=== PATIENT | male | born 1940 | race African-American/Black ===

== ENCOUNTER 2017-08-10 02:08 | Inpatient (IN) | payer MEDICARE ==
[2017-08-10 04:21] LABS: Eosinophils % (Auto) 3.6 % (0.0-4.3); Hematocrit 36.1 % (35.5-45.6); Hemoglobin 11.8 gm/dl (11.8-15.2); Lymphocytes % (Auto) 7.3 % (13.4-35.0); Mean Corpuscular HGB Conc 33 % (32-34); Mean Corpuscular Hemoglobin 32 pg (28-32); Mean Corpuscular Volume 97 fl (84-94); Monocytes % (Auto) 8.1 % (0.0-7.3); Platelet Count 172 K/mm3 (140-440); Red Blood Count 3.73 M/mm3 (3.65-5.03)
[2017-08-10 04:22] LABS: Basophils % (Auto) 0.3 % (0.0-1.8); Eosinophils # (Auto) 0.4 K/mm3 (0.0-0.4); Lymphocytes # (Auto) 0.7 K/mm3 (1.2-5.4); Monocytes # (Auto) 0.8 K/mm3 (0.0-0.8)
[2017-08-10 04:29] LABS: INR 2.49 (0.87-1.13)
[2017-08-10 04:30] LABS: Partial Thromboplastin Time 48.2 Sec. (24.2-36.6)
[2017-08-10 04:31] LABS: Albumin 4.1 g/dL (3.9-5)
[2017-08-10 04:38] LABS: Calcium 9.6 mg/dL (8.4-10.2)
--- NOTE | 2017-08-10 05:40 | Cat Scan Report ---
FINAL REPORT EXAM: CT ABDOMEN PELVIS WO CON HISTORY: Abd pain , hypocoagulative state TECHNIQUE: CT images obtained through the Abdomen and Pelvis without contrast. Transaxial, coronal and sagittal reformats are provided. PRIORS: None. FINDINGS: Imaged intrathoracic contents are remarkable for partially imaged pacemaker leads, cardiomegaly, prior aortic valve surgery, and small left and trace right pleural effusions with associated compressive atelectasis. Diminutive kidneys with renal cortical scarring. Extensive vascular calcification. Possible 1 millimeter nonobstructive collecting system stones. No hydroureteronephrosis. No stones in the urinary bladder. Patient status post prostatectomy. Surgical clips and pelvic phleboliths are noted. The liver, gallbladder, pancreas, spleen, and adrenal glands demonstrate a normal noncontrast appearance. The rectum is distended with stool. No perirectal edema or stranding. Large stool burden overall. Hollow enteric organs are otherwise normal in course and caliber. Appendix is normal. No intra-abdominal free air/fluid or lymphadenopathy. Aorta is normal in course and caliber with densely scattered atherosclerosis. Midline lower abdominal/pelvic incision. There is distension with adjacent stranding and edema involving the right transverse and oblique abdominal musculature best demonstrated on axial series 3, images 109-140. No acute or aggressive appearing skeletal findings. IMPRESSION: Hematoma within the right transversus and oblique abdominal muscles. Consider follow-up to ensure resolution as an underlying mass with tumoral hemorrhage could appear identical. Large stool burden. Likely cardiogenic small left and trace right pleural effusion. Additional chronic and postsurgical findings as detailed above. Dr. Hodgson discussed findings with Dr. Dillon At 0430 central Time on 08/10/2017 immediately following the examination.
[2017-08-10] MEDS ORDERED: VITAMIN K (ADULT ONLY) 5 MG in NACL 0.9% 50 ML IV ONE (06:06)
--- NOTE | 2017-08-10 06:15 | Emergency Department Report ---
HPI - General Chief Complaint: Skin/Abscess/Foreign Body Time Seen by Provider: 08/10/17 05:55 - HPI HPI: This is a 76-year-old Russian male presents to the emergency department with complaint of a few days of right-sided abdominal and flank pain and some expanding bruising of the skin. He denies any trauma to the area. He denies any nausea, vomiting, fever but does say that he has been having some constipation. He has a history of end-stage renal disease on hemodialysis on Friday//Friday. He has a past medical history of hypertension, atrial fibrillation on Coumadin, aortic stenosis, coronary artery disease with [place]. There is a language barrier so the language line was used. He was able to show me that his primer inserting machine adjuster is Dr. Duncan with [facility]. Unknown who he sees for nephrology. ED Past Medical Hx - Past Medical History Previous Medical History?: Yes Hx Hypertension: Yes Hx Heart Attack/AMI: Yes (stents) Hx Congestive Heart Failure: Yes Hx Diabetes: No Hx GERD: Yes Hx Renal Disease: Yes (TTS dialysis) Hx Arthritis: Yes Hx Kidney Stones: Yes (dialysis , , Fri) Additional medical history: high cholesterol, hypothyroidism. Graft to right arm. CAD - Surgical History Past Surgical History?: Yes Hx Open Heart Surgery: Yes Additional Surgical History: MICHAEL - Social History Smoking Status: Never Smoker Substance Use Type: None - Medications Home Medications: Home Medications Medication Instructions Recorded Confirmed Last Taken Type Fluticasone Propionate [Flovent 1 puff IH BID 03/06/14 10/02/15 08/22/15 History Diskus] Levothyroxine [Synthroid] 88 mcg PO QAM 03/06/14 10/02/15 08/22/15 History Omeprazole [PriLOSEC] 20 mg PO QDAY 03/06/14 10/02/15 08/22/15 History Sevelamer Carbonate [Renvela] 800 mg PO TIDWM 03/06/14 10/02/15 08/22/15 History Simvastatin 20 mg PO DAILY 03/06/14 10/02/15 08/22/15 History Aspirin EC [Aspirin Enteric Coated 81 mg PO DAILY 07/06/14 10/02/15 08/22/15 History TAB] Docusate Calcium (Nf) [Surfak (Nf)] 100 mg PO DAILY 07/06/14 10/02/15 08/22/15 History Ipratropium/Albuterol Sulfate 2 inh INHALATION DAILY 08/23/15 10/02/15 08/22/15 History [Combivent Respimat] Budesonide [Pulmicort Respules] 0.5 mg IH Q12HRT nebu 10/04/15 Unknown Rx Docusate Sodium [Colace CAP] 100 mg PO BID capsule 10/04/15 Unknown Rx HYDROcodone/APAP 5-325 [[place] 1 each PO Q6H PRN #30 tablet 10/04/15 Unknown Rx 5-325 mg TAB] Ipratropium/Albuterol Sulfate 1 ampul IH Q12HRT #30 ampul.neb 10/04/15 Unknown Rx [DUONEB *Not for PRN Use*] ED Review of Systems ROS: Stated complaint: RT FLANK PAIN Other details as noted in HPI Comment: All other systems reviewed and negative Constitutional: denies: chills, fever Eyes: denies: eye pain, eye discharge, vision change ENT: denies: ear pain, throat pain Respiratory: denies: cough, shortness of breath, wheezing Cardiovascular: denies: chest pain, palpitations Gastrointestinal: abdominal pain, constipation. denies: nausea, vomiting Genitourinary: denies: urgency, dysuria Musculoskeletal: denies: back pain, joint swelling, arthralgia Skin: change in color (ecchymosis). denies: rash Neurological: denies: headache, weakness, paresthesias Physical Exam - Physical Exam Vital Signs: Vital Signs 08/10/17 02:48 Temperature 98 F Pulse Rate 68 Respiratory 18 Rate Blood Pressure 106/49 O2 Sat by Pulse 98 Oximetry Physical Exam: GENERAL: The patient is well-developed well-nourished. HENT: Normocephalic. Atraumatic. Patient has moist mucous membranes. EYES: Extraocular motions are intact. Pupils equal reactive to light bilaterally. NECK: Supple. Trachea is midline. CHEST/LUNGS: Clear to auscultation. There is no respiratory distress noted. HEART/CARDIOVASCULAR: Regular. There is no tachycardia. There is no murmur. ABDOMEN: Abdomen is soft. There is mild tenderness palpation to the right lower quadrant of the abdomen. Patient has normal bowel sounds. SKIN: There is a large area of ecchymosis to the right lateral abdomen and flank. NEURO: The patient is awake, alert, and oriented. The patient is cooperative. The patient has no focal neurologic deficits. The patient has normal speech. MUSCULOSKELETAL: There is no tenderness or deformity. There is no limitation range of motion. There is no evidence of acute injury. ED Course Vital Signs 08/10/17 02:48 Temperature 98 F Pulse Rate 68 Respiratory 18 Rate Blood Pressure 106/49 O2 Sat by Pulse 98 Oximetry - Consultations Consultation #1: I spoke with the general surgeon, Dr. Lara, who recommends reversal of the anticoagulation for about one week, ice to the area of the hematoma and if possible an abdominal binder and he says he is happy to consult on this patient. I spoke to Dr. Kwan, primer inserting machine adjuster for [facility], who is aware of our plan to reverse the anticoagulation and they are happy to see the patient as a consult if necessary. 08/10/17 06:15 ED Medical Decision Making - Lab Data Result diagrams: 08/10/17 03:51 08/10/17 03:51 - Radiology Data Radiology results: report reviewed EXAM: CT ABDOMEN PELVIS WO CON HISTORY: Abd pain , hypocoagulative state TECHNIQUE: CT images obtained through the Abdomen and Pelvis without contrast. Transaxial, coronal and sagittal reformats are provided. PRIORS: None. FINDINGS: Imaged intrathoracic contents are remarkable for partially imaged pacemaker leads, cardiomegaly, prior aortic valve surgery, and small left and trace right pleural effusions with associated compressive atelectasis. Diminutive kidneys with renal cortical scarring. Extensive vascular calcification. Possible 1 millimeter nonobstructive collecting system stones. No hydroureteronephrosis. No stones in the urinary bladder. Patient status post prostatectomy. Surgical clips and pelvic phleboliths are noted. The liver, gallbladder, pancreas, spleen, and adrenal glands demonstrate a normal noncontrast appearance. The rectum is distended with stool. No perirectal edema or stranding. Large stool burden overall. Hollow enteric organs are otherwise normal in course and caliber. Appendix is normal. No intra-abdominal free air/fluid or lymphadenopathy. Aorta is normal in course and caliber with densely scattered atherosclerosis. Midline lower abdominal/pelvic incision. There is distension with adjacent stranding and edema involving the right transverse and oblique abdominal musculature best demonstrated on axial series 3, images 109-140. No acute or aggressive appearing skeletal findings. IMPRESSION: Hematoma within the right transversus and oblique abdominal muscles. Consider follow-up to ensure resolution as an underlying mass with tumoral hemorrhage could appear identical. Large stool burden. Likely cardiogenic small left and trace right pleural effusion. Additional chronic and postsurgical findings as detailed above. Dr. Reed discussed findings with Dr. Dillon At 0430 central Time on 08/10/2017 immediately following the examination. Transcribed By: MB Dictated By: EVARISTO REED MD Electronically Authenticated By: EVARISTO REED MD Signed Date/Time: 08/10/17 0138 - Medical Decision Making Patient presents with the complaint of some right-sided abdominal pain and bruising that is atraumatic. Labs are mostly unremarkable and show a therapeutic INR level. However CT of the abdomen and pelvis shows a hematoma within the abdominal muscles and also could display underlying mass with tumor hemorrhage. There is a large stool burden but no signs of obstruction. Gen. surgery was consult and they recommended reversal of the Coumadin so vitamin K was given. [facility] is aware and can be consult if necessary. This patient was presented to the overnight hospitalist who plans to give it to the morning hospitalist service for admission. - Differential Diagnosis appendicitis, colitis, muscle hematoma, Diverticulitis Critical Care Time: No Critical care attestation.: If time is entered above; I have spent that time in minutes in the direct care of this critically ill patient, excluding procedure time. ED Disposition Clinical Impression: Nontraumatic hematoma of muscle, ESRD on dialysis, Current use of residential anticoagulation Abdominal pain Qualifiers: Abdominal location: unspecified location Qualified Code(s): R10.9 - Unspecified abdominal pain Disposition: OP ADMIT IP TO THIS HOSP Is pt being admited?: Yes Condition: Fair Referrals: EVARISTO VAZQUEZ MD [Primary Care Provider] - 3-5 Days Time of Disposition: 06:31
[2017-08-10] MEDS ORDERED: DULCOLAX PR PRN (07:58)
[2017-08-10] MEDS ORDERED: TYLENOL PO PRN (07:58)
[2017-08-10] MEDS ORDERED: MORPHINE IV PRN (07:58)
[2017-08-10] MEDS ORDERED: ZOFRAN IV PRN (07:58)
--- NOTE | 2017-08-10 08:02 | History and Physical Report ---
History of Present Illness Date of examination: 08/10/17 Date of admission: 08/10/17 Chief complaint: Reddish rash right flank History of present illness: Patient is 76 yo with aortic stenosis, coronary artery disease, ESRD on dialysis, congestive heart failure, chronic atrial fibrillation .. He presents with right flank redness. He denies trauma, he denies fall. No fever. He is most probabbly on Coumadin for atrial fibrillation. There was no chest pain, no shortness of breath. He states he is compliant with dialysis. CT Abdomen revealed hematoma in right transverse and oblique abdominal muscles. His INR is 2.49. He will be admitted for further evaluation. Past History Past Medical History: acute [place], CAD, ESRD, heart failure, hypertension, hyperlipidemia, other (aortic stenosis) Past Surgical History: CABG Social history: , full code. denies: alcohol abuse Family history: other Medications and Allergies Allergies Allergy/AdvReac Type Severity Reaction Status Date / Time No Known Allergies Allergy Verified 05/22/16 17:56 Home Medications Medication Instructions Recorded Confirmed Last Taken Type Fluticasone Propionate [Flovent 1 puff IH BID 03/06/14 08/10/17 08/22/15 History Diskus] Levothyroxine [Synthroid] 88 mcg PO QAM 03/06/14 08/10/17 08/22/15 History Omeprazole [PriLOSEC] 20 mg PO QDAY 03/06/14 08/10/17 08/22/15 History Sevelamer Carbonate [Renvela] 800 mg PO TIDWM 03/06/14 08/10/17 08/22/15 History Simvastatin 20 mg PO DAILY 03/06/14 08/10/17 08/22/15 History Aspirin EC [Aspirin Enteric Coated 81 mg PO DAILY 07/06/14 08/10/17 08/22/15 History TAB] Docusate Calcium (Nf) [Surfak (Nf)] 100 mg PO DAILY 07/06/14 08/10/17 08/22/15 History Ipratropium/Albuterol Sulfate 2 inh INHALATION DAILY 08/23/15 08/10/17 08/22/15 History [Combivent Respimat] Budesonide [Pulmicort Respules] 0.5 mg IH Q12HRT nebu 10/04/15 08/10/17 Unknown Rx Docusate Sodium [Colace CAP] 100 mg PO BID capsule 10/04/15 08/10/17 Unknown Rx HYDROcodone/APAP 5-325 [[place] 1 each PO Q6H PRN #30 tablet 10/04/15 08/10/17 Unknown Rx 5-325 mg TAB] Ipratropium/Albuterol Sulfate 1 ampul IH Q12HRT #30 ampul.neb 10/04/15 08/10/17 Unknown Rx [DUONEB *Not for PRN Use*] Active Meds: Active Medications Acetaminophen (Tylenol) 650 mg PO Q4H PRN PRN Reason: Pain MILD(1-3)/Fever >100.5/FRASER Review of Systems All systems: negative (No fever, no headache,no vomiting. All other systems reviewed and are negative) Exam - Physical Exam Narrative exam: Gen Appearance: Not in acute distress, obese HEENT: Normocephalic, atraumatic Lungs:Clear to auscultation bilaterally, no crackles or wheeze Heart :S1 and S2 regular, no murmurs, rubs or gallop Abdomen: Soft, non-tender, non distended, Large bruise right flank, right lower abdomen,right groin area, Normal bowel sounds Extremities no edema clubbing no cyanosis, Neuro: Awake,alert, oriented x 3,no focal neurological signs - Constitutional Vitals: Temp Pulse Resp BP Pulse Ox 98 F 68 18 106/49 98 08/10/17 02:48 08/10/17 02:48 08/10/17 02:48 08/10/17 02:48 08/10/17 02:48 General appearance: Present: no acute distress - EENT ENT: hearing intact - Respiratory Respiratory: bilateral: CTA Results - Labs CBC & Chem 7: 08/11/17 05:30 08/11/17 05:30 Labs: Abnormal lab results 08/10/17 08/10/17 08/10/17 Range/Units 03:51 03:51 03:51 MCV 97 H (84-94) fl Lymph % (Auto) 7.3 L (13.4-35.0) % Crawford % (Auto) 8.1 H (0.0-7.3) % Lymph # 0.7 L (1.2-5.4) K/mm3 Seg Neutrophils % 80.7 H (40.0-70.0) % Seg Neutrophils # 8.2 H (1.8-7.7) K/mm3 PT 28.4 H (12.2-14.9) Sec. INR 2.49 H (0.87-1.13) APTT 48.2 H (24.2-36.6) Sec. BUN 30 H (9-20) mg/dL Creatinine 7.4 H (0.8-1.5) mg/dL Glucose 101 H (75-100) mg/dL Assessment and Plan Hematoma right transverse and oblique abdominal muscles. Hemoglobin 11.8, stable. Will get H/H q 6hr. His INR 2.49. His medication list unavailable, but presume he is probably on Coumadin for atrial fibrillation. Hold Coumadin. Chronic atrial fibrillation. Cardiology following ESRD on dialysis. Discussed with Nephrology Aortic stenosis. Currently, no chest pain. CAD s/p CABG. Stable. No chest pain Chronic CHF. Stable. No shortness of breath Obesity. Counseled on losing weight. DVT prophylaxis. On Coumadin
--- NOTE | 2017-08-10 10:22 | Consultation ---
History of Present Illness Consult date: 08/10/17 History of present illness: Right abdominal hematoma, spontaneous. Patient denies falls or trauma. Patient denies chest pain or shortness of breath. INR is therapeutic Past History Past Medical History: acute [place], CAD, ESRD, heart failure, hypertension, hyperlipidemia, other (aortic stenosis) Past Surgical History: CABG Social history: , full code. denies: alcohol abuse Family history: other Medications and Allergies Allergies Allergy/AdvReac Type Severity Reaction Status Date / Time No Known Allergies Allergy Verified 05/22/16 17:56 Home Medications Medication Instructions Recorded Confirmed Last Taken Type Fluticasone Propionate [Flovent 1 puff IH BID 03/06/14 10/02/15 08/22/15 History Diskus] Levothyroxine [Synthroid] 88 mcg PO QAM 03/06/14 10/02/15 08/22/15 History Omeprazole [PriLOSEC] 20 mg PO QDAY 03/06/14 10/02/15 08/22/15 History Sevelamer Carbonate [Renvela] 800 mg PO TIDWM 03/06/14 10/02/15 08/22/15 History Simvastatin 20 mg PO DAILY 03/06/14 10/02/15 08/22/15 History Aspirin EC [Aspirin Enteric Coated 81 mg PO DAILY 07/06/14 10/02/15 08/22/15 History TAB] Docusate Calcium (Nf) [Surfak (Nf)] 100 mg PO DAILY 07/06/14 10/02/15 08/22/15 History Ipratropium/Albuterol Sulfate 2 inh INHALATION DAILY 08/23/15 10/02/15 08/22/15 History [Combivent Respimat] Budesonide [Pulmicort Respules] 0.5 mg IH Q12HRT nebu 10/04/15 Unknown Rx Docusate Sodium [Colace CAP] 100 mg PO BID capsule 10/04/15 Unknown Rx HYDROcodone/APAP 5-325 [[place] 1 each PO Q6H PRN #30 tablet 10/04/15 Unknown Rx 5-325 mg TAB] Ipratropium/Albuterol Sulfate 1 ampul IH Q12HRT #30 ampul.neb 10/04/15 Unknown Rx [DUONEB *Not for PRN Use*] Active Meds: Active Medications Acetaminophen (Tylenol) 650 mg PO Q4H PRN PRN Reason: Pain MILD(1-3)/Fever >100.5/FRASER Bisacodyl (Dulcolax) 10 mg MD QDAY PRN PRN Reason: Constipation unrelieved by MOM Morphine Sulfate (Morphine) 2 mg IV Q4H PRN PRN Reason: Pain, Moderate (4-6) Ondansetron HCl (Zofran) 4 mg IV Q6H PRN PRN Reason: nausea or vomiting Review of Systems All systems: negative Physical Examination Vital Signs Temp Pulse Resp BP Pulse Ox 98 F 68 18 106/49 98 08/10/17 02:48 08/10/17 02:48 08/10/17 02:48 08/10/17 02:48 08/10/17 02:48 General appearance: no acute distress HEENT: Positive: PERRL Neck: Positive: neck supple Cardiac: Positive: Reg Rate and Rhythm Lungs: Positive: Normal Exam Abdomen: Positive: Soft Extremities: Absent: edema Results 08/10/17 03:51 08/10/17 03:51 Cardiac Enzymes 08/10/17 Range/Units 03:51 AST 37 (5-40) units/L Coagulation 08/10/17 Range/Units 03:51 PT 28.4 H (12.2-14.9) Sec. INR 2.49 H (0.87-1.13) APTT 48.2 H (24.2-36.6) Sec. CBC 08/10/17 Range/Units 03:51 WBC 10.2 (4.5-11.0) K/mm3 RBC 3.73 (3.65-5.03) M/mm3 Hgb 11.8 (11.8-15.2) gm/dl Hct 36.1 (35.5-45.6) % Plt Count 172 (140-440) K/mm3 Lymph # 0.7 L (1.2-5.4) K/mm3 Cottle # 0.8 (0.0-0.8) K/mm3 Eos # 0.4 (0.0-0.4) K/mm3 Baso # 0.0 (0.0-0.1) K/mm3 Comprehensive Metabolic Panel 08/10/17 Range/Units 03:51 Sodium 142 (137-145) mmol/L Potassium 4.8 (3.6-5.0) mmol/L Chloride 98.6 (98-107) mmol/L Carbon Dioxide 27 (22-30) mmol/L BUN 30 H (9-20) mg/dL Creatinine 7.4 H (0.8-1.5) mg/dL Glucose 101 H (75-100) mg/dL Calcium 9.6 (8.4-10.2) mg/dL AST 37 (5-40) units/L ALT 30 (7-56) units/L Alkaline Phosphatase 92 (35-129) units/L Total Protein 7.5 (6.3-8.2) g/dL Albumin 4.1 (3.9-5) g/dL Assessment and Plan Spontaneous abdominal wall hematoma Chronic anticoagulation with coumadin for PAF (INR 2.49) 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
--- NOTE | 2017-08-10 11:23 | Consultation ---
History of Present Illness - Reason for Consult Consult date: 08/10/17 end stage renal disease Requesting physician: EVARISTO ROSE - History of Present Illness This is a 76-year-old [place] male presents to the emergency department with complaint of a few days of right-sided abdominal and flank pain and some expanding bruising of the skin. He denies any trauma to the area. He denies any nausea, vomiting, fever but does say that he has been having some constipation. He has a history of end-stage renal disease on hemodialysis on Friday//Friday. He has a past medical history of hypertension, atrial fibrillation on Coumadin, aortic stenosis, coronary artery disease with [place]. There is a language barrier so the language line was used. He was able to show me that his land acquisition analyst is Dr. Duncan with [facility]. He undergoes dialysis at [facility] under my care. He did complete his full dialysis treatment yesterday. Patient denies any shortness of breath. No nausea or vomiting Past History Past Medical History: acute [place], CAD, ESRD, heart failure, hypertension, hyperlipidemia, other (aortic stenosis) Past Surgical History: CABG Social history: , full code. denies: alcohol abuse Family history: other Medications and Allergies Allergies Allergy/AdvReac Type Severity Reaction Status Date / Time No Known Allergies Allergy Verified 05/22/16 17:56 Home Medications Medication Instructions Recorded Confirmed Last Taken Type Fluticasone Propionate [Flovent 1 puff IH BID 03/06/14 10/02/15 08/22/15 History Diskus] Levothyroxine [Synthroid] 88 mcg PO QAM 03/06/14 10/02/15 08/22/15 History Omeprazole [PriLOSEC] 20 mg PO QDAY 03/06/14 10/02/15 08/22/15 History Sevelamer Carbonate [Renvela] 800 mg PO TIDWM 03/06/14 10/02/15 08/22/15 History Simvastatin 20 mg PO DAILY 03/06/14 10/02/15 08/22/15 History Aspirin EC [Aspirin Enteric Coated 81 mg PO DAILY 07/06/14 10/02/15 08/22/15 History TAB] Docusate Calcium (Nf) [Surfak (Nf)] 100 mg PO DAILY 07/06/14 10/02/15 08/22/15 History Ipratropium/Albuterol Sulfate 2 inh INHALATION DAILY 08/23/15 10/02/15 08/22/15 History [Combivent Respimat] Budesonide [Pulmicort Respules] 0.5 mg IH Q12HRT nebu 10/04/15 Unknown Rx Docusate Sodium [Colace CAP] 100 mg PO BID capsule 10/04/15 Unknown Rx HYDROcodone/APAP 5-325 [[place] 1 each PO Q6H PRN #30 tablet 10/04/15 Unknown Rx 5-325 mg TAB] Ipratropium/Albuterol Sulfate 1 ampul IH Q12HRT #30 ampul.neb 10/04/15 Unknown Rx [DUONEB *Not for PRN Use*] Active Meds: Active Medications Acetaminophen (Tylenol) 650 mg PO Q4H PRN PRN Reason: Pain MILD(1-3)/Fever >100.5/FRASER Bisacodyl (Dulcolax) 10 mg [place] QDAY PRN PRN Reason: Constipation unrelieved by MOM Morphine Sulfate (Morphine) 2 mg IV Q4H PRN PRN Reason: Pain, Moderate (4-6) Ondansetron HCl (Zofran) 4 mg IV Q6H PRN PRN Reason: nausea or vomiting Review of Systems All systems: negative (negative except as noted above) Exam - Vital Signs Vital signs: Vital Signs Temp Pulse Resp BP Pulse Ox 98 F 68 18 106/49 98 08/10/17 02:48 08/10/17 02:48 08/10/17 02:48 08/10/17 02:48 08/10/17 02:48 - General Appearance General appearance: well-developed, well-nourished, appears stated age EENT: PERRL, mucous membranes moist Neck: Present: neck supple, trachea midline. Absent: JVD/HJR, Masses Respiratory: Clear to Ascultation Heart: irregularly irregular Gastrointestinal: Present: normoactive bowel sounds, other (large bruise noted in his right flank area). Absent: distended, masses, guarding Integumentary: other (AV graft in his right upper arm. Good bruit and thrill) Results - Lab Results 08/10/17 03:51 08/10/17 03:51 Most recent lab results Calcium 9.6 mg/dL (8.4-10.2) 08/10/17 03:51 Assessment and Plan Impression * Hematoma in his right abdominal wall * End-stage renal disease on maintenance hemodialysis * Chronic atrial fibrillation * Aortic stenosis * Coronary artery disease status post bypass surgery * Hypothyroidism * Hypertension * Diabetes Recommendations * Continue hemodialysis on Tuesdays, and Saturdays schedule as outpatient * Monitor H&H * Anticoagulation as per cardiology services * No IV, BP venipuncture in his access arm * Adjust diet and meds for ESRD state * Binders with diet * Procrit per protocol. Hold for now as hematocrit is 36 * Thank you very much for the consultation. Shall follow along with you
--- NOTE | 2017-08-10 14:05 | Consultation ---
History of Present Illness Consult date: 08/10/17 Reason for consult: other (abdominal wall hematoma) Requesting physician: DYAN MCKEON Chief complaint: right sided abdominal pain - History of present illness History of present illness: 76yo M with multiple medical problems on coumadin for a.fib and aortic valve presented to ED with 3 day history of pain and bruising on right abdominal side wall. Pt reports that he was coughing prior to the development of the hematoma. No other trauma noted. Reports cough is better now. Pain is ok. No other issue. Hematoma is not getting bigger. It is moving down to the leg. Past History Past Medical History: acute AL, CAD, ESRD, heart failure, hypertension, hyperlipidemia, other (aortic stenosis) Past Surgical History: valve replacement, CABG Social history: , full code. denies: alcohol abuse Family history: other Medications and Allergies Allergies Allergy/AdvReac Type Severity Reaction Status Date / Time No Known Allergies Allergy Verified 05/22/16 17:56 Home Medications Medication Instructions Recorded Confirmed Last Taken Type Fluticasone Propionate [Flovent 1 puff IH BID 03/06/14 10/02/15 08/22/15 History Diskus] Levothyroxine [Synthroid] 88 mcg PO QAM 03/06/14 10/02/15 08/22/15 History Omeprazole [PriLOSEC] 20 mg PO QDAY 03/06/14 10/02/15 08/22/15 History Sevelamer Carbonate [Renvela] 800 mg PO TIDWM 03/06/14 10/02/15 08/22/15 History Simvastatin 20 mg PO DAILY 03/06/14 10/02/15 08/22/15 History Aspirin EC [Aspirin Enteric Coated 81 mg PO DAILY 07/06/14 10/02/15 08/22/15 History TAB] Docusate Calcium (Nf) [Surfak (Nf)] 100 mg PO DAILY 07/06/14 10/02/15 08/22/15 History Ipratropium/Albuterol Sulfate 2 inh INHALATION DAILY 08/23/15 10/02/15 08/22/15 History [Combivent Respimat] Budesonide [Pulmicort Respules] 0.5 mg IH Q12HRT nebu 10/04/15 Unknown Rx Docusate Sodium [Colace CAP] 100 mg PO BID capsule 10/04/15 Unknown Rx HYDROcodone/APAP 5-325 [[place] 1 each PO Q6H PRN #30 tablet 10/04/15 Unknown Rx 5-325 mg TAB] Ipratropium/Albuterol Sulfate 1 ampul IH Q12HRT #30 ampul.neb 10/04/15 Unknown Rx [DUONEB *Not for PRN Use*] Active Meds: Active Medications Acetaminophen (Tylenol) 650 mg PO Q4H PRN PRN Reason: Pain MILD(1-3)/Fever >100.5/FRASER Bisacodyl (Dulcolax) 10 mg DC QDAY PRN PRN Reason: Constipation unrelieved by MOM Morphine Sulfate (Morphine) 2 mg IV Q4H PRN PRN Reason: Pain, Moderate (4-6) Ondansetron HCl (Zofran) 4 mg IV Q6H PRN PRN Reason: nausea or vomiting Review of Systems - Constitutional no fever, no chills, no sweats, no night sweats, no weakness - Cardiovascular rapid/irregular heart beat, no chest pain - Respiratory cough (but is better today) - Gastrointestinal abdominal pain (but is better now - on the right side only), constipation, no nausea, no vomiting, no diarrhea - Integumentary unusual bruising (on right side of abdominal wall) - Neurological no syncope Exam Vital Signs Temp Pulse Resp BP Pulse Ox 98 F 68 18 106/49 98 08/10/17 02:48 08/10/17 02:48 08/10/17 02:48 08/10/17 02:48 08/10/17 02:48 Narrative exam: NAD. 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 - General physical appearance Positive: well developed, well nourished, no distress, no pain - Eyes Positive: normal occular movement - Respiratory Positive: normal expansion, normal respiratory effort - Abdomen Abdomen: Present: soft, bowel sounds normal, other (no significant hematoma felt in area of ecchymoses. two areas of ecchymoses - upper one is about 20cm in diameter. The lower one is [id number]. Both feel soft without any significant hematoma). Absent: tender, distended, rebound, guarding, rigid - Neurologic Neurologic: alert and oriented to time, place and person - Psychiatric Psychiatric: appropriate mood/affect, intact judgment & insight Results - Labs 08/10/17 03:51 08/10/17 03:51 Abnormal lab results 08/10/17 08/10/17 08/10/17 Range/Units 03:51 03:51 03:51 MCV 97 H (84-94) fl Lymph % (Auto) 7.3 L (13.4-35.0) % [place] % (Auto) 8.1 H (0.0-7.3) % Lymph # 0.7 L (1.2-5.4) K/mm3 Seg Neutrophils % 80.7 H (40.0-70.0) % Seg Neutrophils # 8.2 H (1.8-7.7) K/mm3 PT 28.4 H (12.2-14.9) Sec. INR 2.49 H (0.87-1.13) APTT 48.2 H (24.2-36.6) Sec. BUN 30 H (9-20) mg/dL Creatinine 7.4 H (0.8-1.5) mg/dL Glucose 101 H (75-100) mg/dL Diabetes panel 08/10/17 Range/Units 03:51 Sodium 142 (137-145) mmol/L Potassium 4.8 (3.6-5.0) mmol/L Chloride 98.6 (98-107) mmol/L Carbon Dioxide 27 (22-30) mmol/L BUN 30 H (9-20) mg/dL Creatinine 7.4 H (0.8-1.5) mg/dL Glucose 101 H (75-100) mg/dL Calcium 9.6 (8.4-10.2) mg/dL AST 37 (5-40) units/L ALT 30 (7-56) units/L Alkaline Phosphatase 92 (35-129) units/L Total Protein 7.5 (6.3-8.2) g/dL Albumin 4.1 (3.9-5) g/dL Calcium panel 08/10/17 Range/Units 03:51 Calcium 9.6 (8.4-10.2) mg/dL Albumin 4.1 (3.9-5) g/dL Pituitary panel 08/10/17 Range/Units 03:51 Sodium 142 (137-145) mmol/L Potassium 4.8 (3.6-5.0) mmol/L Chloride 98.6 (98-107) mmol/L Carbon Dioxide 27 (22-30) mmol/L BUN 30 H (9-20) mg/dL Creatinine 7.4 H (0.8-1.5) mg/dL Glucose 101 H (75-100) mg/dL Calcium 9.6 (8.4-10.2) mg/dL Adrenal panel 08/10/17 Range/Units 03:51 Sodium 142 (137-145) mmol/L Potassium 4.8 (3.6-5.0) mmol/L Chloride 98.6 (98-107) mmol/L Carbon Dioxide 27 (22-30) mmol/L BUN 30 H (9-20) mg/dL Creatinine 7.4 H (0.8-1.5) mg/dL Glucose 101 H (75-100) mg/dL Calcium 9.6 (8.4-10.2) mg/dL Total Bilirubin 0.60 (0.1-1.2) mg/dL AST 37 (5-40) units/L ALT 30 (7-56) units/L Alkaline Phosphatase 92 (35-129) units/L Total Protein 7.5 (6.3-8.2) g/dL Albumin 4.1 (3.9-5) g/dL - Imaging CT scan - abdomen: report reviewed, image reviewed Assessment and Plan - Patient Problems (1) Nontraumatic hematoma of muscle Onset Date: ~08/07/17 Current Visit: Yes Status: Acute Plan to address problem: Pt stable. The appearance of the ecchymoses is more impressive than the actual bleed. I would not reverse his anticoagulation. I would just hold his dose of coumadin today. His Hgb and vitals do not support any significant bleed. Rec - 1) abdominal binder 2) ice packs for 15min 4-5 times a day. Would do this for 1 week 3) Check Hgb tomorrow. If stable, resume coumadin and then ok to d/c home from my standpoint. Will follow with you. thank you. time=60min
[2017-08-10 18:11] LABS: Hematocrit 38.3 % (35.5-45.6); Hemoglobin 12.6 gm/dl (11.8-15.2)
[2017-08-11 06:17] LABS: Hemoglobin 9.9 gm/dl (11.8-15.2); Mean Corpuscular HGB Conc 34 % (32-34); Mean Corpuscular Hemoglobin 33 pg (28-32); Mean Corpuscular Volume 97 fl (84-94); Platelet Count 133 K/mm3 (140-440); Red Blood Count 2.99 M/mm3 (3.65-5.03); Red Cell Distribution Width 13.9 % (13.2-15.2)
[2017-08-11 06:40] LABS: Basophils % (Auto) 0.5 % (0.0-1.8); Eosinophils # (Auto) 0.5 K/mm3 (0.0-0.4); Eosinophils % (Auto) 5.9 % (0.0-4.3); Hematocrit 29.4 % (35.5-45.6); Lymphocytes # (Auto) 1.1 K/mm3 (1.2-5.4); Lymphocytes % (Auto) 14.1 % (13.4-35.0); Monocytes # (Auto) 0.7 K/mm3 (0.0-0.8); Monocytes % (Auto) 9.4 % (0.0-7.3)
[2017-08-11 06:54] LABS: Calcium 8.7 mg/dL (8.4-10.2)
[2017-08-11 08:00] LABS: INR 1.97 (0.87-1.13)
[2017-08-11] MEDS ORDERED: NACL 0.9% 100 ML IV PRN (09:00)
--- NOTE | 2017-08-11 09:00 | Progress Note ---
Assessment and Plan Impression * Hematoma in his right abdominal wall * End-stage renal disease on maintenance hemodialysis * Chronic atrial fibrillation * Aortic stenosis * Coronary artery disease status post bypass surgery * Hypothyroidism * Hypertension * Diabetes Recommendations * Continue hemodialysis on Tuesdays, and Saturdays * Monitor H&H * Anticoagulation as per cardiology services * No IV, BP venipuncture in his access arm * Adjust diet and meds for ESRD state * Binders with diet * Procrit per protocol. Subjective Date of service: 08/11/17 Principal diagnosis: ESRD Interval history: resting well in bed today Objective - Exam Narrative Exam: General appearance: well-developed, well-nourished, appears stated age EENT: PERRL, mucous membranes moist Neck: Present: neck supple, trachea midline. Absent: JVD/HJR, Masses Respiratory: Clear to Ascultation Heart: irregularly irregular Gastrointestinal: Present: normoactive bowel sounds, other (large bruise noted in his right flank area). Absent: distended, masses, guarding Integumentary: other (AV graft in his right upper arm. Good bruit and thrill) - Vital Signs Vital signs: Vital Signs - 12hr 08/11/17 08/11/17 08/11/17 00:12 00:34 01:00 Temperature 98.5 F 98.3 F Pulse Rate 61 65 Respiratory 6 L 18 Rate Blood Pressure 132/54 Blood Pressure 132/54 [Left] O2 Sat by Pulse 95 Oximetry 08/11/17 06:14 Temperature 97.7 F Pulse Rate 63 Respiratory 24 Rate Blood Pressure 132/61 Blood Pressure [Left] O2 Sat by Pulse 97 Oximetry - Lab 08/11/17 05:30 08/11/17 05:30 Most recent lab results Calcium 8.7 mg/dL (8.4-10.2) 08/11/17 05:30
[2017-08-11] MEDS ORDERED: NORCO 5/325 PO PRN (09:41)
--- NOTE | 2017-08-11 09:44 | Progress Note ---
Assessment and Plan Assessment and plan: Hematoma right transverse and oblique abdominal muscles. Hemoglobin 9.9 today. Will get H/H q 8hr. His INR was 2.49 yesterday and is 1.97 today. He has been on Coumadin, verified by checking his medical records at cardiology office. Chronic atrial fibrillation. Cardiology following. INR 1.97. Will discuss with cardiology wether to resume Coumadin ESRD on hemodialysis. Discussed with Nephrology yesterday. Aortic stenosis. Currently, no chest pain. CAD s/p CABG. Stable. No chest pain Chronic CHF. Stable. No shortness of breath Hypothyroidism. On synthroid Obesity. Counseled on losing weight. DVT prophylaxis. On Coumadin History Interval history: Bruise right flank and groin, no history of fall or trauma no fever Hospitalist Physical - Physical exam Narrative exam: Gen Appearance: Not in acute distress, obese HEENT: Normocephalic, atraumatic Lungs:Clear to auscultation bilaterally, no crackles or wheeze Heart :S1 and S2 regular, no murmurs, rubs or gallop Abdomen: Soft, non-tender, non distended, Large bruise right flank, right lower abdomen,right groin area, Normal bowel sounds Extremities no edema clubbing no cyanosis, Neuro: Awake,alert, oriented x 3,no focal neurological signs - Constitutional Vitals: Temp Pulse Resp BP Pulse Ox 97.7 F 63 24 132/61 97 08/11/17 06:14 08/11/17 06:14 08/11/17 06:14 08/11/17 06:14 08/11/17 06:14 General appearance: Present: no acute distress Results - Labs CBC & Chem 7: 08/11/17 11:39 08/11/17 05:30 Labs: Laboratory Last Values WBC 7.8 K/mm3 (4.5-11.0) 08/11/17 05:30 RBC 2.99 M/mm3 (3.65-5.03) L 08/11/17 05:30 Hgb 9.9 gm/dl (11.8-15.2) L 08/11/17 05:30 Hct 29.4 % (35.5-45.6) L D 08/11/17 05:30 MCV 97 fl (84-94) H 08/11/17 05:30 MCH 33 pg (28-32) H 08/11/17 05:30 MCHC 34 % (32-34) 08/11/17 05:30 RDW 13.9 % (13.2-15.2) 08/11/17 05:30 Plt Count 133 K/mm3 (140-440) L 08/11/17 05:30 Lymph % (Auto) 14.1 % (13.4-35.0) 08/11/17 05:30 [place] % (Auto) 9.4 % (0.0-7.3) H 08/11/17 05:30 Eos % (Auto) 5.9 % (0.0-4.3) H 08/11/17 05:30 Baso % (Auto) 0.5 % (0.0-1.8) 08/11/17 05:30 Lymph # 1.1 K/mm3 (1.2-5.4) L 08/11/17 05:30 [place] # 0.7 K/mm3 (0.0-0.8) 08/11/17 05:30 Eos # 0.5 K/mm3 (0.0-0.4) H 08/11/17 05:30 Baso # 0.0 K/mm3 (0.0-0.1) 08/11/17 05:30 Seg Neutrophils % 70.1 % (40.0-70.0) H 08/11/17 05:30 Seg Neutrophils # 5.5 K/mm3 (1.8-7.7) 08/11/17 05:30 PT 23.6 Sec. (12.2-14.9) H 08/11/17 07:07 INR 1.97 (0.87-1.13) H 08/11/17 07:07 APTT 48.2 Sec. (24.2-36.6) H 08/10/17 03:51 Sodium 140 mmol/L (137-145) 08/11/17 05:30 Potassium 4.6 mmol/L (3.6-5.0) 08/11/17 05:30 Chloride 99.2 mmol/L (98-107) 08/11/17 05:30 Carbon Dioxide 28 mmol/L (22-30) 08/11/17 05:30 Anion Gap 17 mmol/L 08/11/17 05:30 BUN 53 mg/dL (9-20) H 08/11/17 05:30 Creatinine 10.2 mg/dL (0.8-1.5) H 08/11/17 05:30 Estimated GFR 5 ml/min 08/11/17 05:30 BUN/Creatinine Ratio 5 % 08/11/17 05:30 Glucose 100 mg/dL (75-100) 08/11/17 05:30 Calcium 8.7 mg/dL (8.4-10.2) 08/11/17 05:30 Total Bilirubin 0.60 mg/dL (0.1-1.2) 08/10/17 03:51 AST 37 units/L (5-40) 08/10/17 03:51 ALT 30 units/L (7-56) 08/10/17 03:51 Alkaline Phosphatase 92 units/L (35-129) 08/10/17 03:51 Total Protein 7.5 g/dL (6.3-8.2) 08/10/17 03:51 Albumin 4.1 g/dL (3.9-5) 08/10/17 03:51 Albumin/Globulin Ratio 1.2 % 08/10/17 03:51
[2017-08-11] MEDS ORDERED: DUONEB *Not for PRN Use IH SCH (09:45)
[2017-08-11] MEDS ORDERED: SYNTHROID PO SCH (10:00)
[2017-08-11] MEDS ORDERED: ALBUTEROL SULFATE INHALATION SCH (10:00)
[2017-08-11] MEDS ORDERED: IPRATROPIUM INHALATION SCH (10:00)
[2017-08-11] MEDS ORDERED: NON-FORMULARY (Simvastatin [Simvastatin] 20 MG) PO SCH (10:00)
[2017-08-11] MEDS ORDERED: NON-FORMULARY (Omeprazole [Prilosec] 20 MG) PO SCH (10:00)
[2017-08-11] MEDS ORDERED: NON-FORMULARY (Fluticasone Propionate [Flovent Diskus] 1 PUFF) IH SCH (10:00)
--- NOTE | 2017-08-11 11:09 | Progress Note ---
Assessment and Plan - Patient Problems (1) Nontraumatic hematoma of muscle Onset Date: ~08/07/17 Current Visit: Yes Status: Acute Plan to address problem: Pt stable. The appearance of the ecchymoses is better today. I doubt the drop in hgb is related to ongoing bleed. It is probably more dilutional. By clinical exam and vitals, he is stable. As a precaution, may want to consider observing him for 1 more day, hold coumdain for today, and recheck cbc in AM. Spoke with nurse again. Pt did not get his binder or ice pack yesterday. I will re-order these things. Rec - 1) abdominal binder 2) ice packs for 15min 4-5 times a day. Would do this for 1 week 3) Check Hgb tomorrow. If stable, resume coumadin and then ok to d/c home from my standpoint. Will follow with you. thank you. time=20min Subjective Date of service: 08/11/17 Patient Reports: Positive: no new complaints, feels better, pain is less, other (no increase swelling or pain in areas of ecchymoses. Feels well. No other problems.) Objective Vital Signs - 12hr 08/11/17 08/11/17 08/11/17 00:12 00:34 01:00 Temperature 98.5 F 98.3 F Pulse Rate 61 65 Respiratory 6 L 18 Rate Blood Pressure 132/54 Blood Pressure 132/54 [Left] O2 Sat by Pulse 95 Oximetry 08/11/17 06:14 Temperature 97.7 F Pulse Rate 63 Respiratory 24 Rate Blood Pressure 132/61 Blood Pressure [Left] O2 Sat by Pulse 97 Oximetry - General physical appearance Narrative Exam: easiy awakened from sleep. Very pleasant. NAD. Spoke via currency examiner #[id number] well developed, well nourished, no distress, no pain - Eyes normal occular movement - Respiratory normal expansion, normal respiratory effort - Abdomen soft, not tender, not rebound, not guarding, not rigid, other (ecchymoses seem to be resolving. no new hematoma formation. No significant hematoma appreciated. Non-tender. Very superficial) - Integumentary no rash - Neurologic normal coordination, normal sensation - Psychiatric speech is normal, memory intact - Labs 08/11/17 05:30 08/11/17 05:30 Diabetes panel 08/11/17 Range/Units 05:30 Sodium 140 (137-145) mmol/L Potassium 4.6 (3.6-5.0) mmol/L Chloride 99.2 (98-107) mmol/L Carbon Dioxide 28 (22-30) mmol/L BUN 53 H (9-20) mg/dL Creatinine 10.2 H (0.8-1.5) mg/dL Glucose 100 (75-100) mg/dL Calcium 8.7 (8.4-10.2) mg/dL Calcium panel 08/11/17 Range/Units 05:30 Calcium 8.7 (8.4-10.2) mg/dL Pituitary panel 08/11/17 Range/Units 05:30 Sodium 140 (137-145) mmol/L Potassium 4.6 (3.6-5.0) mmol/L Chloride 99.2 (98-107) mmol/L Carbon Dioxide 28 (22-30) mmol/L BUN 53 H (9-20) mg/dL Creatinine 10.2 H (0.8-1.5) mg/dL Glucose 100 (75-100) mg/dL Calcium 8.7 (8.4-10.2) mg/dL Adrenal panel 08/11/17 Range/Units 05:30 Sodium 140 (137-145) mmol/L Potassium 4.6 (3.6-5.0) mmol/L Chloride 99.2 (98-107) mmol/L Carbon Dioxide 28 (22-30) mmol/L BUN 53 H (9-20) mg/dL Creatinine 10.2 H (0.8-1.5) mg/dL Glucose 100 (75-100) mg/dL Calcium 8.7 (8.4-10.2) mg/dL
[2017-08-11] MEDS ORDERED: PROVENTIL IH PRN (11:33)
[2017-08-11 11:54] LABS: Hemoglobin 11.1 gm/dl (11.8-15.2)
[2017-08-11] MEDS: COLACE PO SCH ×2 (12:00→22:41)
--- NOTE | 2017-08-11 12:13 | Progress Note ---
Assessment and Plan Spontaneous abdominal wall hematoma Paroxysmal Afib anticoagulation with coumadin. INR 2.49 on presentation s/p TAVR 03/26/2016 Hx of Complete heart block s/p PPM 2015 (dual chamber SJM) CAD s/p CABG All grafts patent by [facility] 08/2015 LVEF 50-55% 09/2015 ESRD on dialysis Subjective Date of service: 08/11/17 Principal diagnosis: ESRD Interval history: Patient is resting in bed comfortably. Objective Vital Signs Temp Pulse Resp BP BP Pulse Ox 08/11/17 06:14 97.7 F 63 24 132/61 97 08/11/17 01:00 65 08/11/17 00:34 98.3 F 61 18 132/54 95 08/11/17 00:12 98.5 F 6 L 132/54 08/10/17 20:11 98.1 F 67 18 149/61 96 08/10/17 17:34 98.1 F 63 20 151/64 98 08/10/17 15:25 98.1 F 63 20 151/54 98 08/10/17 12:36 97.6 F 57 L 20 157/53 96 - Physical Examination HEENT: Positive: PERRL Neck: Positive: neck supple, trachea midline. Negative: JVD/HJR, Masses Abdomen: Positive: Soft Extremities: Absent: edema - Labs and Meds Coagulation 08/11/17 Range/Units 07:07 PT 23.6 H (12.2-14.9) Sec. INR 1.97 H (0.87-1.13) CBC 08/10/17 08/11/17 08/11/17 Range/Units 17:00 05:30 11:39 WBC 7.8 (4.5-11.0) K/mm3 RBC 2.99 L (3.65-5.03) M/mm3 Hgb 12.6 9.9 L 11.1 L (11.8-15.2) gm/dl Hct 38.3 29.4 L D 33.0 L (35.5-45.6) % Plt Count 133 L (140-440) K/mm3 Lymph # 1.1 L (1.2-5.4) K/mm3 [place] # 0.7 (0.0-0.8) K/mm3 Eos # 0.5 H (0.0-0.4) K/mm3 Baso # 0.0 (0.0-0.1) K/mm3 Comprehensive Metabolic Panel 08/11/17 Range/Units 05:30 Sodium 140 (137-145) mmol/L Potassium 4.6 (3.6-5.0) mmol/L Chloride 99.2 (98-107) mmol/L Carbon Dioxide 28 (22-30) mmol/L BUN 53 H (9-20) mg/dL Creatinine 10.2 H (0.8-1.5) mg/dL Glucose 100 (75-100) mg/dL Calcium 8.7 (8.4-10.2) mg/dL
[2017-08-11] MEDS: SYNTHROID PO SCH (12:45)
[2017-08-11] MEDS: HALFPRIN EC PO SCH (13:00)
[2017-08-11] MEDS: RENVELA PO SCH (16:58)
[2017-08-11] MEDS: PULMICORT IH SCH (21:40)
[2017-08-11] MEDS: DUONEB *Not for PRN Use IH SCH (21:40)
[2017-08-11] MEDS ORDERED: NACL 0.9 (PRIMING MACHINE ONLY DIALYSIS) MC ONE (21:42)
[2017-08-11] MEDS ORDERED: PRAVACHOL PO SCH (22:00)
[2017-08-12] MEDS: DUONEB *Not for PRN Use IH SCH (03:08)
[2017-08-12 05:49] LABS: Hematocrit 30.5 % (35.5-45.6); Hemoglobin 10.3 gm/dl (11.8-15.2); Mean Corpuscular HGB Conc 34 % (32-34); Mean Corpuscular Hemoglobin 33 pg (28-32); Mean Corpuscular Volume 98 fl (84-94); Platelet Count 147 K/mm3 (140-440); Red Blood Count 3.12 M/mm3 (3.65-5.03); Red Cell Distribution Width 14.1 % (13.2-15.2)
[2017-08-12] MEDS: SYNTHROID PO SCH (06:11)
[2017-08-12 07:24] LABS: Calcium 8.5 mg/dL (8.4-10.2)
[2017-08-12] MEDS: RENVELA PO SCH ×2 (08:00→13:37)
[2017-08-12] MEDS ORDERED: BROVANA NEBU IH SCH (08:00)
[2017-08-12] MEDS: PULMICORT IH SCH (08:10)
--- NOTE | 2017-08-12 08:43 | Progress Note ---
Assessment and Plan Impression * Hematoma in his right abdominal wall * End-stage renal disease on maintenance hemodialysis * Chronic atrial fibrillation * Aortic stenosis * Coronary artery disease status post bypass surgery * Hypothyroidism * Hypertension * Diabetes Recommendations * Continue hemodialysis on Tuesdays, and Saturdays, received hd yesterday * Monitor H&H * Anticoagulation as per cardiology services * No IV, BP venipuncture in his access arm * Adjust diet and meds for ESRD state * Binders with diet * Procrit per protocol. Subjective Date of service: 08/12/17 Principal diagnosis: ESRD Interval history: resting well in bed today Objective - Exam Narrative Exam: General appearance: well-developed, well-nourished, appears stated age EENT: PERRL, mucous membranes moist Neck: Present: neck supple, trachea midline. Absent: JVD/HJR, Masses Respiratory: Clear to Ascultation Heart: irregularly irregular Gastrointestinal: Present: normoactive bowel sounds, other (large bruise noted in his right flank area). Absent: distended, masses, guarding Integumentary: other (AV graft in his right upper arm. Good bruit and thrill) - Vital Signs Vital signs: Vital Signs - 12hr 08/12/17 08/12/17 08/12/17 00:45 01:00 05:08 Temperature 97.8 F 98.6 F Pulse Rate 58 L 73 59 L Pulse Rate [ Throughout] Respiratory 18 20 Rate Respiratory Rate [ Throughout] Blood Pressure 101/45 95/44 O2 Sat by Pulse 95 96 Oximetry 08/12/17 08/12/17 08:09 08:25 Temperature Pulse Rate Pulse Rate [ 60 60 Throughout] Respiratory Rate Respiratory 16 16 Rate [ Throughout] Blood Pressure O2 Sat by Pulse Oximetry - Lab 08/12/17 05:05 08/12/17 05:05 Most recent lab results Calcium 8.5 mg/dL (8.4-10.2) 08/12/17 05:05
[2017-08-12 09:20] LABS: INR 0.99 (0.87-1.13)
--- NOTE | 2017-08-12 09:37 | Progress Note ---
Assessment and Plan - Patient Problems (1) Nontraumatic hematoma of muscle Onset Date: ~08/07/17 Current Visit: Yes Status: Acute Plan to address problem: Pt stable. Hgb is stable. I think it would be fine to resume his coumadin (note: he took his own med yesterday) and d/c home. Via direct response consultant ([id number]) I instructed him to continue using his binder for 1 week. I would also like him to continue the ice packs 4-5x/day for 15min each time. He said he understood. Will sign off. Please call with questions. Thank you. time=20min Subjective Date of service: 08/12/17 Patient Reports: Positive: no new complaints, feels better, pain is less, other (no problems o/n. Reports that he took his own coumadin yesterday afternoon. He did not understand that we are giving him his meds and he does not need to take his own. ) Objective Vital Signs - 12hr 08/12/17 08/12/17 08/12/17 00:45 01:00 05:08 Temperature 97.8 F 98.6 F Pulse Rate 58 L 73 59 L Pulse Rate [ Throughout] Respiratory 18 20 Rate Respiratory Rate [ Throughout] Blood Pressure 101/45 95/44 O2 Sat by Pulse 95 96 Oximetry 08/12/17 08/12/17 08:09 08:25 Temperature Pulse Rate Pulse Rate [ 60 60 Throughout] Respiratory Rate Respiratory 16 16 Rate [ Throughout] Blood Pressure O2 Sat by Pulse Oximetry - General physical appearance well developed, well nourished, no distress, no pain - Eyes normal occular movement - Respiratory normal expansion, normal respiratory effort - Abdomen soft, not tender, not distended, not guarding, not rigid, other (Bruising is soft. nontender. No signs of increase. Appears to be resolving. No large hematoma palpated. ) - Integumentary no rash - Neurologic normal coordination, normal sensation - Psychiatric oriented to time, oriented to person, oriented to place, speech is normal, memory intact - Labs 08/12/17 05:05 08/12/17 05:05 Diabetes panel 08/12/17 Range/Units 05:05 Sodium 137 (137-145) mmol/L Potassium 3.7 (3.6-5.0) mmol/L Chloride 95.1 L (98-107) mmol/L Carbon Dioxide 29 (22-30) mmol/L BUN 31 H (9-20) mg/dL Creatinine 6.9 H (0.8-1.5) mg/dL Glucose 105 H (75-100) mg/dL Calcium 8.5 (8.4-10.2) mg/dL Calcium panel 08/12/17 Range/Units 05:05 Calcium 8.5 (8.4-10.2) mg/dL Pituitary panel 08/12/17 Range/Units 05:05 Sodium 137 (137-145) mmol/L Potassium 3.7 (3.6-5.0) mmol/L Chloride 95.1 L (98-107) mmol/L Carbon Dioxide 29 (22-30) mmol/L BUN 31 H (9-20) mg/dL Creatinine 6.9 H (0.8-1.5) mg/dL Glucose 105 H (75-100) mg/dL Calcium 8.5 (8.4-10.2) mg/dL Adrenal panel 08/12/17 Range/Units 05:05 Sodium 137 (137-145) mmol/L Potassium 3.7 (3.6-5.0) mmol/L Chloride 95.1 L (98-107) mmol/L Carbon Dioxide 29 (22-30) mmol/L BUN 31 H (9-20) mg/dL Creatinine 6.9 H (0.8-1.5) mg/dL Glucose 105 H (75-100) mg/dL Calcium 8.5 (8.4-10.2) mg/dL
[2017-08-12] MEDS ORDERED: PROTONIX PO SCH (10:00)
--- NOTE | 2017-08-12 11:38 | Progress Note ---
Assessment and Plan Spontaneous right flank hematoma/ecchymosis Paroxysmal Afib on anticoagulation with coumadin at home but is currently on hold. INR 2.49 on presentation. s/p TAVR 03/26/2016 Hx of Complete heart block s/p PPM 2015 (dual chamber SJM) CAD s/p CABG All grafts patent by [facility] 08/2015 LVEF 50-55% 09/2015 ESRD on dialysis Subjective Date of service: 08/12/17 Principal diagnosis: ESRD Interval history: Patient is resting in bed comfortably. Objective Vital Signs Temp Pulse Pulse Resp Resp BP Pulse Ox 08/12/17 08:25 60 16 08/12/17 08:09 60 16 08/12/17 05:08 98.6 F 59 L 20 95/44 96 08/12/17 01:00 73 08/12/17 00:45 97.8 F 58 L 18 101/45 95 08/11/17 20:10 98.1 F 51 L 16 122/57 100 08/11/17 19:10 98.0 F 52 L 18 152/70 08/11/17 18:50 50 L 150/76 08/11/17 18:30 50 L 154/72 08/11/17 18:15 52 L 150/70 08/11/17 18:00 50 L 152/72 08/11/17 17:45 52 L 150/70 08/11/17 17:30 50 L 154/72 08/11/17 17:15 50 L 150/70 08/11/17 17:00 50 L 152/72 08/11/17 16:45 52 L 150/70 08/11/17 16:30 50 L 151/72 08/11/17 16:15 50 L 137/78 08/11/17 16:00 54 L 141/67 08/11/17 15:45 56 L 148/79 08/11/17 15:30 59 L 145/74 08/11/17 15:20 97.9 F 58 L 18 166/70 - Physical Examination General: No Apparent Distress HEENT: Positive: PERRL Cardiac: Positive: Other (paced) Abdomen: Positive: Soft Extremities: Absent: edema - Labs and Meds Coagulation 08/12/17 Range/Units 08:55 PT 13.6 (12.2-14.9) Sec. INR 0.99 (0.87-1.13) CBC 08/11/17 08/12/17 Range/Units 11:39 05:05 WBC 7.2 (4.5-11.0) K/mm3 RBC 3.12 L (3.65-5.03) M/mm3 Hgb 11.1 L 10.3 L (11.8-15.2) gm/dl Hct 33.0 L 30.5 L (35.5-45.6) % Plt Count 147 (140-440) K/mm3 Comprehensive Metabolic Panel 08/12/17 Range/Units 05:05 Sodium 137 (137-145) mmol/L Potassium 3.7 (3.6-5.0) mmol/L Chloride 95.1 L (98-107) mmol/L Carbon Dioxide 29 (22-30) mmol/L BUN 31 H (9-20) mg/dL Creatinine 6.9 H (0.8-1.5) mg/dL Glucose 105 H (75-100) mg/dL Calcium 8.5 (8.4-10.2) mg/dL
[2017-08-12 13:17] VITALS: BP 101/50
[2017-08-12] MEDS: HALFPRIN EC PO SCH (13:32)
[2017-08-12] MEDS: COLACE PO SCH (13:32)
--- NOTE | 2017-08-12 14:52 | Discharge Summary ---
Providers - Providers Date of Admission: 08/10/17 07:58 Date of discharge: 08/12/17 Attending physician: GRETA LEAL 08/10/17 06:04 Consult to Physician [CONS] Routine Consulting Provider: ARLET LARA Reason For Exam: Abdominal muscle spontaneous bleed Place consult to:: Dr. Lara Notified:: via his phone Phone number called:: his number Was contact made?: Yes If yes, spoke with:: Dr Lara Time called:: 05:52 Comment:: Dr. Dillon (er dr) spoke with Dr. Lara 08/10/17 09:18 Consult to Physician [CONS] Routine Consulting Provider: MAYURI CHAPMAN Reason For Exam: aortic stenosis,afib, Place consult to:: [facility] Notified:: y Comment:: added to list 08/10/17 10:33 Consult to Physician [CONS] Routine Consulting Provider: CHANEL ABARCA Reason For Exam: ESRD Place consult to:: renal Notified:: y Primary care physician: EVARISTO VAZQUEZ Hospitalization Condition: Fair Hospital course: Discharge diagnosis: Hematoma right transverse and oblique abdominal muscles. - He has been on Coumadin, verified by checking his medical records at cardiology office. - recommended to resume coumadin and to continue abdominal binder and put icepack 5x/day on the hematoma site Chronic atrial fibrillation. - Cardiology following. INR .99 today - resumed coumadin on discharge ESRD on hemodialysis. - consulted nephrology Aortic stenosis. - Currently, no chest pain. CAD s/p CABG. - Stable. continue home meds Chronic systolic CHF. - Stable. compensated. Hypothyroidism. On synthroid Obesity. Counseled on losing weight. DVT prophylaxis. On Coumadin Hospitalist Physical Gen Appearance: Not in acute distress, obese HEENT: Normocephalic, atraumatic Lungs:Clear to auscultation bilaterally, no crackles or wheeze Heart :S1 and S2 regular, no murmurs, rubs or gallop Abdomen: Soft, non-tender, non distended, Large bruise right flank, right lower abdomen,right groin area, Normal bowel sounds Extremities no edema clubbing no cyanosis, Neuro: Awake,alert, oriented x 3,no focal neurological signs Disposition: TO HOME OR SELFCARE Time spent for discharge: 32 minutes Core Measure Documentation - Palliative Care Palliative Care/ Comfort Measures: Not Applicable Exam - Constitutional Vitals: Temp Pulse Resp BP Pulse Ox 98.2 F 60 18 101/50 97 08/12/17 12:39 08/12/17 12:39 08/12/17 12:39 08/12/17 12:39 08/12/17 12:39 Plan Activity: advance as tolerated Weight Bearing Status: Non-Weight Bearing Diet: renal Wound: per your surgeon's advice Additional Instructions: f/u INR at PCP office Follow up with: EVARISTO VAZQUEZ MD [Primary Care Provider] - 3-5 Days
== END 2017-08-12 18:15 | disposition home or self-care (01) | DRG 555 ==
LOC: ED 02:08 → 4A 07:58
PROVIDERS: ADMIT Internal Medicine; ATTEND Internal Medicine
PROC: 5A1D70Z Performance of Urinary Filtration, Intermittent, Less than 6 Hours Per Day (ICD-10-PCS; principal; 2017-08-11)
DX: M79.81 Nontraumatic hematoma of soft tissue (principal); N18.6 End stage renal disease; I50.22 Chronic systolic (congestive) heart failure; I13.2 Hypertensive heart and chronic kidney disease with heart failure and with stage 5 chronic kidney disease, or end stage renal disease; I25.10 Atherosclerotic heart disease of native coronary artery without angina pectoris; I48.2 Chronic atrial fibrillation; I35.0 Nonrheumatic aortic (valve) stenosis; E03.9 Hypothyroidism, unspecified; K21.9 Gastro-esophageal reflux disease without esophagitis; M19.90 Unspecified osteoarthritis, unspecified site; E66.9 Obesity, unspecified; Z68.33 Body mass index [BMI] 33.0-33.9, adult; Z95.1 Presence of aortocoronary bypass graft; Z71.3 Dietary counseling and surveillance; Z79.01 Long term (current) use of anticoagulants; I25.2 Old myocardial infarction; Z95.5 Presence of coronary angioplasty implant and graft; Z87.442 Personal history of urinary calculi; Z79.82 Long term (current) use of aspirin; Z79.899 Other long term (current) drug therapy; Z95.0 Presence of cardiac pacemaker; T45.515A Adverse effect of anticoagulants, initial encounter
CPT/HCPCS: 36415; 74176; 80048; 80053; 85014; 85018; 85025; 85027; 85610; 85730; 94640; A9270-GY; J3430; J7030

== ENCOUNTER 2018-05-07 16:47 | Emergency (ER) | payer MEDICARE ==
[2018-05-07 19:07] LABS: Basophils % (Auto) 0.3 % (0.0-1.8); Eosinophils # (Auto) 0.3 K/mm3 (0.0-0.4); Eosinophils % (Auto) 3.3 % (0.0-4.3); Hematocrit 43.4 % (35.5-45.6); Hemoglobin 14.2 gm/dl (11.8-15.2); Lymphocytes # (Auto) 1.1 K/mm3 (1.2-5.4); Mean Corpuscular HGB Conc 33 % (32-34); Mean Corpuscular Hemoglobin 30 pg (28-32); Mean Corpuscular Volume 91 fl (84-94); Monocytes # (Auto) 0.7 K/mm3 (0.0-0.8); Platelet Count 144 K/mm3 (140-440); Red Blood Count 4.76 M/mm3 (3.65-5.03); Red Cell Distribution Width 17.7 % (13.2-15.2)
[2018-05-07 20:05] LABS: INR 1.55 (0.87-1.13)
[2018-05-07 20:06] LABS: Partial Thromboplastin Time 22.4 Sec. (24.2-36.6)
[2018-05-07] MEDS ORDERED: BOOSTRIX IM ONE (20:11)
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
--- NOTE | 2018-05-07 20:33 | Cat Scan Report ---
FINAL REPORT PROCEDURE: CT HEAD/BRAIN WO CON TECHNIQUE: Computerized tomography of the head was performed without contrast material. HISTORY: Fall, head injury, hematoma, on blood thinners COMPARISON: No prior studies are available for comparison. FINDINGS: Brain: There is a small amount of blood layering in several of the sulci of the left frontal lobe anterior laterally superiorly. No definite parenchymal hemorrhage is seen. There is also a small amount extra-axial hemorrhage visualized anterior medial surface of the right temporal lobe. There is some decreased density seen in the periventricular white matter without mass effect. This is fairly symmetric and does not exhibit any mass effect consistent with gliosis probably on the basis of microvascular disease or white matter changes of aging. Ventricles: The sulcal pattern and fissures are prominent consistent with atrophy. The ventricles are normal size and are midline. Bones: No evidence of acute fracture. Large scalp hematoma visualize right parietal-occipital region. Paranasal sinuses: Visualized portions are clear. Mastoid air cells: clear IMPRESSION: Small amount of subarachnoid blood collected in a few of the sulci of the left frontal lobe as described. No parenchymal hemorrhage is visualized. No mass effect is seen There is also minimal hemorrhage seen along the surface of the anterior medial aspect of the right temporal lobe. No parenchymal hemorrhage is seen this location. Large scalp hematoma visualize right parietal-occipital region. There is mild atrophy and gliosis. No acute parenchymal abnormalities are seen. Critical value: I discussed these findings in detail with Dr. Chamberlain on 05/07/2018 at 8:23 p.m. Eastern standard time.
[2018-05-07 20:53] VITALS: BP 121/102
[2018-05-07 21:56] LABS: Blood Urea Nitrogen TNR mg/dL (9-20)
[2018-05-07 21:57] LABS: BUN/Creatinine Ratio TNR; Calcium TNR mg/dL (8.4-10.2)
[2018-05-07 21:58] LABS: Hemolysis Index TNR
== END 2018-05-07 21:50 | disposition other institution (70) ==
LOC: ED 16:47
DX: S06.6X0A Traumatic subarachnoid hemorrhage without loss of consciousness, initial encounter (principal); I13.2 Hypertensive heart and chronic kidney disease with heart failure and with stage 5 chronic kidney disease, or end stage renal disease; N18.6 End stage renal disease; I50.9 Heart failure, unspecified; I25.2 Old myocardial infarction; K21.9 Gastro-esophageal reflux disease without esophagitis; M19.90 Unspecified osteoarthritis, unspecified site; E78.00 Pure hypercholesterolemia, unspecified; E03.9 Hypothyroidism, unspecified; Z99.2 Dependence on renal dialysis; Z79.82 Long term (current) use of aspirin; V89.9XXA Person injured in unspecified vehicle accident, initial encounter; Y93.89 Activity, other specified; Y92.488 Other paved roadways as the place of occurrence of the external cause; Y99.8 Other external cause status
CPT/HCPCS: 36415; 70450; 80048; 85025; 85610; 85730; 86850; 86870; 86900; 86901; 90471; 90715; 99291

== ENCOUNTER 2018-10-22 07:02 | Inpatient (IN) | payer MEDICARE ==
[2018-10-22 07:48] LABS: Hematocrit 35.3 % (35.5-45.6); Hemoglobin 11.9 gm/dl (11.8-15.2); Mean Corpuscular HGB Conc 34 % (32-34); Mean Corpuscular Volume 102 fl (84-94); Platelet Count 108 K/mm3 (140-440); Red Blood Count 3.48 M/mm3 (3.65-5.03); Red Cell Distribution Width 18.8 % (13.2-15.2)
--- NOTE | 2018-10-22 09:16 | Emergency Department Report ---
ED General Adult HPI - General Chief complaint: Tube Replacement Stated complaint: DIALYSIS TUBE INFECTED Time Seen by Provider: 10/22/18 08:40 Source: patient Mode of arrival: Ambulatory Limitations: No Limitations - History of Present Illness Initial comments: Mr. Shoemaker is a 78 yo male with hx of ESRD on HD T/R/Ss, Heart Failure, HTN, dysplipidemia, aortic stenosis presents with infected infection surrounding AV fistula in the right upper arm. He attempted to obtain dialysis at the Center today. After being evaluated by the staff, he was evaluated by staff. Sent to the ED for concern for infection. History obtained through patient and son with oil pumper [id number]. Also history obtained from the electronic medical record and primary police detention attendant Dr. Ballard. -: Gradual, unknown Location: right, upper extremity Severity scale (0 -10): 0 Improves with: none Worsens with: none Associated Symptoms: denies other symptoms - Related Data Home Medications Medication Instructions Recorded Confirmed Last Taken Fluticasone Propionate [Flovent 1 puff IH BID 03/06/14 08/10/17 08/22/15 Diskus] Levothyroxine [Synthroid] 88 mcg PO QAM 03/06/14 08/10/17 08/22/15 Omeprazole [PriLOSEC] 20 mg PO QDAY 03/06/14 08/10/17 08/22/15 Sevelamer Carbonate [Renvela] 800 mg PO TIDWM 03/06/14 08/10/17 08/22/15 Simvastatin 20 mg PO DAILY 03/06/14 08/10/17 08/22/15 Aspirin EC [Aspirin Enteric Coated 81 mg PO DAILY 07/06/14 08/10/17 08/22/15 TAB] Docusate Calcium (Nf) [Surfak (Nf)] 100 mg PO DAILY 07/06/14 08/10/17 08/22/15 Ipratropium/Albuterol Sulfate 2 inh INHALATION DAILY 08/23/15 08/10/17 08/22/15 [Combivent Respimat] Warfarin Sodium [Coumadin] 3 mg PO QDAY 08/11/17 08/11/17 Unknown Previous Rx's Medication Instructions Recorded Last Taken Type Budesonide [Pulmicort Respules] 0.5 mg IH Q12HRT nebu 10/04/15 Unknown Rx Docusate Sodium [Colace CAP] 100 mg PO BID capsule 10/04/15 Unknown Rx HYDROcodone/APAP 5-325 [[place] 1 each PO Q6H PRN #30 tablet 10/04/15 Unknown Rx 5-325 mg TAB] Ipratropium/Albuterol Sulfate 1 ampul IH Q12HRT #30 ampul.neb 10/04/15 Unknown Rx [DUONEB *Not for PRN Use*] Allergies Allergy/AdvReac Type Severity Reaction Status Date / Time No Known Allergies Allergy Verified 05/22/16 17:56 ED Review of Systems ROS: Stated complaint: DIALYSIS TUBE INFECTED Other details as noted in HPI Comment: Unobtainable due to pts medical conditions (patient will not cooperate with history) ED Past Medical Hx - Past Medical History Previous Medical History?: Yes Hx Hypertension: Yes Hx Heart Attack/AMI: Yes (stents) Hx Congestive Heart Failure: Yes Hx Diabetes: No Hx GERD: Yes Hx Renal Disease: Yes (TTS dialysis) Hx Arthritis: Yes Hx Kidney Stones: Yes (dialysis T, Th, Sat) Hx HIV: No Additional medical history: high cholesterol, hypothyroidism. Graft to right arm. CAD - Surgical History Hx Open Heart Surgery: Yes Additional Surgical History: MICHAEL exploratory lap, pacemaker placement, dialysis access - Social History Smoking Status: Never Smoker Substance Use Type: None - Medications Home Medications: Home Medications Medication Instructions Recorded Confirmed Last Taken Type Fluticasone Propionate [Flovent 1 puff IH BID 03/06/14 08/10/17 08/22/15 History Diskus] Levothyroxine [Synthroid] 88 mcg PO QAM 03/06/14 08/10/17 08/22/15 History Omeprazole [PriLOSEC] 20 mg PO QDAY 03/06/14 08/10/17 08/22/15 History Sevelamer Carbonate [Renvela] 800 mg PO TIDWM 03/06/14 08/10/17 08/22/15 History Simvastatin 20 mg PO DAILY 03/06/14 08/10/17 08/22/15 History Aspirin EC [Aspirin Enteric Coated 81 mg PO DAILY 07/06/14 08/10/17 08/22/15 His tory TAB] Docusate Calcium (Nf) [Surfak (Nf)] 100 mg PO DAILY 07/06/14 08/10/17 08/22/15 History Ipratropium/Albuterol Sulfate 2 inh INHALATION DAILY 08/23/15 08/10/17 08/22/15 History [Combivent Respimat] Budesonide [Pulmicort Respules] 0.5 mg IH Q12HRT nebu 10/04/15 08/10/17 Unknown Rx Docusate Sodium [Colace CAP] 100 mg PO BID capsule 10/04/15 08/10/17 Unknown Rx HYDROcodone/APAP 5-325 [[place] 1 each PO Q6H PRN #30 tablet 10/04/15 08/10/17 Unknown Rx 5-325 mg TAB] Ipratropium/Albuterol Sulfate 1 ampul IH Q12HRT #30 ampul.neb 10/04/15 08/10/17 Unknown Rx [DUONEB *Not for PRN Use*] Warfarin Sodium [Coumadin] 3 mg PO QDAY 08/11/17 08/11/17 Unknown History ED Physical Exam - General Limitations: Language Barrier (Mr. Shoemaker would not cooperate with history even with Filipino oil pumper. Son provided limited hx.) General appearance: alert, in no apparent distress - Head Head exam: Present: atraumatic, normocephalic - Eye Eye exam: Present: normal appearance - ENT ENT exam: Present: mucous membranes moist - Neck Neck exam: Present: normal inspection, full ROM - Respiratory Respiratory exam: Present: normal lung sounds bilaterally. Absent: respiratory distress, wheezes, rales, rhonchi - Cardiovascular Cardiovascular Exam: Present: regular rate, normal rhythm, normal heart sounds. Absent: systolic murmur, diastolic murmur, rubs, gallop - GI/Abdominal GI/Abdominal exam: Present: soft, normal bowel sounds. Absent: distended, tenderness, guarding, rebound - Rectal Rectal exam: Present: deferred - Extremities Exam Extremities exam: Present: other (right upper extremity: AV fistula in place with erythema small pustule mild edema at the superior portion) - Back Exam Back exam: Present: normal inspection - Neurological Exam Neurological exam: Present: alert - Psychiatric Psychiatric exam: Present: normal affect, normal mood - Skin Skin exam: Present: warm, dry, intact, normal color. Absent: rash ED Course Vital Signs 10/22/18 10/22/18 10/22/18 07:12 08:30 08:45 Temperature 98.4 F Pulse Rate 68 75 Respiratory 16 16 Rate Blood Pressure 154/48 170/60 O2 Sat by Pulse 96 99 Oximetry ED Medical Decision Making - Lab Data Result diagrams: 10/22/18 07:29 10/22/18 07:29 Laboratory Results - last 24 hr 10/22/18 10/22/18 07:29 07:29 WBC 13.5 H RBC 3.48 L Hgb 11.9 Hct 35.3 L MCV 102 H MCH 34 H MCHC 34 RDW 18.8 H Plt Count 108 L Seg Neutrophils % [employer] Sodium 132 L Potassium 5.2 H Chloride 90.7 L Carbon Dioxide 19 L Anion Gap 28 BUN 58 H Creatinine 14.1 H Estimated GFR 3 BUN/Creatinine Ratio 4 Glucose 224 H Calcium 9.0 - Medical Decision Making Mr. Shoemaker has infection of AV fistula. Broad spectrum antibiotics initiated in the ED. I have consulted Dr. Ballard police detention attendant. Dr. Thomson hospitalist accepted admission. Dr. Ballard has consulted vascular surgeon. Critical care attestation.: If time is entered above; I have spent that time in minutes in the direct care of this critically ill patient, excluding procedure time. ED Disposition Clinical Impression: AV fistula infection, ESRD (end stage renal disease) on dialysis Disposition: OP ADMIT IP TO THIS HOSP Is pt being admited?: Yes Does the pt Need Aspirin: No Condition: Stable
[2018-10-22] MEDS ORDERED: ZOSYN/NS 4.5GM/100ML 4.5 GM/100 ML VIAL IV ONE (09:17)
[2018-10-22] MEDS ORDERED: VANCOMYCIN/NS 1 GM/250 ML 1 GM/250 ML BAG IV ONE (09:17)
[2018-10-22] MEDS ORDERED: TYLENOL PO PRN (09:58)
[2018-10-22] MEDS ORDERED: SODIUM CHLORIDE FLUSH SYRINGE 10 ML IV PRN (09:58)
[2018-10-22] MEDS ORDERED: ZOFRAN IV PRN (09:58)
[2018-10-22] MEDS ORDERED: PERCOCET 5/325 PO PRN (09:58)
[2018-10-22] MEDS ORDERED: VANCOMYCIN 1,500 MG in NACL 0.9% 500 ML 500 ML IV ONE (10:00)
[2018-10-22] MEDS ORDERED: HEPARIN SUB-Q SCH (10:00)
--- NOTE | 2018-10-22 10:01 | Consultation ---
History of Present Illness - Reason for Consult Consult date: 10/22/18 end stage renal disease Requesting physician: GRETA LEAL - History of Present Illness 78-year-old Italian male with past medical history significant for hypertension and end-stage renal disease on maintenance hemodialysis was sent from the dialysis clinic because of purulent drainage from his AV access. Patient undergoes dialysis at [facility] on TTS schedule. Unable to get any additional information from patient due to language barrier Past History Past Medical History: CAD, dialysis, hypertension, other (hypothyroidism) Past Surgical History: Other (history of creation of AV fistula) Social history: other (unable to obtain) Family history: other (unable to obtain) Medications and Allergies Allergies Allergy/AdvReac Type Severity Reaction Status Date / Time No Known Allergies Allergy Verified 05/22/16 17:56 Home Medications Medication Instructions Recorded Confirmed Last Taken Type Fluticasone Propionate [Flovent 1 puff IH BID 03/06/14 08/10/17 08/22/15 History Diskus] Levothyroxine [Synthroid] 88 mcg PO QAM 03/06/14 08/10/17 08/22/15 History Omeprazole [PriLOSEC] 20 mg PO QDAY 03/06/14 08/10/17 08/22/15 History Sevelamer Carbonate [Renvela] 800 mg PO TIDWM 03/06/14 08/10/17 08/22/15 History Simvastatin 20 mg PO DAILY 03/06/14 08/10/17 08/22/15 History Aspirin EC [Aspirin Enteric Coated 81 mg PO DAILY 07/06/14 08/10/17 08/22/15 Hi story TAB] Docusate Calcium (Nf) [Surfak (Nf)] 100 mg PO DAILY 07/06/14 08/10/17 08/22/15 History Ipratropium/Albuterol Sulfate 2 inh INHALATION DAILY 08/23/15 08/10/17 08/22/15 History [Combivent Respimat] Budesonide [Pulmicort Respules] 0.5 mg IH Q12HRT nebu 10/04/15 08/10/17 Unknown Rx Docusate Sodium [Colace CAP] 100 mg PO BID capsule 10/04/15 08/10/17 Unknown Rx HYDROcodone/APAP 5-325 [[place] 1 each PO Q6H PRN #30 tablet 10/04/15 08/10/17 Unknown Rx 5-325 mg TAB] Ipratropium/Albuterol Sulfate 1 ampul IH Q12HRT #30 ampul.neb 10/04/15 08/10/17 Unknown Rx [DUONEB *Not for PRN Use*] Warfarin Sodium [Coumadin] 3 mg PO QDAY 08/11/17 08/11/17 Unknown History Active Meds: Active Medications Vancomycin HCl 1,500 mg/ (Sodium Chloride) 530 mls @ 333.333 mls/hr IV ONCE ONE Stop: 10/22/18 11:35 Review of Systems ROS unobtainable: due to mental status (due to language barrier and alteration in mental status) Exam - Vital Signs Vital signs: Vital Signs Temp Pulse Resp BP Pulse Ox 98.4 F 68 16 154/48 96 10/22/18 07:12 10/22/18 07:12 10/22/18 07:12 10/22/18 07:12 10/22/18 07:12 - General Appearance General appearance: well-developed, well-nourished, appears stated age EENT: PERRL, mucous membranes moist Neck: Present: neck supple, trachea midline. Absent: JVD/HJR, Masses Respiratory: Clear to Ascultation Heart: regular, normal heart rate, S1S2, no murmurs Gastrointestinal: Present: normal, normoactive bowel sounds Integumentary: other (AV access in his right upper arm. Positive point noted in the upper part of his AV access) Results - Lab Results 10/22/18 07:29 10/22/18 07:29 Most recent lab results Calcium 9.0 mg/dL (8.4-10.2) 10/22/18 07:29 Assessment and Plan Impression * Infected AV access * End-stage renal disease on maintenance hemodialysis * Altered mental status * Coronary artery disease * Hypertension * History of hypothyroidism Recommendations * Discussed with Dr. Gross regarding his access . Advised to use it in the lower part * Patient is scheduled to have ultrasound of his access done. * Plan to do dialysis tomorrow morning * Continue IV antibiotics * Adjust diet and meds for ESRD state * No IV, BP or venipuncture and his access arm * Procrit with dialysis * Binders with meals * Thank you very much for the consultation. Shall follow along with you
--- NOTE | 2018-10-22 10:05 | History and Physical Report ---
History of Present Illness Date of examination: 10/22/18 Date of admission: 10/22/18 Chief complaint: purulent discharge from the AV graft/fistula History of present illness: Mr. Shoemaker is a 78 yo male with hx of ESRD on HD T/R/Ss, HTN, dysplipidemia, aortic stenosis presents with possible infected AV fistula in the right upper arm. He was attempted to obtain dialysis at the Center today. After being evaluated by the staff, he was Sent to the ED for concern for infection. History obtained from the electronic medical record and primary milling/polishing operator Dr. Ballard, also from patient's son. The patient's son reported that the patient fell last night and hit his head and has not been acting right since. He reports that the patient was acting fine yesterday. CT head in the ER showed no acute process. Patient's milling/polishing operator Dr. Woodruff consulted from the ER, vascular surgeon also notified. He received 1 dose of vancomycin and Zosyn in the ER. Patient was then called for admission for further evaluation and management. Past History Past Medical History: acute MD, CAD, ESRD, hypertension, hyperlipidemia, other (aortic stenosis) Past Surgical History: CABG, pacemaker placement, TAVR Social history: , full code. denies: alcohol abuse Family history: other Review of system: Unobtainable Medications and Allergies Allergies Allergy/AdvReac Type Severity Reaction Status Date / Time No Known Allergies Allergy Verified 05/22/16 17:56 Home Medications Medication Instructions Recorded Confirmed Last Taken Type Fluticasone Propionate [Flovent 1 puff IH BID 03/06/14 08/10/17 08/22/15 History Diskus] Levothyroxine [Synthroid] 88 mcg PO QAM 03/06/14 08/10/17 08/22/15 History Omeprazole [PriLOSEC] 20 mg PO QDAY 03/06/14 08/10/17 08/22/15 History Sevelamer Carbonate [Renvela] 800 mg PO TIDWM 03/06/14 08/10/17 08/22/15 History Simvastatin 20 mg PO DAILY 03/06/14 08/10/17 08/22/15 History Aspirin EC [Aspirin Enteric Coated 81 mg PO DAILY 07/06/14 08/10/17 08/22/15 History TAB] Docusate Calcium (Nf) [Surfak (Nf)] 100 mg PO DAILY 07/06/14 08/10/17 08/22/15 History Ipratropium/Albuterol Sulfate 2 inh INHALATION DAILY 08/23/15 08/10/17 08/22/15 History [Combivent Respimat] Budesonide [Pulmicort Respules] 0.5 mg IH Q12HRT nebu 10/04/15 08/10/17 Unknown Rx Docusate Sodium [Colace CAP] 100 mg PO BID capsule 10/04/15 08/10/17 Unknown Rx HYDROcodone/APAP 5-325 [[place] 1 each PO Q6H PRN #30 tablet 10/04/15 08/10/17 Unknown Rx 5-325 mg TAB] Ipratropium/Albuterol Sulfate 1 ampul IH Q12HRT #30 ampul.neb 10/04/15 08/10/17 Unknown Rx [DUONEB *Not for PRN Use*] Warfarin Sodium [Coumadin] 3 mg PO QDAY 08/11/17 08/11/17 Unknown History Active Meds: Active Medications Acetaminophen (Tylenol) 650 mg PO Q4H PRN PRN Reason: Pain MILD(1-3)/Fever >100.5/FRASER Famotidine (Pepcid) 10 mg PO QDAY DEWAYNE Heparin Sodium (Porcine) (Heparin) 5,000 unit SUB-Q Q12HR DEWAYNE Vancomycin HCl 1,500 mg/ (Sodium Chloride) 530 mls @ 333.333 mls/hr IV ONCE ONE Stop: 10/22/18 11:35 Vancomycin HCl (Vancomycin/Ns 1 Gm/250 Ml) 1 gm in 250 mls @ 166.667 mls/hr IV Q12H DEWAYNE; Protocol Piperacillin Sod/Tazobactam Sod (Zosyn/Ns 3.375gm/50ml) 3.375 gm in 50 mls @ 100 mls/hr IV Q8HR DEWAYNE; Protocol Ondansetron HCl (Zofran) 4 mg IV Q8H PRN PRN Reason: Nausea And Vomiting Oxycodone/Acetaminophen (Percocet 5/325) 1 tab PO Q6H PRN PRN Reason: Pain, Moderate (4-6) Sodium Chloride (Sodium Chloride Flush Syringe 10 Ml) 10 ml IV BID DEWAYNE Sodium Chloride (Sodium Chloride Flush Syringe 10 Ml) 10 ml IV PRN PRN PRN Reason: LINE FLUSH Exam - Physical Exam Narrative exam: GENERAL: Elderly [place] male lying on bed appeared to be confused and unable to provide any history. HEENT: Normocephalic. Atraumatic. No conjunctival congestion or icterus. Patient has moist mucous membranes. NECK: Supple. Trachea midline. CHEST/LUNGS: Clear to auscultated bilaterally, breathing nonlabored. No wheezes crackles or rhonchi. HEART/CARDIOVASCULAR: Regular in rate and rhythm. S1 and S2 positive. ABDOMEN: Abdomen is soft, nontender. Patient has normal bowel sounds. SKIN: There is no rash. Warm and dry. NEURO: No focal motor deficit. MUSCULOSKELETAL: No joint effusion or tenderness. Tenderness over the fistula area on the right upper arm without any active purulent discharge EXTRIMITY: No edema, no cyanosis or clubbing. PSYCH: Confused. - Constitutional Vitals: Temp Pulse Resp BP Pulse Ox 98.4 F 75 16 170/60 99 10/22/18 07:12 10/22/18 08:45 10/22/18 08:45 10/22/18 08:30 10/22/18 08:30 Results - Labs CBC & Chem 7: 10/22/18 07:29 10/22/18 07:29 Labs: Abnormal lab results 10/22/18 10/22/18 Range/Units 07:29 07:29 WBC 13.5 H (4.5-11.0) K/mm3 RBC 3.48 L (3.65-5.03) M/mm3 Hct 35.3 L (35.5-45.6) % MCV 102 H (84-94) fl MCH 34 H (28-32) pg RDW 18.8 H (13.2-15.2) % Plt Count 108 L (140-440) K/mm3 Sodium 132 L (137-145) mmol/L Potassium 5.2 H (3.6-5.0) mmol/L Chloride 90.7 L (98-107) mmol/L Carbon Dioxide 19 L (22-30) mmol/L BUN 58 H (9-20) mg/dL Creatinine 14.1 H (0.8-1.5) mg/dL Glucose 224 H (75-100) mg/dL Assessment and Plan Possible AV graft/fistula infection - Continue patient on empiric antibiotics with vanc and Zosyn - Consulted vascular surgeon for further assessment - We'll follow blood culture Acute encephalopathy, likely toxic and metabolic -Most likely due to underlying infection, continue to monitor clinically, provide supportive care, CT head showed no acute process ESRD on dialysis - consulted nephrology in the ER Paroxysmal Afib - on anticoagulation with coumadin at home but INR is subtherapeutic today s/p TAVR 03/26/2016, no acute issue , cont supportive care Hx of Complete heart block, s/p 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 On synthroid DVT prophylaxis, continue Coumadin Radiological data: CT head: Small scalp hematoma right temporal parietal region. No evidence of intracranial hemorrhage or skull fracture.
[2018-10-22] MEDS ORDERED: VANCOMYCIN/NS 1 GM/250 ML 1 GM/250 ML BAG IV SCH ×2 (11:00→18:00)
[2018-10-22] MEDS ORDERED: VANCOMYCIN 1,250 MG in NACL 0.9% 250ML 250 ML IV ONE (12:00)
[2018-10-22 12:39] LABS: Basophils % (Manual) 0 % (0.0-1.8); Eosinophils % (Manual) 0 % (0.0-4.3); Total Cells Counted 100
[2018-10-22 12:40] LABS: Anisocytosis 1+; Platelet Estimate Cons; Poikilocytosis Few; Tear Drop Cells Few
[2018-10-22] MEDS ORDERED: ZOSYN/NS 3.375GM/50ML 3.375 GM/50 ML BAG IV SCH (14:00)
--- NOTE | 2018-10-22 14:18 | Consultation ---
History of Present Illness - Reason for Consult Consult date: 10/22/18 Graft malfunction - History of Present Illness 78 yo male with hx of ESRD on HD T/R/Ss, Heart Failure, HTN, dysplipidemia, a ortic stenosis presents with possible infected AV access in the right upper arm. He attempted to obtain dialysis at the Center today. After being evaluated by the staff, he was evaluated by staff. I contacted Dr. Ballard who told me that at dialysis today obtained some purulent material at the upper dialysis access during access. He is unsure if the patient has a graft or fistula. No records available. I discussed the situation with the family through a [place]oc[place] professional bass fisherman, and the patient was severely altered. The patient's son reported that the patient fell last night and hit his head and has not been acting right since. He reports that the patient was acting fine yesterday. On physical exam, there is aneurysmal degeneration at 2 focal sites of the right upper arm AV access. I attempted to evaluate the area for scars but the patient pulled his arm back repeatedly due to confusion and would not let me evaluate this. The upper area of aneurysmal degeneration has a slight area of excoriation with some surrounding bruising. Patient does not tell me if the area is tender to palpation as he is confused. No purulence on physical exam. The patient's son attempted to provide additional history and reported that the dialysis access was placed in 2008 originally. He does not know where it was placed. He first told me it was placed 2-3 weeks ago. I'm not sure he unde rstands much of the patient's history. Past History Past Medical History: arthritis, CAD (s/p stents), dialysis, ESRD, GERD, heart failure, hypertension, hyperlipidemia, hypothyroidism, other (aortic stenosis) Past Surgical History: Other (pacemaker, dialysis access, exploratory lap) Social history: denies: smoking, alcohol abuse Family history: no significant family history Medications and Allergies Allergies Allergy/AdvReac Type Severity Reaction Status Date / Time No Known Allergies Allergy Verified 05/22/16 17:56 Home Medications Medication Instructions Recorded Confirmed Last Taken Type Fluticasone Propionate [Flovent 1 puff IH BID 03/06/14 08/10/17 08/22/15 History Diskus] Levothyroxine [Synthroid] 88 mcg PO QAM 03/06/14 08/10/17 08/22/15 History Omeprazole [PriLOSEC] 20 mg PO QDAY 03/06/14 08/10/17 08/22/15 History Sevelamer Carbonate [Renvela] 800 mg PO TIDWM 03/06/14 08/10/17 08/22/15 History Simvastatin 20 mg PO DAILY 03/06/14 08/10/17 08/22/15 History Aspirin EC [Aspirin Enteric Coated 81 mg PO DAILY 07/06/14 08/10/17 08/22/15 History TAB] Docusate Calcium (Nf) [Surfak (Nf)] 100 mg PO DAILY 07/06/14 08/10/17 08/22/15 History Ipratropium/Albuterol Sulfate 2 inh INHALATION DAILY 08/23/15 08/10/17 08/22/15 History [Combivent Respimat] Budesonide [Pulmicort Respules] 0.5 mg IH Q12HRT nebu 10/04/15 08/10/17 Unknown Rx Docusate Sodium [Colace CAP] 100 mg PO BID capsule 10/04/15 08/10/17 Unknown Rx HYDROcodone/APAP 5-325 [[place] 1 each PO Q6H PRN #30 tablet 10/04/15 08/10/17 Unknown Rx 5-325 mg TAB] Ipratropium/Albuterol Sulfate 1 ampul IH Q12HRT #30 ampul.neb 10/04/15 08/10/17 Unknown Rx [DUONEB *Not for PRN Use*] Warfarin Sodium [Coumadin] 3 mg PO QDAY 08/11/17 08/11/17 Unknown History Active Meds: Active Medications Acetaminophen (Tylenol) 650 mg PO Q4H PRN PRN Reason: Pain MILD(1-3)/Fever >100.5/FRASER Famotidine (Pepcid) 10 mg PO QDAY DEWAYNE Heparin Sodium (Porcine) (Heparin) 5,000 unit SUB-Q Q12HR DEWAYNE Piperacillin Sod/Tazobactam Sod (Zosyn/Ns 2.25 Gm/50ml) 2.25 gm in 50 mls @ 100 mls/hr IV Q12H DEWAYNE Ondansetron HCl (Zofran) 4 mg IV Q8H PRN PRN Reason: Nausea And Vomiting Oxycodone/Acetaminophen (Percocet 5/325) 1 tab PO Q6H PRN PRN Reason: Pain, Moderate (4-6) Sodium Chloride (Sodium Chloride Flush Syringe 10 Ml) 10 ml IV BID DEWAYNE Sodium Chloride (Sodium Chloride Flush Syringe 10 Ml) 10 ml IV PRN PRN PRN Reason: LINE FLUSH Review of Systems ROS unobtainable: due to mental status Exam - Constitutional Vitals: Temp Pulse Resp BP Pulse Ox 98.4 F 75 16 149/55 96 10/22/18 07:12 10/22/18 08:45 10/22/18 08:45 10/22/18 11:31 10/22/18 11:31 General appearance: Present: other (confused) - Respiratory Respiratory effort: normal - Extremities Extremities: abnormal (see HPI for physical exam) - Psychiatric Psychiatric: other (cofused) Results - Labs CBC & Chem 7: 10/22/18 07:29 10/22/18 07:29 Labs: Abnormal lab results 10/22/18 10/22/18 Range/Units 07:29 07:29 WBC 13.5 H (4.5-11.0) K/mm3 RBC 3.48 L (3.65-5.03) M/mm3 Hct 35.3 L (35.5-45.6) % MCV 102 H (84-94) fl MCH 34 H (28-32) pg RDW 18.8 H (13.2-15.2) % Plt Count 108 L (140-440) K/mm3 Seg Neuts % (Manual) 98.0 H (40.0-70.0) % Lymphocytes % (Manual) 1.0 L (13.4-35.0) % Seg Neutrophils # Man 13.2 H (1.8-7.7) K/mm3 Lymphocytes # (Manual) 0.1 L (1.2-5.4) K/mm3 Sodium 132 L (137-145) mmol/L Potassium 5.2 H (3.6-5.0) mmol/L Chloride 90.7 L (98-107) mmol/L Carbon Dioxide 19 L (22-30) mmol/L BUN 58 H (9-20) mg/dL Creatinine 14.1 H (0.8-1.5) mg/dL Glucose 224 H (75-100) mg/dL Assessment and Plan 78-year-old male with altered mental status with end-stage renal disease and possible dialysis access infection. Currently, no draining purulence or overt sign of infection. Unclear if it is a graft or fistula. I'll obtain a hemodialysis ultrasound for further evaluation. Discussed with Dr. Ballard who will attempt to dialyze the patient tomorrow. He will contact me if any purulence is encountered. BCx pending. Patient has altered mental status and leukocytosis. Recommend broad-spectrum antibiotics to include gram-positive and gram-negative organisms (consider adding vancomycin). Patient has altered mental status with recent fall, with his prior history demonstrating Coumadin use and aspirin use. Ordered PTT/INR and ordered CT of head stat. Will follow up tomorrow.
[2018-10-22] MEDS ORDERED: NACL 0.9% 100 ML IV PRN (16:10)
--- NOTE | 2018-10-22 16:18 | Cat Scan Report ---
PROCEDURE: CT HEAD/BRAIN WO CON TECHNIQUE: Spiral CT imaging of the brain was obtained without IV contrast. HISTORY: fall and hit head, ams, anticoagulation COMPARISONS: Prior CT scan of the brain 05/07/2018 FINDINGS: Brain: There is no evidence of intracranial hemorrhage. No parenchymal hemorrhage is seen. No mass lesions or mass effect is identified. No abnormal extra-axial fluid collections or masses are seen. Intracranial hemorrhage seen on the prior study has resolved. There is some decreased density seen in the periventricular white matter without mass effect. This i s fairly symmetric and does not exhibit any mass effect consistent with gliosis probably on the basis of microvascular disease or white matter changes of aging. Ventricles: The ventricles, sulcal pattern and fissures are prominent consistent with atrophy. Bone Windows: There is mild deformity of the inferior lateral aspect of the left orbit, superior late ral aspect left maxillary sinus. I suspect this is related to old trauma. Correlation with physical e xam recommended to exclude an acute fracture. The abnormality is seen on axial image 23 series 4 axia l image and a few of the adjacent images. There appears to be a small scalp hematoma right temporal p arietal region. Paranasal sinuses: There is mild mucosal thickening in the left maxillary sinus. There may have been partial resection of the medial wall the left maxillary sinus. Mild mucosal thickening seen in a few of the ethmoid air cells.. Mastoid air cells: Clear. IMPRESSION: Small scalp hematoma right temporal parietal region. No evidence of intracranial hemorrhage or skull fracture. Mild paranasal sinus disease as described. Mild deformity inferior lateral aspect left orbit/superior lateral aspect left maxillary sinus. I monisha pect this is related to old trauma. Correlation with physical exam recommended to exclude acute fract ure. This document is electronically signed by Jake Caldwell MD., October 22 2018 04:16:20 PM ET
[2018-10-22 16:59] LABS: INR 1.21 (0.87-1.13)
[2018-10-22] MEDS ORDERED: NORCO 5/325 PO PRN (17:07)
[2018-10-22] MEDS: PEPCID PO SCH (17:19)
[2018-10-22] MEDS: SODIUM CHLORIDE FLUSH SYRINGE 10 ML IV SCH ×2 (17:25→21:14)
[2018-10-22] MEDS ORDERED: NON-FORMULARY (Warfarin Sodium [Coumadin] 3 MG) PO SCH (17:26)
[2018-10-22] MEDS ORDERED: COUMADIN PO SCH (18:00)
[2018-10-22] MEDS ORDERED: VANCOMYCIN PHARMACY TO DOSE IV SCH (18:00)
--- NOTE | 2018-10-22 19:00 | Vascular Lab Report ---
PROCEDURE: Right upper extremity hemodialysis fistula duplex ultrasound. TECHNIQUE: Duplex Doppler ultrasound of the right upper extremity fistula was performed with image d ocumentation. HISTORY: Pain at arteriovenous fistula access. COMPARISONS: None. FINDINGS: The brachial artery, radial artery and ulnar artery are patent. Peak systolic flow in the distal brac hial artery is 272 cm/s. Peak systolic flow in the radial artery is 89 cm/s and in the ulnar artery 6 2 cm/s. The fistula is connected to the distal brachial artery. At the anastomosis the peak velocity measures 302 cm/s. In the lower brachial area of the peak systolic velocity measures 392 cm/s. There is aneurysmal change involving the fistula measuring up to 2.6 cm in diameter. In the mid brachial re gion the peak flow is measured at 122 cm/s. In the upper brachial region the peak systolic flow is me asured at 52 cm/s. There are aneurysmal changes in the upper brachial region measuring up to 2.2 cm. The peak systolic flow measured near the axilla is 434 cm/s. This could indicate a stenosis given the lower velocity in the upper brachial region. The velocity in the axillary vein measures 170 cm/s. Th e velocity in the subclavian vein measures 75 cm/s. IMPRESSION: Patent arteriovenous fistula with aneurysmal changes near the antecubital fossa and in t he upper arm. Very high velocities near the axilla which could indicate an upstream stenosis. This document is electronically signed by Alexander Lugo MD., October 22 2018 06:58:32 PM ET
[2018-10-22] MEDS: ATROVENT IH SCH (20:09)
[2018-10-22] MEDS: PULMICORT IH SCH (20:09)
[2018-10-22] MEDS: ZOSYN/NS 2.25 GM/50ML 2.25 GM/50 ML BAG IV SCH (20:53)
[2018-10-22] MEDS: PRAVACHOL PO SCH (21:14)
[2018-10-22] MEDS: COLACE PO SCH (21:14)
[2018-10-22] MEDS ORDERED: NON-FORMULARY (Fluticasone Propionate [Flovent Diskus] 1 PUFF) IH SCH (22:00)
[2018-10-22] MEDS ORDERED: NACL 0.9% 250ML 250 ML IV ONE (23:25)
[2018-10-22] MEDS ORDERED: NACL 0.9% 250ML 250 ML IV SCH (23:30)
[2018-10-23] MEDS: ATROVENT IH SCH ×3 (02:19→21:15)
[2018-10-23] MEDS: SYNTHROID PO SCH (06:05)
[2018-10-23 06:38] LABS: Basophils # (Auto) 0.1 K/mm3 (0.0-0.1); Basophils % (Auto) 0.5 % (0.0-1.8); Eosinophils % (Auto) 0.4 % (0.0-4.3); Hematocrit 33.5 % (35.5-45.6); Hemoglobin 11.2 gm/dl (11.8-15.2); Lymphocytes # (Auto) 0.9 K/mm3 (1.2-5.4); Lymphocytes % (Auto) 8.4 % (13.4-35.0); Mean Corpuscular HGB Conc 34 % (32-34); Mean Corpuscular Volume 102 fl (84-94); Monocytes # (Auto) 1.1 K/mm3 (0.0-0.8); Monocytes % (Auto) 9.8 % (0.0-7.3); Red Blood Count 3.29 M/mm3 (3.65-5.03); Red Cell Distribution Width 18.6 % (13.2-15.2)
[2018-10-23 06:40] LABS: Platelet Count 67 K/mm3 (140-440)
[2018-10-23 07:30] LABS: INR > 17.60 (0.87-1.13)
[2018-10-23] MEDS ORDERED: VITAMIN K (ADULT ONLY) SUB-Q ONE (09:41)
[2018-10-23] MEDS ORDERED: NON-FORMULARY (Warfarin Sodium [Coumadin] 3 MG) PO SCH (10:00)
[2018-10-23] MEDS ORDERED: SYNTHROID PO SCH (10:00)
[2018-10-23] MEDS ORDERED: NON-FORMULARY (Omeprazole [Prilosec] 20 MG) PO SCH (10:00)
[2018-10-23] MEDS ORDERED: NON-FORMULARY (Simvastatin [Simvastatin] 20 MG) PO SCH (10:00)
[2018-10-23] MEDS ORDERED: NACL 0.9% 100 ML IV PRN (10:50)
[2018-10-23] MEDS: PULMICORT IH SCH ×2 (11:22→21:15)
[2018-10-23 12:03] LABS: Hepatitis B Surface Antigen Non-Reactive (Negative); Hepatitis C Virus Antibody Reactive (NonReactive)
--- NOTE | 2018-10-23 14:51 | Progress Note ---
Assessment and Plan 78-year-old male with altered mental status (resolved) with end-stage renal disease and possible dialysis access infection. Altered mental status has resolved. CT of brain negative except for superficial hematoma. Blood cultures positive for staph aureus. The AV access upper degenerative aneurysmal site looks worse with some erythema and scab formation. Given bacteremia, patient will require dialysis access explantation. Discussed with family in depth. R/B/A discussed. Consent obtained. NPO after MN. Plan for PermCath placement or Vas-Cath placement on Friday depending on new blood cultures. Hold warfarin for upcoming surgery for paroximal a fib. Can restart after surgery. Subjective Date of service: 10/23/18 Principal diagnosis: AV access malfunction Interval history: The upper aneurysmal degenerative area looks worse today with erythema and scab over the prior area of excoriation. There is swelling over the area. There was successful dialysis performed over the lower area of aneurysmal degeneration. The area is not painful. History limited, but was better obtained by the patient who reports that he had the AV access graded 8-9 years ago. It is still unclear if it is a fistula or a modified fistula with an interposition graft. Objective - Constitutional Vitals: Vital Signs - 12hr 10/23/18 10/23/18 10/23/18 02:59 03:12 07:39 Temperature 98.8 F 97.9 F Pulse Rate 70 Respiratory 20 20 Rate Blood Pressure 83/24 115/54 101/48 O2 Sat by Pulse 97 Oximetry 10/23/18 10/23/18 10/23/18 09:30 09:45 10:00 Temperature 97.9 F Pulse Rate 77 71 76 Respiratory 18 Rate Blood Pressure 121/59 114/55 97/55 O2 Sat by Pulse Oximetry 10/23/18 10/23/18 10/23/18 10:15 10:20 10:30 Temperature Pulse Rate 81 81 81 Respiratory Rate Blood Pressure 91/52 95/51 98/80 O2 Sat by Pulse Oximetry 10/23/18 10/23/18 10/23/18 10:45 11:00 11:15 Temperature Pulse Rate 84 76 84 Respiratory Rate Blood Pressure 100/98 98/45 100/45 O2 Sat by Pulse Oximetry 10/23/18 10/23/18 10/23/18 11:30 11:45 12:00 Temperature Pulse Rate 78 76 85 Respiratory Rate Blood Pressure 95/54 107/54 93/45 O2 Sat by Pulse Oximetry 10/23/18 12:15 Temperature Pulse Rate 82 Respiratory Rate Blood Pressure 100/45 O2 Sat by Pulse Oximetry General appearance: Present: no acute distress - EENT ENT: hearing intact - Respiratory Respiratory effort: normal Extremities: abnormal (see subjective) - Psychiatric Psychiatric: appropriate mood/affect, cooperative - Labs CBC & Chem 7: 10/23/18 06:05 10/23/18 06:05 Labs: Abnormal lab results 10/22/18 10/22/18 10/23/18 Range/Units 16:13 20:03 06:05 RBC 3.29 L (3.65-5.03) M/mm3 Hgb 11.2 L (11.8-15.2) gm/dl Hct 33.5 L (35.5-45.6) % MCV 102 H (84-94) fl MCH 34 H (28-32) pg RDW 18.6 H (13.2-15.2) % Plt Count 67 L (140-440) K/mm3 Lymph % (Auto) 8.4 L (13.4-35.0) % [place] % (Auto) 9.8 H (0.0-7.3) % Lymph # 0.9 L (1.2-5.4) K/mm3 [place] # 1.1 H (0.0-0.8) K/mm3 Seg Neutrophils % 80.9 H (40.0-70.0) % Seg Neutrophils # 8.7 H (1.8-7.7) K/mm3 PT 16.1 H (12.2-14.9) Sec. INR 1.21 H (0.87-1.13) APTT 43.0 H (24.2-36.6) Sec. Sodium (137-145) mmol/L Potassium (3.6-5.0) mmol/L Chloride (98-107) mmol/L Carbon Dioxide (22-30) mmol/L BUN (9-20) mg/dL Creatinine (0.8-1.5) mg/dL POC Glucose 192 H (70-105) Hepatitis C Antibody (NonReactive) 10/23/18 10/23/18 10/23/18 Range/Units 06:05 06:05 10:34 RBC (3.65-5.03) M/mm3 Hgb (11.8-15.2) gm/dl Hct (35.5-45.6) % MCV (84-94) fl MCH (28-32) pg RDW (13.2-15.2) % Plt Count (140-440) K/mm3 Lymph % (Auto) (13.4-35.0) % [place] % (Auto) (0.0-7.3) % Lymph # (1.2-5.4) K/mm3 [place] # (0.0-0.8) K/mm3 Seg Neutrophils % (40.0-70.0) % Seg Neutrophils # (1.8-7.7) K/mm3 PT > 120.0 H (12.2-14.9) Sec. INR > 17.60 H* (0.87-1.13) APTT (24.2-36.6) Sec. Sodium 136 L (137-145) mmol/L Potassium 5.3 H (3.6-5.0) mmol/L Chloride 95.7 L (98-107) mmol/L Carbon Dioxide 19 L (22-30) mmol/L BUN 80 H (9-20) mg/dL Creatinine 16.5 H (0.8-1.5) mg/dL POC Glucose (70-105) Hepatitis C Antibody Reactive A (NonReactive) Medications & Allergies - Medications Allergies/Adverse Reactions: Allergies No Known Allergies Allergy (Verified 05/22/16 17:56) Home Medications: Home Medications Medication Instructions Recorded Confirmed Last Taken Type Fluticasone Propionate [Flovent 1 puff IH BID 03/06/14 10/22/18 08/22/15 History Diskus] Levothyroxine [Synthroid] 88 mcg PO QAM 03/06/14 10/22/18 08/22/15 History Omeprazole [PriLOSEC] 20 mg PO QDAY 03/06/14 10/22/18 08/22/15 History Sevelamer Carbonate [Renvela] 800 mg PO TIDWM 03/06/14 10/22/18 08/22/15 History Simvastatin 20 mg PO DAILY 03/06/14 10/22/18 08/22/15 History Aspirin EC [Aspirin Enteric Coated 81 mg PO DAILY 07/06/14 10/22/18 08/22/15 History TAB] Docusate Calcium (Nf) [Surfak (Nf)] 100 mg PO DAILY 07/06/14 10/22/18 08/22/15 History Ipratropium/Albuterol Sulfate 2 inh INHALATION DAILY 08/23/15 10/22/18 08/22/15 History [Combivent Respimat] Budesonide [Pulmicort Respules] 0.5 mg IH Q12HRT nebu 10/04/15 10/22/18 Unknown Rx Docusate Sodium [Colace CAP] 100 mg PO BID capsule 10/04/15 10/22/18 Unknown Rx HYDROcodone/APAP 5-325 [[place] 1 each PO Q6H PRN #30 tablet 10/04/15 10/22/18 Unknown Rx 5-325 mg TAB] Ipratropium/Albuterol Sulfate 1 ampul IH Q12HRT #30 ampul.neb 10/04/15 10/22/18 Unknown Rx [DUONEB *Not for PRN Use*] Warfarin Sodium [Coumadin] 3 mg PO QDAY 08/11/17 10/22/18 Unknown History Active Medications: Generic Name Dose Route Start Last Admin Trade Name Freq PRN Reason Stop Dose Admin Acetaminophen 650 mg 10/22/18 09:58 10/22/18 17:19 Tylenol PO 650 mg Q4H PRN Administration Pain MILD(1-3)/Fever >100.5/FRASER Acetaminophen/Hydrocodone Bitart 1 each 10/22/18 17:07 [place] 5/325 PO Q6H PRN Pain, Moderate (4-6) Aspirin 81 mg 10/23/18 10:00 Halfprin Ec PO DAILY DEWAYNE Budesonide 0.5 mg 10/22/18 20:00 10/23/18 11:22 Pulmicort IH Not Given Q12HRT DEWAYNE Docusate Sodium 100 mg 10/22/18 22:00 10/22/18 21:14 Colace PO 100 mg BID DEWAYNE Administration Famotidine 10 mg 10/22/18 10:00 10/22/18 17:19 Pepcid PO 10 mg QDAY DEWAYNE Administration Piperacillin Sod/Tazobactam Sod 2.25 gm in 50 mls @ 100 mls/hr 10/22/18 20:00 10/22/18 21:23 Zosyn/Ns 2.25 Gm/50ml IV Infused Q12H [facility] Infusion Sodium Chloride 100 mls @ 999 mls/hr 10/22/18 16:10 Nacl 0.9% IV OWEN PRN Hypotension Sodium Chloride 100 mls @ 999 mls/hr 10/23/18 10:50 Nacl 0.9% IV OWEN PRN Hypotension Ipratropium [place] 0.5 mg 10/22/18 22:00 10/23/18 11:22 Atrovent IH Not Given BID [facility] Levothyroxine Sodium 88 mcg 10/23/18 06:00 10/23/18 06:05 Synthroid PO 88 mcg DAILY@0600 [facility] Administration Ondansetron HCl 4 mg 10/22/18 09:58 Zofran IV Q8H PRN Nausea And Vomiting Oxycodone/Acetaminophen 1 tab 10/22/18 09:58 Percocet 5/325 PO Q6H PRN Pain, Moderate (4-6) Pantoprazole Sodium 20 mg 10/23/18 10:00 Protonix PO QDAY [facility] Pravastatin Sodium 40 mg 10/22/18 22:00 10/22/18 21:14 Pravachol PO 40 mg QHS DEWAYNE Administration Sevelamer Carbonate 800 mg 10/23/18 08:00 Renvela PO TIDWM [facility] Sodium Chloride 10 ml 10/22/18 10:00 10/22/18 21:14 Sodium Chloride Flush Syringe 10 Ml IV 10 ml BID DEWAYNE Administration Sodium Chloride 10 ml 10/22/18 09:58 Sodium Chloride Flush Syringe 10 Ml IV PRN PRN LINE FLUSH Warfarin Sodium 5 mg 10/22/18 18:00 10/22/18 19:54 Coumadin PO 5 mg DAILY@1700 [facility] Administration
[2018-10-23] MEDS ORDERED: NACL 0.9 (PRIMING MACHINE ONLY DIALYSIS) MC ONE (14:53)
--- NOTE | 2018-10-23 14:55 | Progress Note ---
Assessment and Plan Impression * Infected AV access * End-stage renal disease on maintenance hemodialysis * Altered mental status * Coronary artery disease * Hypertension * History of hypothyroidism Recommendations * Discussed with Dr. Gross regarding his access . * His access site looks worse today. Plans for surgery noted * Uneventful dialysis today. Don't anticipate need for dialysis again before Friday * Continue IV antibiotics * Adjust diet and meds for ESRD state * No IV, BP or venipuncture and his access arm * Procrit with dialysis * Binders with meals * Plans for surgery noted for tomorrow * Patient would require a PermCath for his dialysis on Friday Subjective Date of service: 10/23/18 Interval history: Patient seen in the dialysis room. He just completed his dialysis using the lower part of his right upper arm AV fistula Objective - Vital Signs Vital signs: Vital Signs - 12hr 10/23/18 10/23/18 10/23/18 02:59 03:12 07:39 Temperature 98.8 F 97.9 F Pulse Rate 70 Respiratory 20 20 Rate Blood Pressure 83/24 115/54 101/48 O2 Sat by Pulse 97 Oximetry 10/23/18 10/23/18 10/23/18 09:30 09:45 10:00 Temperature 97.9 F Pulse Rate 77 71 76 Respiratory 18 Rate Blood Pressure 121/59 114/55 97/55 O2 Sat by Pulse Oximetry 10/23/18 10/23/18 10/23/18 10:15 10:20 10:30 Temperature Pulse Rate 81 81 81 Respiratory Rate Blood Pressure 91/52 95/51 98/80 O2 Sat by Pulse Oximetry 10/23/18 10/23/18 10/23/18 10:45 11:00 11:15 Temperature Pulse Rate 84 76 84 Respiratory Rate Blood Pressure 100/98 98/45 100/45 O2 Sat by Pulse Oximetry 10/23/18 10/23/18 10/23/18 11:30 11:45 12:00 Temperature Pulse Rate 78 76 85 Respiratory Rate Blood Pressure 95/54 107/54 93/45 O2 Sat by Pulse Oximetry 10/23/18 12:15 Temperature Pulse Rate 82 Respiratory Rate Blood Pressure 100/45 O2 Sat by Pulse Oximetry - General Appearance General appearance: well-developed, well-nourished, appears stated age EENT: PERRL, mucous membranes moist Neck: no JVD, no thyromegaly, no carotid bruit, supple Respiratory: Present: Clear to Ascultation Cardiology: regular, normal heart rate, S1S2, no murmurs Gastrointestinal: normal, normoactive bowel sounds Integumentary: no rash, other (no edema. AV fistula right upper arm. Upper portion appears more erythematous) - Lab 10/23/18 06:05 10/23/18 06:05 Most recent lab results Calcium 9.0 mg/dL (8.4-10.2) 10/23/18 06:05 Medications & Allergies - Medications Allergies/Adverse Reactions: Allergies No Known Allergies Allergy (Verified 05/22/16 17:56) Home Medications: Home Medications Medication Instructions Recorded Confirmed Last Taken Type Fluticasone Propionate [Flovent 1 puff IH BID 03/06/14 10/22/18 08/22/15 History Diskus] Levothyroxine [Synthroid] 88 mcg PO QAM 03/06/14 10/22/18 08/22/15 History Omeprazole [PriLOSEC] 20 mg PO QDAY 03/06/14 10/22/18 08/22/15 History Sevelamer Carbonate [Renvela] 800 mg PO TIDWM 03/06/14 10/22/18 08/22/15 History Simvastatin 20 mg PO DAILY 03/06/14 10/22/18 08/22/15 History Aspirin EC [Aspirin Enteric Coated 81 mg PO DAILY 07/06/14 10/22/18 08/22/15 History TAB] Docusate Calcium (Nf) [Surfak (Nf)] 100 mg PO DAILY 07/06/14 10/22/18 08/22/15 History Ipratropium/Albuterol Sulfate 2 inh INHALATION DAILY 08/23/15 10/22/18 08/22/15 History [Combivent Respimat] Budesonide [Pulmicort Respules] 0.5 mg IH Q12HRT nebu 10/04/15 10/22/18 Unknown Rx Docusate Sodium [Colace CAP] 100 mg PO BID capsule 10/04/15 10/22/18 Unknown Rx HYDROcodone/APAP 5-325 [[place] 1 each PO Q6H PRN #30 tablet 10/04/15 10/22/18 Unknown Rx 5-325 mg TAB] Ipratropium/Albuterol Sulfate 1 ampul IH Q12HRT #30 ampul.neb 10/04/15 10/22/18 Unknown Rx [DUONEB *Not for PRN Use*] Warfarin Sodium [Coumadin] 3 mg PO QDAY 08/11/17 10/22/18 Unknown History Active Medications: Generic Name Dose Route Start Last Admin Trade Name Freq PRN Reason Stop Dose Admin Acetaminophen 650 mg 10/22/18 09:58 10/22/18 17:19 Tylenol PO 650 mg Q4H PRN Administration Pain MILD(1-3)/Fever >100.5/FRASER Acetaminophen/Hydrocodone Bitart 1 each 10/22/18 17:07 [place] 5/325 PO Q6H PRN Pain, Moderate (4-6) Aspirin 81 mg 10/23/18 10:00 Halfprin Ec PO DAILY DEWAYNE Budesonide 0.5 mg 10/22/18 20:00 10/23/18 11:22 Pulmicort IH Not Given Q12HRT DEWAYNE Docusate Sodium 100 mg 10/22/18 22:00 10/22/18 21:14 Colace PO 100 mg BID DEWAYNE Administration Famotidine 10 mg 10/22/18 10:00 10/22/18 17:19 Pepcid PO 10 mg QDAY DEWAYNE Administration Piperacillin Sod/Tazobactam Sod 2.25 gm in 50 mls @ 100 mls/hr 10/22/18 20:00 10/22/18 21:23 Zosyn/Ns 2.25 Gm/50ml IV Infused Q12H DEWAYNE Infusion Sodium Chloride 100 mls @ 999 mls/hr 10/22/18 16:10 Nacl 0.9% IV OWEN PRN Hypotension Sodium Chloride 100 mls @ 999 mls/hr 10/23/18 10:50 Nacl 0.9% IV OWEN PRN Hypotension Ipratropium [place] 0.5 mg 10/22/18 22:00 10/23/18 11:22 Atrovent IH Not Given BID DEWAYNE Levothyroxine Sodium 88 mcg 10/23/18 06:00 10/23/18 06:05 Synthroid PO 88 mcg DAILY@0600 DEWAYNE Administration Ondansetron HCl 4 mg 10/22/18 09:58 Zofran IV Q8H PRN Nausea And Vomiting Oxycodone/Acetaminophen 1 tab 10/22/18 09:58 Percocet 5/325 PO Q6H PRN Pain, Moderate (4-6) Pantoprazole Sodium 20 mg 10/23/18 10:00 Protonix PO QDAY DEWAYNE Pravastatin Sodium 40 mg 10/22/18 22:00 10/22/18 21:14 Pravachol PO 40 mg QHS DEWAYNE Administration Sevelamer Carbonate 800 mg 10/23/18 08:00 Renvela PO TIDWM DEWAYNE Sodium Chloride 10 ml 10/22/18 10:00 10/22/18 21:14 Sodium Chloride Flush Syringe 10 Ml IV 10 ml BID DEWAYNE Administration Sodium Chloride 10 ml 10/22/18 09:58 Sodium Chloride Flush Syringe 10 Ml IV PRN PRN LINE FLUSH Warfarin Sodium 5 mg 10/22/18 18:00 10/22/18 19:54 Coumadin PO 5 mg DAILY@1700 DEWAYNE Administration
[2018-10-23] MEDS: COLACE PO SCH ×2 (15:25→21:46)
[2018-10-23] MEDS: PEPCID PO SCH (15:26)
[2018-10-23] MEDS: RENVELA PO SCH ×3 (15:26→17:06)
[2018-10-23] MEDS: ZOSYN/NS 2.25 GM/50ML 2.25 GM/50 ML BAG IV SCH ×2 (15:26→20:50)
[2018-10-23] MEDS: SODIUM CHLORIDE FLUSH SYRINGE 10 ML IV SCH ×2 (15:27→21:46)
[2018-10-23] MEDS: HALFPRIN EC PO SCH (15:30)
[2018-10-23] MEDS: PROTONIX PO SCH (15:30)
[2018-10-23] MEDS ORDERED: VANCOMYCIN PHARMACY TO DOSE IV SCH (16:00)
--- NOTE | 2018-10-23 18:12 | Progress Note ---
Assessment and Plan Possible AV graft/fistula infection - Continue patient on empiric antibiotics with vanc and Zosyn - Consulted vascular surgeon for further assessment - We'll follow blood culture Acute encephalopathy, likely toxic and metabolic -Most likely due to underlying infection, continue to monitor clinically, provide supportive care, CT head showed no acute process ESRD on dialysis - consulted nephrology Paroxysmal Afib - on anticoagulation with coumadin at home but INR is subtherapeutic today s/p TAVR 03/26/2016, no acute issue , cont supportive care Hx of Complete heart block, s/p 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 08/2015, LVEF 50-55% 09/2015 - Cont home meds Hypothyroidism. On synthroid DVT prophylaxis, continue Coumadin Subjective Date of service: 10/23/18 Principal diagnosis: AV access malfunction Interval history: Febrile Objective - Constitutional Vitals: Vital Signs - 12hr 10/23/18 10/23/18 10/23/18 07:39 09:30 09:45 Temperature 97.9 F 97.9 F Pulse Rate 70 77 71 Pulse Rate [ Apical] Respiratory 20 18 Rate Blood Pressure 101/48 121/59 114/55 O2 Sat by Pulse 97 Oximetry 10/23/18 10/23/18 10/23/18 10:00 10:15 10:20 Temperature Pulse Rate 76 81 81 Pulse Rate [ 80 Apical] Respiratory Rate Blood Pressure 97/55 91/52 95/51 O2 Sat by Pulse Oximetry 10/23/18 10/23/18 10/23/18 10:30 10:45 11:00 Temperature Pulse Rate 81 84 76 Pulse Rate [ Apical] Respiratory Rate Blood Pressure 98/80 100/98 98/45 O2 Sat by Pulse Oximetry 10/23/18 10/23/18 10/23/18 11:15 11:30 11:45 Temperature Pulse Rate 84 78 76 Pulse Rate [ Apical] Respiratory Rate Blood Pressure 100/45 95/54 107/54 O2 Sat by Pulse Oximetry 10/23/18 10/23/18 10/23/18 12:00 12:15 12:30 Temperature Pulse Rate 85 82 82 Pulse Rate [ Apical] Respiratory Rate Blood Pressure 93/45 100/45 91/45 O2 Sat by Pulse Oximetry 10/23/18 10/23/18 10/23/18 12:45 13:00 13:15 Temperature 97.6 F Pulse Rate 87 87 88 Pulse Rate [ Apical] Respiratory 18 Rate Blood Pressure 116/50 143/63 131/58 O2 Sat by Pulse Oximetry General appearance: Present: no acute distress, well-nourished - EENT Eyes: PERRL, EOM intact ENT: hearing intact, clear oral mucosa Ears: bilateral: normal - Neck Neck: supple, normal ROM - Respiratory Respiratory effort: normal Respiratory: bilateral: CTA - Breasts Breasts: normal - Cardiovascular Heart rate: 78 Rhythm: regular Heart Sounds: Present: S1 & S2. Absent: gallop, rub Extremities: pulses intact, No edema, normal color, Full ROM - Gastrointestinal General gastrointestinal: Present: soft, non-tender, non-distended, normal bowel sounds - Genitourinary Male genitourinary: normal - Integumentary Integumentary: clear, warm, dry - Musculoskeletal Musculoskeletal: 1, strength equal bilaterally - Neurologic Neurologic: moves all extremities - Psychiatric Psychiatric: memory intact, appropriate mood/affect, intact judgment & insight - Labs CBC & Chem 7: 10/24/18 05:33 10/26/18 08:32 Labs: Abnormal lab results 10/22/18 10/23/18 10/23/18 Range/Units 20:03 06:05 06:05 RBC 3.29 L (3.65-5.03) M/mm3 Hgb 11.2 L (11.8-15.2) gm/dl Hct 33.5 L (35.5-45.6) % MCV 102 H (84-94) fl MCH 34 H (28-32) pg RDW 18.6 H (13.2-15.2) % Plt Count 67 L (140-440) K/mm3 Lymph % (Auto) 8.4 L (13.4-35.0) % [place] % (Auto) 9.8 H (0.0-7.3) % Lymph # 0.9 L (1.2-5.4) K/mm3 [place] # 1.1 H (0.0-0.8) K/mm3 Seg Neutrophils % 80.9 H (40.0-70.0) % Seg Neutrophils # 8.7 H (1.8-7.7) K/mm3 PT (12.2-14.9) Sec. INR (0.87-1.13) Sodium 136 L (137-145) mmol/L Potassium 5.3 H (3.6-5.0) mmol/L Chloride 95.7 L (98-107) mmol/L Carbon Dioxide 19 L (22-30) mmol/L BUN 80 H (9-20) mg/dL Creatinine 16.5 H (0.8-1.5) mg/dL POC Glucose 192 H (70-105) Hepatitis C Antibody (NonReactive) 10/23/18 10/23/18 Range/Units 06:05 10:34 RBC (3.65-5.03) M/mm3 Hgb (11.8-15.2) gm/dl Hct (35.5-45.6) % MCV (84-94) fl MCH (28-32) pg RDW (13.2-15.2) % Plt Count (140-440) K/mm3 Lymph % (Auto) (13.4-35.0) % [place] % (Auto) (0.0-7.3) % Lymph # (1.2-5.4) K/mm3 [place] # (0.0-0.8) K/mm3 Seg Neutrophils % (40.0-70.0) % Seg Neutrophils # (1.8-7.7) K/mm3 PT > 120.0 H (12.2-14.9) Sec. INR > 17.60 H* (0.87-1.13) Sodium (137-145) mmol/L Potassium (3.6-5.0) mmol/L Chloride (98-107) mmol/L Carbon Dioxide (22-30) mmol/L BUN (9-20) mg/dL Creatinine (0.8-1.5) mg/dL POC Glucose (70-105) Hepatitis C Antibody Reactive A (NonReactive)
[2018-10-23 19:33] LABS: INR 1.36 (0.87-1.13)
[2018-10-23] MEDS ORDERED: VANCOMYCIN/NS 1 GM/250 ML 1 GM/250 ML BAG IV ONE (20:00)
[2018-10-23] MEDS: PRAVACHOL PO SCH (21:46)
[2018-10-24] MEDS: SYNTHROID PO SCH (05:44)
[2018-10-24 06:27] LABS: Hematocrit 33.7 % (35.5-45.6); Hemoglobin 11.3 gm/dl (11.8-15.2); Mean Corpuscular HGB Conc 34 % (32-34); Mean Corpuscular Volume 103 fl (84-94); Red Blood Count 3.27 M/mm3 (3.65-5.03); Red Cell Distribution Width 19.1 % (13.2-15.2)
[2018-10-24 06:30] LABS: Platelet Count 77 K/mm3 (140-440)
[2018-10-24 06:38] LABS: INR 1.12 (0.87-1.13)
[2018-10-24 06:53] LABS: Calcium 9.1 mg/dL (8.4-10.2)
[2018-10-24] MEDS: ZOSYN/NS 2.25 GM/50ML 2.25 GM/50 ML BAG IV SCH ×2 (09:56→21:42)
[2018-10-24] MEDS: HALFPRIN EC PO SCH (09:57)
[2018-10-24] MEDS: PROTONIX PO SCH (09:57)
[2018-10-24] MEDS: RENVELA PO SCH ×3 (09:57→17:59)
[2018-10-24] MEDS: PEPCID PO SCH (09:57)
[2018-10-24] MEDS: COLACE PO SCH ×2 (09:57→21:42)
[2018-10-24] MEDS: SODIUM CHLORIDE FLUSH SYRINGE 10 ML IV SCH ×2 (09:57→21:43)
[2018-10-24] MEDS: ATROVENT IH SCH ×3 (10:16→22:35)
[2018-10-24] MEDS: PULMICORT IH SCH ×2 (10:16→20:40)
[2018-10-24] MEDS ORDERED: DUONEB *Not for PRN Use IH ONE ×2 (10:27→14:15)
--- NOTE | 2018-10-24 11:54 | Progress Note ---
Assessment and Plan Impression * Infected AV access * MRSA bacteremia * End-stage renal disease on maintenance hemodialysis * Altered mental status * Coronary artery disease * Hypertension * History of hypothyroidism Recommendations * Patient is scheduled for AV graft removal today * Continue IV vancomycin. Patient has MRSA bacteremia * Uneventful dialysis yesterday . Don't anticipate need for dialysis again before Friday * Adjust diet and meds for ESRD state * No IV, BP or venipuncture and his access arm * Procrit with dialysis * Binders with meals * Patient would require a PermCath or Vas-Cath for his dialysis on Friday Subjective Date of service: 10/24/18 Principal diagnosis: AV access malfunction Interval history: Patient is awake and alert. Denies any shortness of breath. Right arm wrapped with a bandage Objective - Vital Signs Vital signs: Vital Signs - 12hr 10/24/18 10/24/18 10/24/18 00:15 08:06 10:16 Temperature 99.1 F 98.8 F Pulse Rate 96 H Pulse Rate [ 89 Throughout] Respiratory 18 Rate Respiratory 16 Rate [ Throughout] Blood Pressure 114/64 O2 Sat by Pulse 97 Oximetry 10/24/18 10:25 Temperature Pulse Rate Pulse Rate [ 92 H Throughout] Respiratory Rate Respiratory 16 Rate [ Throughout] Blood Pressure O2 Sat by Pulse Oximetry - General Appearance General appearance: well-developed, well-nourished, appears stated age EENT: PERRL, mucous membranes moist Neck: no JVD, no thyromegaly, no carotid bruit, supple Respiratory: Present: Clear to Ascultation Cardiology: regular, normal heart rate, S1S2, no murmurs Gastrointestinal: normal, normoactive bowel sounds Integumentary: no rash, other (right arm wrapped with a bandage. Overlying bruit heard) - Lab 10/24/18 05:33 10/24/18 05:33 Most recent lab results Calcium 9.1 mg/dL (8.4-10.2) 10/24/18 05:33 Medications & Allergies - Medications Allergies/Adverse Reactions: Allergies No Known Allergies Allergy (Verified 05/22/16 17:56) Home Medications: Home Medications Medication Instructions Recorded Confirmed Last Taken Type Fluticasone Propionate [Flovent 1 puff IH BID 03/06/14 10/22/18 08/22/15 History Diskus] Levothyroxine [Synthroid] 88 mcg PO QAM 03/06/14 10/22/18 08/22/15 History Omeprazole [PriLOSEC] 20 mg PO QDAY 03/06/14 10/22/18 08/22/15 History Sevelamer Carbonate [Renvela] 800 mg PO TIDWM 03/06/14 10/22/18 08/22/15 History Simvastatin 20 mg PO DAILY 03/06/14 10/22/18 08/22/15 History Aspirin EC [Aspirin Enteric Coated 81 mg PO DAILY 07/06/14 10/22/18 08/22/15 History TAB] Docusate Calcium (Nf) [Surfak (Nf)] 100 mg PO DAILY 07/06/14 10/22/18 08/22/15 History Ipratropium/Albuterol Sulfate 2 inh INHALATION DAILY 08/23/15 10/22/18 08/22/15 History [Combivent Respimat] Budesonide [Pulmicort Respules] 0.5 mg IH Q12HRT nebu 10/04/15 10/22/18 Unknown Rx Docusate Sodium [Colace CAP] 100 mg PO BID capsule 10/04/15 10/22/18 Unknown Rx HYDROcodone/APAP 5-325 [[place] 1 each PO Q6H PRN #30 tablet 10/04/15 10/22/18 Unknown Rx 5-325 mg TAB] Ipratropium/Albuterol Sulfate 1 ampul IH Q12HRT #30 ampul.neb 10/04/15 10/22/18 Unknown Rx [DUONEB *Not for PRN Use*] Warfarin Sodium [Coumadin] 3 mg PO QDAY 08/11/17 10/22/18 Unknown History Active Medications: Generic Name Dose Route Start Last Admin Trade Name Freq PRN Reason Stop Dose Admin Acetaminophen 650 mg 10/22/18 09:58 10/22/18 17:19 Tylenol PO 650 mg Q4H PRN Administration Pain MILD(1-3)/Fever >100.5/FRASER Acetaminophen/Hydrocodone Bitart 1 each 10/22/18 17:07 [place] 5/325 PO Q6H PRN Pain, Moderate (4-6) Aspirin 81 mg 10/23/18 10:00 10/24/18 09:57 Halfprin Ec PO Not Given DAILY DEWAYNE Budesonide 0.5 mg 10/22/18 20:00 10/24/18 10:16 Pulmicort IH 0.5 mg Q12HRT DEWAYNE Administration Docusate Sodium 100 mg 10/22/18 22:00 10/24/18 09:57 Colace PO Not Given BID DEWAYNE Famotidine 10 mg 10/22/18 10:00 10/24/18 09:57 Pepcid PO Not Given QDAY [facility] Piperacillin Sod/Tazobactam Sod 2.25 gm in 50 mls @ 100 mls/hr 10/22/18 20:00 10/24/18 09:56 Zosyn/Ns 2.25 Gm/50ml IV 100 mls/hr Q12H [facility] Administration Sodium Chloride 100 mls @ 999 mls/hr 10/23/18 10:50 Nacl 0.9% IV OWEN PRN Hypotension Ipratropium [place] 0.5 mg 10/22/18 22:00 10/24/18 10:16 Atrovent IH 0.5 mg BID DEWAYNE Administration Levothyroxine Sodium 88 mcg 10/23/18 06:00 10/24/18 05:44 Synthroid PO 88 mcg DAILY@0600 [facility] Administration Ondansetron HCl 4 mg 10/22/18 09:58 Zofran IV Q8H PRN Nausea And Vomiting Oxycodone/Acetaminophen 1 tab 10/22/18 09:58 Percocet 5/325 PO Q6H PRN Pain, Moderate (4-6) Pantoprazole Sodium 20 mg 10/23/18 10:00 10/24/18 09:57 Protonix PO Not Given QDAY [facility] Pravastatin Sodium 40 mg 10/22/18 22:00 10/23/18 21:46 Pravachol PO 40 mg QHS [facility] Administration Sevelamer Carbonate 800 mg 10/23/18 08:00 10/24/18 09:57 Renvela PO Not Given TIDWM [facility] Sodium Chloride 10 ml 10/22/18 10:00 10/24/18 09:57 Sodium Chloride Flush Syringe 10 Ml IV 10 ml BID DEWAYNE Administration Sodium Chloride 10 ml 10/22/18 09:58 Sodium Chloride Flush Syringe 10 Ml IV PRN PRN LINE FLUSH
--- NOTE | 2018-10-24 13:46 | Progress Note ---
Assessment and Plan Possible AV graft/fistula infection - Continue patient on empiric antibiotics with vanc and Zosyn - Consulted vascular surgeon for further assessment - We'll follow blood culture Graft to be removed on Friday Vascath on Friday Acute encephalopathy Secondary to Uremia ESRD on dialysis -consulted nephrology Paroxysmal Afib - on anticoagulation with coumadin at home but INR is subtherapeutic today s/p TAVR 03/26/2016, no acute issue , cont supportive care Hx of Complete heart block, s/p PPM 2015 (dual chamber SJM) CAD s/p CABG - All grafts patent by [facility] 08/2015, LVEF 50-55% 09/2015 - Cont home meds Hypothyroidism. On synthroid DVT prophylaxis, continue Coumadin Subjective Date of service: 10/24/18 Principal diagnosis: AV access malfunction Interval history: Febrile Objective - Constitutional Vitals: Vital Signs - 12hr 10/24/18 10/24/18 10/24/18 08:06 10:16 10:25 Temperature 98.8 F Pulse Rate 96 H Pulse Rate [ 89 92 H Throughout] Respiratory 18 Rate Respiratory 16 16 Rate [ Throughout] Blood Pressure 114/64 O2 Sat by Pulse 97 Oximetry General appearance: Present: no acute distress, well-nourished - EENT Eyes: PERRL, EOM intact ENT: hearing intact, clear oral mucosa Ears: bilateral: normal - Neck Neck: supple, normal ROM - Respiratory Respiratory effort: normal Respiratory: bilateral: CTA - Breasts Breasts: normal - Cardiovascular Heart rate: 88 Rhythm: regular Heart Sounds: Present: S1 & S2. Absent: gallop, rub Extremities: no ischemia, pulses intact, No edema, normal color, Full ROM - Gastrointestinal General gastrointestinal: Present: soft, non-tender, non-distended, normal bowel sounds - Genitourinary Male genitourinary: normal - Integumentary Integumentary: clear, warm, dry - Musculoskeletal Musculoskeletal: 1, strength equal bilaterally - Neurologic Neurologic: moves all extremities - Psychiatric Psychiatric: memory intact, appropriate mood/affect, intact judgment & insight - Labs CBC & Chem 7: 10/24/18 05:33 10/26/18 08:32 Labs: Abnormal lab results 10/23/18 10/24/18 10/24/18 Range/Units 18:46 05:33 05:33 RBC 3.27 L (3.65-5.03) M/mm3 Hgb 11.3 L (11.8-15.2) gm/dl Hct 33.7 L (35.5-45.6) % MCV 103 H (84-94) fl MCH 35 H (28-32) pg RDW 19.1 H (13.2-15.2) % Plt Count 77 L (140-440) K/mm3 PT 17.6 H 15.1 H (12.2-14.9) Sec. INR 1.36 H (0.87-1.13) Sodium (137-145) mmol/L Chloride (98-107) mmol/L BUN (9-20) mg/dL Creatinine (0.8-1.5) mg/dL 10/24/18 Range/Units 05:33 RBC (3.65-5.03) M/mm3 Hgb (11.8-15.2) gm/dl Hct (35.5-45.6) % MCV (84-94) fl MCH (28-32) pg RDW (13.2-15.2) % Plt Count (140-440) K/mm3 PT (12.2-14.9) Sec. INR (0.87-1.13) Sodium 136 L (137-145) mmol/L Chloride 96.6 L (98-107) mmol/L BUN 41 H (9-20) mg/dL Creatinine 9.9 H (0.8-1.5) mg/dL
[2018-10-24 16:17] LABS: Basophils % (Manual) 0 % (0.0-1.8); Total Cells Counted 100
[2018-10-24 16:18] LABS: Anisocytosis 1+; Platelet Estimate Appears Decreased
[2018-10-24 16:19] LABS: Macrocytosis Few; Ovalocytes Few
--- NOTE | 2018-10-24 17:08 | Event Note ---
Date: 10/24/18 Unable to perform case today. Evaluated the right arm AVF. Spontaneous decompression of superficial fluid collection with purulent drainage. Ul ceration intact without signs of imminent rupture. Will plan for excision tomorrow.
--- NOTE | 2018-10-24 18:12 | Consultation ---
History of Present Illness - Reason for Consult Consult date: 10/24/18 Reason for consult: psych eval - Chief Complaint Chief complaint: "come back tomorrow" - History of Present Psychiatric Illness He does not want to talk today. He acknowledges his health problems. Medications and Allergies Allergies Allergy/AdvReac Type Severity Reaction Status Date / Time No Known Allergies Allergy Verified 05/22/16 17:56 Home Medications Medication Instructions Recorded Confirmed Last Taken Type Fluticasone Propionate [Flovent 1 puff IH BID 03/06/14 10/22/18 08/22/15 History Diskus] Levothyroxine [Synthroid] 88 mcg PO QAM 03/06/14 10/22/18 08/22/15 History Omeprazole [PriLOSEC] 20 mg PO QDAY 03/06/14 10/22/18 08/22/15 History Sevelamer Carbonate [Renvela] 800 mg PO TIDWM 03/06/14 10/22/18 08/22/15 History Simvastatin 20 mg PO DAILY 03/06/14 10/22/18 08/22/15 History Aspirin EC [Aspirin Enteric Coated 81 mg PO DAILY 07/06/14 10/22/18 08/22/15 History TAB] Docusate Calcium (Nf) [Surfak (Nf)] 100 mg PO DAILY 07/06/14 10/22/18 08/22/15 History Ipratropium/Albuterol Sulfate 2 inh INHALATION DAILY 08/23/15 10/22/18 08/22/15 History [Combivent Respimat] Budesonide [Pulmicort Respules] 0.5 mg IH Q12HRT nebu 10/04/15 10/22/18 Unknown Rx Docusate Sodium [Colace CAP] 100 mg PO BID capsule 10/04/15 10/22/18 Unknown Rx HYDROcodone/APAP 5-325 [[place] 1 each PO Q6H PRN #30 tablet 10/04/15 10/22/18 Unknown Rx 5-325 mg TAB] Ipratropium/Albuterol Sulfate 1 ampul IH Q12HRT #30 ampul.neb 10/04/15 10/22/18 Unknown Rx [DUONEB *Not for PRN Use*] Warfarin Sodium [Coumadin] 3 mg PO QDAY 08/11/17 10/22/18 Unknown History Active Meds: Active Medications Acetaminophen (Tylenol) 650 mg PO Q4H PRN PRN Reason: Pain MILD(1-3)/Fever >100.5/FRASER Last Admin: 10/22/18 17:19 Dose: 650 mg Documented by: Acetaminophen/Hydrocodone Bitart ([place] 5/325) 1 each PO Q6H PRN PRN Reason: Pain, Moderate (4-6) Aspirin (Halfprin Ec) 81 mg PO DAILY [facility] Last Admin: 10/24/18 09:57 Dose: Not Given Documented by: Budesonide (Pulmicort) 0.5 mg IH Q12HRT [facility] Last Admin: 10/24/18 10:16 Dose: 0.5 mg Documented by: Docusate Sodium (Colace) 100 mg PO BID [facility] Last Admin: 10/24/18 09:57 Dose: Not Given Documented by: Famotidine (Pepcid) 10 mg PO QDAY [facility] Last Admin: 10/24/18 09:57 Dose: Not Given Documented by: Piperacillin Sod/Tazobactam Sod (Zosyn/Ns 2.25 Gm/50ml) 2.25 gm in 50 mls @ 100 mls/hr IV Q12H [facility] Last Admin: 10/24/18 09:56 Dose: 100 mls/hr Documented by: Sodium Chloride (Nacl 0.9%) 100 mls @ 999 mls/hr IV OWEN PRN PRN Reason: Hypotension Ipratropium [place] (Atrovent) 0.5 mg IH BID [facility] Last Admin: 10/24/18 10:16 Dose: 0.5 mg Documented by: Levothyroxine Sodium (Synthroid) 88 mcg PO DAILY@0600 [facility] Last Admin: 10/24/18 05:44 Dose: 88 mcg Documented by: Ondansetron HCl (Zofran) 4 mg IV Q8H PRN PRN Reason: Nausea And Vomiting Oxycodone/Acetaminophen (Percocet 5/325) 1 tab PO Q6H PRN PRN Reason: Pain, Moderate (4-6) Pantoprazole Sodium (Protonix) 20 mg PO QDAY [facility] Last Admin: 10/24/18 09:57 Dose: Not Given Documented by: Pravastatin Sodium (Pravachol) 40 mg PO QHS [facility] Last Admin: 10/23/18 21:46 Dose: 40 mg Documented by: Sevelamer Carbonate (Renvela) 800 mg PO TIDWM [facility] Last Admin: 10/24/18 17:59 Dose: 800 mg Documented by: Sodium Chloride (Sodium Chloride Flush Syringe 10 Ml) 10 ml IV BID [facility] Last Admin: 10/24/18 09:57 Dose: 10 ml Documented by: Sodium Chloride (Sodium Chloride Flush Syringe 10 Ml) 10 ml IV PRN PRN PRN Reason: LINE FLUSH Past psychiatric history - Past Medical History Past Medical History: CAD, hypertension, hypothyroidism, other (ESRD, infected AVF) Mental Status Exam - Vital signs Last Vital Signs Temp 98.8 F 10/24/18 08:06 Pulse 92 H 10/24/18 10:25 Resp 16 10/24/18 10:25 BP 114/64 10/24/18 08:06 Pulse Ox 97 10/24/18 08:06 - Exam Narrative exam: alert and oriented to person and place. Results Result Diagrams: 10/24/18 05:33 10/25/18 09:45 Abnormal lab results 10/23/18 10/24/18 10/24/18 Range/Units 18:46 05:33 05:33 RBC 3.27 L (3.65-5.03) M/mm3 Hgb 11.3 L (11.8-15.2) gm/dl Hct 33.7 L (35.5-45.6) % MCV 103 H (84-94) fl MCH 35 H (28-32) pg RDW 19.1 H (13.2-15.2) % Plt Count 77 L (140-440) K/mm3 Seg Neuts % (Manual) 94.0 H (40.0-70.0) % Lymphocytes % (Manual) 1.0 L (13.4-35.0) % Seg Neutrophils # Man 10.1 H (1.8-7.7) K/mm3 Lymphocytes # (Manual) 0.1 L (1.2-5.4) K/mm3 PT 17.6 H 15.1 H (12.2-14.9) Sec. INR 1.36 H (0.87-1.13) Sodium (137-145) mmol/L Chloride (98-107) mmol/L BUN (9-20) mg/dL Creatinine (0.8-1.5) mg/dL 10/24/18 Range/Units 05:33 RBC (3.65-5.03) M/mm3 Hgb (11.8-15.2) gm/dl Hct (35.5-45.6) % MCV (84-94) fl MCH (28-32) pg RDW (13.2-15.2) % Plt Count (140-440) K/mm3 Seg Neuts % (Manual) (40.0-70.0) % Lymphocytes % (Manual) (13.4-35.0) % Seg Neutrophils # Man (1.8-7.7) K/mm3 Lymphocytes # (Manual) (1.2-5.4) K/mm3 PT (12.2-14.9) Sec. INR (0.87-1.13) Sodium 136 L (137-145) mmol/L Chloride 96.6 L (98-107) mmol/L BUN 41 H (9-20) mg/dL Creatinine 9.9 H (0.8-1.5) mg/dL All other labs normal. Assessment and Plan Assessment and plan: Impression: unable to determine unable to r/o dementia at this time Recommendation: none at this time will evaluate in 24 hours discussed situation [address] Dr[address] Garrett
[2018-10-24] MEDS: PRAVACHOL PO SCH (21:43)
[2018-10-25] MEDS: SYNTHROID PO SCH (06:17)
[2018-10-25 06:20] LABS: INR 1.09 (0.87-1.13)
[2018-10-25] MEDS: PULMICORT IH SCH ×2 (07:51→21:13)
[2018-10-25] MEDS: ATROVENT IH SCH ×3 (07:52→21:13)
[2018-10-25] MEDS: RENVELA PO SCH ×3 (08:20→18:35)
[2018-10-25] MEDS: ZOSYN/NS 2.25 GM/50ML 2.25 GM/50 ML BAG IV SCH ×2 (08:20→22:22)
[2018-10-25] MEDS: HALFPRIN EC PO SCH (08:20)
[2018-10-25] MEDS ORDERED: NARCAN 0.4 MG/1 ML IV PRN (09:22)
[2018-10-25] MEDS ORDERED: SUBLIMAZE IV PRN (09:22)
[2018-10-25] MEDS ORDERED: DILAUDID IV PRN (09:22)
[2018-10-25] MEDS ORDERED: ZOFRAN IV PRN (09:22)
--- NOTE | 2018-10-25 09:24 | Anesthesia Consultation ---
Anesthesia Consult and Med Hx Date of service: 10/25/18 - Airway Anesthetic Teeth Evaluation: Good ROM Head & Neck: Adequate Mental/Hyoid Distance: Adequate Mallampati Class: Class II Intubation Access Assessment: Good - Pulmonary Exam CTA: Yes - Cardiac Exam Cardiac Exam: RRR - Pre-Operative Health Status ASA Pre-Surgery Classification: ASA3 Proposed Anesthetic Plan: General - Pulmonary Hx Smoking: No COPD: No - Cardiovascular System Hx Hypertension: Yes Hx Heart Attack/AMI: Yes (stents) Hx Pacemaker: Yes (RIGHT CHEST PACE MAKER) Hx Valvular Heart Disease: Yes - Central Nervous System Hx Psychiatric Problems: No (FAMILY DENIES) - Endocrine Hx Renal Disease: Yes (TTS dialysis) Hx End Stage Renal Disease: Yes - Hematic Hx Anemia: Yes - Other Systems Hx Cancer: No (FAMILY DENIES)
--- NOTE | 2018-10-25 09:24 | Anesthesia Day of Surgery ---
Anesthesia Day of Surgery - Day of Surgery Patient Examined: Yes Patient H&P Reviewed: Yes Patient is NPO: Yes Beta Blockers: No Cardiac Clearance: No Pulmonary Clearance: No
[2018-10-25] MEDS ORDERED: MARCAINE 0.5% INFILTRATI ONE ×3 (09:29→10:00)
[2018-10-25] MEDS ORDERED: NACL 0.9% 500 ML IRRIGATION ONE ×2 (09:29)
[2018-10-25] MEDS ORDERED: HEPARIN 10,000 UNITS/10 ML IV ONE ×2 (09:29)
[2018-10-25] MEDS ORDERED: DIPRIVAN 10 MG/ML IV ONE (10:00)
[2018-10-25] MEDS ORDERED: AMIDATE IV ONE (10:00)
[2018-10-25] MEDS ORDERED: ZOFRAN ONE (10:00)
[2018-10-25] MEDS ORDERED: NACL 0.9% 500 ML ONE (10:00)
[2018-10-25] MEDS ORDERED: XYLOCAINE CARDIAC IV ONE (10:00)
[2018-10-25] MEDS ORDERED: NEO SYNEPHRINE/NS Syringe(OR USE) IV ONE (10:00)
[2018-10-25] MEDS ORDERED: SILVER NITRATE TP ONE (10:00)
[2018-10-25] MEDS ORDERED: HEPARIN 10,000 UNITS/10 ML ONE (10:00)
[2018-10-25] MEDS ORDERED: SUBLIMAZE ONE (10:00)
[2018-10-25] MEDS ORDERED: DECADRON ONE (10:00)
[2018-10-25] MEDS ORDERED: NACL 0.9% 1000 ML ONE (10:00)
[2018-10-25 10:24] LABS: Calcium 8.8 mg/dL (8.4-10.2)
--- NOTE | 2018-10-25 12:03 | Operative Report ---
Operative Report Operative Report: Date of Procedure: 10/25/2018 Pre-operative Diagnosis: Infected Right Arm Arteriovenous Graft Post-operative Diagnosis: Same Procedure(s): Excision of Infected Right Arm Arteriovenous Graft Surgeon: Antonio Phelps M.D. Voltmeter Operator: None Anesthesia: General Endotracheal Anesthesia EBL: 250 ml Counts: Correct Complications: None Condition: Stable Findings: Purulence noted from mid portion of the arm. Specimen: Right arm AV Graft sent for culture. Indication: The patient is a 78 year old male who presented to the Emergency Department with complaints of purulent drainage from his right arm AV access. He had blood cultures positive for MRSA. He needs his AV Graft excised. He and his son were given the risk, benefits, and alternative procedures and consented to the procedure. Description of Procedure: The patient was brought into the operating room and laid in supine position. After general endotracheal anesthesia was achieved his right eye was prepped and draped in normal sterile fashion. A longitudinal incision was made over the fistula extending from the upper arm to just above the antecubital crease and carried down to the socially sharp dissection. The arterial anastomosis was dissected out and the brachial artery was dissected circumferentially both prox imal and distal to the anastomosis and control vessels. I then dissected along what appeared to be a bovine graft and up along the 2 areas of pseudoaneurysms. After dissecting along the pseudoaneurysms it appeared that there was a transition to a fistula. I could not identify the venous anastomosis however this may have been incorporated in one of the pseudoaneurysms but again I could not find the anastomosis or identify suture. I was able to dissect down towards the axillary vein. I clamped the vein with a large right angle and put some forward tension on the vein and ligated it high with a 0 silk. After clamping the arterial inflow of the graft I then ligated the venous outflow and allowed the vein to drop back into the soft tissue. Of note the venous portion of the fistula was well incorporated. I then transected the arterial anastomosis on the brachial artery ensuring that no portion of the graft remained. I was able to find a small collateral vein in the soft tissue and ligated both ends and transected. I then spliced the vein open and used this as a patch to close the brachial artery with a 6-0 Prolene in a running fashion. Prior to completing the closure after last the inflow and outflow the brachial artery and then flushed it with heparinized saline. I then released the clamps allowing flow through the brachial artery which had a palpable pulse distal to the repair. Hemostasis on the patch was achieved with Surgicel. Hemostasis within the wound was achieved with quick clot. Once hemostasis was achieved the wound was anesthetized with 0.5% Marcaine and closed in 3 layers using a 2-0 Vicryl in a running fashion to reapproximate the fascia, 3-0 Vicryl running fashion in the deep dermal layer and david to reapproximate the skin. I did leave the mid segment of the wound open and packed this with a Betadine soaked gauze. The remainder of the wound was dressed with fluffs, an ABD pad, and a loosely wrapped 4 inch Chidi bandage. The patient tolerated the procedure well. All sponge, needle, and instrument counts were correct. The patient was taken to the recovery area in stable condition.
[2018-10-25] MEDS ORDERED: KIONEX PO ONE (13:36)
--- NOTE | 2018-10-25 14:07 | Post Anesthesia Evaluation ---
- Post Anesthesia Evaluation Patient Participated: Yes Airway Patent: Yes Stable Respiratory Function: Yes Nausea/Vomiting: No Temp > 96.8F: Yes Pain Manageable: Yes Adequeate Hydration: Yes Anesthesia Complications: No
[2018-10-25] MEDS: PEPCID PO SCH (14:37)
[2018-10-25] MEDS: PROTONIX PO SCH (14:38)
[2018-10-25] MEDS: SODIUM CHLORIDE FLUSH SYRINGE 10 ML IV SCH ×2 (14:38→22:23)
[2018-10-25] MEDS: COLACE PO SCH ×2 (14:38→22:23)
[2018-10-25] MEDS: PRAVACHOL PO SCH (22:23)
[2018-10-26 06:41] LABS: INR 1.09 (0.87-1.13)
[2018-10-26] MEDS: SYNTHROID PO SCH (06:54)
[2018-10-26 06:57] LABS: BUN/Creatinine Ratio 5; Blood Urea Nitrogen 79 mg/dL (9-20); Calcium 9.1 mg/dL (8.4-10.2); Hemolysis Index 148
[2018-10-26] MEDS ORDERED: NACL 0.9% 250ML 250 ML ONE (08:37)
[2018-10-26] MEDS ORDERED: XYLOCAINE 2% INFILTRATI ONE (08:37)
[2018-10-26] MEDS ORDERED: HEPARIN/NS 5000 UNIT/500ML(CATH LAB) 500 ML IR ONE (08:37)
[2018-10-26] MEDS ORDERED: ANCEF/STERILE WATER 2 GM/20 ML 2 GM/20 ML SYRINGE IV ONE (08:38)
[2018-10-26] MEDS ORDERED: XYLOCAINE 1%/ EPI 1:100,000 INFILTRATI ONE (08:39)
[2018-10-26] MEDS: RENVELA PO SCH ×3 (09:03→21:35)
[2018-10-26] MEDS: ZOSYN/NS 2.25 GM/50ML 2.25 GM/50 ML BAG IV SCH ×2 (09:03→21:35)
[2018-10-26] MEDS: PEPCID PO SCH (09:04)
[2018-10-26] MEDS: COLACE PO SCH ×2 (09:04→21:35)
[2018-10-26] MEDS: HALFPRIN EC PO SCH (09:04)
[2018-10-26] MEDS: VERSED ONE ×2 (09:12→09:41)
[2018-10-26] MEDS: SUBLIMAZE ONE ×3 (09:12→09:41)
[2018-10-26] MEDS: HEPARIN 10,000 UNITS/10 ML ONE ×6 (09:37→09:44)
--- NOTE | 2018-10-26 10:28 | Operative Report ---
Operative Report Operative Report: EXAM: 1. Ultrasound guided access of the left internal jugular vein 2. Venography of the left internal jugular vein, subclavian, left innominate vein 3. Ultrasound guided access of the right internal jugular vein 4. Venography of the SVC 5. Fluoroscopic guided placement of a 23 cm tip to cuff palindrome dual lumen hemodialysis catheter DATE: 10/26/18 SURFACE ROOM SHOP OPTICIAN: BREANNE URIBE MD INDICATION: End-stage renal disease with no hemodialysis access with blood cultures negative 48 hours. MEDICATIONS: Please see nursing report for full details. DEVICES: 23 cm tip to cuff palindrome dual lumen hemodialysis catheter CONTRAST: 10 mL's of nonionic contrast PROCEDURE: The risks, benefits, and alternatives were discussed and informed consent was obtained. The patient was transported to the angiography suite in satisfactory/stable condition and was transported onto the angiography table. The patient's left internal jugular vein was assessed with ultrasound and determined to be patent prior to procedure. The patient was prepped and draped in a sterile fashion. The puncture site was anesthetized. Under sonographic guidance, the left internal jugular vein was punctured with a 21-gauge micropuncture needle and a 0.018 inch wire was advanced into the left internal jugular vein. The wire passed into the left superior intercostal vein but would not go into the left innominate vein.. The micropuncture needle was exchanged for a transitional dilator. The wire and inner dilator were removed. Digital subtraction angiography was performed demonstrating left innominate vein occlusion with patency of the SVC and numerous collaterals crossing from the left to the right side. The left internal jugular vein and subclavian vein were patent. Multiple attempts were made with a 0.035 inch Glidewire to cross the occlusion but this was unsuccessful. I then aborted attempting to cross the left innomina te vein at this time and decided to attempt another access site. The wire and transitional dilator were removed and pressure was held until hemostasis was achieved. Sterile dressing applied. Right neck was then prepped and draped in a sterile fashion. The patient's right internal jugular vein was assessed with ultrasound and determined to be patent. The puncture site was anesthetized. Under sonographic guidance, the right internal jugular vein was punctured with a 21-gauge micropuncture needle and a 0.018 inch wire was advanced into the inferior vena cava. The micropuncture needle was exchanged for a transitional dilator and the wire was retracted into the right atrium to sarah intravascular distance. The wire and inner dilator were removed. Digital subtraction angiography was performed to the transitional dilator demonstrated patency of the SVC. 0.035 inch Amplatz wire was advanced through the transitional dilator into the inferior vena cava. Over the 0.035 inch wire, serial dilatation was performed with ultimate placement of a peel-away sheath. The catheter was advanced through the peel- away sheath after the wire was removed and positioned centrally under fluoroscopic guidance. The peel-away sheath was removed. The catheter tip is in the right atrium. A suitable exit site was identified on the patient's chest inferior and lateral to the venotomy. The site was anesthetized with local anesthetic and the track was anesthetized. Dermatotomy was made. The reverse tunneled PermCath was attached to the tunneling device and tunneled between the dermatotomy to the venotomy. The PermCath was then retracted from the venotomy to the dermatotomy and reassembled. Excellent flow was obtained through the dialysis catheter with 20 mL syringes. 4-0 Vicryl suture was used to close the venotomy and Dermabond was then applied. 2-0 Ethilon suture was used to secure the catheter at the dermatotomy. The catheter was charged with heparin 1000 units/mL space. Sterile dressing and biopatch applied. The patient was transferred from the angiography suite back to the floor in stable condition. FINDINGS: Please see procedure note above IMPRESSION: 1. Successful ultrasound guided access of the left internal jugular vein with venography as described above. 2. Successful ultrasound and fluoroscopically guided placement of a right internal jugular tunneled cuffed hemodialysis catheter.
[2018-10-26] MEDS: ATROVENT IH SCH ×2 (10:54→22:59)
[2018-10-26] MEDS: PULMICORT IH SCH ×2 (10:55→22:59)
--- NOTE | 2018-10-26 12:09 | Progress Note ---
Assessment and Plan Impression * Infected AV access * MRSA bacteremia * End-stage renal disease on maintenance hemodialysis * Altered mental status * Coronary artery disease * Hypertension * History of hypothyroidism Recommendations * Patient is s/p AV graft removal * HD q MWF * Continue IV vancomycin. Patient has MRSA bacteremia * s/p new hd catheter * Adjust diet and meds for ESRD state * No IV, BP or venipuncture and his access arm * Procrit with dialysis * Binders with meals Subjective Date of service: 10/26/18 Principal diagnosis: AV access malfunction Interval history: resting well in bed today Objective - Exam Narrative Exam: General appearance: well-developed, well-nourished, appears stated age EENT: PERRL, mucous membranes moist Neck: no JVD, no thyromegaly, no carotid bruit, supple Respiratory: Present: Clear to Ascultation Cardiology: regular, normal heart rate, S1S2, no murmurs Gastrointestinal: normal, normoactive bowel sounds Integumentary: no rash, other (right arm wrapped with a bandage. Overlying bruit heard) - Vital Signs Vital signs: Vital Signs - 12hr 10/26/18 10/26/18 10/26/18 02:43 07:05 10:54 Temperature 97.6 F 97.7 F Pulse Rate 71 73 Pulse Rate [ 101 H Anterior Bilateral Throughout] Respiratory 20 19 Rate Respiratory 20 Rate [Anterior Bilateral Throughout] Blood Pressure 147/69 Blood Pressure 142/70 [Right] O2 Sat by Pulse 97 98 Oximetry O2 Sat by Pulse Oximetry [ Anterior Bilateral Throughout] 10/26/18 10/26/18 10/26/18 11:00 11:05 11:15 Temperature 98.0 F Pulse Rate 118 H 130 H Pulse Rate [ 95 H Anterior Bilateral Throughout] Respiratory 20 Rate Respiratory 20 Rate [Anterior Bilateral Throughout] Blood Pressure 139/87 141/90 Blood Pressure [Right] O2 Sat by Pulse Oximetry O2 Sat by Pulse 98 Oximetry [ Anterior Bilateral Throughout] 10/26/18 10/26/18 11:30 11:45 Temperature Pulse Rate 126 H 121 H Pulse Rate [ Anterior Bilateral Throughout] Respiratory Rate Respiratory Rate [Anterior Bilateral Throughout] Blood Pressure 102/74 115/76 Blood Pressure [Right] O2 Sat by Pulse Oximetry O2 Sat by Pulse Oximetry [ Anterior Bilateral Throughout] - Lab 10/24/18 05:33 10/26/18 08:32 Most recent lab results Calcium 9.1 mg/dL (8.4-10.2) 10/26/18 05:57 Medications & Allergies - Medications Allergies/Adverse Reactions: Allergies No Known Allergies Allergy (Verified 05/22/16 17:56) Home Medications: Home Medications Medication Instructions Recorded Confirmed Last Taken Type Fluticasone Propionate [Flovent 1 puff IH BID 03/06/14 10/22/18 08/22/15 History Diskus] Levothyroxine [Synthroid] 88 mcg PO QAM 03/06/14 10/22/18 08/22/15 History Omeprazole [PriLOSEC] 20 mg PO QDAY 03/06/14 10/22/18 08/22/15 History Sevelamer Carbonate [Renvela] 800 mg PO TIDWM 03/06/14 10/22/18 08/22/15 History Simvastatin 20 mg PO DAILY 03/06/14 10/22/18 08/22/15 History Aspirin EC [Aspirin Enteric Coated 81 mg PO DAILY 07/06/14 10/22/18 08/22/15 History TAB] Docusate Calcium (Nf) [Surfak (Nf)] 100 mg PO DAILY 07/06/14 10/22/18 08/22/15 History Ipratropium/Albuterol Sulfate 2 inh INHALATION DAILY 08/23/15 10/22/18 08/22/15 History [Combivent Respimat] Budesonide [Pulmicort Respules] 0.5 mg IH Q12HRT nebu 10/04/15 10/22/18 Unknown Rx Docusate Sodium [Colace CAP] 100 mg PO BID capsule 10/04/15 10/22/18 Unknown Rx HYDROcodone/APAP 5-325 [[place] 1 each PO Q6H PRN #30 tablet 10/04/15 10/22/18 Unknown Rx 5-325 mg TAB] Ipratropium/Albuterol Sulfate 1 ampul IH Q12HRT #30 ampul.neb 10/04/15 10/22/18 Unknown Rx [DUONEB *Not for PRN Use*] Warfarin Sodium [Coumadin] 3 mg PO QDAY 08/11/17 10/22/18 Unknown History Active Medications: Generic Name Dose Route Start Last Admin Trade Name Freq PRN Reason Stop Dose Admin Acetaminophen 650 mg 10/22/18 09:58 04/04/19 17:19 Tylenol PO 650 mg Q4H PRN Administration Pain MILD(1-3)/Fever >100.5/FRASER Acetaminophen/Hydrocodone Bitart 1 each 10/22/18 17:07 [place] 5/325 PO Q6H PRN Pain, Moderate (4-6) Aspirin 81 mg 10/23/18 10:00 10/26/18 09:04 Halfprin Ec PO Not Given DAILY [facility] Budesonide 0.5 mg 10/22/18 20:00 10/26/18 10:55 Pulmicort IH 0.5 mg Q12HRT [facility] Administration Docusate Sodium 100 mg 10/22/18 22:00 10/26/18 09:04 Colace PO Not Given BID [facility] Famotidine 10 mg 10/22/18 10:00 10/26/18 09:04 Pepcid PO Not Given QDAY [facility] Fentanyl 50 mcg 10/25/18 09:22 Sublimaze IV Q5MIN PRN Pain , Severe (7-10) Hydromorphone HCl 0.25 mg 10/25/18 09:22 Dilaudid IV Q10MIN PRN Pain, Moderate (4-6) Piperacillin Sod/Tazobactam Sod 2.25 gm in 50 mls @ 100 mls/hr 10/22/18 20:00 10/26/18 09:03 Zosyn/Ns 2.25 Gm/50ml IV Not Given Q12H [facility] Sodium Chloride 100 mls @ 999 mls/hr 10/23/18 10:50 Nacl 0.9% IV OWEN PRN Hypotension Vancomycin HCl 1 gm in 250 mls @ 167.007 mls/hr 10/28/18 18:00 Vancomycin/Ns 1 Gm/250 Ml IV [id number] [facility] Vancomycin HCl 1,250 mg/ 275 mls @ 166.667 mls/hr 10/26/18 16:00 Sodium Chloride IV 10/26/18 17:38 ONCE ONE Ipratropium [place] 0.5 mg 10/25/18 20:00 10/26/18 10:54 Atrovent IH 0.5 mg BIDRT [facility] Administration Levothyroxine Sodium 88 mcg 10/23/18 06:00 10/26/18 06:54 Synthroid PO Not Given DAILY@0600 [facility] Naloxone HCl 0.1 mg 10/25/18 09:22 Narcan 0.4 Mg/1 Ml IV Q2MIN PRN Res Rate </= 8 or 02 SAT < 92% Ondansetron HCl 4 mg 10/22/18 09:58 Zofran IV Q8H PRN Nausea And Vomiting Ondansetron HCl 4 mg 10/25/18 09:22 Zofran IV ONCE PRN Nausea And Vomiting Oxycodone/Acetaminophen 1 tab 10/22/18 09:58 Percocet 5/325 PO Q6H PRN Pain, Moderate (4-6) Pantoprazole Sodium 20 mg 10/23/18 10:00 10/25/18 14:38 Protonix PO 20 mg QDAY DEWAY[facility] Administration Pravastatin Sodium 40 mg 10/22/18 22:00 10/25/18 22:23 Pravachol PO 40 mg QHS DEWAYNE Administration Sevelamer Carbonate 800 mg 10/23/18 08:00 10/26/18 09:03 Renvela PO Not Given TIDWM [facility]WAY[facility] Sodium Chloride 10 ml 10/22/18 10:00 10/25/18 22:23 Sodium Chloride Flush Syringe 10 Ml IV 10 ml BID DEWAYNE Administration Sodium Chloride 10 ml 10/22/18 09:58 Sodium Chloride Flush Syringe 10 Ml IV PRN PRN LINE FLUSH
[2018-10-26] MEDS ORDERED: VANCOMYCIN 1,250 MG in NACL 0.9% 250ML 250 ML IV ONE (16:00)
--- NOTE | 2018-10-26 18:19 | Progress Note ---
Assessment and Plan AV graft/fistula infection--resolved.Po Abx Cephalexin for 7 days Blood culture--negative Graft removed Vascath Placed today and having Dialysis Acute encephalopathy Secondary to Uremia Improved ESRD on dialysis consulted nephrology HD started Paroxysmal Afib on anticoagulation with coumadin at home but INR is subtherapeutic today s/p TAVR 03/26/2016, no acute issue , cont supportive care Hx of Complete heart block, s/p PPM 2015 (dual chamber SJM) CAD s/p CABG - All grafts patent by [facility] 08/2015, LVEF 50-55% 09/2015 - Cont home meds Hypothyroidism. On synthroid DVT prophylaxis, continue Coumadin Subjective Date of service: 10/25/18 Principal diagnosis: AV access malfunction Interval history: Febrile Objective - Constitutional Vitals: Vital Signs - 12hr 10/26/18 10/26/18 10/26/18 07:05 10:54 11:00 Temperature 97.7 F Pulse Rate 73 118 H Pulse Rate [ 101 H Anterior Bilateral Throughout] Respiratory 19 Rate Respiratory 20 Rate [Anterior Bilateral Throughout] Blood Pressure 139/87 Blood Pressure 142/70 [Right] O2 Sat by Pulse 98 Oximetry 10/26/18 10/26/18 10/26/18 11:05 11:15 11:30 Temperature Pulse Rate 130 H 126 H Pulse Rate [ 95 H Anterior Bilateral Throughout] Respiratory Rate Respiratory 20 Rate [Anterior Bilateral Throughout] Blood Pressure 141/90 102/74 Blood Pressure [Right] O2 Sat by Pulse Oximetry 10/26/18 10/26/18 10/26/18 11:45 12:00 12:14 Temperature Pulse Rate 121 H 130 H 125 H Pulse Rate [ Anterior Bilateral Throughout] Respiratory Rate Respiratory Rate [Anterior Bilateral Throughout] Blood Pressure 115/76 106/73 107/81 Blood Pressure [Right] O2 Sat by Pulse Oximetry 10/26/18 10/26/18 10/26/18 12:30 12:45 13:00 Temperature Pulse Rate 120 H 123 H 117 H Pulse Rate [ Anterior Bilateral Throughout] Respiratory Rate Respiratory Rate [Anterior Bilateral Throughout] Blood Pressure 114/84 113/81 101/80 Blood Pressure [Right] O2 Sat by Pulse Oximetry 10/26/18 10/26/18 10/26/18 13:15 13:30 13:45 Temperature Pulse Rate 121 H 122 H 117 H Pulse Rate [ Anterior Bilateral Throughout] Respiratory Rate Respiratory Rate [Anterior Bilateral Throughout] Blood Pressure 129/92 110/88 116/81 Blood Pressure [Right] O2 Sat by Pulse Oximetry 10/26/18 10/26/18 10/26/18 14:00 14:05 14:15 Temperature 97.3 F L Pulse Rate 128 H 93 H 126 H Pulse Rate [ Anterior Bilateral Throughout] Respiratory 18 Rate Respiratory Rate [Anterior Bilateral Throughout] Blood Pressure 109/83 108/77 Blood Pressure 113/53 [Right] O2 Sat by Pulse 99 Oximetry 10/26/18 10/26/18 10/26/18 14:30 14:45 15:45 Temperature 97.5 F L Pulse Rate 132 H 137 H 72 Pulse Rate [ Anterior Bilateral Throughout] Respiratory 18 Rate Respiratory Rate [Anterior Bilateral Throughout] Blood Pressure 101/72 110/71 113/63 Blood Pressure [Right] O2 Sat by Pulse Oximetry 10/26/18 10/26/18 10/26/18 16:00 16:15 16:30 Temperature Pulse Rate 72 85 92 H Pulse Rate [ Anterior Bilateral Throughout] Respiratory Rate Respiratory Rate [Anterior Bilateral Throughout] Blood Pressure 98/59 107/62 103/58 Blood Pressure [Right] O2 Sat by Pulse Oximetry 10/26/18 10/26/18 10/26/18 16:45 17:00 17:15 Temperature Pulse Rate 92 H 83 96 H Pulse Rate [ Anterior Bilateral Throughout] Respiratory Rate Respiratory Rate [Anterior Bilateral Throughout] Blood Pressure 100/64 82/54 93/58 Blood Pressure [Right] O2 Sat by Pulse Oximetry 10/26/18 10/26/18 10/26/18 17:30 17:45 18:00 Temperature Pulse Rate 94 H 83 93 H Pulse Rate [ Anterior Bilateral Throughout] Respiratory Rate Respiratory Rate [Anterior Bilateral Throughout] Blood Pressure 88/58 77/46 84/44 Blood Pressure [Right] O2 Sat by Pulse Oximetry General appearance: Present: no acute distress, well-nourished - EENT Eyes: PERRL, EOM intact ENT: hearing intact, clear oral mucosa Ears: bilateral: normal - Neck Neck: supple, normal ROM - Respiratory Respiratory effort: normal Respiratory: bilateral: CTA - Breasts Breasts: normal - Cardiovascular Heart rate: 78 Rhythm: regular Heart Sounds: Present: S1 & S2. Absent: gallop, rub Extremities: no ischemia, pulses intact, No edema, normal color, Full ROM - Gastrointestinal General gastrointestinal: Present: soft, non-tender, non-distended, normal bowel sounds Rectal Exam: deferred - Genitourinary Male genitourinary: normal - Integumentary Integumentary: clear, warm, dry - Musculoskeletal Musculoskeletal: 1, strength equal bilaterally - Neurologic Neurologic: moves all extremities - Psychiatric Psychiatric: memory intact, appropriate mood/affect, intact judgment & insight - Labs CBC & Chem 7: 10/24/18 05:33 10/26/18 08:32 Labs: Abnormal lab results 10/26/18 10/26/18 Range/Units 05:57 08:32 Sodium 135 L (137-145) mmol/L Potassium 5.4 H (3.6-5.0) mmol/L Chloride 94.3 L (98-107) mmol/L Carbon Dioxide 20 L (22-30) mmol/L BUN 79 H (9-20) mg/dL Creatinine 15.2 H (0.8-1.5) mg/dL Glucose 161 H (75-100) mg/dL
[2018-10-26] MEDS ORDERED: SILVER NITRATE TP ONE (21:30)
[2018-10-26] MEDS: PRAVACHOL PO SCH (21:35)
[2018-10-26] MEDS: SODIUM CHLORIDE FLUSH SYRINGE 10 ML IV SCH (21:36)
--- NOTE | 2018-10-26 22:34 | Event Note ---
Date: 10/26/18 Called for bleeding from right arm wound. Came and removed the dressing. Identified 2 areas from the skin edge, of the open portion of the wound, that were bleeding. Pressure held for 5 minutes with bleeding minimized but persistent. Silver nitrate sticks applied and bleeding stopped. Will hold discharge, check CBC in AM, consult ET nurse to evaluate and make suggestions for wound management. Case management for home health upon discharge.
[2018-10-27 05:40] LABS: Hematocrit 22.9 % (35.5-45.6); Hemoglobin 7.6 gm/dl (11.8-15.2); Mean Corpuscular HGB Conc 33 % (32-34); Mean Corpuscular Volume 102 fl (84-94); Platelet Count 147 K/mm3 (140-440); Red Blood Count 2.26 M/mm3 (3.65-5.03)
[2018-10-27] MEDS: SYNTHROID PO SCH (05:46)
[2018-10-27 05:51] LABS: INR 1.09 (0.87-1.13)
--- NOTE | 2018-10-27 06:04 | Event Note ---
Date: 10/26/18 Dischargewas held b/c of persistent bleeding from AV graft excision site Dr Serrato reconsulted Patient maybe discharged tomorrow if bleeding stops {{
[2018-10-27 09:15] LABS: Hematocrit 25.1 % (35.5-45.6); Hemoglobin 8.3 gm/dl (11.8-15.2); Mean Corpuscular HGB Conc 33 % (32-34); Mean Corpuscular Volume 103 fl (84-94); Platelet Count 170 K/mm3 (140-440); Red Blood Count 2.43 M/mm3 (3.65-5.03)
[2018-10-27 09:32] LABS: Calcium 8.7 mg/dL (8.4-10.2)
[2018-10-27] MEDS: PEPCID PO SCH (10:50)
[2018-10-27] MEDS: HALFPRIN EC PO SCH (10:50)
[2018-10-27] MEDS: PROTONIX PO SCH ×2 (10:50→10:52)
[2018-10-27] MEDS: COLACE PO SCH ×2 (10:50→22:25)
[2018-10-27] MEDS: RENVELA PO SCH ×3 (10:51→18:46)
[2018-10-27] MEDS: SODIUM CHLORIDE FLUSH SYRINGE 10 ML IV SCH ×3 (10:52→22:25)
[2018-10-27] MEDS: ZOSYN/NS 2.25 GM/50ML 2.25 GM/50 ML BAG IV SCH (10:58)
[2018-10-27] MEDS: PULMICORT IH SCH ×2 (11:03→21:38)
[2018-10-27] MEDS: ATROVENT IH SCH ×2 (11:03→21:31)
--- NOTE | 2018-10-27 11:14 | Progress Note ---
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 On synthroid DVT prophylaxis, continue Coumadin History Interval history: Fever Bleeding from av graft last night Hospitalist Physical - Physical exam Narrative exam: Gen: Not in acute distress HEENT: Normocephalic, atraumatic Heart: S1 and S2 reg, no murmurs, rubs or gallop Lungs: Clear to auscultation bilaterally, no crackles, no wheeze Abd: soft, non tender, non distended, normal BS Ext: Dressing over right arm, No edema, no clubbing, no cyanosis Neuro: AAO x 3, no focal signs Psych:Normal mood - Constitutional Vitals: Temp Pulse Resp BP Pulse Ox 98.0 F 73 18 106/57 98 10/27/18 08:06 10/27/18 11:03 10/27/18 11:03 10/27/18 08:06 10/27/18 11:05 Results - Labs CBC & Chem 7: 10/27/18 08:00 10/27/18 08:00 Labs: Laboratory Last Values WBC 6.6 K/mm3 (4.5-11.0) 10/27/18 08:00 RBC 2.43 M/mm3 (3.65-5.03) L 10/27/18 08:00 Hgb 8.3 gm/dl (11.8-15.2) L 10/27/18 08:00 Hct 25.1 % (35.5-45.6) L 10/27/18 08:00 MCV 103 fl (84-94) H 10/27/18 08:00 MCH 34 pg (28-32) H 10/27/18 08:00 MCHC 33 % (32-34) 10/27/18 08:00 RDW 19.0 % (13.2-15.2) H 10/27/18 08:00 Plt Count 170 K/mm3 (140-440) 10/27/18 08:00 Lymph % (Auto) 8.4 % (13.4-35.0) L 10/23/18 06:05 Karn[place] % (Auto) 9.8 % (0.0-7.3) H 10/23/18 06:05 Eos % (Auto) 0.4 % (0.0-4.3) 10/23/18 06:05 Baso % (Auto) 0.5 % (0.0-1.8) 10/23/18 06:05 Lymph # 0.9 K/mm3 (1.2-5.4) L 10/23/18 06:05 [place] # 1.1 K/mm3 (0.0-0.8) H 10/23/18 06:05 Eos # 0.0 K/mm3 (0.0-0.4) 10/23/18 06:05 Baso # 0.1 K/mm3 (0.0-0.1) 10/23/18 06:05 Add Manual Diff Complete 10/24/18 05:33 Total Counted 100 10/24/18 05:33 Seg Neutrophils % 80.9 % (40.0-70.0) H 10/23/18 06:05 Seg Neuts % (Manual) 94.0 % (40.0-70.0) H 10/24/18 05:33 Band Neutrophils % 0 % 10/24/18 05:33 Lymphocytes % (Manual) 1.0 % (13.4-35.0) L 10/24/18 05:33 Reactive Lymphs % (Man) 0 % 10/24/18 05:33 Monocytes % (Manual) 4.0 % (0.0-7.3) 10/24/18 05:33 Eosinophils % (Manual) 1.0 % (0.0-4.3) 10/24/18 05:33 Basophils % (Manual) 0 % (0.0-1.8) 10/24/18 05:33 Metamyelocytes % 0 % 10/24/18 05:33 Myelocytes % 0 % 10/24/18 05:33 Promyelocytes % 0 % 10/24/18 05:33 Blast Cells % 0 % 10/24/18 05:33 Nucleated RBC % Not Reportable 10/24/18 05:33 Seg Neutrophils # 8.7 K/mm3 (1.8-7.7) H 10/23/18 06:05 Seg Neutrophils # Man 10.1 K/mm3 (1.8-7.7) H 10/24/18 05:33 Band Neutrophils # 0.0 K/mm3 10/24/18 05:33 Lymphocytes # (Manual) 0.1 K/mm3 (1.2-5.4) L 10/24/18 05:33 Abs React Lymphs (Man) 0.0 K/mm3 10/24/18 05:33 Monocytes # (Manual) 0.4 K/mm3 (0.0-0.8) 10/24/18 05:33 Eosinophils # (Manual) 0.1 K/mm3 (0.0-0.4) 10/24/18 05:33 Basophils # (Manual) 0.0 K/mm3 (0.0-0.1) 10/24/18 05:33 Metamyelocytes # 0.0 K/mm3 10/24/18 05:33 Myelocytes # 0.0 K/mm3 10/24/18 05:33 Promyelocytes # 0.0 K/mm3 10/24/18 05:33 Blast Cells # 0.0 K/mm3 10/24/18 05:33 WBC Morphology Not Reportable 10/24/18 05:33 Hypersegmented Neuts Not Reportable 10/24/18 05:33 Hyposegmented Neuts Not Reportable 10/24/18 05:33 Hypogranular Neuts Not Reportable 10/24/18 05:33 Smudge Cells Not Reportable 10/24/18 05:33 Toxic Granulation Not Reportable 10/24/18 05:33 Toxic Vacuolation Not Reportable 10/24/18 05:33 Dohle Bodies Not Reportable 10/24/18 05:33 Pelger-Huet Anomaly Not Reportable 10/24/18 05:33 Garth Rods Not Reportable 10/24/18 05:33 Platelet Estimate Appears decreased 10/24/18 05:33 Clumped Platelets Not Reportable 10/24/18 05:33 Plt Clumps, EDTA Not Reportable 10/24/18 05:33 Large Platelets Not Reportable 10/24/18 05:33 Giant Platelets Not Reportable 10/24/18 05:33 Platelet Satelliting Not Reportable 10/24/18 05:33 Plt Morphology Comment Not Reportable 10/24/18 05:33 RBC Morphology Not Reportable 10/24/18 05:33 Dimorphic RBCs Not Reportable 10/24/18 05:33 Polychromasia Not Reportable 10/24/18 05:33 Hypochromasia Not Reportable 10/24/18 05:33 Poikilocytosis Not Reportable 10/24/18 05:33 Anisocytosis 1+ 10/24/18 05:33 Microcytosis Not Reportable 10/24/18 05:33 Macrocytosis Few 10/24/18 05:33 Spherocytes Not Reportable 10/24/18 05:33 Pappenheimer Bodies Not Reportable 10/24/18 05:33 Sickle Cells Not Reportable 10/24/18 05:33 Target Cells Not Reportable 10/24/18 05:33 Tear Drop Cells Not Reportable 10/24/18 05:33 Ovalocytes Few 10/24/18 05:33 Helmet Cells Not Reportable 10/24/18 05:33 Juarez-Kimmell Bodies Not Reportable 10/24/18 05:33 [place] Rings Not Reportable 10/24/18 05:33 [place] Cells Not Reportable 10/24/18 05:33 Bite Cells Not Reportable 10/24/18 05:33 Crenated Cell Not Reportable 10/24/18 05:33 Elliptocytes Not Reportable 10/24/18 05:33 Acanthocytes (Spur) Not Reportable 10/24/18 05:33 Rouleaux Not Reportable 10/24/18 05:33 Hemoglobin C Crystals Not Reportable 10/24/18 05:33 Schistocytes Not Reportable 10/24/18 05:33 Malaria parasites Not Reportable 10/24/18 05:33 Refugio Bodies Not Reportable 10/24/18 05:33 Hem Pathologist Commnt No 10/24/18 05:33 PT 14.8 Sec. (12.2-14.9) 10/27/18 05:27 INR 1.09 (0.87-1.13) 10/27/18 05:27 APTT 43.0 Sec. (24.2-36.6) H 10/22/18 16:13 Sodium 143 mmol/L (137-145) D 10/27/18 08:00 Potassium 4.1 mmol/L (3.6-5.0) D 10/27/18 08:00 Chloride 97.1 mmol/L (98-107) L 10/27/18 08:00 Carbon Dioxide 28 mmol/L (22-30) D 10/27/18 08:00 Anion Gap 22 mmol/L 10/27/18 08:00 BUN 42 mg/dL (9-20) H 10/27/18 08:00 Creatinine 8.6 mg/dL (0.8-1.5) H 10/27/18 08:00 Estimated GFR 6 ml/min 10/27/18 08:00 BUN/Creatinine Ratio 5 % 10/27/18 08:00 Glucose 96 mg/dL (75-100) 10/27/18 08:00 POC Glucose 192 (70-105) H 10/22/18 20:03 Calcium 8.7 mg/dL (8.4-10.2) 10/27/18 08:00 Random Vancomycin 11.8 ug/mL (0-40.0) 10/24/18 14:42 Hepatitis A IgM Ab Non-reactive (NonReactive) 10/23/18 10:34 Hep Bs Antigen Non-reactive (Negative) 10/23/18 10:34 Hep B Core IgM Ab Non-reactive (NonReactive) 10/23/18 10:34 Hepatitis C Antibody Reactive (NonReactive) A 10/23/18 10:34 Active Medications - Current Medications Current Medications: Generic Name Dose Route Start Last Admin Trade Name Freq PRN Reason Stop Dose Admin Acetaminophen 650 mg 10/22/18 09:58 10/22/18 17:19 Tylenol PO 650 mg Q4H PRN Administration Pain MILD(1-3)/Fever >100.5/FRASER Acetaminophen/Hydrocodone Bitart 1 each 10/22/18 17:07 [place] 5/325 PO Q6H PRN Pain, Moderate (4-6) Aspirin 81 mg 10/23/18 10:00 10/27/18 10:50 Halfprin Ec PO 81 mg DAILY DEWAYNE Administration Budesonide 0.5 mg 10/22/18 20:00 10/27/18 11:03 Pulmicort IH 0.5 mg Q12HRT DEWAYNE Administration Docusate Sodium 100 mg 10/22/18 22:00 10/27/18 10:50 Colace PO 100 mg BID [facility] Administration Famotidine 10 mg 10/22/18 10:00 10/27/18 10:50 Pepcid PO 10 mg QDAY [facility] Administration Fentanyl 50 mcg 10/25/18 09:22 Sublimaze IV Q5MIN PRN Pain , Severe (7-10) Piperacillin Sod/Tazobactam Sod 2.25 gm in 50 mls @ 100 mls/hr 10/22/18 20:00 10/27/18 10:58 Zosyn/Ns 2.25 Gm/50ml IV 100 mls/hr Q12H [facility] Administration Sodium Chloride 100 mls @ 999 mls/hr 10/23/18 10:50 Nacl 0.9% IV OWEN PRN Hypotension Vancomycin HCl 1 gm in 250 mls @ 167.007 mls/hr 10/28/18 18:00 Vancomycin/Ns 1 Gm/250 Ml IV [id number] [facility] Ipratropium [place] 0.5 mg 10/25/18 20:00 10/27/18 11:03 Atrovent IH 0.5 mg BIDRT [facility] Administration Levothyroxine Sodium 88 mcg 10/23/18 06:00 10/27/18 05:46 Synthroid PO 88 mcg DAILY@0600 [facility] Administration Naloxone HCl 0.1 mg 10/25/18 09:22 Narcan 0.4 Mg/1 Ml IV Q2MIN PRN Res Rate </= 8 or 02 SAT < 92% Ondansetron HCl 4 mg 10/25/18 09:22 Zofran IV ONCE PRN Nausea And Vomiting Oxycodone/Acetaminophen 1 tab 10/22/18 09:58 Percocet 5/325 PO Q6H PRN Pain, Moderate (4-6) Pantoprazole Sodium 20 mg 10/23/18 10:00 10/27/18 10:52 Protonix PO 20 mg QDAY [facility] Administration Pravastatin Sodium 40 mg 10/22/18 22:00 10/26/18 21:35 Pravachol PO 40 mg QHS [facility] Administration Sevelamer Carbonate 800 mg 10/23/18 08:00 10/27/18 10:51 Renvela PO 800 mg TIDWM [facility] Administration Sodium Chloride 10 ml 10/22/18 10:00 10/27/18 10:52 Sodium Chloride Flush Syringe 10 Ml IV 10 ml BID [facility] Administration Sodium Chloride 10 ml 10/22/18 09:58 Sodium Chloride Flush Syringe 10 Ml IV PRN PRN LINE FLUSH Nutrition/Malnutrition Assess - Dietary Evaluation Nutrition/Malnutrition Findings: Nutrition Notes Start: 10/23/18 13:51 Freq: Status: Active Protocol: Document 10/23/18 13:51 EB (Rec: 10/23/18 13:55 EB [id number]) Co-Sign 10/23/18 13:51 LP Nutrition Notes Initial or Follow up Assessment Current Diagnosis CKD (stage V CKD),Coronary Artery Disease,Hypertension, Heart Failure,Hyperlipidemia Other Pertinent Diagnosis on HD, [place] Current Diet Renal Labs/Tests Reviewed Pertinent Medications Reviewed Height 5 ft 7.2 in Weight 72 kg [place] Body Weight (kg) 67.81 BMI 24.7 Subjective/Other Information Screened for skin risk and DNI . Pt not in room in am or pm (in dialysis). Per nurse tech, pt consuming at least 75% of meals since adm. Nurse tech also states that pt received an Ensure Enlive and drank that also. Brien score: 12 due to bruising on head after fall. Percent of energy/protein needs met: 87%/68% Burn Absent Trauma Absent #1 Nutrition Diagnosis Increased nutrient needs ( specify in comment below) Comments: protein Etiology ESRD on HD As Evidenced by Signs and Symptoms meeting 68% of pro needs via PO intake Is patient on ventilator? No Is Patient Ambulatory and/or Out of Bed Yes REE-([facility]-ambulatory/OOB) [ [id number] [id number]] Calculation Used for Recommendations [facility] Additional Notes PRO: 1.2-1.3 g/kg (86-94 g/day ) Fluid: 1500 mL restriction or per MD Nutrition Intervention Change Diet Order: Continue current Add Supplement/Snack (indicate name/kcal Nepro daily /protein ) Provides kCal: 425 Provides Protein (gm) 19 Goal #1 meet at least 75% johana and pro needs via PO and ONS intake Follow-Up By: 10/28/18 Additional Comments F/u: PO and ONS intakes
--- NOTE | 2018-10-27 12:15 | Progress Note ---
Assessment and Plan Okay to discharge patient home following wound care nurse recommendations for home wound care. The patient may follow up in our office in 2 weeks PHONE number is Subjective Date of service: 10/27/18 Principal diagnosis: AV access malfunction Interval history: Patient is status post explant of right upper extremity AV graft as well as placement of right IJ tunneled hemodialysis catheter. Wound was evaluated with wound care nurse. No significant bleeding. Wound care nurse to offer recommendations regarding dressings for home. From a vascular standpoint, the patient may be discharged home. Objective - Constitutional Vitals: Vital Signs - 12hr 10/27/18 10/27/18 10/27/18 01:37 01:38 08:06 Temperature 97.2 F L 98.0 F Pulse Rate 72 73 76 Pulse Rate [ Anterior Bilateral Throughout] Respiratory 20 20 Rate Respiratory Rate [Anterior Bilateral Throughout] Blood Pressure 98/53 106/57 O2 Sat by Pulse 100 100 99 Oximetry 10/27/18 10/27/18 10/27/18 11:03 11:05 11:16 Temperature Pulse Rate Pulse Rate [ 73 75 Anterior Bilateral Throughout] Respiratory Rate Respiratory 18 20 Rate [Anterior Bilateral Throughout] Blood Pressure O2 Sat by Pulse 98 Oximetry General appearance: Present: no acute distress - EENT Eyes: EOM intact ENT: hearing intact - Neck Neck: supple, normal ROM - Respiratory Respiratory effort: normal Extremities: abnormal (status post right upper extremity graft explant) - Gastrointestinal General gastrointestinal: Present: deferred Rectal Exam: deferred - Genitourinary Male genitourinary: deferred - Psychiatric Psychiatric: appropriate mood/affect, cooperative - Labs CBC & Chem 7: 10/27/18 08:00 10/27/18 08:00 Labs: Abnormal lab results 10/27/18 10/27/18 10/27/18 Range/Units 05:27 08:00 08:00 RBC 2.26 L 2.43 L (3.65-5.03) M/mm3 Hgb 7.6 L D 8.3 L (11.8-15.2) gm/dl Hct 22.9 L D 25.1 L (35.5-45.6) % MCV 102 H 103 H (84-94) fl MCH 34 H 34 H (28-32) pg RDW 19.0 H 19.0 H (13.2-15.2) % Chloride 97.1 L (98-107) mmol/L BUN 42 H (9-20) mg/dL Creatinine 8.6 H (0.8-1.5) mg/dL Medications & Allergies - Medications Allergies/Adverse Reactions: Allergies No Known Allergies Allergy (Verified 05/22/16 17:56) Home Medications: Home Medications Medication Instructions Recorded Confirmed Last Taken Type Fluticasone Propionate [Flovent 1 puff IH BID 03/06/14 10/22/18 08/22/15 History Diskus] Levothyroxine [Synthroid] 88 mcg PO QAM 03/06/14 10/22/18 08/22/15 History Omeprazole [PriLOSEC] 20 mg PO QDAY 03/06/14 10/22/18 08/22/15 History Sevelamer Carbonate [Renvela] 800 mg PO TIDWM 03/06/14 10/22/18 08/22/15 History Simvastatin 20 mg PO DAILY 03/06/14 10/22/18 08/22/15 History Docusate Calcium (Nf) [Surfak (Nf)] 100 mg PO DAILY 07/06/14 10/22/18 08/22/15 History Ipratropium/Albuterol Sulfate 2 inh INHALATION DAILY 08/23/15 10/22/18 08/22/15 History [Combivent Respimat] Budesonide [Pulmicort Respules] 0.5 mg IH Q12HRT nebu 10/04/15 10/22/18 Unknown Rx Docusate Sodium [Colace CAP] 100 mg PO BID capsule 10/04/15 10/22/18 Unknown Rx HYDROcodone/APAP 5-325 [[place] 1 each PO Q6H PRN #30 tablet 10/04/15 10/22/18 Unknown Rx 5-325 mg TAB] Ipratropium/Albuterol Sulfate 1 ampul IH Q12HRT #30 ampul.neb 10/04/15 10/22/18 Unknown Rx [DUONEB *Not for PRN Use*] Warfarin Sodium [Coumadin] 3 mg PO QDAY 08/11/17 10/22/18 Unknown History Aspirin EC [Aspirin Enteric Coated 81 mg PO DAILY tablet 10/26/18 Unknown Rx TAB] Cephalexin [Keflex Oral Liq 250 500 mg PO Q8HR #21 bottle 10/26/18 Unknown Rx mg/5 ML] Levothyroxine [Synthroid] 88 mcg PO DAILY@0600 tablet 10/26/18 Unknown Rx Active Medications: Generic Name Dose Route Start Last Admin Trade Name Freq PRN Reason Stop Dose Admin Acetaminophen 650 mg 10/22/18 09:58 10/22/18 17:19 Tylenol PO 650 mg Q4H PRN Administration Pain MILD(1-3)/Fever >100.5/FRASER Acetaminophen/Hydrocodone Bitart 1 each 10/22/18 17:07 [place] 5/325 PO Q6H PRN Pain, Moderate (4-6) Aspirin 81 mg 10/23/18 10:00 10/27/18 10:50 Halfprin Ec PO 81 mg DAILY DEWAYNE Administration Budesonide 0.5 mg 10/22/18 20:00 10/27/18 11:03 Pulmicort IH 0.5 mg Q12HRT [facility] Administration Docusate Sodium 100 mg 10/22/18 22:00 10/27/18 10:50 Colace PO 100 mg BID [facility] Administration Famotidine 10 mg 10/22/18 10:00 10/27/18 10:50 Pepcid PO 10 mg QDAY [facility] Administration Fentanyl 50 mcg 10/25/18 09:22 Sublimaze IV Q5MIN PRN Pain , Severe (7-10) Piperacillin Sod/Tazobactam Sod 2.25 gm in 50 mls @ 100 mls/hr 10/22/18 20:00 10/27/18 10:58 Zosyn/Ns 2.25 Gm/50ml IV 100 mls/hr Q12H [facility] Administration Sodium Chloride 100 mls @ 999 mls/hr 10/23/18 10:50 Nacl 0.9% IV OWEN PRN Hypotension Vancomycin HCl 1 gm in 250 mls @ 167.007 mls/hr 10/28/18 18:00 Vancomycin/Ns 1 Gm/250 Ml IV [id number]@1800 [facility] Ipratropium [place] 0.5 mg 10/25/18 20:00 10/27/18 11:03 Atrovent IH 0.5 mg BIDRT [facility] Administration Levothyroxine Sodium 88 mcg 10/23/18 06:00 10/27/18 05:46 Synthroid PO 88 mcg DAILY@0600 [facility] OF [facility] Administration Naloxone HCl 0.1 mg 10/25/18 09:22 Narcan 0.4 Mg/1 Ml IV Q2MIN PRN Res Rate </= 8 or 02 SAT < 92% Ondansetron HCl 4 mg 10/25/18 09:22 Zofran IV ONCE PRN Nausea And Vomiting Oxycodone/Acetaminophen 1 tab 10/22/18 09:58 Percocet 5/325 PO Q6H PRN Pain, Moderate (4-6) Pantoprazole Sodium 20 mg 10/23/18 10:00 10/27/18 10:52 Protonix PO 20 mg QDAY [facility] Administration Pravastatin Sodium 40 mg 10/22/18 22:00 10/26/18 21:35 Pravachol PO 40 mg QHS [facility] Administration Sevelamer Carbonate 800 mg 10/23/18 08:00 10/27/18 10:51 Renvela PO 800 mg TIDWM [facility] Administration Sodium Chloride 10 ml 10/22/18 10:00 10/27/18 10:52 Sodium Chloride Flush Syringe 10 Ml IV 10 ml BID DEWAYNE Administration Sodium Chloride 10 ml 10/22/18 09:58 Sodium Chloride Flush Syringe 10 Ml IV PRN PRN LINE FLUSH
--- NOTE | 2018-10-27 12:27 | Progress Note ---
Subjective - Reason for Consult Consult date: 10/27/18 Reason for consult: Psychiatry Follow-up - Chief Complaint Chief complaint: "Hello" 78 yo male with hx of ESRD on HD T/R/Ss, Heart Failure, HTN, dysplipidemia, aortic stenosis presents with infected infection surrounding AV fistula in the right upper arm. Psychiatry was consulted to see the patient to R/O Dementia. Today the patient is calm during the assessment, The [employer] quality process auditor line was unavailable. Per collateral information from the patient's grandson Mr Hester who was at the bedside, he stated that the patient became confused after the family noticed swelling in his right arm. He stated that the patient fell at home most recently. He stated prior to the patient's hospitalization, he completed most of his ADL's with assistance. He stated that a homecare service assist his grandfather daily. Mr Hester denies combative/bizarre behavior by the patient prior to his current medical issues. Mr Hester denies that the patient has a mental health dx. No gestures of SI//HI's by the patient. Mental Status Exam - Vital signs Last Vital Signs Temp 98.0 F 10/27/18 08:06 Pulse 75 10/27/18 11:16 Resp 20 10/27/18 11:16 BP 106/57 10/27/18 08:06 Pulse Ox 98 10/27/18 11:05 - Exam Narrative exam: Unable to complete the MSE because the quality process auditor services was unavailable. Assessment and Plan Impression: Today the patient is calm during the assessment. Per the patient's family member (Mr Hester), he's at his baseline. Medical: Acute Encephalopathy secondary to Uremia per the hospitalist Recommendation/Plan: Attempt to reassess the patient in 24 hours using the quality process auditor line. Will staff with Dr Konstantin Garrett.
--- NOTE | 2018-10-27 15:02 | Progress Note ---
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 --RIJ permcath insertion Oct 26 * MRSA bacteremia --Blood cx: MRSA on Oct 22 and Oct 24 * Coronary artery disease * Hypertension * Anemia secondary to ESRD * Secondary hyperPTH Recommendations * Continue HD MWF * UF as tolerated * Abx per primary team * Will obtain surveillance cultures * Recommend ID consult * Adjust diet and meds for ESRD state * No IV, BP or venipuncture and his access arm * Epogen TIW prn * Binders with meals Subjective Date of service: 10/27/18 Principal diagnosis: AV access malfunction Interval history: No acute events overnight Objective - Vital Signs Vital signs: Vital Signs - 12hr 10/27/18 10/27/18 10/27/18 08:06 11:03 11:05 Temperature 98.0 F Pulse Rate 76 Pulse Rate [ 73 Anterior Bilateral Throughout] Respiratory 20 Rate Respiratory 18 Rate [Anterior Bilateral Throughout] Blood Pressure 106/57 O2 Sat by Pulse 99 98 Oximetry 10/27/18 10/27/18 11:16 13:38 Temperature 98.0 F Pulse Rate 83 Pulse Rate [ 75 Anterior Bilateral Throughout] Respiratory 20 Rate Respiratory 20 Rate [Anterior Bilateral Throughout] Blood Pressure 117/52 O2 Sat by Pulse 100 Oximetry - General Appearance General appearance: well-developed, well-nourished EENT: ATNC Respiratory: Present: Clear to Ascultation Cardiology: regular, S1S2 Gastrointestinal: normal, no tenderness, no distended Psychiatric: cooperative - Lab 10/27/18 08:00 10/27/18 08:00 Most recent lab results Calcium 8.7 mg/dL (8.4-10.2) 10/27/18 08:00 Medications & Allergies - Medications Allergies/Adverse Reactions: Allergies No Known Allergies Allergy (Verified 05/22/16 17:56) Home Medications: Home Medications Medication Instructions Recorded Confirmed Last Taken Type Fluticasone Propionate [Flovent 1 puff IH BID 03/06/14 10/22/18 08/22/15 History Diskus] Levothyroxine [Synthroid] 88 mcg PO QAM 03/06/14 10/22/18 08/22/15 History Omeprazole [PriLOSEC] 20 mg PO QDAY 03/06/14 10/22/18 08/22/15 History Sevelamer Carbonate [Renvela] 800 mg PO TIDWM 03/06/14 10/22/18 08/22/15 History Simvastatin 20 mg PO DAILY 03/06/14 10/22/18 08/22/15 History Docusate Calcium (Nf) [Surfak (Nf)] 100 mg PO DAILY 07/06/14 10/22/18 08/22/15 History Ipratropium/Albuterol Sulfate 2 inh INHALATION DAILY 08/23/15 10/22/18 08/22/15 History [Combivent Respimat] Budesonide [Pulmicort Respules] 0.5 mg IH Q12HRT nebu 10/04/15 10/22/18 Unknown Rx Docusate Sodium [Colace CAP] 100 mg PO BID capsule 10/04/15 10/22/18 Unknown Rx HYDROcodone/APAP 5-325 [[place] 1 each PO Q6H PRN #30 tablet 10/04/15 10/22/18 Unknown Rx 5-325 mg TAB] Ipratropium/Albuterol Sulfate 1 ampul IH Q12HRT #30 ampul.neb 10/04/15 10/22/18 Unknown Rx [DUONEB *Not for PRN Use*] Warfarin Sodium [Coumadin] 3 mg PO QDAY 08/11/17 10/22/18 Unknown History Aspirin EC [Aspirin Enteric Coated 81 mg PO DAILY tablet 10/26/18 Unknown Rx TAB] Cephalexin [Keflex Oral Liq 250 500 mg PO Q8HR #21 bottle 10/26/18 Unknown Rx mg/5 ML] Levothyroxine [Synthroid] 88 mcg PO DAILY@0600 tablet 10/26/18 Unknown Rx Active Medications: Generic Name Dose Route Start Last Admin Trade Name Freq PRN Reason Stop Dose Admin Acetaminophen 650 mg 10/22/18 09:58 10/22/18 17:19 Tylenol PO 650 mg Q4H PRN Administration Pain MILD(1-3)/Fever >100.5/FRASER Acetaminophen/Hydrocodone Bitart 1 each 10/22/18 17:07 [place] 5/325 PO Q6H PRN Pain, Moderate (4-6) Aspirin 81 mg 10/23/18 10:00 10/27/18 10:50 Halfprin Ec PO 81 mg DAILY DEWAYNE Administration Budesonide 0.5 mg 10/22/18 20:00 10/27/18 11:03 Pulmicort IH 0.5 mg Q12HRT DEWAYNE Administration Docusate Sodium 100 mg 10/22/18 22:00 10/27/18 10:50 Colace PO 100 mg BID [facility]AY[facility] Administration Famotidine 10 mg 10/22/18 10:00 10/27/18 10:50 Pepcid PO 10 mg QDAY [facility] Administration Fentanyl 50 mcg 10/25/18 09:22 Sublimaze IV Q5MIN PRN Pain , Severe (7-10) Piperacillin Sod/Tazobactam Sod 2.25 gm in 50 mls @ 100 mls/hr 10/22/18 20:00 10/27/18 10:58 Zosyn/Ns 2.25 Gm/50ml IV 100 mls/hr Q12H [facility] Administration Sodium Chloride 100 mls @ 999 mls/hr 10/23/18 10:50 Nacl 0.9% IV OWEN PRN Hypotension Vancomycin HCl 1 gm in 250 mls @ 167.007 mls/hr 10/28/18 18:00 Vancomycin/Ns 1 Gm/250 Ml IV MoWeFr@1800 [facility] Ipratropium [place] 0.5 mg 10/25/18 20:00 10/27/18 11:03 Atrovent IH 0.5 mg BIDRT [facility] Administration Levothyroxine Sodium 88 mcg 10/23/18 06:00 10/27/18 05:46 Synthroid PO 88 mcg DAILY@0600 [facility] Administration Naloxone HCl 0.1 mg 10/25/18 09:22 Narcan 0.4 Mg/1 Ml IV Q2MIN PRN Res Rate </= 8 or 02 SAT < 92% Ondansetron HCl 4 mg 10/25/18 09:22 Zofran IV ONCE PRN Nausea And Vomiting Oxycodone/Acetaminophen 1 tab 10/22/18 09:58 Percocet 5/325 PO Q6H PRN Pain, Moderate (4-6) Pantoprazole Sodium 20 mg 10/23/18 10:00 10/27/18 10:52 Protonix PO 20 mg QDAY [facility] Administration Pravastatin Sodium 40 mg 10/22/18 22:00 10/26/18 21:35 Pravachol PO 40 mg QHS [facility] Administration Sevelamer Carbonate 800 mg 10/23/18 08:00 10/27/18 12:15 Renvela PO Not Given TIDWM [facility] Sodium Chloride 10 ml 10/22/18 10:00 10/27/18 10:52 Sodium Chloride Flush Syringe 10 Ml IV 10 ml BID [facility] Administration Sodium Chloride 10 ml 10/22/18 09:58 Sodium Chloride Flush Syringe 10 Ml IV PRN PRN LINE FLUSH
--- NOTE | 2018-10-27 16:20 | Event Note ---
Date: 10/27/18 ID consulted for MRSA. 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 Discontinued Zosyn. Continue IV vancomycin. TTE ordered. Bacteremia was persistent, blood cultures from 10/22 and 10/24 positive. Full consult to follow in AM.
[2018-10-27] MEDS: PRAVACHOL PO SCH (22:25)
[2018-10-28 05:56] LABS: INR 1.06 (0.87-1.13)
[2018-10-28] MEDS: SYNTHROID PO SCH (06:01)
[2018-10-28] MEDS: RENVELA PO SCH ×3 (08:10→17:30)
[2018-10-28] MEDS: PULMICORT IH SCH ×2 (08:21→21:32)
[2018-10-28] MEDS: ATROVENT IH SCH ×2 (08:22→21:33)
--- NOTE | 2018-10-28 09:43 | Consultation ---
History of Present Illness - Reason for Consult Consult date: 10/28/18 MRSA Bacteremia, AV graft Infection Requesting physician: EVARISTO ROSE - History of Present Illness This patient is a 78 year old male with a past medical history of ESRD on HD , HTN, dyslipidemia, and aortic stenosis, that presented to the ED on 10/22/18 with possible infected AV fisturla i the right upper arm. He went to his dialysis center and was sent to the ED by the staff for concern for AV fistula infection. Upon further evaluation, the patient's son reported that the patient sustained a fall and hit his head and was not acting appropriately since that incident. On admission WBC 13.5, Creatinine 16.5, Temperature 100.1 HR 68, BP 154/48, Head CT showed Small scalp hematoma right temporal parietal region. No evidence of intracranial hemorrhage or skull fracture. hemodialysis access duplex US showed very high velocities near the axilla which could indicate an upstream stenosis. Blood cultures were drawn on 10/22/18 and grew MRSA bacterenua. Blood cultures were repeated on 10/24/18 and also grew MRSA bacteremia. On 10/25/18 an excison of AV graft was performed and the surgical biopsy culture grew Staph aureus. On 10/26/18 a right internal jugular tunneled cuffed HD catheter was placed by Dr. Gross.. Review of Systems: General: no fever, chills, nightsweats, unintentional weight change, or change in appetite Cutaneous: no rash, pruritus Head: no headaches or injury Eyes: no changes in vision, eye pain, double vision Ears: no ear pain, ear discharge, ringing or hearing loss Nose: no nose bleeding, stuffiness Mouth & throat: no bleeding gums, no horseness, no dental problems, or swollen glands Neck: no pain, node enlargement/lumps, tyroid enlargement or tenderness Respiratory: no cough, wheezing, sputum, hemoptysis, pleuritic chest pain Cardiovascular: no chest pain, leg edema, cyanosis, KAHN, orthopnea Musculoskeletal: Right AV fistula site with minimal drainage, s/p excison. +dressing Gastrointestinal: no nausea, vomiting, hematemesis, diarrhea, constipation, melena, Genitourinary/Reproductive: no frequent urination, no dysuria, hematuria, incontinence Neurogical: no seizures, no headaches, no weakness, no paresthesias, Psychiatric: stable mood; no excessive anxiety, sadness or moodiness Past History Past Medical History: CAD, hypertension, hypothyroidism, other (ESRD, infected AVF) Past Surgical History: Other (history of creation of AV fistula) Social history: other (unable to obtain) Family history: other (unable to obtain) Medications and Allergies Allergies Allergy/AdvReac Type Severity Reaction Status Date / Time No Known Allergies Allergy Verified 05/22/16 17:56 Home Medications Medication Instructions Recorded Confirmed Last Taken Type Fluticasone Propionate [Flovent 1 puff IH BID 03/06/14 10/22/18 08/22/15 History Diskus] Levothyroxine [Synthroid] 88 mcg PO QAM 03/06/14 10/22/18 08/22/15 History Omeprazole [PriLOSEC] 20 mg PO QDAY 03/06/14 10/22/18 08/22/15 History Sevelamer Carbonate [Renvela] 800 mg PO TIDWM 03/06/14 10/22/18 08/22/15 History Simvastatin 20 mg PO DAILY 03/06/14 10/22/18 08/22/15 History Docusate Calcium (Nf) [Surfak (Nf)] 100 mg PO DAILY 07/06/14 10/22/18 08/22/15 History Ipratropium/Albuterol Sulfate 2 inh INHALATION DAILY 08/23/15 10/22/18 08/22/15 History [Combivent Respimat] Budesonide [Pulmicort Respules] 0.5 mg IH Q12HRT nebu 10/04/15 10/22/18 Unknown Rx Docusate Sodium [Colace CAP] 100 mg PO BID capsule 10/04/15 10/22/18 Unknown Rx HYDROcodone/APAP 5-325 [[place] 1 each PO Q6H PRN #30 tablet 10/04/15 10/22/18 Unknown Rx 5-325 mg TAB] Ipratropium/Albuterol Sulfate 1 ampul IH Q12HRT #30 ampul.neb 10/04/15 10/22/18 Unknown Rx [DUONEB *Not for PRN Use*] Warfarin Sodium [Coumadin] 3 mg PO QDAY 08/11/17 10/22/18 Unknown History Aspirin EC [Aspirin Enteric Coated 81 mg PO DAILY tablet 10/26/18 Unknown Rx TAB] Cephalexin [Keflex Oral Liq 250 500 mg PO Q8HR #21 bottle 10/26/18 Unknown Rx mg/5 ML] Levothyroxine [Synthroid] 88 mcg PO DAILY@0600 tablet 10/26/18 Unknown Rx Active Meds: Active Medications Acetaminophen (Tylenol) 650 mg PO Q4H PRN PRN Reason: Pain MILD(1-3)/Fever >100.5/FRASER Last Admin: 10/22/18 17:19 Dose: 650 mg Documented by: Acetaminophen/Hydrocodone Bitart ([place] 5/325) 1 each PO Q6H PRN PRN Reason: Pain, Moderate (4-6) Aspirin (Halfprin Ec) 81 mg PO DAILY [facility] Last Admin: 10/27/18 10:50 Dose: 81 mg Documented by: Budesonide (Pulmicort) 0.5 mg IH Q12HRT [facility] Last Admin: 10/28/18 08:21 Dose: 0.5 mg Documented by: Docusate Sodium (Colace) 100 mg PO BID [facility] Last Admin: 10/27/18 22:25 Dose: 100 mg Documented by: Famotidine (Pepcid) 10 mg PO QDAY [facility] Last Admin: 10/27/18 10:50 Dose: 10 mg Documented by: Fentanyl (Sublimaze) 50 mcg IV Q5MIN PRN PRN Reason: Pain , Severe (7-10) Sodium Chloride (Nacl 0.9%) 100 mls @ 999 mls/hr IV OWEN PRN PRN Reason: Hypotension Vancomycin HCl (Vancomycin/Ns 1 Gm/250 Ml) 1 gm in 250 mls @ 167.007 mls/hr IV [id number] [facility] Ipratropium [place] (Atrovent) 0.5 mg IH BIDRT [facility] Last Admin: 10/28/18 08:22 Dose: 0.5 mg Documented by: Levothyroxine Sodium (Synthroid) 88 mcg PO DAILY@0600 [facility] Last Admin: 10/28/18 06:01 Dose: 88 mcg Documented by: Naloxone HCl (Narcan 0.4 Mg/1 Ml) 0.1 mg IV Q2MIN PRN PRN Reason: Res Rate </= 8 or 02 SAT < 92% Ondansetron HCl (Zofran) 4 mg IV ONCE PRN PRN Reason: Nausea And Vomiting Oxycodone/Acetaminophen (Percocet 5/325) 1 tab PO Q6H PRN PRN Reason: Pain, Moderate (4-6) Pantoprazole Sodium (Protonix) 20 mg PO QDAY [facility] Last Admin: 10/27/18 10:52 Dose: 20 mg Documented by: Pravastatin Sodium (Pravachol) 40 mg PO QHS [facility] Last Admin: 10/27/18 22:25 Dose: 40 mg Documented by: Sevelamer Carbonate (Renvela) 800 mg PO TIDWM [facility] Last Admin: 10/27/18 18:46 Dose: 800 mg Documented by: Sodium Chloride (Sodium Chloride Flush Syringe 10 Ml) 10 ml IV BID [facility] Last Admin: 10/27/18 22:25 Dose: 10 ml Documented by: Sodium Chloride (Sodium Chloride Flush Syringe 10 Ml) 10 ml IV PRN PRN PRN Reason: LINE FLUSH Physical Examination - Physical Exam Narrative exam: Constitutional: Alert, cooperative. No acute distress. Speaks Wolof Head, Ears, Nose: Normocephalic, atraumatic. External ears, nose normal Eyes: Conjunctivae/corneas clear. No icterus. No ptosis. Neck: Supple, no meningeal signs Oral: dentition good. No thrush Cardiovascular: S1, S2 normal. Respiratory: Good air entry, clear to auscultation bilaterally GI: Soft, non-tender; bowel sounds normal. No peritoneal signs Musculoskeletal: s/p excision of Right AV fistula, +dressing , minimal drainage Skin: No rash or abscess. Hem/Lymphatic: No palpable cervical or supraclavicular nodes. No lymphangitis Psych: Mood ok. Affect normal Neurological: Awake, alert, oriented. Lines: RIJ Permacath - Constitutional Vitals: Vital Signs Temp Pulse Resp BP Pulse Ox 97.4 F L 81 18 133/58 98 10/28/18 07:50 10/28/18 07:50 10/28/18 07:50 10/28/18 07:50 10/28/18 07:50 Temperature -Last 24 Hours Temperature 97.4 F Temperature 98.7 F Temperature 98.7 F Temperature 98.0 F Results - Labs CBC & Chem 7: 10/27/18 08:00 10/27/18 08:00 - Imaging and Cardiology CT Scan - head: report reviewed (:Small scalp hematoma right temporal parietal region. No evidence of intracranial hemorrhage or skull fracture.) Assessment and Plan Cultures: 10/22/2018 Blood: MRSA, 4 out of 4 bottles 10/24/2018 Blood : MRSA 1 out of 4 bottles 10/25/2018 Surgical Biopsy: Staph Aureus 10/27/2018 Blood : in progress 78 year old male with a past medical history of ESRD on HD , HTN, dyslipidemia, and aortic stenosis, that presented to the ED on 10/22/18 with possible infected AV fisturla i the right upper arm. He went to his dialysis center and was sent to the ED by the staff for concern for AV fistula infection. Upon further evaluation, the patient's son reported that the patient sustained a fall and hit his head and was not acting appropriately since that incident. Now with: 1. Leukocytosis: on admission. Etiology MRSA bacteremia. Source infected Right AV fistula. Low grade fever., No chest xray or U/A. Currently being treated with Vancomycin. 2. Staph Aureus Bacteremia: Initial blood cultures were drawn on 10/22/18 , isolate MRSA, 4 out of 4 bottles. Repeat cultures were drawn on 10/24/18 and also grew MRSA 1 out of 4 bottles. Source infected right AV fistula. TTE ordered. Repeat BC's ordered to ensure clearance. 3. Infected right AV Graph.: hemodialysis access duplex US showed Very high velocities near the axilla which could indicate an upstream stenosis. On 10/25/18 an excison of AV graft was performed and the surgical biopsy culture grew Staph aureus. On 10/26/18 a right internal jugular tunneled cuffed HD catheter was placed by Dr. Gross. If repeat blood cultures on 10/27/18 remain positive then HD catheter will have to be removed. 4. ESRD on HD. HD on Friday, and Friday. Antibioltics renally dosed. 5. Acute Encephalopathy: secondary to uremia. Improved. Plan -f/u cultures for ID and JEAN's -f/u repeat blood cultures to ensure clearance - If repeat blood cultures on 10/27/18 remain positive then HD catheter will have to be removed -f/u TTE -Continue Vancomycin PK dosing, target trough 10-20 ug per ml D/w Dr. Catia Christopher, [employer] DIRECT[employer] [facility] M: [phone] O:[phone]
[2018-10-28] MEDS: SODIUM CHLORIDE FLUSH SYRINGE 10 ML IV SCH ×2 (10:11→22:10)
--- NOTE | 2018-10-28 10:28 | Progress Note ---
Assessment and Plan Impression * Infected AV access * MRSA bacteremia * End-stage renal disease on maintenance hemodialysis * Altered mental status * Coronary artery disease * Hypertension * History of hypothyroidism Recommendations * Patient is s/p AV graft removal * HD q MWF * Continue IV vancomycin. Patient has MRSA bacteremia * s/p new hd catheter * id following * Adjust diet and meds for ESRD state * No IV, BP or venipuncture and his access arm * Procrit with dialysis * Binders with meals Subjective Date of service: 10/28/18 Principal diagnosis: AV access malfunction Interval history: resting well in bed today Objective - Exam Narrative Exam: General appearance: well-developed, well-nourished, appears stated age EENT: PERRL, mucous membranes moist Neck: no JVD, no thyromegaly, no carotid bruit, supple Respiratory: Present: Clear to Ascultation Cardiology: regular, normal heart rate, S1S2, no murmurs Gastrointestinal: normal, normoactive bowel sounds Integumentary: no rash, other (right arm wrapped with a bandage. Overlying bruit heard) - Vital Signs Vital signs: Vital Signs - 12hr 10/28/18 10/28/18 10/28/18 02:22 07:50 09:32 Temperature 98.7 F 97.4 F L Pulse Rate 88 81 Pulse Rate [ 82 Left Radial] Respiratory 20 18 18 Rate Blood Pressure 132/58 133/58 O2 Sat by Pulse 96 98 93 Oximetry - Lab 10/27/18 08:00 10/27/18 08:00 Most recent lab results Calcium 8.7 mg/dL (8.4-10.2) 10/27/18 08:00 Medications & Allergies - Medications Allergies/Adverse Reactions: Allergies No Known Allergies Allergy (Verified 05/22/16 17:56) Home Medications: Home Medications Medication Instructions Recorded Confirmed Last Taken Type Fluticasone Propionate [Flovent 1 puff IH BID 03/06/14 10/22/18 08/22/15 History Diskus] Levothyroxine [Synthroid] 88 mcg PO QAM 03/06/14 10/22/18 08/22/15 History Omeprazole [PriLOSEC] 20 mg PO QDAY 03/06/14 10/22/18 08/22/15 History Sevelamer Carbonate [Renvela] 800 mg PO TIDWM 0810/22/18 08/22/15 History Simvastatin 20 mg PO DAILY 03/06/14 10/22/18 08/22/15 History Docusate Calcium (Nf) [Surfak (Nf)] 100 mg PO DAILY 07/06/14 10/22/18 08/22/15 History Ipratropium/Albuterol Sulfate 2 inh INHALATION DAILY 08/23/15 10/22/18 08/22/15 History [Combivent Respimat] Budesonide [Pulmicort Respules] 0.5 mg IH Q12HRT nebu 10/04/15 10/22/18 Unknown Rx Docusate Sodium [Colace CAP] 100 mg PO BID capsule 10/04/15 10/22/18 Unknown Rx HYDROcodone/APAP 5-325 [[place] 1 each PO Q6H PRN #30 tablet 10/04/15 10/22/18 Unknown Rx 5-325 mg TAB] Ipratropium/Albuterol Sulfate 1 ampul IH Q12HRT #30 ampul.neb 10/04/15 10/22/18 Unknown Rx [DUONEB *Not for PRN Use*] Warfarin Sodium [Coumadin] 3 mg PO QDAY 08/11/17 10/22/18 Unknown History Aspirin EC [Aspirin Enteric Coated 81 mg PO DAILY tablet 10/26/18 Unknown Rx TAB] Cephalexin [Keflex Oral Liq 250 500 mg PO Q8HR #21 bottle 10/26/18 Unknown Rx mg/5 ML] Levothyroxine [Synthroid] 88 mcg PO DAILY@0600 tablet 10/26/18 Unknown Rx Active Medications: Generic Name Dose Route Start Last Admin Trade Name Freq PRN Reason Stop Dose Admin Acetaminophen 650 mg 10/22/18 09:58 10/22/18 17:19 Tylenol PO 650 mg Q4H PRN Administration Pain MILD(1-3)/Fever >100.5/FRASER Acetaminophen/Hydrocodone Bitart 1 each 10/22/18 17:07 [place] 5/325 PO Q6H PRN Pain, Moderate (4-6) Aspirin 81 mg 10/23/18 10:00 10/27/18 10:50 Halfprin Ec PO 81 mg DAILY DEWAYNE Administration Budesonide 0.5 mg 10/22/18 20:00 10/28/18 08:21 Pulmicort IH 0.5 mg Q12HRT DEWAYNE Administration Docusate Sodium 100 mg 10/22/18 22:00 10/27/18 22:25 Colace PO 100 mg BID DEWAY[facility] Administration Famotidine 10 mg 10/22/18 10:00 10/27/18 10:50 Pepcid PO 10 mg QDAY DEW[facility] Administration Fentanyl 50 mcg 10/25/18 09:22 Sublimaze IV Q5MIN PRN Pain , Severe (7-10) Sodium Chloride 100 mls @ 999 mls/hr 10/23/18 10:50 Nacl 0.9% IV OWEN PRN Hypotension Vancomycin HCl 1 gm in 250 mls @ 167.007 mls/hr 10/28/18 18:00 Vancomycin/Ns 1 Gm/250 Ml IV [id number] [facility] Ipratropium [place] 0.5 mg 10/25/18 20:00 10/28/18 08:22 Atrovent IH 0.5 mg BIDRT [facility] Administration Levothyroxine Sodium 88 mcg 10/23/18 06:00 10/28/18 06:01 Synthroid PO 88 mcg DAILY@0600 [facility] Administration Naloxone HCl 0.1 mg 10/25/18 09:22 Narcan 0.4 Mg/1 Ml IV Q2MIN PRN Res Rate </= 8 or 02 SAT < 92% Ondansetron HCl 4 mg 10/25/18 09:22 Zofran IV ONCE PRN Nausea And Vomiting Oxycodone/Acetaminophen 1 tab 10/22/18 09:58 Percocet 5/325 PO Q6H PRN Pain, Moderate (4-6) Pantoprazole Sodium 20 mg 10/23/18 10:00 10/27/18 10:52 Protonix PO 20 mg QDAY [facility] Administration Pravastatin Sodium 40 mg 10/22/18 22:00 10/27/18 22:25 Pravachol PO 40 mg QHS [facility] Administration Sevelamer Carbonate 800 mg 10/23/18 08:00 10/27/18 18:46 Renvela PO 800 mg TIDWM [facility] Administration Sodium Chloride 10 ml 10/22/18 10:00 10/27/18 22:25 Sodium Chloride Flush Syringe 10 Ml IV 10 ml BID [facility] Administration Sodium Chloride 10 ml 10/22/18 09:58 Sodium Chloride Flush Syringe 10 Ml IV PRN PRN LINE FLUSH
[2018-10-28] MEDS: PEPCID PO SCH (10:55)
[2018-10-28] MEDS: COLACE PO SCH ×2 (10:55→22:10)
[2018-10-28] MEDS: HALFPRIN EC PO SCH (10:55)
[2018-10-28] MEDS: PROTONIX PO SCH (10:55)
--- NOTE | 2018-10-28 14:47 | Progress Note ---
Assessment and Plan Assessment and plan: AV graft/fistula infection-- s/p Po Abx Cephalexin for 7 days Blood culture now MRSA Graft removed Bleeding from av graft area last night Vascath Placed and having Dialysis Sepsis/MRSA bacteremia On Vanco Consulted ID Physician, discussed with Dr. 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 On synthroid DVT prophylaxis: Heparin subcut History Interval history: Fever resolved Bleeding from av graft night of 10/26/18 Hospitalist Physical - Physical exam Narrative exam: Gen: Not in acute distress HEENT: Normocephalic, atraumatic Heart: S1 and S2 reg, no murmurs, rubs or gallop Lungs: Clear to auscultation bilaterally, no crackles, no wheeze Abd: soft, non tender, non distended, normal BS Ext: Dressing over right arm, No edema, no clubbing, no cyanosis Neuro: AAO x 3, no focal signs Psych:Normal mood - Constitutional Vitals: Temp Pulse Resp BP Pulse Ox 98.5 F 95 H 18 146/63 98 10/28/18 13:26 10/28/18 13:26 10/28/18 13:26 10/28/18 13:26 10/28/18 13:26 General appearance: Present: no acute distress, well-nourished Results - Labs CBC & Chem 7: 10/27/18 08:00 10/27/18 08:00 Labs: Laboratory Last Values WBC 6.6 K/mm3 (4.5-11.0) 10/27/18 08:00 RBC 2.43 M/mm3 (3.65-5.03) L 10/27/18 08:00 Hgb 8.3 gm/dl (11.8-15.2) L 10/27/18 08:00 Hct 25.1 % (35.5-45.6) L 10/27/18 08:00 MCV 103 fl (84-94) H 10/27/18 08:00 MCH 34 pg (28-32) H 10/27/18 08:00 MCHC 33 % (32-34) 10/27/18 08:00 RDW 19.0 % (13.2-15.2) H 10/27/18 08:00 Plt Count 170 K/mm3 (140-440) 10/27/18 08:00 Lymph % (Auto) 8.4 % (13.4-35.0) L 10/23/18 06:05 [place] % (Auto) 9.8 % (0.0-7.3) H 10/23/18 06:05 Eos % (Auto) 0.4 % (0.0-4.3) 10/23/18 06:05 Baso % (Auto) 0.5 % (0.0-1.8) 10/23/18 06:05 Lymph # 0.9 K/mm3 (1.2-5.4) L 10/23/18 06:05 [place] # 1.1 K/mm3 (0.0-0.8) H 10/23/18 06:05 Eos # 0.0 K/mm3 (0.0-0.4) 10/23/18 06:05 Baso # 0.1 K/mm3 (0.0-0.1) 10/23/18 06:05 Add Manual Diff Complete 10/24/18 05:33 Total Counted 100 10/24/18 05:33 Seg Neutrophils % 80.9 % (40.0-70.0) H 10/23/18 06:05 Seg Neuts % (Manual) 94.0 % (40.0-70.0) H 10/24/18 05:33 Band Neutrophils % 0 % 10/24/18 05:33 Lymphocytes % (Manual) 1.0 % (13.4-35.0) L 10/24/18 05:33 Reactive Lymphs % (Man) 0 % 10/24/18 05:33 Monocytes % (Manual) 4.0 % (0.0-7.3) 10/24/18 05:33 Eosinophils % (Manual) 1.0 % (0.0-4.3) 10/24/18 05:33 Basophils % (Manual) 0 % (0.0-1.8) 10/24/18 05:33 Metamyelocytes % 0 % 10/24/18 05:33 Myelocytes % 0 % 10/24/18 05:33 Promyelocytes % 0 % 10/24/18 05:33 Blast Cells % 0 % 10/24/18 05:33 Nucleated RBC % Not Reportable 10/24/18 05:33 Seg Neutrophils # 8.7 K/mm3 (1.8-7.7) H 10/23/18 06:05 Seg Neutrophils # Man 10.1 K/mm3 (1.8-7.7) H 10/24/18 05:33 Band Neutrophils # 0.0 K/mm3 10/24/18 05:33 Lymphocytes # (Manual) 0.1 K/mm3 (1.2-5.4) L 10/24/18 05:33 Abs React Lymphs (Man) 0.0 K/mm3 10/24/18 05:33 Monocytes # (Manual) 0.4 K/mm3 (0.0-0.8) 10/24/18 05:33 Eosinophils # (Manual) 0.1 K/mm3 (0.0-0.4) 10/24/18 05:33 Basophils # (Manual) 0.0 K/mm3 (0.0-0.1) 10/24/18 05:33 Metamyelocytes # 0.0 K/mm3 10/24/18 05:33 Myelocytes # 0.0 K/mm3 10/24/18 05:33 Promyelocytes # 0.0 K/mm3 10/24/18 05:33 Blast Cells # 0.0 K/mm3 10/24/18 05:33 WBC Morphology Not Reportable 10/24/18 05:33 Hypersegmented Neuts Not Reportable 10/24/18 05:33 Hyposegmented Neuts Not Reportable 10/24/18 05:33 Hypogranular Neuts Not Reportable 10/24/18 05:33 Smudge Cells Not Reportable 10/24/18 05:33 Toxic Granulation Not Reportable 10/24/18 05:33 Toxic Vacuolation Not Reportable 10/24/18 05:33 Dohle Bodies Not Reportable 10/24/18 05:33 Pelger-Huet Anomaly Not Reportable 10/24/18 05:33 Garth Rods Not Reportable 10/24/18 05:33 Platelet Estimate Appears decreased 10/24/18 05:33 Clumped Platelets Not Reportable 10/24/18 05:33 Plt Clumps, EDTA Not Reportable 10/24/18 05:33 Large Platelets Not Reportable 10/24/18 05:33 Giant Platelets Not Reportable 10/24/18 05:33 Platelet Satelliting Not Reportable 10/24/18 05:33 Plt Morphology Comment Not Reportable 10/24/18 05:33 RBC Morphology Not Reportable 10/24/18 05:33 Dimorphic RBCs Not Reportable 10/24/18 05:33 Polychromasia Not Reportable 10/24/18 05:33 Hypochromasia Not Reportable 10/24/18 05:33 Poikilocytosis Not Reportable 10/24/18 05:33 Anisocytosis 1+ 10/24/18 05:33 Microcytosis Not Reportable 10/24/18 05:33 Macrocytosis Few 10/24/18 05:33 Spherocytes Not Reportable 10/24/18 05:33 Pappenheimer Bodies Not Reportable 10/24/18 05:33 Sickle Cells Not Reportable 10/24/18 05:33 Target Cells Not Reportable 10/24/18 05:33 Tear Drop Cells Not Reportable 10/24/18 05:33 Ovalocytes Few 10/24/18 05:33 Helmet Cells Not Reportable 10/24/18 05:33 [place] Bodies Not Reportable 10/24/18 05:33 [place] Rings Not Reportable 10/24/18 05:33 [place] Cells Not Reportable 10/24/18 05:33 Bite Cells Not Reportable 10/24/18 05:33 Crenated Cell Not Reportable 10/24/18 05:33 Elliptocytes Not Reportable 10/24/18 05:33 Acanthocytes (Spur) Not Reportable 10/24/18 05:33 Rouleaux Not Reportable 10/24/18 05:33 Hemoglobin C Crystals Not Reportable 10/24/18 05:33 Schistocytes Not Reportable 10/24/18 05:33 Malaria parasites Not Reportable 10/24/18 05:33 [place] Bodies Not Reportable 10/24/18 05:33 Hem Pathologist Commnt No 10/24/18 05:33 PT 14.5 Sec. (12.2-14.9) 10/28/18 04:57 INR 1.06 (0.87-1.13) 10/28/18 04:57 APTT 43.0 Sec. (24.2-36.6) H 10/22/18 16:13 Sodium 143 mmol/L (137-145) D 10/27/18 08:00 Potassium 4.1 mmol/L (3.6-5.0) D 10/27/18 08:00 Chloride 97.1 mmol/L (98-107) L 10/27/18 08:00 Carbon Dioxide 28 mmol/L (22-30) D 10/27/18 08:00 Anion Gap 22 mmol/L 10/27/18 08:00 BUN 42 mg/dL (9-20) H 10/27/18 08:00 Creatinine 8.6 mg/dL (0.8-1.5) H 10/27/18 08:00 Estimated GFR 6 ml/min 10/27/18 08:00 BUN/Creatinine Ratio 5 % 10/27/18 08:00 Glucose 96 mg/dL (75-100) 10/27/18 08:00 POC Glucose 192 (70-105) H 10/22/18 20:03 Calcium 8.7 mg/dL (8.4-10.2) 10/27/18 08:00 Random Vancomycin 18.6 ug/mL (0-40.0) 10/28/18 04:57 Hepatitis A IgM Ab Non-reactive (NonReactive) 10/23/18 10:34 Hep Bs Antigen Non-reactive (Negative) 10/23/18 10:34 Hep B Core IgM Ab Non-reactive (NonReactive) 10/23/18 10:34 Hepatitis C Antibody Reactive (NonReactive) A 10/23/18 10:34 Active Medications - Current Medications Current Medications: Generic Name Dose Route Start Last Admin Trade Name Freq PRN Reason Stop Dose Admin Acetaminophen 650 mg 10/22/18 09:58 10/22/18 17:19 Tylenol PO 650 mg Q4H PRN Administration Pain MILD(1-3)/Fever >100.5/FRASER Acetaminophen/Hydrocodone Bitart 1 each 10/22/18 17:07 [place] 5/325 PO Q6H PRN Pain, Moderate (4-6) Aspirin 81 mg 10/23/18 10:00 10/28/18 10:55 Halfprin Ec PO 81 mg DAILY DEWAYNE Administration Budesonide 0.5 mg 10/22/18 20:00 10/28/18 08:21 Pulmicort IH 0.5 mg Q12HRT DEWAYNE Administration Docusate Sodium 100 mg 10/22/18 22:00 10/28/18 10:55 Colace PO 100 mg BID DEWAYNE Administration Famotidine 10 mg 10/22/18 10:00 10/28/18 10:55 Pepcid PO 10 mg QDAY DEWAYNE Administration Fentanyl 50 mcg 10/25/18 09:22 Sublimaze IV Q5MIN PRN Pain , Severe (7-10) Sodium Chloride 100 mls @ 999 mls/hr 10/23/18 10:50 Nacl 0.9% IV OWEN PRN Hypotension Vancomycin HCl 1 gm in 250 mls @ 167.007 mls/hr 10/28/18 18:00 Vancomycin/Ns 1 Gm/250 Ml IV [id number]@1800 DEWAYNE Ipratropium [place] 0.5 mg 10/25/18 20:00 10/28/18 08:22 Atrovent IH 0.5 mg BIDRT DEWAYNE Administration Levothyroxine Sodium 88 mcg 10/23/18 06:00 10/28/18 06:01 Synthroid PO 88 mcg DAILY@0600 [facility] Administration Naloxone HCl 0.1 mg 10/25/18 09:22 Narcan 0.4 Mg/1 Ml IV Q2MIN PRN Res Rate </= 8 or 02 SAT < 92% Ondansetron HCl 4 mg 10/25/18 09:22 Zofran IV ONCE PRN Nausea And Vomiting Oxycodone/Acetaminophen 1 tab 10/22/18 09:58 Percocet 5/325 PO Q6H PRN Pain, Moderate (4-6) Pantoprazole Sodium 20 mg 10/23/18 10:00 10/28/18 10:55 Protonix PO 20 mg QDAY [facility] Administration Pravastatin Sodium 40 mg 10/22/18 22:00 10/27/18 22:25 Pravachol PO 40 mg QHS DEWAYNE Administration Sevelamer Carbonate 800 mg 10/23/18 08:00 10/27/18 18:46 Renvela PO 800 mg TIDWM DEWAYNE Administration Sodium Chloride 10 ml 10/22/18 10:00 10/27/18 22:25 Sodium Chloride Flush Syringe 10 Ml IV 10 ml BID DEWAYNE Administration Sodium Chloride 10 ml 10/22/18 09:58 Sodium Chloride Flush Syringe 10 Ml IV PRN PRN LINE FLUSH Nutrition/Malnutrition Assess - Dietary Evaluation Nutrition/Malnutrition Findings: Nutrition Notes Start: 10/23/18 13:51 Freq: Status: Active Protocol: Document 10/28/18 11:19 EB (Rec: 10/28/18 11:26 EB [id number]) Co-Sign 10/28/18 11:19 LP Nutrition Notes Initial or Follow up Reassessment Current Diagnosis CKD (stage V CKD),Coronary Artery Disease,Hypertension, Heart Failure,Hyperlipidemia Other Pertinent Diagnosis on HD, ND Current Diet Renal Diet Labs/Tests Reviewed Pertinent Medications Reviewed Height 5 ft 7.2 in Weight 72 kg [place] Body Weight (kg) 67.81 BMI 24.7 Subjective/Other Information F/u for intakes. According to chart, pt consuming > or = 75% of meals in past several days. Nurse tech states pt drinks Ensure Enlive "half the time" it is delivered. Percent of energy/protein needs met: 87%/68% Burn Absent Trauma Absent Current % PO Good (75-100%) #1 Nutrition Diagnosis Increased nutrient needs ( specify in comment below) Diagnosis Progress(for reassessment Continues documentation) Is patient on ventilator? No Is Patient Ambulatory and/or Out of Bed Yes REE-([facility]-ambulatory/OOB) [ 1828.853 [id number]] Calculation Used for Recommendations [facility] Additional Notes PRO: 1.2-1.3 g/kg (86-94 g/day ) Fluid: 1500 mL restriction or per MD Nutrition Intervention Change Diet Order: Continue current Add Supplement/Snack (indicate name/kcal Nepro daily /protein ) Provides kCal: 425 Provides Protein (gm) 19 Goal #1 meet at least 75% johana and pro needs via PO and ONS intake Follow-Up By: 11/02/18 Additional Comments F/u: PO and ONS intakes
[2018-10-28] MEDS: HEPARIN SUB-Q SCH ×2 (16:12→22:13)
[2018-10-28] MEDS ORDERED: VANCOMYCIN/NS 1 GM/250 ML 1 GM/250 ML BAG IV SCH (18:00)
[2018-10-28] MEDS: PRAVACHOL PO SCH (22:10)
[2018-10-29] MEDS: SYNTHROID PO SCH (05:10)
[2018-10-29 05:32] LABS: INR 1.09 (0.87-1.13)
[2018-10-29] MEDS: RENVELA PO SCH ×3 (08:20→16:51)
--- NOTE | 2018-10-29 08:52 | Progress Note ---
Assessment and Plan Cultures: 10/22/2018 Blood: MRSA, 4 out of 4 bottles 10/24/2018 Blood : MRSA 1 out of 4 bottles 10/25/2018 Surgical Biopsy: Staph Aureus 10/27/2018 Blood : no growth in 24 hours 78 year old male with a past medical history of ESRD on HD , HTN, dyslipidemia, and aortic stenosis, that presented to the ED on 10/22/18 with possible infected AV fisturla i the right upper arm. He went to his dialysis center and was sent to the ED by the staff for concern for AV fistula infection. Upon further evaluation, the patient's son reported that the patient sustained a fall and hit his head and was not acting appropriately since that incident. Now with: 1. Leukocytosis: on admission. Resolved. Etiology MRSA bacteremia. Source infected Right AV fistula. Low grade fever., No chest xray or U/A. Currently being treated with Vancomycin. 2. Staph Aureus Bacteremia: Initial blood cultures were drawn on 10/22/18 , isolate MRSA, 4 out of 4 bottles. Repeat cultures were drawn on 10/24/18 and also grew MRSA 1 out of 4 bottles. Source infected right AV fistula. TTE shows no valvular vegetation. Blood cultures show no growth in 24 hours. 3. Infected right AV Graph.: hemodialysis access duplex US showed Very high velocities near the axilla which could indicate an upstream stenosis. On 10/25/18 an excison of AV graft was performed and the surgical biopsy culture grew Staph aureus. On 10/26/18 a right internal jugular tunneled cuffed HD catheter was placed by Dr. Gross. Follow up repeat blood cultures for 48 hours to ensure clearance. 4. ESRD on HD. HD on Friday, and Friday. Antibioltics renally dosed. 5. Acute Encephalopathy: secondary to uremia. Improved. Plan -f/u repeat blood cultures to ensure clearance - If cultures remain clear for 48 hours, anticipate discharge on Vancomycin 1 gram IV post HD for 6 weeks -Continue Vancomycin PK dosing, target trough 10-20 ug per ml -CBC ordered for tomorrow [facility] [facility] M: [phone] O:[phone] Subjective Date of service: 10/29/18 Principal diagnosis: AV access malfunction Interval history: Patient seen and examined. No acute distress observed. Right permacath site sanguineous. Bedside nurse made aware. Objective - Exam Narrative Exam: Constitutional: Alert, cooperative. No acute distress. Speaks [place] Head, Ears, Nose: Normocephalic, atraumatic. External ears, nose normal Eyes: Conjunctivae/corneas clear. No icterus. No ptosis. Neck: Supple, no meningeal signs Oral: dentition good. No thrush Cardiovascular: S1, S2 normal. Respiratory: Good air entry, clear to auscultation bilaterally GI: Soft, non-tender; bowel sounds normal. No peritoneal signs Musculoskeletal: s/p excision of Right AV fistula, +dressing , minimal drainage, Right permacath site sanguineous Skin: No rash or abscess. Hem/Lymphatic: No palpable cervical or supraclavicular nodes. No lymphangitis Psych: Mood ok. Affect normal Neurological: Awake, alert, oriented. Lines: [facility] Permacath - Constitutional Vitals: Vital Signs Temp Pulse Resp BP Pulse Ox 99.9 F H 89 18 101/78 97 10/29/18 07:36 10/29/18 07:57 10/29/18 07:57 10/29/18 07:36 10/29/18 07:57 Temperature -Last 24 Hours Temperature 99.9 F Temperature 98.6 F Temperature 98.6 F Temperature 98.6 F Temperature 98.6 F Temperature 98.5 F - Labs CBC & Chem 7: 10/27/18 08:00 10/27/18 08:00
[2018-10-29] MEDS: PEPCID PO SCH (09:03)
[2018-10-29] MEDS: HALFPRIN EC PO SCH (09:03)
[2018-10-29] MEDS: COLACE PO SCH ×2 (09:03→22:28)
[2018-10-29] MEDS: HEPARIN SUB-Q SCH ×2 (09:04→22:28)
[2018-10-29] MEDS: SODIUM CHLORIDE FLUSH SYRINGE 10 ML IV SCH ×2 (09:04→22:28)
[2018-10-29] MEDS: PROTONIX PO SCH (09:04)
[2018-10-29] MEDS: PULMICORT IH SCH ×2 (09:06→20:09)
[2018-10-29] MEDS: ATROVENT IH SCH ×2 (09:06→20:09)
--- NOTE | 2018-10-29 11:54 | Progress Note ---
Assessment and Plan Impression * Infected AV access * MRSA bacteremia * End-stage renal disease on maintenance hemodialysis * Altered mental status * Coronary artery disease * Hypertension * History of hypothyroidism Recommendations * Patient is s/p AV graft removal * HD q MWF * Continue IV vancomycin. Patient has MRSA bacteremia * s/p new hd catheter * id following * Adjust diet and meds for ESRD state * No IV, BP or venipuncture and his access arm * Procrit with dialysis * Binders with meals Subjective Date of service: 10/29/18 Principal diagnosis: AV access malfunction Interval history: resting well in bed today Objective - Exam Narrative Exam: General appearance: well-developed, well-nourished, appears stated age EENT: PERRL, mucous membranes moist Neck: no JVD, no thyromegaly, no carotid bruit, supple Respiratory: Present: Clear to Ascultation Cardiology: regular, normal heart rate, S1S2, no murmurs Gastrointestinal: normal, normoactive bowel sounds Integumentary: no rash, other (right arm wrapped with a bandage. Overlying bruit heard) - Vital Signs Vital signs: Vital Signs - 12hr 10/29/18 10/29/18 10/29/18 00:00 00:15 00:30 Temperature Pulse Rate 86 93 H 94 H Pulse Rate [ Anterior Bilateral Throughout] Pulse Rate [ Left Radial] Respiratory Rate Respiratory Rate [Anterior Bilateral Throughout] Blood Pressure 119/64 118/65 119/62 O2 Sat by Pulse Oximetry 10/29/18 10/29/18 10/29/18 00:45 01:00 01:15 Temperature Pulse Rate 89 95 H 80 Pulse Rate [ Anterior Bilateral Throughout] Pulse Rate [ Left Radial] Respiratory Rate Respiratory Rate [Anterior Bilateral Throughout] Blood Pressure 123/65 121/61 128/54 O2 Sat by Pulse Oximetry 10/29/18 10/29/18 10/29/18 01:35 01:45 02:54 Temperature 98.6 F 98.6 F Pulse Rate 90 89 82 Pulse Rate [ Anterior Bilateral Throughout] Pulse Rate [ Left Radial] Respiratory 18 20 Rate Respiratory Rate [Anterior Bilateral Throughout] Blood Pressure 113/62 123/67 141/60 O2 Sat by Pulse 94 Oximetry 10/29/18 10/29/18 10/29/18 07:36 09:06 09:19 Temperature 99.9 F H Pulse Rate 89 Pulse Rate [ 87 89 Anterior Bilateral Throughout] Pulse Rate [ Left Radial] Respiratory 18 Rate Respiratory 18 18 Rate [Anterior Bilateral Throughout] Blood Pressure 101/78 O2 Sat by Pulse 97 Oximetry 10/29/18 10/29/18 09:28 10:00 Temperature Pulse Rate Pulse Rate [ Anterior Bilateral Throughout] Pulse Rate [ 89 Left Radial] Respiratory 18 Rate Respiratory Rate [Anterior Bilateral Throughout] Blood Pressure O2 Sat by Pulse 98 97 Oximetry - Lab 10/27/18 08:00 10/27/18 08:00 Most recent lab results Calcium 8.7 mg/dL (8.4-10.2) 10/27/18 08:00 Medications & Allergies - Medications Allergies/Adverse Reactions: Allergies No Known Allergies Allergy (Verified 05/22/16 17:56) Home Medications: Home Medications Medication Instructions Recorded Confirmed Last Taken Type Fluticasone Propionate [Flovent 1 puff IH BID 03/06/14 10/22/18 08/22/15 History Diskus] Levothyroxine [Synthroid] 88 mcg PO QAM 03/06/14 10/22/18 08/22/15 History Omeprazole [PriLOSEC] 20 mg PO QDAY 03/06/14 10/22/18 08/22/15 History Sevelamer Carbonate [Renvela] 800 mg PO TIDWM 03/06/14 10/22/18 08/22/15 History Simvastatin 20 mg PO DAILY 03/06/14 10/22/18 08/22/15 History Docusate Calcium (Nf) [Surfak (Nf)] 100 mg PO DAILY 07/06/14 10/22/18 08/22/15 History Ipratropium/Albuterol Sulfate 2 inh INHALATION DAILY 08/23/15 10/22/18 08/22/15 History [Combivent Respimat] Budesonide [Pulmicort Respules] 0.5 mg IH Q12HRT nebu 10/04/15 10/22/18 Unknown Rx Docusate Sodium [Colace CAP] 100 mg PO BID capsule 10/04/15 10/22/18 Unknown Rx HYDROcodone/APAP 5-325 [[place] 1 each PO Q6H PRN #30 tablet 10/04/15 10/22/18 Unknown Rx 5-325 mg TAB] Ipratropium/Albuterol Sulfate 1 ampul IH Q12HRT #30 ampul.neb 10/04/15 10/22/18 Unknown Rx [DUONEB *Not for PRN Use*] Warfarin Sodium [Coumadin] 3 mg PO QDAY 08/11/17 10/22/18 Unknown History Aspirin EC [Aspirin Enteric Coated 81 mg PO DAILY tablet 10/26/18 Unknown Rx TAB] Cephalexin [Keflex Oral Liq 250 500 mg PO Q8HR #21 bottle 10/26/18 Unknown Rx mg/5 ML] Levothyroxine [Synthroid] 88 mcg PO DAILY@0600 tablet 10/26/18 Unknown Rx Active Medications: Generic Name Dose Route Start Last Admin Trade Name Freq PRN Reason Stop Dose Admin Acetaminophen 650 mg 10/22/18 09:58 10/22/18 17:19 Tylenol PO 650 mg Q4H PRN Administration Pain MILD(1-3)/Fever >100.5/FRASER Acetaminophen/Hydrocodone Bitart 1 each 10/22/18 17:07 [place] 5/325 PO Q6H PRN Pain, Moderate (4-6) Aspirin 81 mg 10/23/18 10:00 10/29/18 09:03 Halfprin Ec PO 81 mg DAILY DEWAYNE Administration Budesonide 0.5 mg 10/22/18 20:00 10/29/18 09:06 Pulmicort IH 0.5 mg Q12HRT DEWAYNE Administration Docusate Sodium 100 mg 10/22/18 22:00 10/29/18 09:03 Colace PO 100 mg BID DEWAYNE Administration Famotidine 10 mg 10/22/18 10:00 10/29/18 09:03 Pepcid PO 10 mg QDAY DEWAYNE Administration Fentanyl 50 mcg 10/25/18 09:22 Sublimaze IV Q5MIN PRN Pain , Severe (7-10) Heparin Sodium (Porcine) 5,000 unit 10/28/18 16:00 10/29/18 09:04 Heparin SUB-Q 5,000 unit Q12HR DEWAYNE Administration Sodium Chloride 100 mls @ 999 mls/hr 10/23/18 10:50 Nacl 0.9% IV OWEN PRN Hypotension Vancomycin HCl 1 gm in 250 mls @ 167.007 mls/hr 10/28/18 18:00 10/28/18 22:18 Vancomycin/Ns 1 Gm/250 Ml IV Infused MoWeFr@1800 DEWAYNE Infusion Ipratropium [place] 0.5 mg 10/25/18 20:00 10/29/18 09:06 Atrovent IH 0.5 mg BIDRT DEWAYNE Administration Levothyroxine Sodium 88 mcg 10/23/18 06:00 10/29/18 05:10 Synthroid PO 88 mcg DAILY@0600 DEWAYNE Administration Naloxone HCl 0.1 mg 10/25/18 09:22 Narcan 0.4 Mg/1 Ml IV Q2MIN PRN Res Rate </= 8 or 02 SAT < 92% Ondansetron HCl 4 mg 10/25/18 09:22 Zofran IV ONCE PRN Nausea And Vomiting Oxycodone/Acetaminophen 1 tab 10/22/18 09:58 Percocet 5/325 PO Q6H PRN Pain, Moderate (4-6) Pantoprazole Sodium 20 mg 10/23/18 10:00 10/29/18 09:04 Protonix PO 20 mg QDAY DEWAYNE Administration Pravastatin Sodium 40 mg 10/22/18 22:00 10/28/18 22:10 Pravachol PO 40 mg QHS DEWAYNE Administration Sevelamer Carbonate 800 mg 10/23/18 08:00 10/29/18 11:37 Renvela PO 800 mg TIDWM DEWAYNE Administration Sodium Chloride 10 ml 10/22/18 10:00 10/29/18 09:04 Sodium Chloride Flush Syringe 10 Ml IV 10 ml BID DEWAYNE Administration Sodium Chloride 10 ml 10/22/18 09:58 Sodium Chloride Flush Syringe 10 Ml IV PRN PRN LINE FLUSH
--- NOTE | 2018-10-29 15:01 | Progress Note ---
Assessment and Plan Continue local wound care Can discharge when medically stable Follow up in the office in 2 weeks for staple removal Subjective Date of service: 10/29/18 Principal diagnosis: AV access malfunction Interval history: No complaints. No further bleeding. Objective - Constitutional Vitals: Vital Signs - 12hr 10/29/18 10/29/18 10/29/18 07:36 09:06 09:19 Temperature 99.9 F H Pulse Rate 89 Pulse Rate [ 87 89 Anterior Bilateral Throughout] Pulse Rate [ Left Radial] Respiratory 18 Rate Respiratory 18 18 Rate [Anterior Bilateral Throughout] Blood Pressure 101/78 O2 Sat by Pulse 97 Oximetry 10/29/18 10/29/18 09:28 10:00 Temperature Pulse Rate Pulse Rate [ Anterior Bilateral Throughout] Pulse Rate [ 89 Left Radial] Respiratory 18 Rate Respiratory Rate [Anterior Bilateral Throughout] Blood Pressure O2 Sat by Pulse 98 97 Oximetry General appearance: Present: no acute distress Extremity abnormal: other (Right arm wound clean with serous drainage. No purulence) - Labs CBC & Chem 7: 10/27/18 08:00 10/27/18 08:00 Medications & Allergies - Medications Allergies/Adverse Reactions: Allergies No Known Allergies Allergy (Verified 05/22/16 17:56) Home Medications: Home Medications Medication Instructions Recorded Confirmed Last Taken Type Fluticasone Propionate [Flovent 1 puff IH BID 03/06/14 10/22/18 08/22/15 History Diskus] Levothyroxine [Synthroid] 88 mcg PO QAM 03/06/14 10/22/18 08/22/15 History Omeprazole [PriLOSEC] 20 mg PO QDAY 03/06/14 10/22/18 08/22/15 History Sevelamer Carbonate [Renvela] 800 mg PO TIDWM 03/06/14 10/22/18 08/22/15 History Simvastatin 20 mg PO DAILY 03/06/14 10/22/18 08/22/15 History Docusate Calcium (Nf) [Surfak (Nf)] 100 mg PO DAILY 07/06/14 10/22/18 08/22/15 History Ipratropium/Albuterol Sulfate 2 inh INHALATION DAILY 08/23/15 10/22/18 08/22/15 History [Combivent Respimat] Budesonide [Pulmicort Respules] 0.5 mg IH Q12HRT nebu 10/04/15 10/22/18 Unknown Rx Docusate Sodium [Colace CAP] 100 mg PO BID capsule 10/04/15 10/22/18 Unknown Rx HYDROcodone/APAP 5-325 [[place] 1 each PO Q6H PRN #30 tablet 10/04/15 10/22/18 Unknown Rx 5-325 mg TAB] Ipratropium/Albuterol Sulfate 1 ampul IH Q12HRT #30 ampul.neb 10/04/15 10/22/18 Unknown Rx [DUONEB *Not for PRN Use*] Warfarin Sodium [Coumadin] 3 mg PO QDAY 08/11/17 10/22/18 Unknown History Aspirin EC [Aspirin Enteric Coated 81 mg PO DAILY tablet 10/26/18 Unknown Rx TAB] Cephalexin [Keflex Oral Liq 250 500 mg PO Q8HR #21 bottle 10/26/18 Unknown Rx mg/5 ML] Levothyroxine [Synthroid] 88 mcg PO DAILY@0600 tablet 10/26/18 Unknown Rx Active Medications: Generic Name Dose Route Start Last Admin Trade Name Freq PRN Reason Stop Dose Admin Acetaminophen 650 mg 10/22/18 09:58 10/22/18 17:19 Tylenol PO 650 mg Q4H PRN Administration Pain MILD(1-3)/Fever >100.5/FRASER Acetaminophen/Hydrocodone Bitart 1 each 10/22/18 17:07 [place] 5/325 PO Q6H PRN Pain, Moderate (4-6) Aspirin 81 mg 10/23/18 10:00 10/29/18 09:03 Halfprin Ec PO 81 mg DAILY DEWAYNE Administration Budesonide 0.5 mg 10/22/18 20:00 10/29/18 09:06 Pulmicort IH 0.5 mg Q12HRT DEWAYNE Administration Docusate Sodium 100 mg 10/22/18 22:00 10/29/18 09:03 Colace PO 100 mg BID DEWAYNE Administration Famotidine 10 mg 10/22/18 10:00 10/29/18 09:03 Pepcid PO 10 mg QDAY DEWAYNE Administration Fentanyl 50 mcg 10/25/18 09:22 Sublimaze IV Q5MIN PRN Pain , Severe (7-10) Heparin Sodium (Porcine) 5,000 unit 10/28/18 16:00 10/29/18 09:04 Heparin SUB-Q 5,000 unit Q12HR DEWAYNE Administration Sodium Chloride 100 mls @ 999 mls/hr 10/23/18 10:50 Nacl 0.9% IV OWEN PRN Hypotension Vancomycin HCl 1 gm in 250 mls @ 167.007 mls/hr 10/28/18 18:00 10/28/18 22:18 Vancomycin/Ns 1 Gm/250 Ml IV Infused MoWeFr@1800 DEWAYNE Infusion Ipratropium [place] 0.5 mg 10/25/18 20:00 10/29/18 09:06 Atrovent IH 0.5 mg BIDRT DEWAYNE Administration Levothyroxine Sodium 88 mcg 10/23/18 06:00 10/29/18 05:10 Synthroid PO 88 mcg DAILY@0600 [facility] Administration Naloxone HCl 0.1 mg 10/25/18 09:22 Narcan 0.4 Mg/1 Ml IV Q2MIN PRN Res Rate </= 8 or 02 SAT < 92% Ondansetron HCl 4 mg 10/25/18 09:22 Zofran IV ONCE PRN Nausea And Vomiting Oxycodone/Acetaminophen 1 tab 10/22/18 09:58 Percocet 5/325 PO Q6H PRN Pain, Moderate (4-6) Pantoprazole Sodium 20 mg 10/23/18 10:00 10/29/18 09:04 Protonix PO 20 mg QDAY DEWAYNE Administration Pravastatin Sodium 40 mg 10/22/18 22:00 10/28/18 22:10 Pravachol PO 40 mg QHS DEWAYNE Administration Sevelamer Carbonate 800 mg 10/23/18 08:00 10/29/18 11:37 Renvela PO 800 mg TIDWM DEWAYNE Administration Sodium Chloride 10 ml 10/22/18 10:00 10/29/18 09:04 Sodium Chloride Flush Syringe 10 Ml IV 10 ml BID DEWAYNE Administration Sodium Chloride 10 ml 10/22/18 09:58 Sodium Chloride Flush Syringe 10 Ml IV PRN PRN LINE FLUSH
--- NOTE | 2018-10-29 18:04 | Progress Note ---
Assessment and Plan Assessment and plan: AV graft/fistula infection-- s/p Po Abx Cephalexin for 7 days Blood culture now MRSA Graft removed Bleeding from av graft area last night Vascath Placed and having Dialysis Sepsis/MRSA bacteremia On Vanco Consulted ID Physician, discussed with Dr. Bardales repeat blood cultures Echo - no vegetation seen Acute encephalopathy Secondary to Uremia Improved anemia Repeat in am ESRD on dialysis Nephrology following Paroxysmal Afib Was on anticoagulation with coumadin at home s/p TAVR 03/26/2016, no acute issue , cont supportive care Hx of Complete heart block, s/p PPM 2015 (dual chamber SJM) CAD s/p CABG - All grafts patent by [facility] 08/2015, LVEF 50-55% 09/2015 - Cont home meds Hypothyroidism. On synthroid DVT prophylaxis: Heparin subcut Awaiting final culture results. poss dc tomorrow on vancomycin iv. History Interval history: Fever resolved Bleeding from av graft night of 10/26/18 Hospitalist Physical - Physical exam Narrative exam: Gen: Not in acute distress HEENT: Normocephalic, atraumatic Heart: S1 and S2 reg, no murmurs, rubs or gallop Lungs: Clear to auscultation bilaterally, no crackles, no wheeze Abd: soft, non tender, non distended, normal BS Ext: Dressing over right arm, No edema, no clubbing, no cyanosis Neuro: Awake,alert, no focal signs Psych:Normal mood - Constitutional Vitals: Temp Pulse Resp BP Pulse Ox 98.3 F 80 18 140/60 97 10/29/18 13:40 10/29/18 13:40 10/29/18 13:40 10/29/18 13:40 10/29/18 13:40 General appearance: Present: no acute distress Results - Labs CBC & Chem 7: 10/30/18 00:54 10/27/18 08:00 Labs: Laboratory Last Values WBC 6.6 K/mm3 (4.5-11.0) 10/27/18 08:00 RBC 2.43 M/mm3 (3.65-5.03) L 10/27/18 08:00 Hgb 8.3 gm/dl (11.8-15.2) L 10/27/18 08:00 Hct 25.1 % (35.5-45.6) L 10/27/18 08:00 MCV 103 fl (84-94) H 10/27/18 08:00 MCH 34 pg (28-32) H 10/27/18 08:00 MCHC 33 % (32-34) 10/27/18 08:00 RDW 19.0 % (13.2-15.2) H 10/27/18 08:00 Plt Count 170 K/mm3 (140-440) 10/27/18 08:00 Lymph % (Auto) 8.4 % (13.4-35.0) L 10/23/18 06:05 Price % (Auto) 9.8 % (0.0-7.3) H 10/23/18 06:05 Eos % (Auto) 0.4 % (0.0-4.3) 10/23/18 06:05 Baso % (Auto) 0.5 % (0.0-1.8) 10/23/18 06:05 Lymph # 0.9 K/mm3 (1.2-5.4) L 10/23/18 06:05 Price # 1.1 K/mm3 (0.0-0.8) H 10/23/18 06:05 Eos # 0.0 K/mm3 (0.0-0.4) 10/23/18 06:05 Baso # 0.1 K/mm3 (0.0-0.1) 10/23/18 06:05 Add Manual Diff Complete 10/24/18 05:33 Total Counted 100 10/24/18 05:33 Seg Neutrophils % 80.9 % (40.0-70.0) H 10/23/18 06:05 Seg Neuts % (Manual) 94.0 % (40.0-70.0) H 10/24/18 05:33 Band Neutrophils % 0 % 10/24/18 05:33 Lymphocytes % (Manual) 1.0 % (13.4-35.0) L 10/24/18 05:33 Reactive Lymphs % (Man) 0 % 10/24/18 05:33 Monocytes % (Manual) 4.0 % (0.0-7.3) 10/24/18 05:33 Eosinophils % (Manual) 1.0 % (0.0-4.3) 10/24/18 05:33 Basophils % (Manual) 0 % (0.0-1.8) 10/24/18 05:33 Metamyelocytes % 0 % 10/24/18 05:33 Myelocytes % 0 % 10/24/18 05:33 Promyelocytes % 0 % 10/24/18 05:33 Blast Cells % 0 % 10/24/18 05:33 Nucleated RBC % Not Reportable 10/24/18 05:33 Seg Neutrophils # 8.7 K/mm3 (1.8-7.7) H 10/23/18 06:05 Seg Neutrophils # Man 10.1 K/mm3 (1.8-7.7) H 10/24/18 05:33 Band Neutrophils # 0.0 K/mm3 10/24/18 05:33 Lymphocytes # (Manual) 0.1 K/mm3 (1.2-5.4) L 10/24/18 05:33 Abs React Lymphs (Man) 0.0 K/mm3 10/24/18 05:33 Monocytes # (Manual) 0.4 K/mm3 (0.0-0.8) 10/24/18 05:33 Eosinophils # (Manual) 0.1 K/mm3 (0.0-0.4) 10/24/18 05:33 Basophils # (Manual) 0.0 K/mm3 (0.0-0.1) 10/24/18 05:33 Metamyelocytes # 0.0 K/mm3 10/24/18 05:33 Myelocytes # 0.0 K/mm3 10/24/18 05:33 Promyelocytes # 0.0 K/mm3 10/24/18 05:33 Blast Cells # 0.0 K/mm3 10/24/18 05:33 WBC Morphology Not Reportable 10/24/18 05:33 Hypersegmented Neuts Not Reportable 10/24/18 05:33 Hyposegmented Neuts Not Reportable 10/24/18 05:33 Hypogranular Neuts Not Reportable 10/24/18 05:33 Smudge Cells Not Reportable 10/24/18 05:33 Toxic Granulation Not Reportable 10/24/18 05:33 Toxic Vacuolation Not Reportable 10/24/18 05:33 Dohle Bodies Not Reportable 10/24/18 05:33 Pelger-Huet Anomaly Not Reportable 10/24/18 05:33 Garth Rods Not Reportable 10/24/18 05:33 Platelet Estimate Appears decreased 10/24/18 05:33 Clumped Platelets Not Reportable 10/24/18 05:33 Plt Clumps, EDTA Not Reportable 10/24/18 05:33 Large Platelets Not Reportable 10/24/18 05:33 Giant Platelets Not Reportable 10/24/18 05:33 Platelet Satelliting Not Reportable 10/24/18 05:33 Plt Morphology Comment Not Reportable 10/24/18 05:33 RBC Morphology Not Reportable 10/24/18 05:33 Dimorphic RBCs Not Reportable 10/24/18 05:33 Polychromasia Not Reportable 10/24/18 05:33 Hypochromasia Not Reportable 10/24/18 05:33 Poikilocytosis Not Reportable 10/24/18 05:33 Anisocytosis 1+ 10/24/18 05:33 Microcytosis Not Reportable 10/24/18 05:33 Macrocytosis Few 10/24/18 05:33 Spherocytes Not Reportable 10/24/18 05:33 Pappenheimer Bodies Not Reportable 10/24/18 05:33 Sickle Cells Not Reportable 10/24/18 05:33 Target Cells Not Reportable 10/24/18 05:33 Tear Drop Cells Not Reportable 10/24/18 05:33 Ovalocytes Few 10/24/18 05:33 Helmet Cells Not Reportable 10/24/18 05:33 [place] Bodies Not Reportable 10/24/18 05:33 [place] Rings Not Reportable 10/24/18 05:33 Challenge Cells Not Reportable 10/24/18 05:33 Bite Cells Not Reportable 10/24/18 05:33 Crenated Cell Not Reportable 10/24/18 05:33 Elliptocytes Not Reportable 10/24/18 05:33 Acanthocytes (Spur) Not Reportable 10/24/18 05:33 Rouleaux Not Reportable 10/24/18 05:33 Hemoglobin C Crystals Not Reportable 10/24/18 05:33 Schistocytes Not Reportable 10/24/18 05:33 Malaria parasites Not Reportable 10/24/18 05:33 [place] Bodies Not Reportable 10/24/18 05:33 Hem Pathologist Commnt No 10/24/18 05:33 PT 14.8 Sec. (12.2-14.9) 10/29/18 04:31 INR 1.09 (0.87-1.13) 10/29/18 04:31 APTT 43.0 Sec. (24.2-36.6) H 10/22/18 16:13 Sodium 143 mmol/L (137-145) D 10/27/18 08:00 Potassium 4.1 mmol/L (3.6-5.0) D 10/27/18 08:00 Chloride 97.1 mmol/L (98-107) L 10/27/18 08:00 Carbon Dioxide 28 mmol/L (22-30) D 10/27/18 08:00 Anion Gap 22 mmol/L 10/27/18 08:00 BUN 42 mg/dL (9-20) H 10/27/18 08:00 Creatinine 8.6 mg/dL (0.8-1.5) H 10/27/18 08:00 Estimated GFR 6 ml/min 10/27/18 08:00 BUN/Creatinine Ratio 5 % 10/27/18 08:00 Glucose 96 mg/dL (75-100) 10/27/18 08:00 POC Glucose 192 (70-105) H 10/22/18 20:03 Calcium 8.7 mg/dL (8.4-10.2) 10/27/18 08:00 Random Vancomycin 18.6 ug/mL (0-40.0) 10/28/18 04:57 Hepatitis A IgM Ab Non-reactive (NonReactive) 10/23/18 10:34 Hep Bs Antigen Non-reactive (Negative) 10/23/18 10:34 Hep B Core IgM Ab Non-reactive (NonReactive) 10/23/18 10:34 Hepatitis C Antibody Reactive (NonReactive) A 10/23/18 10:34 Active Medications - Current Medications Current Medications: Generic Name Dose Route Start Last Admin Trade Name Freq PRN Reason Stop Dose Admin Acetaminophen 650 mg 10/22/18 09:58 10/22/18 17:19 Tylenol PO 650 mg Q4H PRN Administration Pain MILD(1-3)/Fever >100.5/FRASER Acetaminophen/Hydrocodone Bitart 1 each 10/22/18 17:07 [place] 5/325 PO Q6H PRN Pain, Moderate (4-6) Aspirin 81 mg 10/23/18 10:00 10/29/18 09:03 Halfprin Ec PO 81 mg DAILY DEWAYNE Administration Budesonide 0.5 mg 10/22/18 20:00 10/29/18 09:06 Pulmicort IH 0.5 mg Q12HRT DEWAYNE Administration Docusate Sodium 100 mg 10/22/18 22:00 10/29/18 09:03 Colace PO 100 mg BID DEWAYNE Administration Famotidine 10 mg 10/22/18 10:00 10/29/18 09:03 Pepcid PO 10 mg QDAY DEWAYNE Administration Fentanyl 50 mcg 10/25/18 09:22 Sublimaze IV Q5MIN PRN Pain , Severe (7-10) Heparin Sodium (Porcine) 5,000 unit 10/28/18 16:00 10/29/18 09:04 Heparin SUB-Q 5,000 unit Q12HR DEWAYNE Administration Sodium Chloride 100 mls @ 999 mls/hr 10/23/18 10:50 Nacl 0.9% IV OWEN PRN Hypotension Vancomycin HCl 1 gm in 250 mls @ 167.007 mls/hr 10/28/18 18:00 10/28/18 22:18 Vancomycin/Ns 1 Gm/250 Ml IV Infused MoWeFr@1800 [facility] Infusion Ipratropium [place] 0.5 mg 10/25/18 20:00 10/29/18 09:06 Atrovent IH 0.5 mg BIDRT DEWAYNE Administration Levothyroxine Sodium 88 mcg 10/23/18 06:00 10/29/18 05:10 Synthroid PO 88 mcg DAILY@0600 [facility] Administration Naloxone HCl 0.1 mg 10/25/18 09:22 Narcan 0.4 Mg/1 Ml IV Q2MIN PRN Res Rate </= 8 or 02 SAT < 92% Ondansetron HCl 4 mg 10/25/18 09:22 Zofran IV ONCE PRN Nausea And Vomiting Oxycodone/Acetaminophen 1 tab 10/22/18 09:58 Percocet 5/325 PO Q6H PRN Pain, Moderate (4-6) Pantoprazole Sodium 20 mg 10/23/18 10:00 10/29/18 09:04 Protonix PO 20 mg QDAY DEWAYNE Administration Pravastatin Sodium 40 mg 10/22/18 22:00 10/28/18 22:10 Pravachol PO 40 mg QHS DEWAYNE Administration Sevelamer Carbonate 800 mg 10/23/18 08:00 10/29/18 16:51 Renvela PO 800 mg TIDWM DEWAYNE Administration Sodium Chloride 10 ml 10/22/18 10:00 10/29/18 09:04 Sodium Chloride Flush Syringe 10 Ml IV 10 ml BID DEWAYNE Administration Sodium Chloride 10 ml 10/22/18 09:58 Sodium Chloride Flush Syringe 10 Ml IV PRN PRN LINE FLUSH Nutrition/Malnutrition Assess - Dietary Evaluation Nutrition/Malnutrition Findings: Nutrition Notes Start: 10/23/18 13:51 Freq: Status: Active Protocol: Document 10/29/18 14:33 RM (Rec: 10/29/18 14:38 RM [email or web address]) Nutrition Notes Initial or Follow up Reassessment Current Diagnosis CKD (stage V CKD),Coronary Artery Disease,Sepsis, Hypertension,Heart Failure, Hyperlipidemia Other Pertinent Diagnosis on HD, CT, MRSA Fistula infection Current Diet Renal Diet w/Nepro 1 daily Labs/Tests Reviewed Pertinent Medications Reviewed Height 5 ft 7.2 in Weight 72 kg [place] Body Weight (kg) 67.81 BMI 24.7 Subjective/Other Information Pt stated that he eats most to all of his meals. Stated he does not drink the Nepro. Percent of energy/protein needs met: 87%/68% Burn Absent Trauma Absent #1 Nutrition Diagnosis Increased nutrient needs ( specify in comment below) Diagnosis Progress(for reassessment Continues documentation) Is patient on ventilator? No Is Patient Ambulatory and/or Out of Bed Yes REE-([facility]-ambulatory/OOB) [ 1828.853 [id number]] Calculation Used for Recommendations [facility] Additional Notes PRO: 1.2-1.3 g/kg (86-94 g/day ) Fluid: 1500 mL restriction or per MD Nutrition Intervention Change Diet Order: Continue current Add Supplement/Snack (indicate name/kcal D/C Nepro. Add Ensure Clear 1 /protein ) daily Provides kCal: 240 Provides Protein (gm) 8 Goal #1 meet at least 75% johana and pro needs via PO and ONS intake Follow-Up By: 11/03/18 Additional Comments Follow for PO and ONS intakes
[2018-10-29] MEDS: PRAVACHOL PO SCH (22:28)
[2018-10-30 01:13] LABS: Hematocrit 23.6 % (35.5-45.6); Hemoglobin 7.7 gm/dl (11.8-15.2); Mean Corpuscular HGB Conc 33 % (32-34); Mean Corpuscular Volume 104 fl (84-94); Platelet Count 330 K/mm3 (140-440); Red Blood Count 2.27 M/mm3 (3.65-5.03); Red Cell Distribution Width 17.1 % (13.2-15.2)
[2018-10-30 05:07] LABS: Basophils % (Manual) 0 % (0.0-1.8); Total Cells Counted 100
[2018-10-30 05:08] LABS: Anisocytosis 1+; Platelet Estimate Consistent w Auto
[2018-10-30] MEDS: SYNTHROID PO SCH (05:19)
[2018-10-30] MEDS: PULMICORT IH SCH (08:10)
[2018-10-30] MEDS: ATROVENT IH SCH (08:10)
[2018-10-30] MEDS: RENVELA PO SCH ×4 (08:26→16:21)
--- NOTE | 2018-10-30 08:57 | Progress Note ---
Assessment and Plan Cultures: 10/22/2018 Blood: MRSA, 4 out of 4 bottles 10/24/2018 Blood : MRSA 1 out of 4 bottles 10/25/2018 Surgical Biopsy: Staph Aureus 10/27/2018 Blood : no growth in 48 hours 78 year old male with a past medical history of ESRD on HD , HTN, dyslipidemia, and aortic stenosis, that presented to the ED on 10/22/18 with possible infected AV fisturla i the right upper arm. He went to his dialysis center and was sent to the ED by the staff for concern for AV fistula infection. Upon further evaluation, the patient's son reported that the patient sustained a fall and hit his head and was not acting appropriately since that incident. Now with: 1. Leukocytosis: on admission. Resolved. Etiology MRSA bacteremia. Source infected Right AV fistula. Low grade fever., No chest xray or U/A. Currently being treated with Vancomycin. 2. Staph Aureus Bacteremia: Initial blood cultures were drawn on 10/22/18 , isolate MRSA, 4 out of 4 bottles. Repeat cultures were drawn on 10/24/18 and also grew MRSA 1 out of 4 bottles. Source infected right AV fistula. TTE shows no valvular vegetation. Blood cultures show no growth in 24 hours. 3. Infected right AV Graph.: hemodialysis access duplex US showed Very high velocities near the axilla which could indicate an upstream stenosis. On 10/25/18 an excison of AV graft was performed and the surgical biopsy culture grew Staph aureus. On 10/26/18 a right internal jugular tunneled cuffed HD catheter was placed by Dr. Gross. Repeat blood cultures show no growth to date. Will be discharged on Vancomycin post HD for 6 weeks from bacteremia clearance date ending 12-08-18. 4. ESRD on HD. HD on Friday, and Friday. Antibioltics renally dosed. 5. Acute Encephalopathy: secondary to uremia. Improved. Plan -f/u repeat blood cultures to ensure clearance -Cultures clear for 48 hours, anticipate discharge on Vancomycin 1 gram IV post HD for 6 weeks ending 12-08-18 -Order placed with case management -Continue Vancomycin PK dosing, target trough 10-[address] Luong will be probation officer on Friday [phone], Dr. Bardales will be making rounds on Friday [phone], please call for questions. Tosha Christopher NP [facility] M: [id number] O:[phone] Subjective Date of service: 10/30/18 Principal diagnosis: AV access malfunction Interval history: Patient seen and examined. No acute distress observed. Sitting up in bed talking on the phone. Objective - Exam Narrative Exam: Constitutional: Alert, cooperative. No acute distress. Speaks [place] Head, Ears, Nose: Normocephalic, atraumatic. External ears, nose normal Eyes: Conjunctivae/corneas clear. No icterus. No ptosis. Neck: Supple, no meningeal signs Oral: dentition good. No thrush Cardiovascular: S1, S2 normal. Respiratory: Good air entry, clear to auscultation bilaterally GI: Soft, non-tender; bowel sounds normal. No peritoneal signs Musculoskeletal: s/p excision of Right AV fistula, +dressing , minimal drainage, Right permacath D&I Skin: No rash or abscess. Hem/Lymphatic: No palpable cervical or supraclavicular nodes. No lymphangitis Psych: Mood ok. Affect normal Neurological: Awake, alert, oriented. Lines: RIJ Permacath - Constitutional Vitals: Vital Signs Temp Pulse Resp BP Pulse Ox 98.6 F 74 16 161/73 99 10/30/18 07:31 10/30/18 08:11 10/30/18 08:11 10/30/18 07:31 10/30/18 08:11 Temperature -Last 24 Hours Temperature 98.6 F Temperature 99.9 F Temperature 99.9 F Temperature 98.3 F - Labs CBC & Chem 7: 10/30/18 00:54 10/27/18 08:00 Labs: Abnormal lab results 10/30/18 Range/Units 00:54 RBC 2.27 L (3.65-5.03) M/mm3 Hgb 7.7 L (11.8-15.2) gm/dl Hct 23.6 L (35.5-45.6) % MCV 104 H (84-94) fl MCH 34 H (28-32) pg RDW 17.1 H (13.2-15.2) % Seg Neuts % (Manual) 84.0 H (40.0-70.0) % Lymphocytes % (Manual) 8.0 L (13.4-35.0) % Lymphocytes # (Manual) 0.6 L (1.2-5.4) K/mm3
[2018-10-30] MEDS: COLACE PO SCH (08:59)
[2018-10-30] MEDS: SODIUM CHLORIDE FLUSH SYRINGE 10 ML IV SCH (08:59)
[2018-10-30] MEDS: PROTONIX PO SCH (08:59)
[2018-10-30] MEDS: HEPARIN SUB-Q SCH (08:59)
[2018-10-30] MEDS: PEPCID PO SCH (08:59)
[2018-10-30] MEDS: HALFPRIN EC PO SCH (08:59)
--- NOTE | 2018-10-30 10:44 | Progress Note ---
Assessment and Plan Impression * Infected AV access * MRSA bacteremia * End-stage renal disease on maintenance hemodialysis * Altered mental status * Coronary artery disease * Hypertension * History of hypothyroidism Recommendations * Patient is s/p AV graft removal * HD q MWF * Continue IV vancomycin. Patient has MRSA bacteremia * s/p new hd catheter * id following * Adjust diet and meds for ESRD state * No IV, BP or venipuncture and his access arm * Procrit with dialysis * Binders with meals Subjective Date of service: 10/30/18 Principal diagnosis: AV access malfunction Interval history: resting well in bed today Objective - Exam Narrative Exam: General appearance: well-developed, well-nourished, appears stated age EENT: PERRL, mucous membranes moist Neck: no JVD, no thyromegaly, no carotid bruit, supple Respiratory: Present: Clear to Ascultation Cardiology: regular, normal heart rate, S1S2, no murmurs Gastrointestinal: normal, normoactive bowel sounds Integumentary: no rash, other (right arm wrapped with a bandage. Overlying bruit heard) - Vital Signs Vital signs: Vital Signs - 12hr 10/30/18 10/30/18 10/30/18 02:39 07:31 08:11 Temperature 99.9 F H 98.6 F Pulse Rate 86 75 Pulse Rate [ 74 Anterior Bilateral Throughout] Pulse Rate [ Left Radial] Respiratory 20 20 Rate Respiratory 16 Rate [Anterior Bilateral Throughout] Blood Pressure 154/71 161/73 O2 Sat by Pulse 97 96 99 Oximetry 10/30/18 10/30/18 08:24 09:47 Temperature Pulse Rate Pulse Rate [ 78 Anterior Bilateral Throughout] Pulse Rate [ 72 Left Radial] Respiratory 16 Rate Respiratory 16 Rate [Anterior Bilateral Throughout] Blood Pressure O2 Sat by Pulse 99 Oximetry - Lab 10/30/18 00:54 10/27/18 08:00 Most recent lab results Calcium 8.7 mg/dL (8.4-10.2) 10/27/18 08:00 Medications & Allergies - Medications Allergies/Adverse Reactions: Allergies No Known Allergies Allergy (Verified 05/22/16 17:56) Home Medications: Home Medications Medication Instructions Recorded Confirmed Last Taken Type Fluticasone Propionate [Flovent 1 puff IH BID 03/06/14 10/22/18 08/22/15 History Diskus] Levothyroxine [Synthroid] 88 mcg PO QAM 03/06/14 10/22/18 08/22/15 History Omeprazole [PriLOSEC] 20 mg PO QDAY 03/06/14 10/22/18 08/22/15 History Sevelamer Carbonate [Renvela] 800 mg PO TIDWM 03/06/14 10/22/18 08/22/15 History Simvastatin 20 mg PO DAILY 03/06/14 10/22/18 08/22/15 History Docusate Calcium (Nf) [Surfak (Nf)] 100 mg PO DAILY 07/06/14 10/22/18 08/22/15 History Ipratropium/Albuterol Sulfate 2 inh INHALATION DAILY 08/23/15 10/22/18 08/22/15 History [Combivent Respimat] Budesonide [Pulmicort Respules] 0.5 mg IH Q12HRT nebu 10/04/15 10/22/18 Unknown Rx Docusate Sodium [Colace CAP] 100 mg PO BID capsule 10/04/15 10/22/18 Unknown Rx HYDROcodone/APAP 5-325 [[place] 1 each PO Q6H PRN #30 tablet 10/04/15 10/22/18 Unknown Rx 5-325 mg TAB] Ipratropium/Albuterol Sulfate 1 ampul IH Q12HRT #30 ampul.neb 10/04/15 10/22/18 Unknown Rx [DUONEB *Not for PRN Use*] Warfarin Sodium [Coumadin] 3 mg PO QDAY 08/11/17 10/22/18 Unknown History Aspirin EC [Aspirin Enteric Coated 81 mg PO DAILY tablet 10/26/18 Unknown Rx TAB] Cephalexin [Keflex Oral Liq 250 500 mg PO Q8HR #21 bottle 10/26/18 Unknown Rx mg/5 ML] Levothyroxine [Synthroid] 88 mcg PO DAILY@0600 tablet 10/26/18 Unknown Rx Active Medications: Generic Name Dose Route Start Last Admin Trade Name Freq PRN Reason Stop Dose Admin Acetaminophen 650 mg 10/22/18 09:58 10/22/18 17:19 Tylenol PO 650 mg Q4H PRN Administration Pain MILD(1-3)/Fever >100.5/FRASER Acetaminophen/Hydrocodone Bitart 1 each 10/22/18 17:07 [place] 5/325 PO Q6H PRN Pain, Moderate (4-6) Aspirin 81 mg 10/23/18 10:00 10/30/18 08:59 Halfprin Ec PO 81 mg DAILY [facility] Administration Budesonide 0.5 mg 10/22/18 20:00 10/30/18 08:10 Pulmicort IH 0.5 mg Q12HRT DEWAYNE Administration Docusate Sodium 100 mg 10/22/18 22:00 10/30/18 08:59 Colace PO 100 mg BID [facility] Administration Epoetin Bent[place] 20,000 unit 10/30/18 10:43 Procrit IV OWEN PRN hemodialysis Famotidine 10 mg 10/22/18 10:00 10/30/18 08:59 Pepcid PO 10 mg QDAY [facility] Administration Heparin Sodium (Porcine) 5,000 unit 10/28/18 16:00 10/30/18 08:59 Heparin SUB-Q 5,000 unit Q12HR DEWAYNE Administration Sodium Chloride 100 mls @ 999 mls/hr 10/23/18 10:50 Nacl 0.9% IV OWEN PRN Hypotension Vancomycin HCl 1 gm in 250 mls @ 167.007 mls/hr 10/28/18 18:00 10/28/18 22:18 Vancomycin/Ns 1 Gm/250 Ml IV Infused [id number]@1800 [facility] Infusion Ipratropium [place] 0.5 mg 10/25/18 20:00 10/30/18 08:10 Atrovent IH 0.5 mg BIDRT [facility] Administration Levothyroxine Sodium 88 mcg 10/23/18 06:00 10/30/18 05:19 Synthroid PO 88 mcg DAILY@0600 [facility] Administration Naloxone HCl 0.1 mg 10/25/18 09:22 Narcan 0.4 Mg/1 Ml IV Q2MIN PRN Res Rate </= 8 or 02 SAT < 92% Ondansetron HCl 4 mg 10/25/18 09:22 Zofran IV ONCE PRN Nausea And Vomiting Oxycodone/Acetaminophen 1 tab 10/22/18 09:58 Percocet 5/325 PO Q6H PRN Pain, Moderate (4-6) Pantoprazole Sodium 20 mg 10/23/18 10:00 10/30/18 08:59 Protonix PO 20 mg QDAY [facility] Administration Pravastatin Sodium 40 mg 10/22/18 22:00 10/29/18 22:28 Pravachol PO 40 mg QHS DEWAYNE Administration Sevelamer Carbonate 800 mg 10/23/18 08:00 10/30/18 08:26 Renvela PO 800 mg TIDWM DEWAYNE Administration Sodium Chloride 10 ml 10/22/18 10:00 10/30/18 08:59 Sodium Chloride Flush Syringe 10 Ml IV 10 ml BID DEWAYNE Administration Sodium Chloride 10 ml 10/22/18 09:58 Sodium Chloride Flush Syringe 10 Ml IV PRN PRN LINE FLUSH
[2018-10-30] MEDS ORDERED: PROCRIT IV PRN (11:00)
--- NOTE | 2018-10-30 14:01 | Discharge Summary ---
Providers - Providers Date of Admission: 10/22/18 09:58 Date of discharge: 10/30/18 Attending physician: EVARISTO ROSE 10/22/18 09:58 Consult to Physician [CONS] Routine Comment: doctor saw patient in the ed./kathleen Consulting Provider: CHANEL ABARCA Physician Instructions: Reason For Exam: ESRD Consult to Physician [CONS] Routine Comment: spoke to dr. Gross/kathleen Consulting Provider: ANTONIO MUÑOZ Physician Instructions: Reason For Exam: AV fistulla 10/22/18 19:24 Occupational Therapy Evaluate and Treat [CONS] Routine Comment: Reason For Exam: OT EVAL AND RX Physical Therapy Evaluation and Treat [CONS] Routine Comment: Reason For Exam: placement 10/22/18 19:25 Speech Therapy Evaluation and Treat [CONS] Routine Reason For Exam: ST EVAL /RX 10/22/18 19:37 psychiatry consult [Consult to Mental Health] [CONS] Routine Reason For Exam: PER GERIATRIC ASSESSMENT TO R/O DEMENTIA Place consult to:: PSCYCHIATRY STITCH BONDING MACHINE TENDER HELPER Notified:: YES Phone number called:: [phone] Was contact made?: Yes If yes, spoke with:: DEISY Time called:: 19:40 Comment:: KATHLEEN 10/26/18 22:29 Consult to Case Management [CONS] Routine Services Needed at Discharge: Home Health Services Notified:: ROBERT Consult to Wound/ET Nurse [CONS] Routine Reason For Exam: wound eval right arm wound 10/27/18 13:59 Consult to Physician [CONS] Routine Comment: spoke to ashwini/kathleen Consulting Provider: AMISH MORTON Physician Instructions: Reason For Exam: MRSA Bacteremia,av graft infection, ESRD 10/30/18 09:10 Consult to Case Management [CONS] Urgent Services Needed at Discharge: Other Notified:: no Additional Physician Instructions: [facility] M [phone] O [phone] F [phone] OUTPATIENT PARENTERAL ANTIBIOTIC THERAPY ORDERS Diagnoses: Staph Aureus Bacteremia, infected AV graph Antimicrobial administration: anticipate discharge on Vancomycin 1 gram IV post HD for 6 weeks ending 12-08-18 . Lab monitoring: CBC, ALT, AST, vancomycin trough once a week preferly on Friday morning. Please fax results to [phone] and call [phone] for critical lab results. Tosha Christopher Morton Morris Date: 10/30/18 Hospitalization Condition: Fair Hospital course: Patient is 78 yo male with ESRD on hemodialysis, hypertension, dysplipidemia, aortic stenosis. He was sent in from Dialysis center for possible infected AV fistula in the right upper arm. He was seen and evaluated in ED and admitted. Nephrolgy and Vasc Surgery were consulted. Blood cultures done and he was started on iv Antibiotics. Dr. Antonio Muñoz, Vasc Surg did excision of AV graft on 10/25/18. Blood cultures 4 of 4, grew MRSA. Sepsis due to MRSA.He was put on Vancomycin and ID Physician consulted. Echo was done, negative for vegetation. Blood cultures were repeated and no growth after 72 hrs. ID Physician recommended 6 weeks Vancomycin iv. Arrangements were made and he was discharged home on to get Vancomycin for 6 weeks with dialysis. Coumadin was resumed. total time spent on discharge, 36 mins Disposition: [id number] HOME UNDER HOME HL[facility] - Discharge Diagnoses (1) Sepsis due to methicillin resistant Staphylococcus aureus (MRSA) Status: Acute (2) AV fistula infection Status: Acute (3) ESRD on dialysis Status: Acute (4) Hyperkalemia Status: Acute (5) Current use of ferry terminal agent anticoagulation Status: Acute (6) PAF (paroxysmal atrial fibrillation) Status: Acute (7) CAD (coronary artery disease) Status: Acute Core Measure Documentation - Palliative Care Palliative Care/ Comfort Measures: Not Applicable - Core Measures Any of the following diagnoses?: none Exam - Physical Exam Narrative exam: Gen: Not in acute distress HEENT: Normocephalic, atraumatic Heart: S1 and S2 reg, no murmurs, rubs or gallop Lungs: Clear to auscultation bilaterally, no crackles, no wheeze Abd: soft, non tender, non distended, normal BS Ext: Dressing over right arm, No edema, no clubbing, no cyanosis Neuro: Awake,alert, no focal signs Psych:Normal mood - Constitutional Vitals: Temp Pulse Resp BP Pulse Ox 98.3 F 87 16 130/67 99 10/30/18 11:30 10/30/18 13:00 10/30/18 11:30 10/30/18 13:00 10/30/18 09:47 Plan Activity: advance as tolerated Diet: low salt, renal Additional Instructions: 1.Follow up with PCP in 1 week. 2.Vancomycin iv after each dialysis session for 6 weeks to end 12/08/18. 3.INR to be checked by PCP, Dr. Lo on Friday11/02/18 Follow up with: JESIKA FELIPE [Other] - 7 Days Forms: Warfarin Discharge Instruction
[2018-10-30] MEDS ORDERED: COUMADIN PO ONE (14:18)
[2018-10-30 15:23] VITALS: BP 137/66
[2018-10-30] MEDS: COUMADIN PO SCH ×2 (15:51→16:19)
== END 2018-10-30 17:55 | disposition home health service (06) | DRG 264 ==
LOC: ED 07:02 → 2B-ACE 09:58
PROVIDERS: ADMIT Internal Medicine; ATTEND Internal Medicine
PROC: 03PY0KZ Removal of Nonautologous Tissue Substitute from Upper Artery, Open Approach (ICD-10-PCS; principal; 2018-10-25)
PROC: 0JH63XZ Insertion of Tunneled Vascular Access Device into Chest Subcutaneous Tissue and Fascia, Percutaneous Approach (ICD-10-PCS; 2018-10-26)
PROC: 02HV33Z Insertion of Infusion Device into Superior Vena Cava, Percutaneous Approach (ICD-10-PCS; 2018-10-26)
PROC: B5181ZA Fluoroscopy of Superior Vena Cava using Low Osmolar Contrast, Guidance (ICD-10-PCS; 2018-10-26)
PROC: B548ZZA Ultrasonography of Superior Vena Cava, Guidance (ICD-10-PCS; 2018-10-26)
PROC: 5A1D70Z Performance of Urinary Filtration, Intermittent, Less than 6 Hours Per Day (ICD-10-PCS; 2018-10-26)
PROC: 5A1D70Z Performance of Urinary Filtration, Intermittent, Less than 6 Hours Per Day (ICD-10-PCS; 2018-10-28)
PROC: 5A1D70Z Performance of Urinary Filtration, Intermittent, Less than 6 Hours Per Day (ICD-10-PCS; 2018-10-29)
PROC: 5A1D70Z Performance of Urinary Filtration, Intermittent, Less than 6 Hours Per Day (ICD-10-PCS; 2018-10-30)
DX: T82.7XXA Infection and inflammatory reaction due to other cardiac and vascular devices, implants and grafts, initial encounter (principal); A41.9 Sepsis, unspecified organism; G92 Toxic encephalopathy; N18.6 End stage renal disease; I13.2 Hypertensive heart and chronic kidney disease with heart failure and with stage 5 chronic kidney disease, or end stage renal disease; Z99.2 Dependence on renal dialysis; I25.2 Old myocardial infarction; I25.10 Atherosclerotic heart disease of native coronary artery without angina pectoris; E78.5 Hyperlipidemia, unspecified; Z95.1 Presence of aortocoronary bypass graft; Z95.0 Presence of cardiac pacemaker; I48.0 Paroxysmal atrial fibrillation; E03.9 Hypothyroidism, unspecified; Z79.01 Long term (current) use of anticoagulants; Z79.82 Long term (current) use of aspirin; Z79.899 Other long term (current) drug therapy; D64.9 Anemia, unspecified; I50.9 Heart failure, unspecified; Y83.2 Surgical operation with anastomosis, bypass or graft as the cause of abnormal reaction of the patient, or of later complication, without mention of misadventure at the time of the procedure; Y92.89 Other specified places as the place of occurrence of the external cause
CPT/HCPCS: 36415; 36558; 70450; 76937; 77001; 80048; 80074; 80202; 82962; 84132; 85007; 85025; 85027; 85610; 85730; 87040; 87076; 87116; 87186; 93306; 93990; 94640; 94760; 96365; G0378; A9270-GY; C1750; C1769; J0690; J0885; J1100; J1644; J2001; J2250; J2370; J2405; J2543; J2704; J3010; J3370; J3430; J7030; J7040; J7050; Q9967

== ENCOUNTER 2018-11-05 10:28 | Outpatient (CLI) | payer MEDICARE ==
[2018-11-05] MEDS ORDERED: XYLOCAINE TOPICAL 4% TP ONE (10:54)
[2018-11-06] MEDS ORDERED: AD OINTMENT TP SCH (11:00)
== END 2018-11-05 10:29 | disposition home or self-care (01) ==
LOC: WOUND 10:28
PROVIDERS: ATTEND Surgery
DX: T81.89XD Other complications of procedures, not elsewhere classified, subsequent encounter (principal); I12.0 Hypertensive chronic kidney disease with stage 5 chronic kidney disease or end stage renal disease; N18.6 End stage renal disease; E78.00 Pure hypercholesterolemia, unspecified; E03.9 Hypothyroidism, unspecified; Z85.46 Personal history of malignant neoplasm of prostate; Y83.8 Other surgical procedures as the cause of abnormal reaction of the patient, or of later complication, without mention of misadventure at the time of the procedure
CPT/HCPCS: 11042; G0463; 99215

== ENCOUNTER 2018-11-12 09:38 | Outpatient (CLI) | payer MEDICARE | END 2018-11-12 09:39 | disposition home or self-care (01) | LOC: WOUND 09:38 | PROVIDERS: ATTEND Surgery | DX: T81.89XD Other complications of procedures, not elsewhere classified, subsequent encounter (principal); I12.0 Hypertensive chronic kidney disease with stage 5 chronic kidney disease or end stage renal disease; N18.6 End stage renal disease; E78.00 Pure hypercholesterolemia, unspecified; E03.9 Hypothyroidism, unspecified; Z85.46 Personal history of malignant neoplasm of prostate; Z95.0 Presence of cardiac pacemaker; Y83.8 Other surgical procedures as the cause of abnormal reaction of the patient, or of later complication, without mention of misadventure at the time of the procedure ==

== ENCOUNTER 2018-11-19 09:31 | Outpatient (CLI) | payer MEDICARE ==
[2018-11-19] MEDS ORDERED: XYLOCAINE TOPICAL 4% TP ONE (10:00)
== END 2018-11-19 09:32 | disposition home or self-care (01) ==
LOC: WOUND 09:31
PROVIDERS: ATTEND Surgery
DX: T81.89XD Other complications of procedures, not elsewhere classified, subsequent encounter (principal); I12.0 Hypertensive chronic kidney disease with stage 5 chronic kidney disease or end stage renal disease; N18.6 End stage renal disease; E78.00 Pure hypercholesterolemia, unspecified; E03.9 Hypothyroidism, unspecified; Z85.46 Personal history of malignant neoplasm of prostate; Z95.0 Presence of cardiac pacemaker; Y83.8 Other surgical procedures as the cause of abnormal reaction of the patient, or of later complication, without mention of misadventure at the time of the procedure

== ENCOUNTER 2018-11-26 09:45 | Outpatient (CLI) | payer MEDICARE | END 2018-11-26 09:46 | disposition home or self-care (01) | LOC: WOUND 09:45 | PROVIDERS: ATTEND Surgery | DX: T81.89XD Other complications of procedures, not elsewhere classified, subsequent encounter (principal); I12.0 Hypertensive chronic kidney disease with stage 5 chronic kidney disease or end stage renal disease; N18.6 End stage renal disease; E78.00 Pure hypercholesterolemia, unspecified; E03.9 Hypothyroidism, unspecified; Z85.46 Personal history of malignant neoplasm of prostate; Y83.8 Other surgical procedures as the cause of abnormal reaction of the patient, or of later complication, without mention of misadventure at the time of the procedure | CPT/HCPCS: 99212; G0463 ==

== ENCOUNTER 2018-12-03 09:59 | Outpatient (CLI) | payer MEDICARE ==
[~2018-12-03 09:59] MED LIST: AMIDATE IV ONE; DECADRON ONE; DIPRIVAN 10 MG/ML IV ONE; HEPARIN 10,000 UNITS/10 ML ONE; MARCAINE 0.5% INFILTRATI ONE; NACL 0.45% 0 ML IV ONE; NACL 0.9% 1000 ML 1,000 ML ONE; NACL 0.9% 500 ML 500 ML ONE; NEO SYNEPHRINE/NS Syringe(OR USE) IV ONE; SILVER NITRATE TP ONE; SUBLIMAZE ONE; XYLOCAINE CARDIAC IV ONE; ZOFRAN ONE
--- NOTE | 2018-12-03 11:09 | Mammography Report ---
BONE DEXA:12/03/18 CLINICAL: 78-year-old male with history of renal failure, bone pain and osteopenia. COMPARISON: 09/20/13 TECHNIQUE: Two site bone DEXA performed on an Hologic scanner. FINDINGS: The average BMD of the lumbar spine L1-L4 is 1.029g/cm squared with a T-score of -0.6 and a Z-score of +0.5. This compares to 1.019 g/cm squared on the last exam and represents a +1.0% change in BMD from the previous baseline. The average BMD of the left hip is 0.829g/cm squared with a T-score of -1.4 and a Z-score of -0.4.This compares to 0.865g/cm squared on the last exam and represents a -4.2% change in BMD from the previous baseline. IMPRESSION: 1.WHO classification: Normal with average fracture risk based on lumbar spine measurements. A slight improvement in spine BMD compared to baseline. 2.WHO classification: Osteopenia with increased fracture risk based on left hip measurements. A moderate decline in left hip BMD compared to baseline. 3.The FRAX 10 year fracture probability for a major osteoporotic fracture is 6.0%. 4.The FRAX 10 year fracture probability for hip fracture is 2.3%. Note: FRAX version 3.01. Fracture probability calculated for an untreated patient. Fracture probability may be lower if the patient has received treatment. RECOMMENDATION: Clinical correlation and routine screening. DEFINITIONS: BMD = Bone Mineral Density T-score = BMD related to mean peak bone mass of young adult (mean expressed in Standard Deviation) Z-score = Age matched BMD expressed in SD World Health Organization (WHO) Diagnostic Criteria Normal T-score > -1 SD Osteopenia T-score between -1 and -2.4 SD Osteoporosis T-score -2.5 SD or below NOTE: BMD is not the only risk factor for fracture; also consider factors such as the patient's age, risk of falling, previous osteoporotic fracture, family history of osteoporotic fractures, current smoker, and low body weight. All treatment decisions require clinical judgment and consideration of individual patient factors, including patient preferences, comorbidities, previous drug use and wrist factors not captured in the FRAX model (e.g. frailty, falls, vitamin D deficiency, increased bone turnover, interval significant decline in BMD). Z-scores are not calculated if >80 years of age.
== END 2018-12-03 10:00 | disposition home or self-care (01) ==
LOC: MAMMO 09:59
PROVIDERS: ATTEND Family Medicine
DX: M81.0 Age-related osteoporosis without current pathological fracture (principal); M85.88 Other specified disorders of bone density and structure, other site
CPT/HCPCS: 77080; J1100; J1644; J2001; J2370; J2405; J2704; J3010; J7030; J7040

== ENCOUNTER 2019-02-16 06:36 | Inpatient (IN) | payer MEDICARE ==
[2019-02-16 08:06] LABS: Hematocrit 33.9 % (35.5-45.6); Hemoglobin 11.2 gm/dl (11.8-15.2); Mean Corpuscular HGB Conc 33 % (32-34); Mean Corpuscular Volume 93 fl (84-94); Platelet Count 124 K/mm3 (140-440); Red Blood Count 3.67 M/mm3 (3.65-5.03)
[2019-02-16 08:26] LABS: Calcium 9.5 mg/dL (8.4-10.2)
[2019-02-16 08:42] LABS: Anisocytosis 1+; Band Neutrophils # (Manual) 0.2 K/mm3; Basophils % (Manual) 0 % (0.0-1.8); Eosinophils % (Manual) 0 % (0.0-4.3); Platelet Estimate Consistent w Auto; Total Cells Counted 100; Toxic Granulation 1+
[2019-02-16 08:43] LABS: Toxic Vacuolation Few
[2019-02-16] MEDS: RENVELA PO SCH (09:37)
[2019-02-16 11:05] LABS: INR 1.24 (0.87-1.13)
--- NOTE | 2019-02-16 11:05 | Cat Scan Report ---
CT head/brain wo con INDICATION / CLINICAL INFORMATION: 78 years Male; Altered Mental Status. TECHNIQUE: Routine CT head without contrast. All CT scans at this location are performed using CT dos e reduction for ALARA by means of automated exposure control. COMPARISON: 10/22/2018 FINDINGS: BRAIN / INTRACRANIAL CONTENTS: No acute hemorrhage, mass effect, midline shift, hydrocephalus, or acu te, large territorial infarct. Mild to moderate cerebral and cerebellar atrophy. There are [id number] areas of decreased attenuation in the white matter of the cerebral hemisph eres. These are nonspecific findings and may be related to microangiopathy (hypertension, diabetes, a therosclerosis), given the patient's age. It might be difficult to evaluate for small areas of ischem ia without diffusion imaging by MRI. CRANIOCERVICAL JUNCTION: No significant abnormality. ORBITS: No significant abnormality of visualized orbits. SINUSES / MASTOIDS: No significant abnormality of the visualized paranasal sinuses or mastoid air carson ls. ADDITIONAL FINDINGS: Atherosclerotic disease is seen in the anterior and posterior circulation. Small, linear metallic object seen in the subcutaneous soft tissues superficial to the medial periorb ital region on the right, near the nasal bridge. IMPRESSION: 1. No focal mass, hemorrhage, hydrocephalus, or acute, large territorial infarct. Signer Name: Messi Doss MD, III Signed: 02/16/2019 11:00 AM Workstation Name: [id number]
[2019-02-16 11:06] LABS: Partial Thromboplastin Time 37.7 Sec. (24.2-36.6)
[2019-02-16] MEDS ORDERED: ZOSYN/NS 4.5GM/100ML 4.5 GM/100 ML VIAL IV ONE (11:28)
[2019-02-16] MEDS ORDERED: VANCOMYCIN/NS 1 GM/250 ML 1 GM/250 ML BAG IV ONE (11:28)
--- NOTE | 2019-02-16 11:28 | XRay Report ---
CHEST 1 VIEW 10:41 AM INDICATION / CLINICAL INFORMATION: Altered Mental Status. COMPARISON: None available. FINDINGS: SUPPORT DEVICES: There is a dual chamber right subclavian transvenous pacemaker with the tips of the pacing leads overlying the right atrial appendage and right ventricular apex. There is a right jugula r permacath with the tip overlying the cavoatrial junction. HEART / MEDIASTINUM: Median sternotomy and TAVR. Mild cardiomegaly with a left ventricular configurat ion. Calcification in the aortic arch without aneurysm. LUNGS / PLEURA: No significant pulmonary or pleural abnormality. No pneumothorax. ADDITIONAL FINDINGS: No significant additional findings. IMPRESSION: No acute findings. Signer Name: Sanjay Heath MD Signed: 02/16/2019 11:23 AM Workstation Name: [id number]
[2019-02-16 11:39] LABS: Chol/HDL Ratio 2.35 %
--- NOTE | 2019-02-16 11:46 | Emergency Department Report ---
- General Chief complaint: Altered Mental Status Stated complaint: HIGH BP Time Seen by Provider: 02/16/19 10:10 Source: EMS Mode of arrival: Wheelchair Limitations: Language Barrier - History of Present Illness Initial comments: Mr. Shoemaker is a 78-year-old male with history of end-stage renal disease, hemodialysis occurs on Friday. Mr. Garcia also has history of hypertension, dyslipidemia, aortic stenosis, paroxysmal atrial fibrillation who presents with altered mental status generalized malaise. With the use of the [employer] facility security officer, Mr. Garciaows unable to give much history. He stated that he was unable to make it to dialysis. According to EMS report he was seen driving to dialysis erratically. Patient was then found in care at clinic. Blood pressure on scene 100/50. Mr. Garcia states that he feels weak. However he denies pain or shortness of breath. Had a pleasure taking care for several in October. At that time he was diagnosed with sepsis due to infected AV fistula. According to electronic medical record, sepsis due to MRSA. Blood cultures c onfirmed MRSA bacteremia. Surgical biopsy culture grew staph aureus. MD Complaint: generalized weakness -: This morning Location: generalized Severity: severe Severity scale (0 -10): 0 Consistency: constant Improves with: none Worsens with: none Associated Symptoms: denies other symptoms - Related Data Home Medications Medication Instructions Recorded Confirmed Last Taken Fluticasone Propionate [Flovent 1 puff IH BID 03/06/14 10/22/18 08/22/15 Diskus] Levothyroxine [Synthroid] 88 mcg PO QAM 03/06/14 10/22/18 08/22/15 Omeprazole [PriLOSEC] 20 mg PO QDAY 03/06/14 10/22/18 08/22/15 Sevelamer Carbonate [Renvela] 800 mg PO TIDWM 03/06/14 10/22/18 08/22/15 Simvastatin 20 mg PO DAILY 03/06/14 10/22/18 08/22/15 Docusate Calcium (Nf) [Surfak (Nf)] 100 mg PO DAILY 07/06/14 10/22/18 08/22/15 Ipratropium/Albuterol Sulfate 2 inh INHALATION DAILY 08/23/15 10/22/18 08/22/15 [Combivent Respimat] Warfarin Sodium [Coumadin] 3 mg PO QDAY 08/11/17 10/22/18 Unknown Previous Rx's Medication Instructions Recorded Last Taken Type Budesonide [Pulmicort Respules] 0.5 mg IH Q12HRT nebu 10/04/15 Unknown Rx Docusate Sodium [Colace CAP] 100 mg PO BID capsule 10/04/15 Unknown Rx HYDROcodone/APAP 5-325 [[place] 1 each PO Q6H PRN #30 tablet 10/04/15 Unknown Rx 5-325 mg TAB] Ipratropium/Albuterol Sulfate 1 ampul IH Q12HRT #30 ampul.neb 10/04/15 Unknown Rx [DUONEB *Not for PRN Use*] Aspirin EC 81 mg PO DAILY tablet 10/26/18 Unknown Rx Levothyroxine [Synthroid] 88 mcg PO DAILY@0600 tablet 10/26/18 Unknown Rx Allergies Allergy/AdvReac Type Severity Reaction Status Date / Time No Known Allergies Allergy Verified 05/22/16 17:56 ED Review of Systems ROS: Stated complaint: HIGH BP Other details as noted in HPI Comment: Unobtainable due to pts medical conditions Constitutional: malaise (acute illness patient appears confused) ED Past Medical Hx - Past Medical History Hx Hypertension: Yes Hx Heart Attack/AMI: Yes (stents) Hx Congestive Heart Failure: Yes Hx Diabetes: No (DENIES) Hx GERD: Yes Hx Renal Disease: Yes (TTS dialysis) Hx Arthritis: Yes Hx Kidney Stones: Yes (dialysis T, Thurs, Sat) Hx COPD: No Hx HIV: No Additional medical history: high cholesterol, hypothyroidism. Graft to right arm. CAD - Surgical History Hx Open Heart Surgery: Yes Hx Pacemaker: Yes (RIGHT CHEST PACE MAKER) Additional Surgical History: MICHAEL exploratory lap, pacemaker placement, dialysis access - Social History Smoking Status: Unknown if ever smoked Substance Use Type: None - Medications Home Medications: Home Medications Medication Instructions Recorded Confirmed Last Taken Type Fluticasone Propionate [Flovent 1 puff IH BID 03/06/14 10/22/18 08/22/15 History Diskus] Levothyroxine [Synthroid] 88 mcg PO QAM 03/06/14 10/22/18 08/22/15 History Omeprazole [PriLOSEC] 20 mg PO QDAY 03/06/14 10/22/18 08/22/15 History Sevelamer Carbonate [Renvela] 800 mg PO TIDWM 03/06/14 10/22/18 08/22/15 History Simvastatin 20 mg PO DAILY 03/06/14 10/22/18 08/22/15 History Docusate Calcium (Nf) [Surfak (Nf)] 100 mg PO DAILY 07/06/14 10/22/18 08/22/15 History Ipratropium/Albuterol Sulfate 2 inh INHALATION DAILY 08/23/15 10/22/18 08/22/15 History [Combivent Respimat] Budesonide [Pulmicort Respules] 0.5 mg IH Q12HRT nebu 10/04/15 10/22/18 Unknown Rx Docusate Sodium [Colace CAP] 100 mg PO BID capsule 10/04/15 10/22/18 Unknown Rx HYDROcodone/APAP 5-325 [[place] 1 each PO Q6H PRN #30 tablet 10/04/15 10/22/18 Unknown Rx 5-325 mg TAB] Ipratropium/Albuterol Sulfate 1 ampul IH Q12HRT #30 ampul.neb 10/04/15 10/22/18 Unknown Rx [DUONEB *Not for PRN Use*] Warfarin Sodium [Coumadin] 3 mg PO QDAY 08/11/17 10/22/18 Unknown History Aspirin EC 81 mg PO DAILY tablet 10/26/18 Unknown Rx Levothyroxine [Synthroid] 88 mcg PO DAILY@0600 tablet 10/26/18 Unknown Rx ED Physical Exam - General Limitations: Language Barrier General appearance: alert, other (appears dazed, confused, gives partial answers to questions with Turkish interpretor, shaking as if experiencing chills) - Head Head exam: Present: atraumatic, normocephalic - Eye Eye exam: Present: normal appearance - ENT ENT exam: Present: mucous membranes moist - Neck Neck exam: Present: normal inspection - Respiratory Respiratory exam: Present: respiratory distress, decreased breath sounds, other (tachypnea 30 breaths a minutes, right chest vas cath: residue at insertion site) - Cardiovascular Cardiovascular Exam: Present: regular rate, normal rhythm, normal heart sounds - GI/Abdominal GI/Abdominal exam: Present: soft, normal bowel sounds. Absent: distended, tenderness, guarding - Rectal Rectal exam: Present: deferred - Extremities Exam Extremities exam: Present: normal inspection - Back Exam Back exam: Present: normal inspection - Neurological Exam Neurological exam: Present: alert, altered, other (oriented to name only) - Psychiatric Psychiatric exam: Present: normal affect, normal mood - Skin Skin exam: Present: warm, pallor (grayish skin discoloration). Absent: rash ED Course Vital Signs 02/16/19 02/16/19 02/16/19 06:40 07:32 08:23 Temperature 98.7 F Pulse Rate 75 69 65 Respiratory 19 14 16 Rate Blood Pressure 100/50 Blood Pressure 107/48 [Left] O2 Sat by Pulse 99 97 96 Oximetry 02/16/19 10:18 Temperature 99 F Pulse Rate 67 Respiratory 25 H Rate Blood Pressure Blood Pressure 144/64 [Left] O2 Sat by Pulse 95 Oximetry ED Medical Decision Making - Lab Data Result diagrams: 02/16/19 07:37 02/16/19 07:37 - Medical Decision Making Mr. Shoemaker is a 78-year-old male with history of end-stage renal disease, hypertension, sepsis, paroxysmal atrial fibrillation, aortic stenosis. He prese nts with generalized weakness and hypotension confusion. 1. Sepsis, likely, small amount of residue seen at the insertion site of the vas cath. Due to vas cath , disease he is at risk for bacteremia., Leukocytosis and lactic acidosis evident today. Breast with antibiotics including Zosyn and vancomycin initiated in the emergency department. Initial BP 107/48, repeat 144/81 2. Acute encephalopathy: Suspect dementia as well as acute delirium. I did see the geriatric psych consult was initiated during previous hospitalization. Driving is not ideal with the patient's mental status physical conditioning and several comorbidities. Case management will be consulted. 3. ESRD, will need urgent dialysis due to work of breathing, I have consulted wholesale account manager service Critical Care Time: Yes Critical care time in (mins) excluding proc time.: 40 Critical care attestation.: If time is entered above; I have spent that time in minutes in the direct care of this critically ill patient, excluding procedure time. 40 minutes of critical care time excluding procedures were used in the care of the patient. Patient required multiple assessments and interventions. I reviewed the electronic medical record extensively. I spoke with consultants hospitalist, nephrologists involved in the care of the patient. Provided admission bridging orders ED Disposition Clinical Impression: Sepsis, Acute encephalopathy, End stage renal disease Disposition: OP ADMIT IP TO THIS HOSP Is pt being admited?: Yes Does the pt Need Aspirin: No Condition: Stable Referrals: LUCIA CANCHOLA MD [Primary Care Provider] - 3-5 Days
[2019-02-16] MEDS ORDERED: NACL 0.9% 100 ML IV PRN (12:17)
[2019-02-16 16:11] LABS: Hepatitis B Surface Antigen Non-Reactive (Negative); Hepatitis C Virus Antibody Reactive (NonReactive)
--- NOTE | 2019-02-16 21:58 | History and Physical Report ---
History of Present Illness Date of admission: 02/16/19 11:52 Medications and Allergies Allergies Allergy/AdvReac Type Severity Reaction Status Date / Time No Known Allergies Allergy Verified 05/22/16 17:56 Home Medications Medication Instructions Recorded Confirmed Last Taken Type Sevelamer Carbonate [Renvela] 3,200 mg PO TIDWM 03/06/14 02/16/19 08/22/15 History Alendronate Sodium [Fosamax] 70 mg PO QWEEK 02/16/19 02/16/19 Unknown History Esomeprazole Magnesium [NexIUM] 40 mg PO QDAY 02/16/19 02/16/19 Unknown History FLUoxetine [PROzac] 20 mg PO QDAY 02/16/19 02/16/19 Unknown History Lubiprostone [Amitiza] 24 mcg PO BID 02/16/19 02/16/19 Unknown History Metoprolol Xl [Metoprolol 25 mg PO QDAY 02/16/19 02/16/19 Unknown History SUCCINATE ER TAB] Telmisartan 40 mg PO DAILY 02/16/19 02/16/19 Unknown History Active Meds: Active Medications Sodium Chloride (Nacl 0.9%) 100 mls @ 999 mls/hr IV OWEN PRN PRN Reason: Hypotension Exam - Constitutional Vitals: Temp Pulse Resp BP Pulse Ox 97.7 F 75 16 118/57 97 02/16/19 18:10 02/16/19 21:30 02/16/19 18:10 02/16/19 21:30 02/16/19 16:50 Results - Labs CBC & Chem 7: 02/16/19 07:37 02/16/19 07:37 Labs: Laboratory Last Values WBC 16.4 K/mm3 (4.5-11.0) H 02/16/19 07:37 RBC 3.67 M/mm3 (3.65-5.03) 02/16/19 07:37 Hgb 11.2 gm/dl (11.8-15.2) L 02/16/19 07:37 Hct 33.9 % (35.5-45.6) L 02/16/19 07:37 MCV 93 fl (84-94) 02/16/19 07:37 MCH 31 pg (28-32) 02/16/19 07:37 MCHC 33 % (32-34) 02/16/19 07:37 RDW 17.0 % (13.2-15.2) H 02/16/19 07:37 Plt Count 124 K/mm3 (140-440) L 02/16/19 07:37 Add Manual Diff Complete 02/16/19 07:37 Total Counted 100 02/16/19 07:37 Seg Neuts % (Manual) 95.0 % (40.0-70.0) H 02/16/19 07:37 1.0 % 02/16/19 07:37 2.0 % (13.4-35.0) L 02/16/19 07:37 Reactive Lymphs % (Man) 0 % 02/16/19 07:37 2.0 % (0.0-7.3) 02/16/19 07:37 0 % (0.0-4.3) 02/16/19 07:37 0 % (0.0-1.8) 02/16/19 07:37 0 % 02/16/19 07:37 0 % 02/16/19 07:37 0 % 02/16/19 07:37 0 % 02/16/19 07:37 Nucleated RBC % Not Reportable 02/16/19 07:37 Seg Neutrophils # Man 15.6 K/mm3 (1.8-7.7) H 02/16/19 07:37 Band Neutrophils # 0.2 K/mm3 02/16/19 07:37 0.3 K/mm3 (1.2-5.4) L 02/16/19 07:37 Abs React Lymphs (Man) 0.0 K/mm3 02/16/19 07:37 0.3 K/mm3 (0.0-0.8) 02/16/19 07:37 0.0 K/mm3 (0.0-0.4) 02/16/19 07:37 0.0 K/mm3 (0.0-0.1) 02/16/19 07:37 0.0 K/mm3 02/16/19 07:37 0.0 K/mm3 02/16/19 07:37 0.0 K/mm3 02/16/19 07:37 Blast Cells # 0.0 K/mm3 02/16/19 07:37 WBC Morphology Not Reportable 02/16/19 07:37 Hypersegmented Neuts Not Reportable 02/16/19 07:37 Hyposegmented Neuts Not Reportable 02/16/19 07:37 Hypogranular Neuts Not Reportable 02/16/19 07:37 Not Reportable 02/16/19 07:37 1+ 02/16/19 07:37 Few 02/16/19 07:37 Not Reportable 02/16/19 07:37 Not Reportable 02/16/19 07:37 Not Reportable 02/16/19 07:37 Consistent w auto 02/16/19 07:37 Not Reportable 02/16/19 07:37 Plt Clumps, EDTA Not Reportable 02/16/19 07:37 Not Reportable 02/16/19 07:37 Not Reportable 02/16/19 07:37 Not Reportable 02/16/19 07:37 Plt Morphology Comment Not Reportable 02/16/19 07:37 RBC Morphology Not Reportable 02/16/19 07:37 Dimorphic RBCs Not Reportable 02/16/19 07:37 Not Reportable 02/16/19 07:37 Not Reportable 02/16/19 07:37 Not Reportable 02/16/19 07:37 1+ 02/16/19 07:37 Not Reportable 02/16/19 07:37 Not Reportable 02/16/19 07:37 Not Reportable 02/16/19 07:37 Not Reportable 02/16/19 07:37 Not Reportable 02/16/19 07:37 Not Reportable 02/16/19 07:37 Not Reportable 02/16/19 07:37 Not Reportable 02/16/19 07:37 Not Reportable 02/16/19 07:37 Not Reportable 02/16/19 07:37 Not Reportable 02/16/19 07:37 Not Reportable 02/16/19 07:37 Not Reportable 02/16/19 07:37 Not Reportable 02/16/19 07:37 Not Reportable 02/16/19 07:37 Acanthocytes (Spur) Not Reportable 02/16/19 07:37 Rouleaux Not Reportable 02/16/19 07:37 Not Reportable 02/16/19 07:37 Not Reportable 02/16/19 07:37 Not Reportable 02/16/19 07:37 Not Reportable 02/16/19 07:37 Hem Pathologist Commnt No 02/16/19 07:37 PT 15.3 Sec. (12.2-14.9) H 02/16/19 10:36 INR 1.24 (0.87-1.13) H 02/16/19 10:36 APTT 37.7 Sec. (24.2-36.6) H 02/16/19 10:36 Sodium 135 mmol/L (137-145) L 02/16/19 07:37 Potassium 5.1 mmol/L (3.6-5.0) H 02/16/19 07:37 Chloride 98.5 mmol/L (98-107) 02/16/19 07:37 Carbon Dioxide 20 mmol/L (22-30) L 02/16/19 07:37 22 mmol/L 02/16/19 07:37 BUN 68 mg/dL (9-20) H 02/16/19 07:37 14.6 mg/dL (0.8-1.5) H 02/16/19 07:37 Estimated GFR 3 ml/min 02/16/19 07:37 5 % 02/16/19 07:37 Glucose 166 mg/dL (75-100) H 02/16/19 07:37 POC Glucose 186 (70-105) H 02/16/19 07:55 Lactic Acid 2.70 mmol/L (0.7-2.0) H* 02/16/19 15:00 Calcium 9.5 mg/dL (8.4-10.2) 02/16/19 07:37 21.0 umol/L (25-60) L 02/16/19 10:36 1.050 ng/mL (0.00-0.029) H* 02/16/19 10:36 Triglycerides 166 mg/dL (2-149) H 02/16/19 10:36 Cholesterol 120 mg/dL (50-199) 02/16/19 10:36 51 mg/dL (50-130) 02/16/19 10:36 51 mg/dL (40-59) 02/16/19 10:36 2.35 % 02/16/19 10:36 TSH 5.190 mlU/mL (0.270-4.200) H 02/16/19 10:36 Salicylates 0.6 mg/dL (2.8-20.0) L 02/16/19 10:36 Acetaminophen < 5.0 ug/mL (10.0-30.0) L 02/16/19 10:36 Plasma/Serum Alcohol < 0.01 % (0-0.07) 02/16/19 10:36 Hepatitis A IgM Ab Non-reactive (NonReactive) 02/16/19 13:23 Hep Bs Antigen Non-reactive (Negative) 02/16/19 13:23 Hep B Core IgM Ab Non-reactive (NonReactive) 02/16/19 13:23 Reactive (NonReactive) A 02/16/19 13:23
[2019-02-16] MEDS ORDERED: TYLENOL PO PRN (21:59)
[2019-02-16] MEDS ORDERED: ZOFRAN IV PRN (21:59)
[2019-02-16] MEDS ORDERED: PERCOCET 5/325 PO PRN (21:59)
[2019-02-16] MEDS ORDERED: DILAUDID IV PRN (21:59)
[2019-02-16] MEDS ORDERED: SODIUM CHLORIDE FLUSH SYRINGE 10 ML IV PRN (21:59)
[2019-02-16] MEDS ORDERED: PEPCID PO SCH (22:00)
[2019-02-16] MEDS ORDERED: NON-FORMULARY (Telmisartan [Telmisartan] 40 MG) PO SCH (22:00)
[2019-02-16] MEDS ORDERED: NON-FORMULARY (Lubiprostone [Amitiza] 24 MCG) PO SCH (22:00)
[2019-02-16] MEDS ORDERED: NACL 0.9 (PRIMING MACHINE ONLY DIALYSIS) MC ONE ×2 (22:15→23:35)
[2019-02-16] MEDS: TOPROL XL PO SCH (23:25)
[2019-02-16] MEDS: SODIUM CHLORIDE FLUSH SYRINGE 10 ML IV SCH (23:27)
[2019-02-17] MEDS ORDERED: MAXIPIME/NS 1 GM/100 ML 1 GM/100 ML BAG IV SCH (06:00)
--- NOTE | 2019-02-17 06:03 | Event Note ---
Date: 02/16/19 Please see H/p in reports Acute Encephalopathy Sepsis Esrd Htn
--- NOTE | 2019-02-17 06:16 | History and Physical Report ---
CHIEF COMPLAINT: Altered sensorium and confused, 1 day. HISTORY OF PRESENT ILLNESS: A 78-year-old [place] male with a history of end-stage renal disease and dialysis on Friday, , Friday, hypertension, dyslipidemia, aortic stenosis, atrial fibrillation, brought in by EMS for altered mental status and severe confusion. The patient was apparently driving erratically. His blood pressure was 100/50 at the scene and he also feels weak. Because of his severe confusion and erratic driving, the patient was picked up by EMS and brought into the Emergency Room. Low-grade fever present. Recent admission, the patient had blood cultures confirm the MRSA bacteremia. The patient had excision of AV graft on 10/25/2018 and was discharged on vancomycin for 6 weeks. The patient has a Vas-Cath now. Previous admission reviewed. PAST MEDICAL HISTORY: As mentioned, significant for hypertension, COPD, hypothyroidism, GERD, hyperlipidemia, and anticoagulation for atrial fibrillation. CURRENT MEDICATIONS: On the chart. PAST SURGICAL HISTORY: Open heart surgery, right-sided chest pacemaker. Also, AV graft excision. Permanent pacemaker placement. Vas-Cath. SOCIAL HISTORY: Does not smoke. No alcohol, no recreational drugs. FAMILY HISTORY: Hypertension. REVIEW OF SYSTEMS: Significant for altered sensorium and severe confusion. Low-grade fever. Otherwise, review of systems negative. A 14-point review of systems done. PHYSICAL EXAMINATION: GENERAL: Elderly male, confused and language barrier present. VITAL SIGNS: Temperature is 98.1, pulse is 61, respiratory rate is 18, blood pressure is 124/64. HEENT: Unremarkable. Pupils equal and reactive. NECK: Supple, no lymphadenopathy, no thyromegaly. LUNGS: Clear to auscultation and percussion. Good air entry. CARDIOVASCULAR: S1, S2 heard. No gallop, no murmur, no rub. Apical impulse in left fifth intercostal space and midclavicular line. ABDOMEN: Soft and benign. No hepatosplenomegaly. No guarding, no rigidity. Hernial orifices are normal. EXTREMITIES: Good pedal pulses. Vas-Cath present. CENTRAL NERVOUS SYSTEM: Altered sensorium. Confusion present. Language barrier present. LABORATORY DATA: Chest x-ray, no acute findings. Head CT, no focal mass, hemorrhage, hydrocephalus, or acute large territorial infarct. EKG done shows atrial ventricular dual paced complexes. Labs are significant for white count of 16,400, hemoglobin of 11.2, hematocrit of 33.9, platelet count of 124,000. Sodium of 135, potassium of 5.1, BUN and creatinine of 68 and 14.6. A1c is 5.7. Ammonia level is 21. Troponin is 1.050. Triglycerides 166. TSH is 5.190. Hepatitis C is reactive. ASSESSMENT AND PLAN: 1. Acute encephalopathy, probably secondary to uremia and sepsis. The patient needs emergent hemodialysis. The patient started on IV antibiotics. The patient was given one dose of Zosyn. The patient to be continued on IV cefepime and IV vancomycin. Infectious Disease to be consulted. 2. End-stage renal disease, needing dialysis. Continue hemodialysis. 3. Sepsis, possible origin from Vas-Cath. There is slight discharge at the Vas-Cath region. Blood cultures to be done. May need Vas-Cath placement. We will defer to Nephrology and ID. The patient to continue on cefepime and IV vancomycin. 4. Hypothyroidism. Continue Synthroid. 5. Gastroesophageal reflux disease. Continue proton pump inhibitors. The patient on Nexium at home. 6. Hypertension. Continue telmisartan and metoprolol. 7. Osteoporosis. Keep Fosamax on hold for now. 8. Deep venous thrombosis prophylaxis, heparin 5000 q. 12. In summary, the patient has acute encephalopathy, sepsis, end-stage renal disease, hypertension, hypothyroidism and GERD. Check blood cultures. Consult ID. JOB# [id number] JAME/NTS
[2019-02-17 06:18] LABS: Basophils % (Auto) 0.3 % (0.0-1.8); Eosinophils # (Auto) 0.1 K/mm3 (0.0-0.4); Eosinophils % (Auto) 0.8 % (0.0-4.3); Hematocrit 34.9 % (35.5-45.6); Hemoglobin 11.6 gm/dl (11.8-15.2); Lymphocytes # (Auto) 0.6 K/mm3 (1.2-5.4); Lymphocytes % (Auto) 6.2 % (13.4-35.0); Mean Corpuscular HGB Conc 33 % (32-34); Mean Corpuscular Volume 93 fl (84-94); Red Blood Count 3.76 M/mm3 (3.65-5.03); Red Cell Distribution Width 17.6 % (13.2-15.2)
[2019-02-17 06:19] LABS: Platelet Count 98 K/mm3 (140-440)
[2019-02-17 06:44] LABS: Calcium 8.6 mg/dL (8.4-10.2)
[2019-02-17] MEDS ORDERED: MAXIPIME 0.5 GM in NACL 0.9% 100 ML IV SCH (07:00)
[2019-02-17] MEDS: HEPARIN SUB-Q SCH ×2 (09:36→21:51)
[2019-02-17] MEDS: COZAAR PO SCH (09:36)
[2019-02-17] MEDS: PROTONIX PO SCH (09:38)
[2019-02-17] MEDS: PROzac PO SCH (09:38)
[2019-02-17] MEDS: SODIUM CHLORIDE FLUSH SYRINGE 10 ML IV SCH ×2 (09:38→21:52)
[2019-02-17] MEDS: TOPROL XL PO SCH (09:42)
[2019-02-17] MEDS ORDERED: NON-FORMULARY (Esomeprazole Magnesium [Nexium] 40 MG) PO SCH (10:00)
--- NOTE | 2019-02-17 12:00 | Consultation ---
History of Present Illness - Reason for Consult Consult date: 02/17/19 Sepsis Requesting physician: LINDA FERRELL - History of Present Illness This patient is a 78-year-old male with a past medical history of end-stage renal disease on HD ( , , ), hypertension, dyslipidemia, aortic stenosis, proxysmal atrial fibrillation who presents to the ED on 02/16/19 with altered mental status and generalized malaise. Patient is know to ID service from pervious admission on 10/27/18. for MRSA bacteremia and infected AV graph. .On 10/25/18 an excision of AV graft was performed and the surgical biopsy culture grew MRSA. On 10/26/18 a right internal jugular tunneled cuffed HD catheter was placed by Dr. Gross. Repeat blood cultures remained clear for 48 hours and he was discharged on Vancomycin 1 gram IV post HD for 6 weeks ending 12-08-18. On this visit, patient reported via transition assistant that he was unable to make it to his HD treatment. On admission WBC 16.4, Creatinine 7.9, Lactic acid 2.90, Temperature 98.7, HR 75, BP 107/48. Chest Xray shows no consolidation. Blood cultures grew Staph aureus, 2 out of 4 bottles. Primary language Armenian, discussion via interpretation line. Review of Systems: General: no fever, no chills, + nightsweats, no unintentional weight change, or change in appetite. Generalized weakness. Cutaneous: no rash, pruritus Head: no headaches or injury Eyes: no changes in vision, eye pain, double vision Ears: no ear pain, ear discharge, ringing or hearing loss Nose: no nose bleeding, stuffiness Mouth & throat: no bleeding gums, no horseness, no dental problems, or swollen g lands Neck: no pain, node enlargement/lumps, tyroid enlargement or tenderness Respiratory: no cough, wheezing, sputum, hemoptysis, pleuritic chest pain Cardiovascular: no chest pain, leg edema, cyanosis, KAHN, orthopnea Musculoskeletal: no decreased joint motion, bone or joint pain, joint swelling, muscle aches Gastrointestinal: no nausea, vomiting, hematemesis, diarrhea, constipation, melena, bright red blood in stools, fecal incontinence, jaundice Genitourinary/Reproductive: no frequent urination, no dysuria, hematuria, incontinence Neurogical: no seizures, no headaches, no weakness, no paresthesias, no loss of speech or vision; no memory loss, no vertigo, no tremors, no numbness Psychiatric: stable mood; no excessive anxiety, sadness or moodiness Medications and Allergies Allergies Allergy/AdvReac Type Severity Reaction Status Date / Time No Known Allergies Allergy Verified 05/22/16 17:56 Home Medications Medication Instructions Recorded Confirmed Last Taken Type Sevelamer Carbonate [Renvela] 3,200 mg PO TIDWM 03/06/14 02/16/19 08/22/15 History Alendronate Sodium [Fosamax] 70 mg PO QWEEK 02/16/19 02/16/19 Unknown History Esomeprazole Magnesium [NexIUM] 40 mg PO QDAY 02/16/19 02/16/19 Unknown History FLUoxetine [PROzac] 20 mg PO QDAY 02/16/19 02/16/19 Unknown History Lubiprostone [Amitiza] 24 mcg PO BID 02/16/19 02/16/19 Unknown History Metoprolol Xl [Metoprolol 25 mg PO QDAY 02/16/19 02/16/19 Unknown History SUCCINATE ER TAB] Telmisartan 40 mg PO DAILY 02/16/19 02/16/19 Unknown History Active Meds: Active Medications Acetaminophen (Tylenol) 650 mg PO Q4H PRN PRN Reason: Pain MILD(1-3)/Fever >100.5/FRASER Fluoxetine HCl (Prozac) 20 mg PO QDAY COUNT INCLUDES THE [facility] Last Admin: 02/17/19 09:38 Dose: 20 mg Documented by: Heparin Sodium (Porcine) (Heparin) 5,000 unit SUB-Q Q12HR COUNT INCLUDES THE [facility] Last Admin: 02/17/19 09:36 Dose: 5,000 unit Documented by: Hydromorphone HCl (Dilaudid) 0.5 mg IV Q3H PRN PRN Reason: Pain , Severe (7-10) Sodium Chloride (Nacl 0.9%) 100 mls @ 999 mls/hr IV OWEN PRN PRN Reason: Hypotension Cefepime HCl 0.5 gm/ Sodium (Chloride) 100 mls @ 200 mls/hr IV Q24HR COUNT INCLUDES THE [facility] Last Admin: 02/17/19 07:07 Dose: 200 mls/hr Documented by: Levothyroxine Sodium (Synthroid) 50 mcg PO DAILY@0600 COUNT INCLUDES THE [facility] Losartan Potassium (Cozaar) 50 mg PO QDAY COUNT INCLUDES THE [facility] Last Admin: 02/17/19 09:36 Dose: 50 mg Documented by: Metoprolol Succinate (Toprol Xl) 25 mg PO QDAY COUNT INCLUDES THE [facility] Last Admin: 02/17/19 09:42 Dose: 25 mg Documented by: Miscellaneous Medication (Lubiprostone [Amitiza]) 24 mcg PO BID COUNT INCLUDES THE [facility] Ondansetron HCl (Zofran) 4 mg IV Q8H PRN PRN Reason: Nausea And Vomiting Oxycodone/Acetaminophen (Percocet 5/325) 1 tab PO Q6H PRN PRN Reason: Pain, Moderate (4-6) Pantoprazole Sodium (Protonix) 40 mg PO DAILY COUNT INCLUDES THE [facility] Last Admin: 02/17/19 09:38 Dose: 40 mg Documented by: Sevelamer Carbonate (Renvela) 3,200 mg PO TIDWM COUNT INCLUDES THE [facility] Last Admin: 02/16/19 09:37 Dose: 3,200 mg Documented by: Sodium Chloride (Sodium Chloride Flush Syringe 10 Ml) 10 ml IV BID COUNT INCLUDES THE [facility] Last Admin: 02/17/19 09:38 Dose: 10 ml Documented by: Sodium Chloride (Sodium Chloride Flush Syringe 10 Ml) 10 ml IV PRN PRN PRN Reason: LINE FLUSH Physical Examination - Physical Exam Narrative exam: Constitutional: Alert, cooperative. No acute distress, Head, Ears, Nose: Normocephalic, atraumatic. External ears, nose normal Eyes: Conjunctivae/corneas clear. No icterus. No ptosis. Neck: Supple, no meningeal signs Oral: dentition fair. No thrush Cardiovascular: S1, S2 normal. Respiratory: Good air entry, clear to auscultation bilaterally GI: Soft, non-tender; bowel sounds normal. No peritoneal signs Musculoskeletal: No pedal edema, no cyanosis. Skin: No rash or abscess. Hem/Lymphatic: No palpable cervical or supraclavicular nodes. No lymphangitis Psych: Mood ok. Affect normal Neurological: Awake, alert, oriented. Lines: RIJ HD Catheter - Constitutional Vitals: Vital Signs Temp Pulse Resp BP Pulse Ox 98.3 F 76 18 123/59 100 02/17/19 09:01 02/17/19 09:42 02/17/19 09:01 02/17/19 09:42 02/17/19 09:01 Temperature -Last 24 Hours Temperature 98.3 F Temperature 99.5 F Temperature 98.3 F Temperature 98.1 F Temperature 97.7 F Temperature 97.3 F Temperature 99.9 F Results - Labs CBC & Chem 7: 02/17/19 05:18 02/17/19 05:18 Labs: Abnormal lab results 02/16/19 02/16/19 02/16/19 Range/Units 13:23 13:23 15:00 Hgb (11.8-15.2) gm/dl Hct (35.5-45.6) % RDW (13.2-15.2) % Plt Count (140-440) K/mm3 Lymph % (Auto) (13.4-35.0) % [place] % (Auto) (0.0-7.3) % Lymph # (1.2-5.4) K/mm3 [place] # (0.0-0.8) K/mm3 Seg Neutrophils % (40.0-70.0) % Seg Neutrophils # (1.8-7.7) K/mm3 Chloride (98-107) mmol/L BUN (9-20) mg/dL Creatinine (0.8-1.5) mg/dL Lactic Acid 2.90 H* 2.70 H* (0.7-2.0) mmol/L Hepatitis C Antibody Reactive A (NonReactive) 02/17/19 02/17/19 Range/Units 05:18 05:18 Hgb 11.6 L (11.8-15.2) gm/dl Hct 34.9 L (35.5-45.6) % RDW 17.6 H (13.2-15.2) % Plt Count 98 L (140-440) K/mm3 Lymph % (Auto) 6.2 L (13.4-35.0) % [place] % (Auto) 10.0 H (0.0-7.3) % Lymph # 0.6 L (1.2-5.4) K/mm3 [place] # 1.0 H (0.0-0.8) K/mm3 Seg Neutrophils % 82.7 H (40.0-70.0) % Seg Neutrophils # 8.1 H (1.8-7.7) K/mm3 Chloride 97.4 L (98-107) mmol/L BUN 31 H (9-20) mg/dL Creatinine 7.9 H (0.8-1.5) mg/dL Lactic Acid (0.7-2.0) mmol/L Hepatitis C Antibody (NonReactive) - Imaging and Cardiology Chest x-ray: report reviewed (No consolidations) CT Scan - head: report reviewed (: no focal mass, hemmohage, hyrocephalus or acute, large territorial infarct.) Assessment and Plan Previous Cultures: 10/22/2018 Blood: MRSA 4 out of 4 bottles 10/24/2018 Blood MRSA 2 out of 4 bottles 10/25/2018 Surgical Biopsy Right arm: MRSA 10/27/2018 Blood: no growth Cultures: 02/16/19 Blood: Staph aureus, 2 out of 4 bottles A/P: 78-year-old male with a past medical history of end-stage renal disease on HD ( , , ), hypertension, dyslipidemia, aortic stenosis, proxysmal atrial fibrillation who presents to the ED on 02/16/19 with altered mental status and generalized malaise..Patient is know to ID service from pervious admission on 10/27/18. for MRSA bacteremia and infected AV graph. On 10/25/18 an excison of AV graft was performed and the surgical biopsy culture grew MRSA. On 10/26/18 a right internal jugular tunneled cuffed HD catheter was placed by Dr. Gross. Repeat blood cultures remained clear for 48 hours and he was discharged on Vancomycin 1 gram IV post HD for 6 weeks ending 12-08-18. On this visit patient reported via transition assistant that he was unable to make it to his HD treatment. Admitted with: 1. Sepsis on admission: evidenced by elevated lactic acid and leukocytosis. Etiology staph aureus bacteremia. Source most likely infected right internal jugular tunneled catheter. No fever. CXR no consolidation. U/A not done. Currently being treated with Vancomycin and Cefepime. 2. Staph aureus Bacteremia: 2 out of 4 bottles. Source most likely HD cath. Order TTE. Follow up cultures for ID and susceptibility. 3. ESRD on HD. HD on Friday, and Friday. Antibiotics renally dosed. 4. Acute Encephalopathy: secondary to uremia. Improved. Recommendations: -removal or exchange of HD catheter -continue Vancomycin PK dosing -discontinue Cefepime -follow up blood cultures for ID and susceptibility -TTE ordered -CBC ordered for tomorrow [facility] M: [phone] O:[phone]
--- NOTE | 2019-02-17 13:25 | Consultation ---
History of Present Illness - Reason for Consult Consult date: 02/17/19 bacteremia with sepsis - History of Present Illness Patient with a history of end-stage renal disease on hemodialysis who previously had a graft explanted secondary to infection. He has been dialyzing since October through a tunneled hemodialysis catheter. Blood cultures were positive in 2 out of 4 bottles for staph aureus. On presentation, the patient was confused with altered mental status. This has stabilized. Patient's white cell count is normalized. There is no erythema or exudates of the catheter exit site. Past History Past Medical History: dialysis, ESRD Past Surgical History: Other (prior fistula now explanted) Social history: no significant social history Family history: no significant family history Medications and Allergies Allergies Allergy/AdvReac Type Severity Reaction Status Date / Time No Known Allergies Allergy Verified 05/22/16 17:56 Home Medications Medication Instructions Recorded Confirmed Last Taken Type Sevelamer Carbonate [Renvela] 3,200 mg PO TIDWM 03/06/14 02/16/19 08/22/15 History Alendronate Sodium [Fosamax] 70 mg PO QWEEK 02/16/19 02/16/19 Unknown History Esomeprazole Magnesium [NexIUM] 40 mg PO QDAY 02/16/19 02/16/19 Unknown History FLUoxetine [PROzac] 20 mg PO QDAY 02/16/19 02/16/19 Unknown History Lubiprostone [Amitiza] 24 mcg PO BID 02/16/19 02/16/19 Unknown History Metoprolol Xl [Metoprolol 25 mg PO QDAY 02/16/19 02/16/19 Unknown History SUCCINATE ER TAB] Telmisartan 40 mg PO DAILY 02/16/19 02/16/19 Unknown History Active Meds: Active Medications Acetaminophen (Tylenol) 650 mg PO Q4H PRN PRN Reason: Pain MILD(1-3)/Fever >100.5/FRASER Fluoxetine HCl (Prozac) 20 mg PO QDAY [facility] Last Admin: 02/17/19 09:38 Dose: 20 mg Documented by: Heparin Sodium (Porcine) (Heparin) 5,000 unit SUB-Q Q12HR [facility] Last Admin: 02/17/19 09:36 Dose: 5,000 unit Documented by: Hydromorphone HCl (Dilaudid) 0.5 mg IV Q3H PRN PRN Reason: Pain , Severe (7-10) Sodium Chloride (Nacl 0.9%) 100 mls @ 999 mls/hr IV OWEN PRN PRN Reason: Hypotension Cefepime HCl 0.5 gm/ Sodium (Chloride) 100 mls @ 200 mls/hr IV Q24HR [facility] Last Admin: 02/17/19 07:07 Dose: 200 mls/hr Documented by: Levothyroxine Sodium (Synthroid) 50 mcg PO DAILY@0600 [facility] Losartan Potassium (Cozaar) 50 mg PO QDAY [facility] Last Admin: 02/17/19 09:36 Dose: 50 mg Documented by: Metoprolol Succinate (Toprol Xl) 25 mg PO QDAY [facility] Last Admin: 02/17/19 09:42 Dose: 25 mg Documented by: Miscellaneous Medication (Lubiprostone [Amitiza]) 24 mcg PO BID [facility] Ondansetron HCl (Zofran) 4 mg IV Q8H PRN PRN Reason: Nausea And Vomiting Oxycodone/Acetaminophen (Percocet 5/325) 1 tab PO Q6H PRN PRN Reason: Pain, Moderate (4-6) Pantoprazole Sodium (Protonix) 40 mg PO DAILY [facility] Last Admin: 02/17/19 09:38 Dose: 40 mg Documented by: Sevelamer Carbonate (Renvela) 3,200 mg PO TIDWM [facility] Last Admin: 02/16/19 09:37 Dose: 3,200 mg Documented by: Sodium Chloride (Sodium Chloride Flush Syringe 10 Ml) 10 ml IV BID [facility] Last Admin: 02/17/19 09:38 Dose: 10 ml Documented by: Sodium Chloride (Sodium Chloride Flush Syringe 10 Ml) 10 ml IV PRN PRN PRN Reason: LINE FLUSH Review of Systems ROS unobtainable: due to mental status Exam - Constitutional Vitals: Temp Pulse Resp BP Pulse Ox 98.4 F 64 18 133/63 100 02/17/19 12:53 02/17/19 12:53 02/17/19 12:53 02/17/19 12:53 02/17/19 12:53 General appearance: Present: no acute distress - EENT Eyes: Present: EOM intact ENT: hearing intact - Neck Neck: Present: supple, normal ROM - Respiratory Respiratory effort: normal - Extremities Extremities: abnormal - Abdominal General gastrointestinal: Present: deferred Male genitourinary: Present: deferred - Rectal Rectal Exam: deferred - Psychiatric Psychiatric: cooperative Results - Labs CBC & Chem 7: 02/17/19 05:18 02/17/19 05:18 Labs: Abnormal lab results 02/16/19 02/16/19 02/16/19 Range/Units 13:23 13:23 15:00 Hgb (11.8-15.2) gm/dl Hct (35.5-45.6) % RDW (13.2-15.2) % Plt Count (140-440) K/mm3 Lymph % (Auto) (13.4-35.0) % [place] % (Auto) (0.0-7.3) % Lymph # (1.2-5.4) K/mm3 [place] # (0.0-0.8) K/mm3 Seg Neutrophils % (40.0-70.0) % Seg Neutrophils # (1.8-7.7) K/mm3 Chloride (98-107) mmol/L BUN (9-20) mg/dL Creatinine (0.8-1.5) mg/dL Lactic Acid 2.90 H* 2.70 H* (0.7-2.0) mmol/L Hepatitis C Antibody Reactive A (NonReactive) 02/17/19 02/17/19 Range/Units 05:18 05:18 Hgb 11.6 L (11.8-15.2) gm/dl Hct 34.9 L (35.5-45.6) % RDW 17.6 H (13.2-15.2) % Plt Count 98 L (140-440) K/mm3 Lymph % (Auto) 6.2 L (13.4-35.0) % [place] % (Auto) 10.0 H (0.0-7.3) % Lymph # 0.6 L (1.2-5.4) K/mm3 [place] # 1.0 H (0.0-0.8) K/mm3 Seg Neutrophils % 82.7 H (40.0-70.0) % Seg Neutrophils # 8.1 H (1.8-7.7) K/mm3 Chloride 97.4 L (98-107) mmol/L BUN 31 H (9-20) mg/dL Creatinine 7.9 H (0.8-1.5) mg/dL Lactic Acid (0.7-2.0) mmol/L Hepatitis C Antibody (NonReactive) Assessment and Plan The patient will need to be scheduled for exchange of his tunneled hemodialysis catheter. There was an initiation of antibiotic therapy yesterday. We will time the exchange of his hemodialysis catheter following his echo. In anticipation, the patient will be made nothing by mouth after midnight.
[2019-02-17] MEDS: RENVELA PO SCH ×2 (15:08→17:23)
--- NOTE | 2019-02-17 17:00 | Progress Note ---
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 On 10/25/18, he has removal of AV graft and the surgical biopsy culture grew MRSA. On 10/26/18 a right internal jugular tunneled cuffed HD catheter was placed by Dr. Gross. Repeat blood cultures remained clear for 48 hours and he was discharged on Vancomycin 1 gram IV post HD for 6 weeks ending 12-08-18. On this visit, patient reported via photographic artist that he was unable to make it to his HD treatment. On admission WBC 16.4, Creatinine 7.9, Lactic acid 2.90, Temperature 98.7, HR 75, BP 107/48. Chest Xray shows no consolidation. Blood cultures grew Staph aureus, 2 out of 4 bottles. * Cultures: 02/16/19 Blood: Staph aureus, 2 out of 4 bottles -Sepsis with Staph aureus bacteremia. Source most likely infected right internal jugular tunneled catheter. No fever. CXR no consolidation. U/A not done: treat with IV Vancomycin with monitoring, consulted Vascular surgeon. -Staph aureus Bacteremia: 2 out of 4 bottles. Source most likely HD cath. Ordered TTE. Follow up cultures for ID and susceptibility. -ESRD on HD. HD on Friday, and Friday. Antibiotics renally dosed. -Acute Metabolic Encephalopathy: secondary to uremia. Improved. History Interval history: Patient was seen and examined. Follow-up on current diagnosis AMS. No overnight events reported to me. Patient denies any chest pain, shortness breath, nausea/vomiting or severe headaches. Imaging, nursing note, chart, labs and old chart reviewed. Discussed with patient. Primary language Telugu, discussion via interpretation line. Hospitalist Physical - Physical exam Narrative exam: Gen: ill appearing, NAD, Awake, Alert, Orientated x 3 HEENT: NCAT, EOMI, PERRL, OP Clear Neck: supple, no adenopathy, no thyromegaly, no JVD CVS/Heart: RRR, normal S1S2, pulses present bilaterally Chest/Lungs: CTA B, Symmetrical chest expansion, good air entry bilaterally GI/Abdomen: soft, NTND, good bowel sounds, no guarding or rebound /Bladder: no suprapubic tenderness, no CVA or paraspinal tenderness Extermity/Skin: no c/c/e, no obvious rash MSK: FROM x 4 Neuro: CN 2-12 grossly intact, no new focal deficits Psych: calm - Constitutional Vitals: Temp Pulse Resp BP Pulse Ox 98.4 F 64 18 133/63 100 02/17/19 12:53 02/17/19 12:53 02/17/19 12:53 02/17/19 12:53 02/17/19 12:53 General appearance: Present: no acute distress Results - Labs CBC & Chem 7: 02/17/19 05:18 02/17/19 05:18 Labs: Laboratory Last Values WBC 9.8 K/mm3 (4.5-11.0) 02/17/19 05:18 RBC 3.76 M/mm3 (3.65-5.03) 02/17/19 05:18 Hgb 11.6 gm/dl (11.8-15.2) L 02/17/19 05:18 Hct 34.9 % (35.5-45.6) L 02/17/19 05:18 MCV 93 fl (84-94) 02/17/19 05:18 MCH 31 pg (28-32) 02/17/19 05:18 MCHC 33 % (32-34) 02/17/19 05:18 RDW 17.6 % (13.2-15.2) H 02/17/19 05:18 Plt Count 98 K/mm3 (140-440) L 02/17/19 05:18 Lymph % (Auto) 6.2 % (13.4-35.0) L 02/17/19 05:18 Shannon % (Auto) 10.0 % (0.0-7.3) H 02/17/19 05:18 Eos % (Auto) 0.8 % (0.0-4.3) 02/17/19 05:18 Baso % (Auto) 0.3 % (0.0-1.8) 02/17/19 05:18 Lymph # 0.6 K/mm3 (1.2-5.4) L 02/17/19 05:18 Shannon # 1.0 K/mm3 (0.0-0.8) H 02/17/19 05:18 Eos # 0.1 K/mm3 (0.0-0.4) 02/17/19 05:18 Baso # 0.0 K/mm3 (0.0-0.1) 02/17/19 05:18 Add Manual Diff Complete 02/16/19 07:37 Total Counted 100 02/16/19 07:37 Seg Neutrophils % 82.7 % (40.0-70.0) H 02/17/19 05:18 Seg Neuts % (Manual) 95.0 % (40.0-70.0) H 02/16/19 07:37 1.0 % 02/16/19 07:37 2.0 % (13.4-35.0) L 02/16/19 07:37 Reactive Lymphs % (Man) 0 % 02/16/19 07:37 2.0 % (0.0-7.3) 02/16/19 07:37 0 % (0.0-4.3) 02/16/19 07:37 0 % (0.0-1.8) 02/16/19 07:37 0 % 02/16/19 07:37 0 % 02/16/19 07:37 0 % 02/16/19 07:37 0 % 02/16/19 07:37 Nucleated RBC % Not Reportable 02/16/19 07:37 Seg Neutrophils # 8.1 K/mm3 (1.8-7.7) H 02/17/19 05:18 Seg Neutrophils # Man 15.6 K/mm3 (1.8-7.7) H 02/16/19 07:37 Band Neutrophils # 0.2 K/mm3 02/16/19 07:37 0.3 K/mm3 (1.2-5.4) L 02/16/19 07:37 Abs React Lymphs (Man) 0.0 K/mm3 02/16/19 07:37 0.3 K/mm3 (0.0-0.8) 02/16/19 07:37 0.0 K/mm3 (0.0-0.4) 02/16/19 07:37 0.0 K/mm3 (0.0-0.1) 02/16/19 07:37 0.0 K/mm3 02/16/19 07:37 0.0 K/mm3 02/16/19 07:37 0.0 K/mm3 02/16/19 07:37 Blast Cells # 0.0 K/mm3 02/16/19 07:37 WBC Morphology Not Reportable 02/16/19 07:37 Hypersegmented Neuts Not Reportable 02/16/19 07:37 Hyposegmented Neuts Not Reportable 02/16/19 07:37 Hypogranular Neuts Not Reportable 02/16/19 07:37 Not Reportable 02/16/19 07:37 1+ 02/16/19 07:37 Few 02/16/19 07:37 Not Reportable 02/16/19 07:37 Not Reportable 02/16/19 07:37 Not Reportable 02/16/19 07:37 Consistent w auto 02/16/19 07:37 Not Reportable 02/16/19 07:37 Plt Clumps, EDTA Not Reportable 02/16/19 07:37 Not Reportable 02/16/19 07:37 Not Reportable 02/16/19 07:37 Not Reportable 02/16/19 07:37 Plt Morphology Comment Not Reportable 02/16/19 07:37 RBC Morphology Not Reportable 02/16/19 07:37 Dimorphic RBCs Not Reportable 02/16/19 07:37 Not Reportable 02/16/19 07:37 Not Reportable 02/16/19 07:37 Not Reportable 02/16/19 07:37 1+ 02/16/19 07:37 Not Reportable 02/16/19 07:37 Not Reportable 02/16/19 07:37 Not Reportable 02/16/19 07:37 Not Reportable 02/16/19 07:37 Not Reportable 02/16/19 07:37 Not Reportable 02/16/19 07:37 Not Reportable 02/16/19 07:37 Not Reportable 02/16/19 07:37 Not Reportable 02/16/19 07:37 Not Reportable 02/16/19 07:37 Not Reportable 02/16/19 07:37 Not Reportable 02/16/19 07:37 Not Reportable 02/16/19 07:37 Not Reportable 02/16/19 07:37 Not Reportable 02/16/19 07:37 Acanthocytes (Spur) Not Reportable 02/16/19 07:37 Rouleaux Not Reportable 02/16/19 07:37 Not Reportable 02/16/19 07:37 Not Reportable 02/16/19 07:37 Not Reportable 02/16/19 07:37 Not Reportable 02/16/19 07:37 Hem Pathologist Commnt No 02/16/19 07:37 PT 15.3 Sec. (12.2-14.9) H 02/16/19 10:36 INR 1.24 (0.87-1.13) H 02/16/19 10:36 APTT 37.7 Sec. (24.2-36.6) H 02/16/19 10:36 Sodium 139 mmol/L (137-145) 02/17/19 05:18 Potassium 4.2 mmol/L (3.6-5.0) 02/17/19 05:18 Chloride 97.4 mmol/L (98-107) L 02/17/19 05:18 Carbon Dioxide 27 mmol/L (22-30) D 02/17/19 05:18 19 mmol/L 02/17/19 05:18 BUN 31 mg/dL (9-20) H 02/17/19 05:18 7.9 mg/dL (0.8-1.5) H 02/17/19 05:18 Estimated GFR 7 ml/min 02/17/19 05:18 4 % 02/17/19 05:18 Glucose 86 mg/dL (75-100) 02/17/19 05:18 POC Glucose 186 (70-105) H 02/16/19 07:55 5.7 % (4-6) 02/16/19 07:37 Lactic Acid 2.70 mmol/L (0.7-2.0) H* 02/16/19 15:00 Calcium 8.6 mg/dL (8.4-10.2) 02/17/19 05:18 21.0 umol/L (25-60) L 02/16/19 10:36 1.050 ng/mL (0.00-0.029) H* 02/16/19 10:36 Triglycerides 166 mg/dL (2-149) H 02/16/19 10:36 Cholesterol 120 mg/dL (50-199) 02/16/19 10:36 51 mg/dL (50-130) 02/16/19 10:36 51 mg/dL (40-59) 02/16/19 10:36 2.35 % 02/16/19 10:36 TSH 5.190 mlU/mL (0.270-4.200) H 02/16/19 10:36 Salicylates 0.6 mg/dL (2.8-20.0) L 02/16/19 10:36 Acetaminophen < 5.0 ug/mL (10.0-30.0) L 02/16/19 10:36 Plasma/Serum Alcohol < 0.01 % (0-0.07) 02/16/19 10:36 Hepatitis A IgM Ab Non-reactive (NonReactive) 02/16/19 13:23 Hep Bs Antigen Non-reactive (Negative) 02/16/19 13:23 Hep B Core IgM Ab Non-reactive (NonReactive) 02/16/19 13:23 Reactive (NonReactive) A 02/16/19 13:23 Active Medications - Current Medications Current Medications: Generic Name Dose Route Start Last Admin Trade Name Freq PRN Reason Stop Dose Admin Acetaminophen 650 mg 02/16/19 21:59 Tylenol PO Q4H PRN Pain MILD(1-3)/Fever >100.5/FRASER Fluoxetine HCl 20 mg 02/17/19 10:00 02/17/19 09:38 Prozac PO 20 mg QDAY [facility] Administration Heparin Sodium (Porcine) 5,000 unit 02/17/19 10:00 02/17/19 09:36 Heparin SUB-Q 5,000 unit Q12HR [facility] Administration Hydromorphone HCl 0.5 mg 02/16/19 21:59 Dilaudid IV Q3H PRN Pain , Severe (7-10) Sodium Chloride 100 mls @ 999 mls/hr 02/16/19 12:17 Nacl 0.9% IV OWEN PRN Hypotension Levothyroxine Sodium 50 mcg 02/18/19 06:00 Synthroid PO DAILY@0600 [facility] Losartan Potassium 50 mg 02/17/19 10:00 02/17/19 09:36 Cozaar PO 50 mg QDAY [facility] Administration Metoprolol Succinate 25 mg 02/16/19 22:00 02/17/19 09:42 Toprol Xl PO 25 mg QDAY [facility] Administration Miscellaneous Medication 24 mcg 02/16/19 22:00 Lubiprostone [Amitiza] PO BID [facility] Ondansetron HCl 4 mg 02/16/19 21:59 Zofran IV Q8H PRN Nausea And Vomiting Oxycodone/Acetaminophen 1 tab 02/16/19 21:59 Percocet 5/325 PO Q6H PRN Pain, Moderate (4-6) Pantoprazole Sodium 40 mg 02/17/19 10:00 02/17/19 09:38 Protonix PO 40 mg DAILY [facility] Administration Sevelamer Carbonate 3,200 mg 02/17/19 08:00 02/17/19 15:08 Renvela PO Not Given TIDWM [facility] Sodium Chloride 10 ml 02/16/19 22:00 02/17/19 09:38 Sodium Chloride Flush Syringe 10 Ml IV 10 ml BID [facility] Administration Sodium Chloride 10 ml 02/16/19 21:59 Sodium Chloride Flush Syringe 10 Ml IV PRN PRN LINE FLUSH
--- NOTE | 2019-02-17 17:56 | Consultation ---
History of Present Illness - Reason for Consult Consult date: 02/17/19 end stage renal disease - History of Present Illness Mr. Shoemaker is a 78-year-old male with ESRD on HD TTS via [facility] who presented to the ED via EMS after he presented to outpatient dialysis clinic with AMS. In the ED, WBC 16k and lactic acid 2.9. He has a hx MRSA bactermia, AVF infection appx 3 months ago. Past History Past Medical History: atrial fib, dialysis, ESRD, hypertension Past Surgical History: Other (prior fistula now explanted) Social history: no significant social history Family history: no significant family history Medications and Allergies Allergies Allergy/AdvReac Type Severity Reaction Status Date / Time No Known Allergies Allergy Verified 05/22/16 17:56 Home Medications Medication Instructions Recorded Confirmed Last Taken Type Sevelamer Carbonate [Renvela] 3,200 mg PO TIDWM 03/06/14 02/16/19 08/22/15 History Alendronate Sodium [Fosamax] 70 mg PO QWEEK 02/16/19 02/16/19 Unknown History Esomeprazole Magnesium [NexIUM] 40 mg PO QDAY 02/16/19 02/16/19 Unknown History FLUoxetine [PROzac] 20 mg PO QDAY 02/16/19 02/16/19 Unknown History Lubiprostone [Amitiza] 24 mcg PO BID 02/16/19 02/16/19 Unknown History Metoprolol Xl [Metoprolol 25 mg PO QDAY 02/16/19 02/16/19 Unknown History SUCCINATE ER TAB] Telmisartan 40 mg PO DAILY 02/16/19 02/16/19 Unknown History Active Meds: Active Medications Acetaminophen (Tylenol) 650 mg PO Q4H PRN PRN Reason: Pain MILD(1-3)/Fever >100.5/FRASER Fluoxetine HCl (Prozac) 20 mg PO QDAY [facility] Last Admin: 02/17/19 09:38 Dose: 20 mg Documented by: Heparin Sodium (Porcine) (Heparin) 5,000 unit SUB-Q Q12HR [facility] Last Admin: 02/17/19 09:36 Dose: 5,000 unit Documented by: Hydromorphone HCl (Dilaudid) 0.5 mg IV Q3H PRN PRN Reason: Pain , Severe (7-10) Sodium Chloride (Nacl 0.9%) 100 mls @ 999 mls/hr IV OWEN PRN PRN Reason: Hypotension Levothyroxine Sodium (Synthroid) 50 mcg PO DAILY@0600 [facility] Losartan Potassium (Cozaar) 50 mg PO QDAY [facility] Last Admin: 02/17/19 09:36 Dose: 50 mg Documented by: Metoprolol Succinate (Toprol Xl) 25 mg PO QDAY [facility] Last Admin: 02/17/19 09:42 Dose: 25 mg Documented by: Miscellaneous Medication (Lubiprostone [Amitiza]) 24 mcg PO BID [facility] Ondansetron HCl (Zofran) 4 mg IV Q8H PRN PRN Reason: Nausea And Vomiting Oxycodone/Acetaminophen (Percocet 5/325) 1 tab PO Q6H PRN PRN Reason: Pain, Moderate (4-6) Pantoprazole Sodium (Protonix) 40 mg PO DAILY [facility] Last Admin: 02/17/19 09:38 Dose: 40 mg Documented by: Sevelamer Carbonate (Renvela) 3,200 mg PO TIDWM [facility] Last Admin: 02/17/19 17:23 Dose: 3,200 mg Documented by: Sodium Chloride (Sodium Chloride Flush Syringe 10 Ml) 10 ml IV BID [facility] Last Admin: 02/17/19 09:38 Dose: 10 ml Documented by: Sodium Chloride (Sodium Chloride Flush Syringe 10 Ml) 10 ml IV PRN PRN PRN Reason: LINE FLUSH Review of Systems All systems: negative Exam - Vital Signs Vital signs: Vital Signs Pulse Resp BP Pulse Ox 75 19 100/50 99 02/16/19 06:40 02/16/19 06:40 02/16/19 06:40 02/16/19 06:40 - General Appearance General appearance: well-developed, well-nourished EENT: ATNC Respiratory: Clear to Ascultation Heart: regular, S1S2 Gastrointestinal: Present: normal, normoactive bowel sounds Integumentary: no rash Neurologic: other (alert) Psychiatric: cooperative Results - Lab Results 02/18/19 00:17 02/17/19 05:18 Most recent lab results Calcium 8.6 mg/dL (8.4-10.2) 02/17/19 05:18 Assessment and Plan Impression: * End stage renal disease * Staph aureus bacteremia * Encephalopathy * Anemia secondary to ESRD * Secondary hyperparathryoidism Plan: * Continue HD TTS - patient is s/p HD yesterday * UF as tolerated * Abx per ID; recommendations noted * Will require removal of permcath - IR following * Dose medications for renal function * Renal diet * Binder w/ meals * Epogen TIW prn
[2019-02-18 00:33] LABS: Basophils % (Auto) 0.3 % (0.0-1.8); Eosinophils # (Auto) 0.2 K/mm3 (0.0-0.4); Eosinophils % (Auto) 2.5 % (0.0-4.3); Hematocrit 32.9 % (35.5-45.6); Lymphocytes # (Auto) 0.7 K/mm3 (1.2-5.4); Lymphocytes % (Auto) 8.7 % (13.4-35.0); Mean Corpuscular HGB Conc 33 % (32-34); Mean Corpuscular Volume 94 fl (84-94); Monocytes # (Auto) 1.2 K/mm3 (0.0-0.8); Monocytes % (Auto) 14.2 % (0.0-7.3); Red Blood Count 3.49 M/mm3 (3.65-5.03); Red Cell Distribution Width 17.9 % (13.2-15.2)
[2019-02-18 00:39] LABS: Platelet Count 87 K/mm3 (140-440)
[2019-02-18] MEDS: SYNTHROID PO SCH (05:29)
[2019-02-18] MEDS: RENVELA PO SCH ×3 (08:00→17:33)
[2019-02-18] MEDS ORDERED: NACL 0.9% 100 ML IV PRN (09:41)
--- NOTE | 2019-02-18 09:42 | Progress Note ---
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 Plan: * Continue HD TTS - patient is s/p HD yesterday * UF as tolerated * Abx per ID; recommendations noted * Will require removal of permcath - IR following * Dose medications for renal function * Renal diet * Binder w/ meals * Epogen TIW prn Subjective Date of service: 02/18/19 Objective - Vital Signs Vital signs: Vital Signs - 12hr 02/17/19 02/17/19 02/18/19 22:00 23:29 03:53 Temperature 98.4 F 98.3 F Pulse Rate 64 64 Pulse Rate [ 64 Apical] Respiratory 18 20 16 Rate Blood Pressure 140/71 161/77 O2 Sat by Pulse 100 100 100 Oximetry 02/18/19 08:32 Temperature 97.5 F L Pulse Rate 67 Pulse Rate [ Apical] Respiratory 12 Rate Blood Pressure 164/77 O2 Sat by Pulse 100 Oximetry - General Appearance General appearance: well-developed, well-nourished EENT: ATNC Respiratory: Present: Clear to Ascultation Cardiology: regular, S1S2 Gastrointestinal: normal, no tenderness, no distended Psychiatric: cooperative - Lab 02/18/19 00:17 02/17/19 05:18 Most recent lab results Calcium 8.6 mg/dL (8.4-10.2) 02/17/19 05:18 Medications & Allergies - Medications Allergies/Adverse Reactions: Allergies No Known Allergies Allergy (Verified 05/22/16 17:56) Home Medications: Home Medications Medication Instructions Recorded Confirmed Last Taken Type Sevelamer Carbonate [Renvela] 3,200 mg PO TIDWM 03/06/14 02/16/19 08/22/15 History Alendronate Sodium [Fosamax] 70 mg PO QWEEK 02/16/19 02/16/19 Unknown History Esomeprazole Magnesium [NexIUM] 40 mg PO QDAY 02/16/19 02/16/19 Unknown History FLUoxetine [PROzac] 20 mg PO QDAY 02/16/19 02/16/19 Unknown History Lubiprostone [Amitiza] 24 mcg PO BID 02/16/19 02/16/19 Unknown History Metoprolol Xl [Metoprolol 25 mg PO QDAY 02/16/19 02/16/19 Unknown History SUCCINATE ER TAB] Telmisartan 40 mg PO DAILY 02/16/19 02/16/19 Unknown History Active Medications: Generic Name Dose Route Start Last Admin Trade Name Freq PRN Reason Stop Dose Admin Acetaminophen 650 mg 02/16/19 21:59 Tylenol PO Q4H PRN Pain MILD(1-3)/Fever >100.5/FRASER Fluoxetine HCl 20 mg 02/17/19 10:00 02/17/19 09:38 Prozac PO 20 mg QDAY [facility] Administration Heparin Sodium (Porcine) 5,000 unit 02/17/19 10:00 02/17/19 21:51 Heparin SUB-Q 5,000 unit Q12HR [facility] Administration Hydromorphone HCl 0.5 mg 02/16/19 21:59 Dilaudid IV Q3H PRN Pain , Severe (7-10) Sodium Chloride 100 mls @ 999 mls/hr 02/16/19 12:17 Nacl 0.9% IV OWEN PRN Hypotension Sodium Chloride 100 mls @ 999 mls/hr 02/18/19 09:41 Nacl 0.9% IV OWEN PRN Hypotension Levothyroxine Sodium 50 mcg 02/18/19 06:00 02/18/19 05:29 Synthroid PO 50 mcg DAILY@0600 [facility] Administration Losartan Potassium 50 mg 02/17/19 10:00 02/17/19 09:36 Cozaar PO 50 mg QDAY [facility] Administration Metoprolol Succinate 25 mg 02/16/19 22:00 02/17/19 09:42 Toprol Xl PO 25 mg QDAY [facility] Administration Miscellaneous Medication 24 mcg 02/16/19 22:00 Lubiprostone [Amitiza] PO BID [facility] Ondansetron HCl 4 mg 02/16/19 21:59 Zofran IV Q8H PRN Nausea And Vomiting Oxycodone/Acetaminophen 1 tab 02/16/19 21:59 Percocet 5/325 PO Q6H PRN Pain, Moderate (4-6) Pantoprazole Sodium 40 mg 02/17/19 10:00 02/17/19 09:38 Protonix PO 40 mg DAILY [facility] Administration Sevelamer Carbonate 3,200 mg 02/17/19 08:00 02/17/19 17:23 Renvela PO 3,200 mg TIDWM [facility] Administration Sodium Chloride 10 ml 02/16/19 22:00 02/17/19 21:52 Sodium Chloride Flush Syringe 10 Ml IV 10 ml BID [facility] Administration Sodium Chloride 10 ml 02/16/19 21:59 Sodium Chloride Flush Syringe 10 Ml IV PRN PRN LINE FLUSH
--- NOTE | 2019-02-18 09:59 | Progress Note ---
Assessment and Plan Previous Cultures: 10/22/2018 Blood: MRSA 4 out of 4 bottles 10/24/2018 Blood MRSA 2 out of 4 bottles 10/25/2018 Surgical Biopsy Right arm: MRSA 10/27/2018 Blood: no growth Cultures: 02/16/19 Blood: MRSA, 2 out of 4 bottles A/P: 78-year-old male with a past medical history of end-stage renal disease on HD ( T, , ), hypertension, dyslipidemia, aortic stenosis, proxysmal atrial fibrillation who presents to the ED on 02/16/19 with altered mental status and generalized malaise..Patient is know to ID service from pervious admission on 10/27/18. for MRSA bacteremia and infected AV graph. On 10/25/18 an excison of AV graft was performed and the surgical biopsy culture grew MRSA. On 10/26/18 a right internal jugular tunneled cuffed HD catheter was placed by Dr. Gross. Repeat blood cultures remained clear for 48 hours and he was discharged on Vancomycin 1 gram IV post HD for 6 weeks ending 12-08-18. On this visit patient reported via cutter wet machine that he was unable to make it to his HD treatment. Admitted with: 1. Sepsis on admission: Improved. Still elevated lactic acid. Etiology MRSA bacteremia. Source most likely infected right internal jugular tunneled catheter. No fever. CXR no consolidation. U/A not done. Currently being treated with Vancomycin. Cefepime discontinued. 2. Recurrent MRSA Bacteremia: 2 out of 4 bottles. Source most likely HD cath. TTE shows no valvular vegetation. Will likely need IMAN to evaluate pacemaker wires given recurrent bacteremia and high risk for lead vegetations. s/p Successful dialysis access catheter exchange with angioplasty. focal area of granulation tissue found, distinct and separate from the hemodialysis catheter which is associated with the pacer pocket. Concerning for possible infection of pacer. Recommend transfer to tertiary facility for pacer replacement. 3. ESRD on HD. HD on Friday, and Friday. Antibiotics renally dosed. 4. Acute Encephalopathy: secondary to uremia. Improved. 5. Lactic acidosis: continuing 6. Hepatitis C Recommendations: -In light of focal area of granulation tissue associated with the pacer pocket, will need transfer to tertiary facility for pacer replacement -After pacer replacement, will need 4-6 weeks of vancomycin post HD depending on IMAN results -need IMAN to evaluate pacemaker wires given recurrent bacteremia and high risk for lead vegetations -Follow up repeat BC to ensure clearance Tosha Christopher NP [facility] M: [phone] O:[phone] Subjective Date of service: 02/18/19 Interval history: Patient seen and examined. Primary language German, conversation via interpretation line. Reports no acute distress. No fevers. Objective - Exam Narrative Exam: Constitutional: Alert, cooperative. No acute distress, Head, Ears, Nose: Normocephalic, atraumatic. External ears, nose normal Eyes: Conjunctivae/corneas clear. No icterus. No ptosis. Neck: Supple, no meningeal signs Oral: dentition fair. No thrush Cardiovascular: S1, S2 normal. Respiratory: Good air entry, clear to auscultation bilaterally GI: Soft, non-tender; bowel sounds normal. No peritoneal signs Musculoskeletal: No pedal edema, no cyanosis. Skin: focal area of granulation tissue to the right of HD catheter, no drainage. +dressing. Hem/Lymphatic: No palpable cervical or supraclavicular nodes. No lymphangitis Psych: Mood ok. Affect normal Neurological: Awake, alert, oriented. Lines: RIJ HD Catheter - Constitutional Vitals: Vital Signs Temp Pulse Resp BP Pulse Ox 97.5 F L 67 12 164/77 100 02/18/19 08:32 02/18/19 08:32 02/18/19 08:32 02/18/19 08:32 02/18/19 08:32 Temperature -Last 24 Hours Temperature 97.5 F Temperature 98.3 F Temperature 98.4 F Temperature 97.7 F Temperature 98.0 F Temperature 98.4 F - Labs CBC & Chem 7: 02/18/19 00:17 02/17/19 05:18 Labs: Abnormal lab results 02/18/19 Range/Units 00:17 RBC 3.49 L (3.65-5.03) M/mm3 Hgb 11.0 L (11.8-15.2) gm/dl Hct 32.9 L (35.5-45.6) % RDW 17.9 H (13.2-15.2) % Plt Count 87 L (140-440) K/mm3 Lymph % (Auto) 8.7 L (13.4-35.0) % Finney % (Auto) 14.2 H (0.0-7.3) % Lymph # 0.7 L (1.2-5.4) K/mm3 Finney # 1.2 H (0.0-0.8) K/mm3 Seg Neutrophils % 74.3 H (40.0-70.0) %
[2019-02-18] MEDS ORDERED: VANCOMYCIN PHARMACY TO DOSE IV SCH (10:00)
[2019-02-18] MEDS: PROzac PO SCH (10:03)
[2019-02-18] MEDS: PROTONIX PO SCH (10:04)
[2019-02-18] MEDS: COZAAR PO SCH (10:05)
[2019-02-18] MEDS: SODIUM CHLORIDE FLUSH SYRINGE 10 ML IV SCH ×2 (10:05→22:19)
[2019-02-18] MEDS: TOPROL XL PO SCH (10:06)
[2019-02-18] MEDS ORDERED: VERSED ONE (10:41)
[2019-02-18] MEDS ORDERED: SUBLIMAZE ONE (10:41)
[2019-02-18] MEDS ORDERED: NACL 0.9% 250ML 250 ML ONE (10:42)
[2019-02-18] MEDS ORDERED: HEPARIN/NS 5000 UNIT/500ML(CATH LAB) 1,000 ML IR ONE (10:42)
[2019-02-18] MEDS ORDERED: XYLOCAINE 1%/ EPI 1:100,000 INFILTRATI ONE (10:42)
[2019-02-18] MEDS ORDERED: ANCEF/STERILE WATER 2 GM/20 ML 2 GM/20 ML SYRINGE IV ONE (10:42)
[2019-02-18] MEDS: HEPARIN SUB-Q SCH ×2 (11:14→22:19)
[2019-02-18] MEDS: HEPARIN 10,000 UNITS/10 ML ONE ×4 (11:28→11:44)
--- NOTE | 2019-02-18 12:12 | Operative Report ---
Operative Report Operative Report: EXAM: 1. Fluoroscopic guided exchange of a right internal jugular tunneled cuffed hemodialysis catheter. 2. Superior venacava venography 3. Angioplasty with a 12 mm x 6 angioplasty balloon of the superior vena cava and right innominate vein DATE: 02/18/19 INDICATION: Bacteremia with indwelling hemodialysis catheter in concern for PermCath infection MEDICATIONS: Please see nursing report for full details. THREAD SEPARATOR: BREANNE URIBE MD DEVICES: 23 cm tip to cuff 15 Fr dual lumen hemodialysis catheter ; existing catheter was a 23 cm tip to cuff dual lumen hemodialysis catheter CONTRAST: Please see cardiac catheterization technician report for full details PROCEDURE: The risks, benefits, and alternatives were discussed and informed consent was obtained. The patient was transported to the angiography suite in satisfactory/stable condition and was transported onto the angiography table. The patient was prepped and draped in a sterile fashion. The existing PermCath was prepped and draped in a sterile fashion. Heparin was removed from the lumens and then saline was used to flush the lumens. A stiff angled Glidewire was advanced through one of the lumens of the existing PermCath into the IVC. Lidocaine was used to anesthetize the existing PermCath dermatotomy. Using a hemostat, blunt dissection was used to free the existing cuff. The catheter was partially retracted. Digital subtraction venography was performed through the other lumen. Over the 0.035 inch wire, the existing PermCath was removed. Wire was cleaned with ChloraPrep. Gloves were cleaned with ChloraPrep. 7 Lao sheath was advanced over the wire. 12 mm x 6 cm angioplasty balloon was advanced over the wire and used to perform angioplasty of the right innominate vein and superior vena cava. Digital subtraction angiography was performed. The balloon was removed. A second wire was passed into the IVC. Wires were cleaned with ChloraPrep. A new PermCath was advanced over the wire and position centrally under fluoroscopic guidance. 2-0 Ethilon suture was used to secure the catheter at the dermatotomy. The catheter was charged with heparin on thousand units per mL of space. Sterile dressing applied. At the conclusion of the procedure, a focal area of granulation tissue which was previously covered by the drape was exposed this area appeared to be near the pacer pocket. Hemostat was placed on top of granulation tissue identifying the pacer wires which were underneath it. This is concerning for possible pacer infection given the bacteremia. Infectious disease was notified. The patient was transferred from the angiography suite back to the floor in stable condition. FINDINGS: 1. Excellent flow was obtained through the dialysis catheter with 20 mL syringes. Catheter entry site is separate from the pacer pocket and does not involve the pacer pocket and is in the neck. 2. The new catheter tip is in the right atrium. 3. 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 Angioplasty was performed to treat the right innominate vein and SVC. The SVC was patent at the conclusion of the procedure. The right innominate vein had a residual from 30% narrowing. Pacer wires were passing through the right innominate vein. IMPRESSION: 1. Successful fluoroscopic guided replacement of a right internal jugular tunneled cuffed hemodialysis catheter. 2. Central dialysis access angioplasty.
--- NOTE | 2019-02-18 12:14 | Event Note ---
Date: 02/18/19 Successful dialysis access catheter exchange with angioplasty. Unfortunately, there was a focal area of granulation tissue distinct and separate from the hemodialysis catheter which was associated with the pacer pocket. ID notified. Concerning for possibly infection of pacer.
--- NOTE | 2019-02-18 16:45 | Progress Note ---
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 On 10/25/18, he has removal of AV graft and the surgical biopsy culture grew MRSA. On 10/26/18 a right internal jugular tunneled cuffed HD catheter was placed by Dr. Gross. Repeat blood cultures remained clear for 48 hours and he was discharged on Vancomycin 1 gram IV post HD for 6 weeks ending 12-08-18. On this visit, patient reported via dynamite reclaimer that he was unable to make it to his HD treatment. On admission WBC 16.4, Creatinine 7.9, Lactic acid 2.90, Temperature 98.7, HR 75, BP 107/48. Chest Xray shows no consolidation. Blood cultures grew Staph aureus, 2 out of 4 bottles. * Cultures: 02/16/19 Blood: MRSA -Sepsis with MSRA bacteremia. Source most likely infected right internal jugular tunneled catheter. No fever. CXR no consolidation. U/A not done: treat with IV Vancomycin with monitoring, consulted Vascular surgeon. -Staph aureus Bacteremia: Source most likely HD cath. Ordered TTE. Follow up cultures for ID and susceptibility. -ESRD on HD. HD on Friday, and Friday. Antibiotics renally dosed. -Acute Metabolic Encephalopathy: secondary to uremia. Improved. s/p removal and replacement of HD right IJ perm-a-cath, pocket of infection noted, PPM below the old right perm-a-cath; d/w Dr. Gross and he recommends consulting Cardiology IMAN ordered also History Interval history: Patient was seen and examined. Follow-up on current diagnosis AMS. No overnight events reported to me. Patient denies any chest pain, shortness breath, nausea/vomiting or severe headaches. Imaging, nursing note, chart, labs and old chart reviewed. Discussed with patient. Primary language Spanish, discussion via interpretation line. Hospitalist Physical - Physical exam Narrative exam: Gen: ill appearing, NAD, Awake, Alert, Orientated x 3 HEENT: NCAT, EOMI, PERRL, OP Clear Neck: supple, no adenopathy, no thyromegaly, no JVD CVS/Heart: RRR, normal S1S2, pulses present bilaterally Chest/Lungs: CTA B, Symmetrical chest expansion, good air entry bilaterally GI/Abdomen: soft, NTND, good bowel sounds, no guarding or rebound /Bladder: no suprapubic tenderness, no CVA or paraspinal tenderness Extermity/Skin: no c/c/e, no obvious rash MSK: FROM x 4 Neuro: CN 2-12 grossly intact, no new focal deficits Psych: calm - Constitutional Vitals: Temp Pulse Resp BP Pulse Ox 97.5 F L 51 L 16 98/63 99 02/18/19 14:50 02/18/19 16:00 02/18/19 14:50 02/18/19 16:00 02/18/19 10:00 General appearance: Present: no acute distress Results - Labs CBC & Chem 7: 02/18/19 00:17 02/17/19 05:18 Labs: Laboratory Last Values WBC 8.2 K/mm3 (4.5-11.0) 02/18/19 00:17 RBC 3.49 M/mm3 (3.65-5.03) L 02/18/19 00:17 Hgb 11.0 gm/dl (11.8-15.2) L 02/18/19 00:17 Hct 32.9 % (35.5-45.6) L 02/18/19 00:17 MCV 94 fl (84-94) 02/18/19 00:17 MCH 31 pg (28-32) 02/18/19 00:17 MCHC 33 % (32-34) 02/18/19 00:17 RDW 17.9 % (13.2-15.2) H 02/18/19 00:17 Plt Count 87 K/mm3 (140-440) L 02/18/19 00:17 Lymph % (Auto) 8.7 % (13.4-35.0) L 02/18/19 00:17 Gentry % (Auto) 14.2 % (0.0-7.3) H 02/18/19 00:17 Eos % (Auto) 2.5 % (0.0-4.3) 02/18/19 00:17 Baso % (Auto) 0.3 % (0.0-1.8) 02/18/19 00:17 Lymph # 0.7 K/mm3 (1.2-5.4) L 02/18/19 00:17 Gentry # 1.2 K/mm3 (0.0-0.8) H 02/18/19 00:17 Eos # 0.2 K/mm3 (0.0-0.4) 02/18/19 00:17 Baso # 0.0 K/mm3 (0.0-0.1) 02/18/19 00:17 Add Manual Diff Complete 02/16/19 07:37 Total Counted 100 02/16/19 07:37 Seg Neutrophils % 74.3 % (40.0-70.0) H 02/18/19 00:17 Seg Neuts % (Manual) 95.0 % (40.0-70.0) H 02/16/19 07:37 1.0 % 02/16/19 07:37 2.0 % (13.4-35.0) L 02/16/19 07:37 Reactive Lymphs % (Man) 0 % 02/16/19 07:37 2.0 % (0.0-7.3) 02/16/19 07:37 0 % (0.0-4.3) 02/16/19 07:37 0 % (0.0-1.8) 02/16/19 07:37 0 % 02/16/19 07:37 0 % 02/16/19 07:37 0 % 02/16/19 07:37 0 % 02/16/19 07:37 Nucleated RBC % Not Reportable 02/16/19 07:37 Seg Neutrophils # 6.1 K/mm3 (1.8-7.7) 02/18/19 00:17 Seg Neutrophils # Man 15.6 K/mm3 (1.8-7.7) H 02/16/19 07:37 Band Neutrophils # 0.2 K/mm3 02/16/19 07:37 0.3 K/mm3 (1.2-5.4) L 02/16/19 07:37 Abs React Lymphs (Man) 0.0 K/mm3 02/16/19 07:37 0.3 K/mm3 (0.0-0.8) 02/16/19 07:37 0.0 K/mm3 (0.0-0.4) 02/16/19 07:37 0.0 K/mm3 (0.0-0.1) 02/16/19 07:37 0.0 K/mm3 02/16/19 07:37 0.0 K/mm3 02/16/19 07:37 0.0 K/mm3 02/16/19 07:37 Blast Cells # 0.0 K/mm3 02/16/19 07:37 WBC Morphology Not Reportable 02/16/19 07:37 Hypersegmented Neuts Not Reportable 02/16/19 07:37 Hyposegmented Neuts Not Reportable 02/16/19 07:37 Hypogranular Neuts Not Reportable 02/16/19 07:37 Not Reportable 02/16/19 07:37 1+ 02/16/19 07:37 Few 02/16/19 07:37 Not Reportable 02/16/19 07:37 Not Reportable 02/16/19 07:37 Not Reportable 02/16/19 07:37 Consistent w auto 02/16/19 07:37 Not Reportable 02/16/19 07:37 Plt Clumps, EDTA Not Reportable 02/16/19 07:37 Not Reportable 02/16/19 07:37 Not Reportable 02/16/19 07:37 Not Reportable 02/16/19 07:37 Plt Morphology Comment Not Reportable 02/16/19 07:37 RBC Morphology Not Reportable 02/16/19 07:37 Dimorphic RBCs Not Reportable 02/16/19 07:37 Not Reportable 02/16/19 07:37 Not Reportable 02/16/19 07:37 Not Reportable 02/16/19 07:37 1+ 02/16/19 07:37 Not Reportable 02/16/19 07:37 Not Reportable 02/16/19 07:37 Not Reportable 02/16/19 07:37 Not Reportable 02/16/19 07:37 Not Reportable 02/16/19 07:37 Not Reportable 02/16/19 07:37 Not Reportable 02/16/19 07:37 Not Reportable 02/16/19 07:37 Not Reportable 02/16/19 07:37 Not Reportable 02/16/19 07:37 Not Reportable 02/16/19 07:37 Not Reportable 02/16/19 07:37 Not Reportable 02/16/19 07:37 Not Reportable 02/16/19 07:37 Not Reportable 02/16/19 07:37 Acanthocytes (Spur) Not Reportable 02/16/19 07:37 Rouleaux Not Reportable 02/16/19 07:37 Not Reportable 02/16/19 07:37 Not Reportable 02/16/19 07:37 Not Reportable 02/16/19 07:37 Not Reportable 02/16/19 07:37 Hem Pathologist Commnt No 02/16/19 07:37 PT 15.3 Sec. (12.2-14.9) H 02/16/19 10:36 INR 1.24 (0.87-1.13) H 02/16/19 10:36 APTT 37.7 Sec. (24.2-36.6) H 02/16/19 10:36 Sodium 139 mmol/L (137-145) 02/17/19 05:18 Potassium 4.2 mmol/L (3.6-5.0) 02/17/19 05:18 Chloride 97.4 mmol/L (98-107) L 02/17/19 05:18 Carbon Dioxide 27 mmol/L (22-30) D 02/17/19 05:18 19 mmol/L 02/17/19 05:18 BUN 31 mg/dL (9-20) H 02/17/19 05:18 7.9 mg/dL (0.8-1.5) H 02/17/19 05:18 Estimated GFR 7 ml/min 02/17/19 05:18 4 % 02/17/19 05:18 Glucose 86 mg/dL (75-100) 02/17/19 05:18 POC Glucose 186 (70-105) H 02/16/19 07:55 5.7 % (4-6) 02/16/19 07:37 Lactic Acid 2.70 mmol/L (0.7-2.0) H* 02/16/19 15:00 Calcium 8.6 mg/dL (8.4-10.2) 02/17/19 05:18 21.0 umol/L (25-60) L 02/16/19 10:36 1.050 ng/mL (0.00-0.029) H* 02/16/19 10:36 Triglycerides 166 mg/dL (2-149) H 02/16/19 10:36 Cholesterol 120 mg/dL (50-199) 02/16/19 10:36 51 mg/dL (50-130) 02/16/19 10:36 51 mg/dL (40-59) 02/16/19 10:36 2.35 % 02/16/19 10:36 TSH 5.190 mlU/mL (0.270-4.200) H 02/16/19 10:36 Salicylates 0.6 mg/dL (2.8-20.0) L 02/16/19 10:36 Acetaminophen < 5.0 ug/mL (10.0-30.0) L 02/16/19 10:36 Plasma/Serum Alcohol < 0.01 % (0-0.07) 02/16/19 10:36 Hepatitis A IgM Ab Non-reactive (NonReactive) 02/16/19 13:23 Hep Bs Antigen Non-reactive (Negative) 02/16/19 13:23 Hep B Core IgM Ab Non-reactive (NonReactive) 02/16/19 13:23 Reactive (NonReactive) A 02/16/19 13:23 Active Medications - Current Medications Current Medications: Generic Name Dose Route Start Last Admin Trade Name Freq PRN Reason Stop Dose Admin Acetaminophen 650 mg 02/16/19 21:59 Tylenol PO Q4H PRN Pain MILD(1-3)/Fever >100.5/FRASER Fluoxetine HCl 20 mg 02/17/19 10:00 02/18/19 10:03 Prozac PO 20 mg QDAY DEWAYNE Administration Heparin Sodium (Porcine) 5,000 unit 02/17/19 10:00 02/18/19 11:14 Heparin SUB-Q Not Given Q12HR DEWAYNE Hydromorphone HCl 0.5 mg 02/16/19 21:59 Dilaudid IV Q3H PRN Pain , Severe (7-10) Sodium Chloride 100 mls @ 999 mls/hr 02/16/19 12:17 Nacl 0.9% IV OWEN PRN Hypotension Sodium Chloride 100 mls @ 999 mls/hr 02/18/19 09:41 Nacl 0.9% IV OWEN PRN Hypotension Vancomycin HCl 1 gm in 250 mls @ 167.007 mls/hr 02/18/19 20:00 Vancomycin/Ns 1 Gm/250 Ml IV 08/01/19 21:29 ONCE ONE Levothyroxine Sodium 50 mcg 02/18/19 06:00 02/18/19 05:29 Synthroid PO 50 mcg DAILY@0600 DEWAYNE Administration Losartan Potassium 50 mg 02/17/19 10:00 02/18/19 10:05 Cozaar PO Not Given QDAY DEWAYNE Metoprolol Succinate 25 mg 02/16/19 22:00 02/18/19 10:06 Toprol Xl PO Not Given QDAY [facility] Miscellaneous Medication 24 mcg 02/16/19 22:00 Lubiprostone [Amitiza] PO BID [facility] Ondansetron HCl 4 mg 02/16/19 21:59 Zofran IV Q8H PRN Nausea And Vomiting Oxycodone/Acetaminophen 1 tab 02/16/19 21:59 Percocet 5/325 PO Q6H PRN Pain, Moderate (4-6) Pantoprazole Sodium 40 mg 02/17/19 10:00 02/18/19 10:04 Protonix PO 40 mg DAILY DEWAYNE Administration Sevelamer Carbonate 3,200 mg 02/17/19 08:00 02/18/19 13:00 Renvela PO 3,200 mg TIDWM DEWAYNE Administration Sodium Chloride 10 ml 02/16/19 22:00 02/18/19 10:05 Sodium Chloride Flush Syringe 10 Ml IV 10 ml BID DEWAYNE Administration Sodium Chloride 10 ml 02/16/19 21:59 Sodium Chloride Flush Syringe 10 Ml IV PRN PRN LINE FLUSH
[2019-02-18] MEDS ORDERED: NACL 0.9 (PRIMING MACHINE ONLY DIALYSIS) MC ONE (18:20)
[2019-02-18] MEDS ORDERED: VANCOMYCIN/NS 1 GM/250 ML 1 GM/250 ML BAG IV ONE (20:00)
[2019-02-19] MEDS: SYNTHROID PO SCH (06:10)
--- NOTE | 2019-02-19 07:24 | Progress Note ---
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 On 10/25/18, he has removal of AV graft and the surgical biopsy culture grew MRSA. On 10/26/18 a right internal jugular tunneled cuffed HD catheter was placed by Dr. Gross. Repeat blood cultures remained clear for 48 hours and he was discharged on Vancomycin 1 gram IV post HD for 6 weeks ending 12-08-18. On this visit, patient reported via ladle puller that he was unable to make it to his HD treatment. On admission WBC 16.4, Creatinine 7.9, Lactic acid 2.90, Temperature 98.7, HR 75, BP 107/48. Chest Xray shows no consolidation. Blood cultures grew Staph aureus, 2 out of 4 bottles. * Cultures: 02/16/19 Blood: MRSA -Sepsis with MSRA bacteremia. Source most likely infected right internal jugular tunneled catheter. No fever. CXR no consolidation. U/A not done: treat with IV Vancomycin with monitoring, consulted Vascular surgeon. -Staph aureus Bacteremia: Source most likely HD cath. Ordered TTE. Follow up cultures for ID and susceptibility. -ESRD on HD. HD on Friday, and Friday. Antibiotics renally dosed. -Acute Metabolic Encephalopathy: secondary to uremia. Improved. s/p removal and replacement of HD right IJ perm-a-cath, pocket of infection noted, PPM below the old right perm-a-cath; d/w Dr. Gross and he recommends consulting Cardiology IMAN ordered also History Interval history: Patient was seen and examined. Follow-up on current diagnosis AMS. No overnight events reported to me. Patient denies any chest pain, shortness breath, nausea/vomiting or severe headaches. Imaging, nursing note, chart, labs and old chart reviewed. Discussed with patient. Primary language Slovenian, discussion via interpretation line. Hospitalist Physical - Physical exam Narrative exam: Gen: ill appearing, NAD, Awake, Alert, Orientated x 3 HEENT: NCAT, EOMI, PERRL, OP Clear Neck: supple, no adenopathy, no thyromegaly, no JVD CVS/Heart: RRR, normal S1S2, pulses present bilaterally Chest/Lungs: CTA B, Symmetrical chest expansion, good air entry bilaterally GI/Abdomen: soft, NTND, good bowel sounds, no guarding or rebound /Bladder: no suprapubic tenderness, no CVA or paraspinal tenderness Extermity/Skin: no c/c/e, no obvious rash MSK: FROM x 4 Neuro: CN 2-12 grossly intact, no new focal deficits Psych: calm - Constitutional Vitals: Temp Pulse Resp BP Pulse Ox 98.4 F 65 18 151/68 95 02/19/19 04:19 02/19/19 04:19 02/19/19 04:19 02/19/19 04:19 02/19/19 04:19 General appearance: Present: no acute distress Results - Labs CBC & Chem 7: 02/18/19 00:17 02/17/19 05:18 Labs: Laboratory Last Values WBC 8.2 K/mm3 (4.5-11.0) 02/18/19 00:17 RBC 3.49 M/mm3 (3.65-5.03) L 02/18/19 00:17 Hgb 11.0 gm/dl (11.8-15.2) L 02/18/19 00:17 Hct 32.9 % (35.5-45.6) L 02/18/19 00:17 MCV 94 fl (84-94) 02/18/19 00:17 MCH 31 pg (28-32) 02/18/19 00:17 MCHC 33 % (32-34) 02/18/19 00:17 RDW 17.9 % (13.2-15.2) H 02/18/19 00:17 Plt Count 87 K/mm3 (140-440) L 02/18/19 00:17 Lymph % (Auto) 8.7 % (13.4-35.0) L 02/18/19 00:17 Randolph % (Auto) 14.2 % (0.0-7.3) H 02/18/19 00:17 Eos % (Auto) 2.5 % (0.0-4.3) 02/18/19 00:17 Baso % (Auto) 0.3 % (0.0-1.8) 02/18/19 00:17 Lymph # 0.7 K/mm3 (1.2-5.4) L 02/18/19 00:17 Randolph # 1.2 K/mm3 (0.0-0.8) H 02/18/19 00:17 Eos # 0.2 K/mm3 (0.0-0.4) 02/18/19 00:17 Baso # 0.0 K/mm3 (0.0-0.1) 02/18/19 00:17 Add Manual Diff Complete 02/16/19 07:37 Total Counted 100 02/16/19 07:37 Seg Neutrophils % 74.3 % (40.0-70.0) H 02/18/19 00:17 Seg Neuts % (Manual) 95.0 % (40.0-70.0) H 02/16/19 07:37 1.0 % 02/16/19 07:37 2.0 % (13.4-35.0) L 02/16/19 07:37 Reactive Lymphs % (Man) 0 % 02/16/19 07:37 2.0 % (0.0-7.3) 02/16/19 07:37 0 % (0.0-4.3) 02/16/19 07:37 0 % (0.0-1.8) 02/16/19 07:37 0 % 02/16/19 07:37 0 % 02/16/19 07:37 0 % 02/16/19 07:37 0 % 02/16/19 07:37 Nucleated RBC % Not Reportable 02/16/19 07:37 Seg Neutrophils # 6.1 K/mm3 (1.8-7.7) 02/18/19 00:17 Seg Neutrophils # Man 15.6 K/mm3 (1.8-7.7) H 02/16/19 07:37 Band Neutrophils # 0.2 K/mm3 02/16/19 07:37 0.3 K/mm3 (1.2-5.4) L 02/16/19 07:37 Abs React Lymphs (Man) 0.0 K/mm3 02/16/19 07:37 0.3 K/mm3 (0.0-0.8) 02/16/19 07:37 0.0 K/mm3 (0.0-0.4) 02/16/19 07:37 0.0 K/mm3 (0.0-0.1) 02/16/19 07:37 0.0 K/mm3 02/16/19 07:37 0.0 K/mm3 02/16/19 07:37 0.0 K/mm3 02/16/19 07:37 Blast Cells # 0.0 K/mm3 02/16/19 07:37 WBC Morphology Not Reportable 02/16/19 07:37 Hypersegmented Neuts Not Reportable 02/16/19 07:37 Hyposegmented Neuts Not Reportable 02/16/19 07:37 Hypogranular Neuts Not Reportable 02/16/19 07:37 Not Reportable 02/16/19 07:37 1+ 02/16/19 07:37 Few 02/16/19 07:37 Not Reportable 02/16/19 07:37 Not Reportable 02/16/19 07:37 Not Reportable 02/16/19 07:37 Consistent w auto 02/16/19 07:37 Not Reportable 02/16/19 07:37 Plt Clumps, EDTA Not Reportable 02/16/19 07:37 Not Reportable 02/16/19 07:37 Not Reportable 02/16/19 07:37 Not Reportable 02/16/19 07:37 Plt Morphology Comment Not Reportable 02/16/19 07:37 RBC Morphology Not Reportable 02/16/19 07:37 Dimorphic RBCs Not Reportable 02/16/19 07:37 Not Reportable 02/16/19 07:37 Not Reportable 02/16/19 07:37 Not Reportable 02/16/19 07:37 1+ 02/16/19 07:37 Not Reportable 02/16/19 07:37 Not Reportable 02/16/19 07:37 Not Reportable 02/16/19 07:37 Not Reportable 02/16/19 07:37 Not Reportable 02/16/19 07:37 Not Reportable 02/16/19 07:37 Not Reportable 02/16/19 07:37 Not Reportable 02/16/19 07:37 Not Reportable 02/16/19 07:37 Not Reportable 02/16/19 07:37 Not Reportable 02/16/19 07:37 Not Reportable 02/16/19 07:37 Not Reportable 02/16/19 07:37 Not Reportable 02/16/19 07:37 Not Reportable 02/16/19 07:37 Acanthocytes (Spur) Not Reportable 02/16/19 07:37 Rouleaux Not Reportable 02/16/19 07:37 Not Reportable 02/16/19 07:37 Not Reportable 02/16/19 07:37 Not Reportable 02/16/19 07:37 Not Reportable 02/16/19 07:37 Hem Pathologist Commnt No 02/16/19 07:37 PT 15.3 Sec. (12.2-14.9) H 02/16/19 10:36 INR 1.24 (0.87-1.13) H 02/16/19 10:36 APTT 37.7 Sec. (24.2-36.6) H 02/16/19 10:36 Sodium 139 mmol/L (137-145) 02/17/19 05:18 Potassium 4.2 mmol/L (3.6-5.0) 02/17/19 05:18 Chloride 97.4 mmol/L (98-107) L 02/17/19 05:18 Carbon Dioxide 27 mmol/L (22-30) D 02/17/19 05:18 19 mmol/L 02/17/19 05:18 BUN 31 mg/dL (9-20) H 02/17/19 05:18 7.9 mg/dL (0.8-1.5) H 02/17/19 05:18 Estimated GFR 7 ml/min 02/17/19 05:18 4 % 02/17/19 05:18 Glucose 86 mg/dL (75-100) 02/17/19 05:18 POC Glucose 186 (70-105) H 02/16/19 07:55 5.7 % (4-6) 02/16/19 07:37 Lactic Acid 2.70 mmol/L (0.7-2.0) H* 02/16/19 15:00 Calcium 8.6 mg/dL (8.4-10.2) 02/17/19 05:18 21.0 umol/L (25-60) L 02/16/19 10:36 1.050 ng/mL (0.00-0.029) H* 02/16/19 10:36 Triglycerides 166 mg/dL (2-149) H 02/16/19 10:36 Cholesterol 120 mg/dL (50-199) 02/16/19 10:36 51 mg/dL (50-130) 02/16/19 10:36 51 mg/dL (40-59) 02/16/19 10:36 2.35 % 02/16/19 10:36 TSH 5.190 mlU/mL (0.270-4.200) H 02/16/19 10:36 Salicylates 0.6 mg/dL (2.8-20.0) L 02/16/19 10:36 Acetaminophen < 5.0 ug/mL (10.0-30.0) L 02/16/19 10:36 Plasma/Serum Alcohol < 0.01 % (0-0.07) 02/16/19 10:36 Hepatitis A IgM Ab Non-reactive (NonReactive) 02/16/19 13:23 Hep Bs Antigen Non-reactive (Negative) 02/16/19 13:23 Hep B Core IgM Ab Non-reactive (NonReactive) 02/16/19 13:23 Reactive (NonReactive) A 02/16/19 13:23 Active Medications - Current Medications Current Medications: Generic Name Dose Route Start Last Admin Trade Name Freq PRN Reason Stop Dose Admin Acetaminophen 650 mg 02/16/19 21:59 Tylenol PO Q4H PRN Pain MILD(1-3)/Fever >100.5/FRASER Fluoxetine HCl 20 mg 02/17/19 10:00 02/18/19 10:03 Prozac PO 20 mg QDAY DEWAYNE Administration Heparin Sodium (Porcine) 5,000 unit 02/17/19 10:00 02/18/19 22:19 Heparin SUB-Q 5,000 unit Q12HR DEWAYNE Administration Hydromorphone HCl 0.5 mg 02/16/19 21:59 Dilaudid IV Q3H PRN Pain , Severe (7-10) Sodium Chloride 100 mls @ 999 mls/hr 02/18/19 09:41 Nacl 0.9% IV OWEN PRN Hypotension Levothyroxine Sodium 50 mcg 02/18/19 06:00 02/19/19 06:10 Synthroid PO Not Given DAILY@0600 [facility] Losartan Potassium 50 mg 02/17/19 10:00 02/18/19 10:05 Cozaar PO Not Given QDAY DEWAYNE Metoprolol Succinate 25 mg 02/16/19 22:00 02/18/19 10:06 Toprol Xl PO Not Given QDAY [facility] Miscellaneous Medication 24 mcg 02/16/19 22:00 Lubiprostone [Amitiza] PO BID [facility] Ondansetron HCl 4 mg 02/16/19 21:59 Zofran IV Q8H PRN Nausea And Vomiting Oxycodone/Acetaminophen 1 tab 02/16/19 21:59 Percocet 5/325 PO Q6H PRN Pain, Moderate (4-6) Pantoprazole Sodium 40 mg 02/17/19 10:00 02/18/19 10:04 Protonix PO 40 mg DAILY DEWAYNE Administration Sevelamer Carbonate 3,200 mg 02/17/19 08:00 02/18/19 17:33 Renvela PO Not Given TIDWM DEWAYNE Sodium Chloride 10 ml 02/16/19 22:00 02/18/19 22:19 Sodium Chloride Flush Syringe 10 Ml IV 10 ml BID DEWAYNE Administration Sodium Chloride 10 ml 02/16/19 21:59 Sodium Chloride Flush Syringe 10 Ml IV PRN PRN LINE FLUSH
[2019-02-19] MEDS ORDERED: VERSED IV ONE ×2 (09:16→09:55)
[2019-02-19] MEDS ORDERED: SUBLIMAZE IV ONE (09:16)
[2019-02-19] MEDS ORDERED: HURRICAINE ONE 20% TOPICAL SPRAY MM (09:54)
[2019-02-19] MEDS ORDERED: SUBLIMAZE ONE (09:55)
[2019-02-19] MEDS ORDERED: HURRICAINE ONE 20% TOPICAL SPRAY MM NR (10:00)
--- NOTE | 2019-02-19 10:14 | Progress Note ---
Assessment and Plan Previous Cultures: 10/22/2018 Blood: MRSA 4 out of 4 bottles 10/24/2018 Blood MRSA 2 out of 4 bottles 10/25/2018 Surgical Biopsy Right arm: MRSA 10/27/2018 Blood: no growth Cultures: 02/16/19 Blood: MRSA, 2 out of 4 bottles 02/18/19 Blood: in progress A/P: 78-year-old male with a past medical history of end-stage renal disease on HD ( , , ), hypertension, dyslipidemia, aortic stenosis, proxysmal atrial fibrillation who presents to the ED on 02/16/19 with altered mental status and generalized malaise..Patient is know to ID service from pervious admission on 10/27/18. for MRSA bacteremia and infected AV graph. On 10/25/18 an excison of AV graft was performed and the surgical biopsy culture grew MRSA. On 10/26/18 a right internal jugular tunneled cuffed HD catheter was placed by Dr. Gross. Repeat blood cultures remained clear for 48 hours and he was discharged on Vancomycin 1 gram IV post HD for 6 weeks ending 12-08-18. On this visit patient reported via candle making supervisor that he was unable to make it to his HD treatment. Admitted with: 1. Sepsis on admission: Improved. Still elevated lactic acid. Etiology MRSA bacteremia. Source most likely infected right internal jugular tunneled catheter. No fever. CXR no consolidation. U/A not done. Currently being treated with Vancomycin. Cefepime discontinued. 2. Recurrent MRSA Bacteremia: 2 out of 4 bottles. Source most likely HD cath. TTE shows no valvular vegetation. IMAN shows normal functioning bioprosthetic aortic valve with no vegetation. Pacemaker leads are intact with no vegetation attached to the leads. s/p Successful dialysis access catheter exchange with angioplasty. focal area of granulation tissue found, distinct and separate from the hemodialysis catheter which is associated and concerning for pacer pocket infection. Will be transferred for device and lead explantation, and eventually placement of micra device 3. ESRD on HD. HD on Friday, and Friday. Antibiotics renally dosed. 4. Acute Encephalopathy: secondary to uremia. Improved. 5. Lactic acidosis: continuing 6. Hepatitis C Recommendations: -Continue Vancomycin PK dosing, D4 -Awaiting transfer for device and lead explantation, and eventually placement of micra device -After lead explantation will need 4 weeks of vancomycin post HD -Follow up repeat BC to ensure clearance Dr. Finn will be rounding on Friday. Dr. Bardales is cork insulation installer this weekend, please call for questions [phone]. [facility] [facility] M: [phone] O:[phone] Subjective Date of service: 02/19/19 Interval history: Patient seen and examined. Primary language Congolese, conversation via interpretation line. Reports no acute distress. No fevers. Objective - Exam Narrative Exam: Constitutional: Alert, cooperative. No acute distress, Head, Ears, Nose: Normocephalic, atraumatic. External ears, nose normal Eyes: Conjunctivae/corneas clear. No icterus. No ptosis. Neck: Supple, no meningeal signs Oral: dentition fair. No thrush Cardiovascular: S1, S2 normal. Respiratory: Good air entry, clear to auscultation bilaterally GI: Soft, non-tender; bowel sounds normal. No peritoneal signs Musculoskeletal: No pedal edema, no cyanosis. Skin: focal area of granulation tissue to the right of HD catheter, no draina ge. +dressing. Hem/Lymphatic: No palpable cervical or supraclavicular nodes. No lymphangitis Psych: Mood ok. Affect normal Neurological: Awake, alert, oriented. Lines: RIJ HD Catheter - Constitutional Vitals: Vital Signs Temp Pulse Resp BP Pulse Ox 98.3 F 74 20 187/95 98 02/19/19 07:40 02/19/19 09:59 02/19/19 09:59 02/19/19 09:59 02/19/19 09:59 Temperature -Last 24 Hours Temperature 98.3 F Temperature 98.4 F Temperature 98.0 F Temperature 97.9 F Temperature 98 F Temperature 97.5 F - Labs CBC & Chem 7: 02/18/19 00:17 02/17/19 05:18
--- NOTE | 2019-02-19 11:25 | Event Note ---
Date: 02/19/19 Part of the note was copiaed from ID consult note (Dr Christopher) 78-year-old male with a past medical history of end-stage renal disease on HD ( , , ), hypertension, dyslipidemia, aortic stenosis, proxysmal atrial fibrillation who presents to the ED on 02/16/19 with altered mental status and generalized malaise..Patient is know to ID service from pervious admission on 10/27/18. for MRSA bacteremia and infected AV graph. On 10/25/18 an excison of AV graft was performed and the surgical biopsy culture grew MRSA. On 10/26/18 a right internal jugular tunneled cuffed HD catheter was placed by Dr. Gross. Repeat blood cultures remained clear for 48 hours and he was discharged on Vancomycin 1 gram IV post HD for 6 weeks ending 12-08-18. On this visit patient reported via renewable energy consultant that he was unable to make it to his HD treatment. Admitted with: 1. Sepsis on admission: Improved. Still elevated lactic acid. Etiology MRSA bacteremia. Source most likely infected right internal jugular tunneled catheter. No fever. CXR no consolidation. U/A not done. Currently being treated with Vancomycin. Cefepime discontinued. 2. Recurrent MRSA Bacteremia: 2 out of 4 bottles. Source most likely HD cath. TTE shows no valvular vegetation. Will likely need IMAN to evaluate pacemaker wires given recurrent bacteremia and high risk for lead vegetations. s/p Successful dialysis access catheter exchange with angioplasty. focal area of granulation tissue found, distinct and separate from the hemodialysis catheter which is associated with the pacer pocket. Concerning for possible infection of pacer. Recommend transfer to tertiary facility for pacer replacement. 3. ESRD on HD. HD on Friday, and Friday. Antibiotics renally dosed. 4. Acute Encephalopathy: secondary to uremia. Improved. 5. Lactic acidosis: continuing 6. Hepatitis C IMAN today revealing normal functioning bioprosthetic aortic valve with no vegetation, no PVL Pacemaker leads are intact with no vegetation attached to the leads No evidence of endocarditis by IMAN However due to recurrent MRSA bacteremia, the device and the leads implanted 03/2016 will most likely need to be explanted. 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 Will have to discuss and arrange with EP service. Will continue to follow.
[2019-02-19] MEDS: RENVELA PO SCH ×2 (12:05→15:26)
[2019-02-19] MEDS: PROzac PO SCH (12:05)
[2019-02-19] MEDS: HEPARIN SUB-Q SCH (12:05)
[2019-02-19] MEDS: PROTONIX PO SCH (12:05)
[2019-02-19] MEDS: COZAAR PO SCH (12:05)
[2019-02-19] MEDS: SODIUM CHLORIDE FLUSH SYRINGE 10 ML IV SCH (12:06)
[2019-02-19] MEDS: TOPROL XL PO SCH (12:06)
[2019-02-19 13:06] VITALS: BP 169/84
--- NOTE | 2019-02-19 14:56 | Discharge Summary ---
Providers - Providers Date of Admission: 02/16/19 11:52 Date of discharge: 02/19/19 Attending physician: HARLAN FORDE 02/16/19 11:46 Consult to Physician [CONS] Stat Comment: Consulting Provider: CHANEL ABARCA Physician Instructions: Reason For Exam: ESRD 02/17/19 05:56 Consult to Physician [CONS] Routine Comment: Consulting Provider: AMISH MORTON Physician Instructions: Reason For Exam: sepsis 02/17/19 05:58 Consult to Physician [CONS] Routine Comment: Consulting Provider: BREANNE WILLINGHAM Physician Instructions: Please send tip for cultures if exchanged Reason For Exam: Vascath infection?? 02/18/19 16:40 Consult to Physician [CONS] Routine Comment: Consulting Provider: SURJIT JULIO Physician Instructions: Reason For Exam: E&M for Pacemaker Infection Primary care physician: LUCIA CANCHOLA Hospitalization Condition: Stable Hospital course: Patient is a 78-year-old Montenegrin speaking man with a history of ESRD TTS, hypertension, dyslipidemia, aortic stenosis, proxysmal atrial fibrillation with PPM on right side and previous MRSA HD line infection in October s/p removal and re-insertation who presents to [facility] ED with altered mental status. On 10/25/18, he has removal of AV graft and the surgical biopsy culture grew MRSA. On 10/26/18 a right internal jugular tunneled cuffed HD catheter was placed by Dr. Gross. Repeat blood cultures remained clear for 48 hours and he was discharged on Vancomycin 1 gram IV post HD for 6 weeks ending 12-08-18. On this visit, patient reported via lamps tester and inspector that he was unable to make it to his HD treatment. On admission WBC 16.4, Creatinine 7.9, Lactic acid 2.90, Temperature 98.7, HR 75, BP 107/48. Chest Xray shows no consolidation. Blood cultures grew Staph aureus, 2 out of 4 bottles. Language line used. * Cultures: 02/16/19 Blood: MRSA * 02/17/19 TTE conclusions: Technically difficult and limited study, mild concentric LVH, global LV systolic function is mild to moderately decreased, est EF 40-45%, grossly, the bio-prosthetic aortic valve appears to be functioning normally, there is no evidence of AR, pericaridium appears normal. The RVSP is calculated at 32 mmHg, trace MR, mild TR, no CO. * 02/18/2019 Fluoro guided exchange of Right IJ tunnelled HD catheter * 02/18/2019 IMAN conclusions: The estimated EF is 40-45%, there is no thrombus visulized in the the left atrial appendage, a pacemaker wire is visualized in the right atrium, no vegatations seen on the pacemaker lead, the bio- prosthetic aortic valve appears to be functioning normally, no IMAN evidence of endocarditis * Discussed with Dr Maxi Espinal At [facility] Will transfer patient for device and lead explantation, and eventually placement of micra device, [facility] contacted and bed was requested at [facility]. -Sepsis with MSRA bacteremia. Source most likely infected right internal jugular tunneled catheter. No fever. CXR no consolidation. U/A not done: treat with IV Vancomycin with monitoring, consulted Vascular surgeon. -Staph aureus Bacteremia: Source most likely HD cath. Ordered TTE. Follow up cultures for ID and susceptibility. -ESRD on HD TTS. HD on Friday, and Friday. Antibiotics renally dosed. -Acute Metabolic Encephalopathy: secondary to uremia. Improved. -Acute hypoxic respiratory failure: continue O2 -Hepatitis C, ordered by Renal TRANSFER to [facility] Disposition: DC/TX-70 ANOTHER TYPE THCARE Time spent for discharge: 35 minutes Core Measure Documentation - Palliative Care Palliative Care/ Comfort Measures: Not Applicable - Core Measures Any of the following diagnoses?: none - VTE Discharge Requirements Deep Vein Thrombosis/Pulmonary Embolism Present on Admission: No Has pt received <5 days of overlap therapy or INR<2.0: No Anticoagulant overlap therapy prescribed at discharge: No Contraindication No Overlap Therapy order at DC: Not Indicated Exam - Physical Exam Narrative exam: Gen: ill appearing, NAD, Awake, Alert, Orientated x 3 HEENT: NCAT, EOMI, PERRL, OP Clear Neck: supple, no adenopathy, no thyromegaly, no JVD CVS/Heart: RRR, normal S1S2, pulses present bilaterally Chest/Lungs: CTA B, Symmetrical chest expansion, good air entry bilaterally GI/Abdomen: soft, NTND, good bowel sounds, no guarding or rebound /Bladder: no suprapubic tenderness, no CVA or paraspinal tenderness Extermity/Skin: no c/c/e, no obvious rash MSK: FROM x 4 Neuro: CN 2-12 grossly intact, no new focal deficits Psych: calm - Constitutional Vitals: Temp Pulse Resp BP Pulse Ox 98.0 F 64 18 169/84 99 02/19/19 13:03 02/19/19 13:03 02/19/19 13:03 02/19/19 13:03 02/19/19 13:03 Plan Activity: other (no strenous activity) Follow up with: LUCIA CANCHOLA MD [Primary Care Provider] - 3-5 Days
== END 2019-02-19 16:45 | disposition short-term general hospital (02) | DRG 252 ==
LOC: ED 06:36 → 4A 11:52
PROVIDERS: ADMIT Internal Medicine; ATTEND Internal Medicine
PROC: 5A1D70Z Performance of Urinary Filtration, Intermittent, Less than 6 Hours Per Day (ICD-10-PCS; 2019-02-17)
PROC: 027V3ZZ Dilation of Superior Vena Cava, Percutaneous Approach (ICD-10-PCS; principal; 2019-02-18)
PROC: 05733ZZ Dilation of Right Innominate Vein, Percutaneous Approach (ICD-10-PCS; 2019-02-18)
PROC: 0JPT3XZ Removal of Tunneled Vascular Access Device from Trunk Subcutaneous Tissue and Fascia, Percutaneous Approach (ICD-10-PCS; 2019-02-18)
PROC: 02H633Z Insertion of Infusion Device into Right Atrium, Percutaneous Approach (ICD-10-PCS; 2019-02-18)
PROC: B2141ZZ Fluoroscopy of Right Heart using Low Osmolar Contrast (ICD-10-PCS; 2019-02-18)
PROC: 5A1D70Z Performance of Urinary Filtration, Intermittent, Less than 6 Hours Per Day (ICD-10-PCS; 2019-02-18)
PROC: 0JH63XZ Insertion of Tunneled Vascular Access Device into Chest Subcutaneous Tissue and Fascia, Percutaneous Approach (ICD-10-PCS; 2019-02-18)
DX: T82.7XXA Infection and inflammatory reaction due to other cardiac and vascular devices, implants and grafts, initial encounter (principal); N18.6 End stage renal disease; G93.41 Metabolic encephalopathy; J96.01 Acute respiratory failure with hypoxia; A41.02 Sepsis due to Methicillin resistant Staphylococcus aureus; I13.2 Hypertensive heart and chronic kidney disease with heart failure and with stage 5 chronic kidney disease, or end stage renal disease; N25.81 Secondary hyperparathyroidism of renal origin; D63.1 Anemia in chronic kidney disease; E78.5 Hyperlipidemia, unspecified; I48.0 Paroxysmal atrial fibrillation; I35.0 Nonrheumatic aortic (valve) stenosis; I25.2 Old myocardial infarction; I50.9 Heart failure, unspecified; K21.9 Gastro-esophageal reflux disease without esophagitis; M19.90 Unspecified osteoarthritis, unspecified site; E03.9 Hypothyroidism, unspecified; I25.10 Atherosclerotic heart disease of native coronary artery without angina pectoris; B19.20 Unspecified viral hepatitis C without hepatic coma; Y83.8 Other surgical procedures as the cause of abnormal reaction of the patient, or of later complication, without mention of misadventure at the time of the procedure; Y92.89 Other specified places as the place of occurrence of the external cause; M81.0 Age-related osteoporosis without current pathological fracture; Z95.5 Presence of coronary angioplasty implant and graft; Z95.0 Presence of cardiac pacemaker; Z95.1 Presence of aortocoronary bypass graft
CPT/HCPCS: 36415; 36581; 37248; 70450; 71045; 77001; 80048; 80061; 80074; 80320; 82140; 82962; 83036; 84443; 84484; 85007; 85025; 85610; 85730; 87040; 87076; 87186; 93005; 93010; 93306; 93312; 93320; 93325; 96365; 96375; G0378; C1725; C1750; C1769; C1894; G0480; J0690; J0692; J1644; J2250; J2543; J3010; J3370; J7030; J7050; Q9967

== ENCOUNTER 2019-03-23 08:29 | Inpatient (IN) | payer MEDICARE ==
[2019-03-23] MEDS ORDERED: ZOSYN/NS 4.5GM/100ML 4.5 GM/100 ML VIAL IV ONE (09:25)
--- NOTE | 2019-03-23 09:28 | XRay Report ---
CHEST 1 VIEW INDICATION: Sepsis, fever, high blood pressure. COMPARISON: 02/16/2019 FINDINGS: Support devices: 2-lead pacemaker device and right IJ venous catheter have been removed since the pre vious exam. Heart: Mild cardiomegaly is stable. Lungs/Pleura: Mild central pulmonary venous congestion is stable. No evidence for infiltrate, pleural effusion or pneumothorax. Additional findings: None. IMPRESSION: Mild cardiomegaly and central pulmonary venous congestion. No significant change since 02/16/2019. Signer Name: Edmundo Damon Jr, MD Signed: 03/23/2019 9:24 AM Workstation Name: [id number]
[2019-03-23] MEDS ORDERED: VANCOMYCIN 1,500 MG in NACL 0.9% 500 ML 500 ML IV ONE (09:30)
[2019-03-23 09:48] LABS: Eosinophils % (Auto) 0.2 % (0.0-4.3); Monocytes # (Auto) 0.6 K/mm3 (0.0-0.8); Monocytes % (Auto) 4.7 % (0.0-7.3)
[2019-03-23 09:51] LABS: Albumin 3.5 g/dL (3.9-5); Hematocrit 34.6 % (35.5-45.6); Hemoglobin 11.4 gm/dl (11.8-15.2); Mean Corpuscular HGB Conc 33 % (32-34); Mean Corpuscular Volume 97 fl (84-94); Platelet Count 118 K/mm3 (140-440); Red Blood Count 3.57 M/mm3 (3.65-5.03); Red Cell Distribution Width 17.8 % (13.2-15.2)
--- NOTE | 2019-03-23 10:46 | Emergency Department Report ---
ED Fever HPI - General Chief Complaint: Fever Stated Complaint: SEPSIS Time Seen by Provider: 03/23/19 08:36 Source: patient, EMS, old records Exam Limitations: language barrier - History of Present Illness Initial Comments: 78-year-old male with a past medical history of end-stage renal disease, hypertension, dyslipidemia, aortic stenosis, and paroxysmal atrial fibrillation presents to the hospital with fever. Patient was sent from the dialysis clinic. Patient was recently hospitalized last 2 months for MRSA infection of hemodialysis line and MRSA bacteremia. Since admission is right given hemodialysis catheter removed as well as his right sided chest wall pacemaker. He now presents with with a left femoral dialysis line. Patient had a IMAN February 18 that did not show any valvular vegetations. Pt received 1.5 hr of his scheduled 3 hour dialysis ED Review of Systems ROS: Stated complaint: SEPSIS Other details as noted in HPI Comment: Unobtainable due to pts medical conditions ED Past Medical Hx - Past Medical History Hx Hypertension: Yes Hx Heart Attack/AMI: Yes (stents) Hx Congestive Heart Failure: Yes Hx Diabetes: No (DENIES) Hx GERD: Yes Hx Renal Disease: Yes (TTS dialysis) Hx Arthritis: Yes Hx Kidney Stones: Yes (dialysis T, Th, Sat) Hx COPD: No Hx HIV: No Additional medical history: high cholesterol, hypothyroidism. Graft to right arm. CAD - Surgical History Hx Open Heart Surgery: Yes Hx Pacemaker: Yes (RIGHT CHEST PACE MAKER) Additional Surgical History: MICHAEL exploratory lap, pacemaker placement, dialysis access - Social History Smoking Status: Unknown if ever smoked Substance Use Type: None - Medications Home Medications: Home Medications Medication Instructions Recorded Confirmed Last Taken Type Sevelamer Carbonate [Renvela] 3,200 mg PO TIDWM 03/06/14 02/16/19 08/22/15 History Alendronate Sodium [Fosamax] 70 mg PO QWEEK 02/16/19 02/16/19 Unknown History Esomeprazole Magnesium [NexIUM] 40 mg PO QDAY 02/16/19 02/16/19 Unknown History FLUoxetine [PROzac] 20 mg PO QDAY 02/16/19 02/16/19 Unknown History Lubiprostone [Amitiza] 24 mcg PO BID 02/16/19 02/16/19 Unknown History Metoprolol Xl [Metoprolol 25 mg PO QDAY 02/16/19 02/16/19 Unknown History SUCCINATE ER TAB] Telmisartan 40 mg PO DAILY 02/16/19 02/16/19 Unknown History ED Physical Exam - General Limitations: Physical Limitation - Other Other exam information: Normal: No acute distress Head: Atraumatic Eyes: Normal appearance, pupils equally reactive to light, extraocular movements intact ENT: Moist mucous membranes Neck: Normal appearance, no midline cervical tenderness, no meningismus Chest: Clear to auscultation bilaterally, no wheezes, rales, crackles. Dressing to the right chest wall. No signs of skin cellulitis. Left femoral catheter without signs of localized cellulitis, warmth, or swelling. Cardiovascular: Regular rate and rhythm, positive systolic murmur Abdomen: Soft, nontender, nondistended, no rebound or guarding, normal bowel sounds Back: Normal. Extremity: Normal appearance, full range of motion Neuro: Alert speech normal, no gross motor sensory deficit Psych: Appropriate Skin: No rash ED Course Vital Signs 03/23/19 03/23/19 03/23/19 09:03 10:10 11:16 Temperature 100.4 F H 99.2 F Pulse Rate 80 84 83 Respiratory 20 26 H 26 H Rate Blood Pressure 230/66 142/82 126/84 [Right] O2 Sat by Pulse 98 97 97 Oximetry ED Medical Decision Making - Lab Data Result diagrams: 03/23/19 09:05 03/23/19 09:05 Lab Results 03/23/19 03/23/19 03/23/19 Range/Units 09:05 09:05 09:05 WBC 12.3 H (4.5-11.0) K/mm3 RBC 3.57 L (3.65-5.03) M/mm3 Hgb 11.4 L (11.8-15.2) gm/dl Hct 34.6 L (35.5-45.6) % MCV 97 H (84-94) fl MCH 32 (28-32) pg MCHC 33 (32-34) % RDW 17.8 H (13.2-15.2) % Plt Count 118 L (140-440) K/mm3 Citrus % (Auto) 4.7 (0.0-7.3) % Eos % (Auto) 0.2 (0.0-4.3) % Citrus # 0.6 (0.0-0.8) K/mm3 Eos # 0.0 (0.0-0.4) K/mm3 Baso # 0.0 (0.0-0.1) K/mm3 Seg Neutrophils % Light Bulb Tester Seg Neutrophils # 11.4 H (1.8-7.7) K/mm3 VBG pH (7.320-7.420) Sodium 131 L (137-145) mmol/L Potassium 4.8 (3.6-5.0) mmol/L Chloride 94.7 L (98-107) mmol/L Carbon Dioxide 21 L (22-30) mmol/L Anion Gap 20 mmol/L BUN 43 H (9-20) mg/dL Creatinine 9.1 H (0.8-1.5) mg/dL Estimated GFR 6 ml/min BUN/Creatinine Ratio 5 % Glucose 133 H (75-100) mg/dL Lactic Acid 2.20 H* (0.7-2.0) mmol/L Calcium 9.0 (8.4-10.2) mg/dL Total Bilirubin 1.70 H (0.1-1.2) mg/dL AST 29 (5-40) units/L ALT 28 (7-56) units/L Alkaline Phosphatase 194 H (35-129) units/L Total Protein 7.4 (6.3-8.2) g/dL Albumin 3.5 L (3.9-5) g/dL Albumin/Globulin Ratio 0.9 % 03/23/19 Range/Units 09:05 WBC (4.5-11.0) K/mm3 RBC (3.65-5.03) M/mm3 Hgb (11.8-15.2) gm/dl Hct (35.5-45.6) % MCV (84-94) fl MCH (28-32) pg MCHC (32-34) % RDW (13.2-15.2) % Plt Count (140-440) K/mm3 Citrus % (Auto) (0.0-7.3) % Eos % (Auto) (0.0-4.3) % Citrus # (0.0-0.8) K/mm3 Eos # (0.0-0.4) K/mm3 Baso # (0.0-0.1) K/mm3 Seg Neutrophils % Seg Neutrophils # (1.8-7.7) K/mm3 VBG pH 7.352 (7.320-7.420) Sodium (137-145) mmol/L Potassium (3.6-5.0) mmol/L Chloride (98-107) mmol/L Carbon Dioxide (22-30) mmol/L Anion Gap mmol/L BUN (9-20) mg/dL Creatinine (0.8-1.5) mg/dL Estimated GFR ml/min BUN/Creatinine Ratio % Glucose (75-100) mg/dL Lactic Acid (0.7-2.0) mmol/L Calcium (8.4-10.2) mg/dL Total Bilirubin (0.1-1.2) mg/dL AST (5-40) units/L ALT (7-56) units/L Alkaline Phosphatase (35-129) units/L Total Protein (6.3-8.2) g/dL Albumin (3.9-5) g/dL Albumin/Globulin Ratio % - EKG Data -: EKG Interpreted by Me (paced ventricular rhythm at 80) - Radiology Data Radiology results: report reviewed CHEST 1 VIEW INDICATION: Sepsis, fever, high blood pressure. COMPARISON: 02/16/2019 FINDINGS: Support devices: 2-lead pacemaker device and right IJ venous catheter have been removed since the previous exam. Heart: Mild cardiomegaly is stable. Lungs/Pleura: Mild central pulmonary venous congestion is stable. No evidence for infiltrate, pleural effusion or pneumothorax. Additional findings: None. IMPRESSION: Mild cardiomegaly and central pulmonary venous congestion. No significant change since 02/16/2019. - Medical Decision Making Patient received blood cultures. Antibiotics ordered to cover for MRSA. Broad spectrum antibiotics provided. At this time source unknown. Hospitalist informed for admission pt is a dialysis pt with hypertension and therefore he did not receive 30 MG bolus of normal saline. Only mild lactic elevation noted. consult ordered with Dr slater. as per medical record pt is seen by her group. No indication for emergent dialysis nephrology consultation this time - Differential Diagnosis sepsis, pneumonia, line infection Critical Care Time: No Critical care attestation.: If time is entered above; I have spent that time in minutes in the direct care of this critically ill patient, excluding procedure time. ED Disposition Clinical Impression: Sepsis, ESRD on dialysis Disposition: OP ADMIT IP TO THIS HOSP Is pt being admited?: Yes Condition: Stable Time of Disposition: 10:45 (Dr marques to admit)
[2019-03-23 10:48] LABS: Band Neutrophils # (Manual) 0.1 K/mm3; Eosinophils % (Manual) 0 % (0.0-4.3); Total Cells Counted 100
[2019-03-23 10:49] LABS: Platelet Estimate Consistent w Auto; Schistocytes Few
[2019-03-23] MEDS ORDERED: TYLENOL PO ONE (10:52)
--- NOTE | 2019-03-23 14:28 | History and Physical Report ---
History of Present Illness Date of examination: 03/23/19 Date of admission: 03/23/19 10:52 Chief complaint: fever History of present illness: Patient is a 78-year old [place] male with h/o coronary artery disease with bypass surgery in 2009, history of valvular disease s/p TAVR, paroxysmal atrial fibrillation and a history of complete heart block with pacemaker, ESRD on HD, paroxysmal atrial fib, recently hospitalized for recurrent MRSA bacteremia. He underwent successful dialysis access catheter exchange with angioplasty. A focal area of granulation tissue was found which was associated with the pacer pocket. IMAN showed no vegetation attached to leads. No evidence of endocarditis. In light of recurrent MRSA bacteremia, patient was transferred to [facility] where he underwent a right HD removal, right sided chest wall pacemaker removal and placement of Micra transcatheter pacemaker. He now has a left femoral dialysis line. Today, patient was sent from dialysis with fever and being admitted with possible sepsis. Initial labs revealed a WBC 12.400. CXR shows no consolidation. Blood cultures ordered. he received vanc and zosyn in the ER. Past History Past Medical History: atrial fib, dialysis, ESRD, hypertension, CAD, paroxysmal atrial fib, 3 degree AV block Past Surgical History: CABG, TAVR, transcatheter pacemaker, Social history: no significant social history Family history: no significant family history Review of Systems: General: low grade fever, no chills, nightsweats, unintentional weight change, or change in appetite Cutaneous: no rash, pruritus Head: no headaches or injury Eyes: no changes in vision, eye pain, double vision Ears: no ear pain, ear discharge, ringing or hearing loss Nose: no nose bleeding, stuffiness Mouth & throat: no bleeding gums, no horseness, no dental problems, or swollen glands Neck: no pain, node enlargement/lumps, tyroid enlargement or tenderness Respiratory: no cough, wheezing, sputum, hemoptysis, pleuritic chest pain Cardiovascular: no chest pain, leg edema, cyanosis, KAHN, orthopnea Musculoskeletal: no decreased joint motion, bone or joint pain, joint swelling, muscle aches Gastrointestinal: no nausea, vomiting, hematemesis, diarrhea, constipation, melena, bright red blood in stools, fecal incontinence, jaundice Genitourinary/Reproductive: no frequent urination, no dysuria, hematuria, incontinence Neurogical: no seizures, no headaches, no weakness, no paresthesias, no loss of speech or vision; no memory loss, no vertigo, no tremors, no numbness Psychiatric: stable mood; no excessive anxiety, sadness or moodiness Medications and Allergies Allergies Allergy/AdvReac Type Severity Reaction Status Date / Time No Known Allergies Allergy Verified 05/22/16 17:56 Home Medications Medication Instructions Recorded Confirmed Last Taken Type Sevelamer Carbonate [Renvela] 3,200 mg PO TIDWM 03/06/14 02/16/19 08/22/15 History Alendronate Sodium [Fosamax] 70 mg PO QWEEK 02/16/19 02/16/19 Unknown History Esomeprazole Magnesium [NexIUM] 40 mg PO QDAY 02/16/19 02/16/19 Unknown History FLUoxetine [PROzac] 20 mg PO QDAY 02/16/19 02/16/19 Unknown History Lubiprostone [Amitiza] 24 mcg PO BID 02/16/19 02/16/19 Unknown History Metoprolol Xl [Metoprolol 25 mg PO QDAY 02/16/19 02/16/19 Unknown History SUCCINATE ER TAB] Telmisartan 40 mg PO DAILY 02/16/19 02/16/19 Unknown History Active Meds: Active Medications Alendronate Sodium (Fosamax) 70 mg PO QWEEK [facility] Fluoxetine HCl (Prozac) 20 mg PO QDAY [facility] Metoprolol Succinate (Toprol Xl) 25 mg PO QDAY [facility] Miscellaneous Medication (Esomeprazole Magnesium [Nexium]) 40 mg PO QDAY [facility] Miscellaneous Medication (Lubiprostone [Amitiza]) 24 mcg PO BID [facility] Miscellaneous Medication (Telmisartan [Telmisartan]) 40 mg PO DAILY [facility] Sevelamer Carbonate (Renvela) 3,200 mg PO TIDWM [facility] Exam - Constitutional Vitals: Temp Pulse Resp BP Pulse Ox 99.5 F 81 18 99/48 94 03/23/19 12:17 03/23/19 12:03/23/19 12:03/23/19 12:03/23/19 12:17 General appearance: Present: no acute distress, well-nourished - EENT Eyes: Present: PERRL ENT: hearing intact, clear oral mucosa - Neck Neck: Present: supple, normal ROM - Respiratory Respiratory effort: normal Respiratory: bilateral: CTA - Cardiovascular Heart Sounds: Present: S1 & S2. Absent: rub, click - Extremities Extremities: pulses symmetrical, No edema Peripheral Pulses: within normal limits - Abdominal General gastrointestinal: Present: soft, non-tender, non-distended, normal bowel sounds - Integumentary Integumentary: Present: clear, warm, dry - Musculoskeletal Musculoskeletal: gait normal, strength equal bilaterally - Psychiatric Psychiatric: appropriate mood/affect, intact judgment & insight - Neurologic Neurologic: CNII-XII intact, moves all extremities Results - Labs CBC & Chem 7: 03/24/19 03:36 03/24/19 04:26 Labs: Abnormal lab results 03/23/19 03/23/19 03/23/19 Range/Units 09:05 09:05 09:05 WBC 12.3 H (4.5-11.0) K/mm3 RBC 3.57 L (3.65-5.03) M/mm3 Hgb 11.4 L (11.8-15.2) gm/dl Hct 34.6 L (35.5-45.6) % MCV 97 H (84-94) fl RDW 17.8 H (13.2-15.2) % Plt Count 118 L (140-440) K/mm3 Seg Neuts % (Manual) 89.0 H (40.0-70.0) % Lymphocytes % (Manual) 7.0 L (13.4-35.0) % Seg Neutrophils # 11.4 H (1.8-7.7) K/mm3 Seg Neutrophils # Man 10.9 H (1.8-7.7) K/mm3 Lymphocytes # (Manual) 0.9 L (1.2-5.4) K/mm3 Sodium 131 L (137-145) mmol/L Chloride 94.7 L (98-107) mmol/L Carbon Dioxide 21 L (22-30) mmol/L BUN 43 H (9-20) mg/dL Creatinine 9.1 H (0.8-1.5) mg/dL Glucose 133 H (75-100) mg/dL Lactic Acid 2.20 H* (0.7-2.0) mmol/L Total Bilirubin 1.70 H (0.1-1.2) mg/dL Alkaline Phosphatase 194 H (35-129) units/L Albumin 3.5 L (3.9-5) g/dL 03/23/19 Range/Units 10:02 WBC (4.5-11.0) K/mm3 RBC (3.65-5.03) M/mm3 Hgb (11.8-15.2) gm/dl Hct (35.5-45.6) % MCV (84-94) fl RDW (13.2-15.2) % Plt Count (140-440) K/mm3 Seg Neuts % (Manual) (40.0-70.0) % Lymphocytes % (Manual) (13.4-35.0) % Seg Neutrophils # (1.8-7.7) K/mm3 Seg Neutrophils # Man (1.8-7.7) K/mm3 Lymphocytes # (Manual) (1.2-5.4) K/mm3 Sodium (137-145) mmol/L Chloride (98-107) mmol/L Carbon Dioxide (22-30) mmol/L BUN (9-20) mg/dL Creatinine (0.8-1.5) mg/dL Glucose (75-100) mg/dL Lactic Acid 2.40 H* (0.7-2.0) mmol/L Total Bilirubin (0.1-1.2) mg/dL Alkaline Phosphatase (35-129) units/L Albumin (3.9-5) g/dL Assessment and Plan Possible sepsis with h/o recent MRSA bacteremia ESRD on HD CAD s/p CABG h/o third degree heart block with pacemaker Valvular HD s/p TAVR HTN HLD - admit to tele - empiric abx, follow cx, consult ID - consult cardiology for h/o intravascular pacemaker in the light of recent bacteremia - resume home meds - renal consult for HD =- Dvt Px with heparin
--- NOTE | 2019-03-23 15:49 | Consultation ---
History of Present Illness - Reason for Consult Consult date: 03/23/19 Fever with h/o MRSA Requesting physician: GRETA LEAL - History of Present Illness This patient is a 78 year ol male with a past medical history of end-stage renal disease, hypertension, dyslipidemia, aortic stenosis and paroxysmal atrial fibrilation know to ID service from previous admissions. on 10/27/18. for MRSA bacteremia and infected AV graph. On 10/25/18 an excision of AV graft was performed and the surgical biopsy culture grew MRSA. On 10/26/18 a right internal jugular tunneled cuffed HD catheter was placed by Dr. Gross and he was discharged on vancomycin. . He was then readmitted on 02/17/19 for recurrent MRSA bacteremia.. He underwent successful dialysis access catheter exchange with angioplasty. A focal area of granulation tissue was found which was associated with the pacer pocket. IMAN showed no vegetation attached to leads. No evidence of endocarditis. In light of recurrent MRSA bacteremia, patient was transferred to [facility] where he underwent a right HD removal, right sided chest wall pacemaker removal and placement of Micra transcatheter pacemaker,. He now has a left femoral dialysis line. He presents to [facility] on 03/23/19 with fever. On admission WBC 12.4, Creatinine 9.1, lactic Acid 2.40, Temperature 100.4, HR 60. CXR shows no consolidation. . Blood cultures are in progress.. Review of Systems: General: low grade fever, no chills, nightsweats, unintentional weight change, or change in appetite Cutaneous: no rash, pruritus Head: no headaches or injury Eyes: no changes in vision, eye pain, double vision Ears: no ear pain, ear discharge, ringing or hearing loss Nose: no nose bleeding, stuffiness Mouth & throat: no bleeding gums, no horseness, no dental problems, or swollen glands Neck: no pain, node enlargement/lumps, tyroid enlargement or tenderness Respiratory: no cough, wheezing, sputum, hemoptysis, pleuritic chest pain Cardiovascular: no chest pain, leg edema, cyanosis, KAHN, orthopnea Musculoskeletal: no decreased joint motion, bone or joint pain, joint swelling, muscle aches Gastrointestinal: no nausea, vomiting, hematemesis, diarrhea, constipation, melena, bright red blood in stools, fecal incontinence, jaundice Genitourinary/Reproductive: no frequent urination, no dysuria, hematuria, incontinence Neurogical: no seizures, no headaches, no weakness, no paresthesias, no loss of speech or vision; no memory loss, no vertigo, no tremors, no numbness Psychiatric: stable mood; no excessive anxiety, sadness or moodiness Medications and Allergies Allergies Allergy/AdvReac Type Severity Reaction Status Date / Time No Known Allergies Allergy Verified 05/22/16 17:56 Home Medications Medication Instructions Recorded Confirmed Last Taken Type Sevelamer Carbonate [Renvela] 3,200 mg PO TIDWM 03/06/14 02/16/19 08/22/15 History Alendronate Sodium [Fosamax] 70 mg PO QWEEK 02/16/19 02/16/19 Unknown History Esomeprazole Magnesium [NexIUM] 40 mg PO QDAY 02/16/19 02/16/19 Unknown History FLUoxetine [PROzac] 20 mg PO QDAY 02/16/19 02/16/19 Unknown History Lubiprostone [Amitiza] 24 mcg PO BID 02/16/19 02/16/19 Unknown History Metoprolol Xl [Metoprolol 25 mg PO QDAY 02/16/19 02/16/19 Unknown History SUCCINATE ER TAB] Telmisartan 40 mg PO DAILY 02/16/19 02/16/19 Unknown History Active Meds: Active Medications Alendronate Sodium (Fosamax) 70 mg PO QWEEK [facility] Fluoxetine HCl (Prozac) 20 mg PO QDAY [facility] Losartan Potassium (Cozaar) 50 mg PO QDAY [facility] Metoprolol Succinate (Toprol Xl) 25 mg PO QDAY [facility] Miscellaneous Medication (Lubiprostone [Amitiza]) 24 mcg PO BID [facility] Pantoprazole Sodium (Protonix) 40 mg PO DAILY [facility] Sevelamer Carbonate (Renvela) 3,200 mg PO TIDWM [facility] Physical Examination - Physical Exam Narrative exam: Constitutional: Alert, cooperative. No acute distress. Primary language [place] Head, Ears, Nose: Normocephalic, atraumatic. External ears, nose normal Eyes: Conjunctivae/corneas clear. No icterus. No ptosis. Neck: Supple, no meningeal signs Oral: dentition fair. No thrush . Oral mucosa moist Cardiovascular: S1, S2 normal. + Micra transcatheter pacemaker Respiratory: Good air entry, clear to auscultation bilaterally GI: Soft, non-tender; bowel sounds normal. No peritoneal signs Musculoskeletal: No pedal edema, no cyanosis. Skin: No rash or abscess. Hem/Lymphatic: No palpable cervical or supraclavicular nodes. No lymphangitis Psych: Mood ok. Affect normal Neurological: Awake, alert, oriented. Lines: Left femoral dialysis line - Constitutional Vitals: Vital Signs Temp Pulse Resp BP Pulse Ox 99.5 F 81 18 99/48 94 03/23/19 12:17 03/23/19 12:17 03/23/19 12:17 03/23/19 12:17 03/23/19 12:17 Temperature -Last 24 Hours Temperature 99.5 F Temperature 99.2 F Temperature 100.4 F Results - Labs CBC & Chem 7: 03/23/19 09:05 03/23/19 09:05 Labs: Abnormal lab results 03/23/19 03/23/19 03/23/19 Range/Units 09:05 09:05 09:05 WBC 12.3 H (4.5-11.0) K/mm3 RBC 3.57 L (3.65-5.03) M/mm3 Hgb 11.4 L (11.8-15.2) gm/dl Hct 34.6 L (35.5-45.6) % MCV 97 H (84-94) fl RDW 17.8 H (13.2-15.2) % Plt Count 118 L (140-440) K/mm3 Seg Neuts % (Manual) 89.0 H (40.0-70.0) % Lymphocytes % (Manual) 7.0 L (13.4-35.0) % Seg Neutrophils # 11.4 H (1.8-7.7) K/mm3 Seg Neutrophils # Man 10.9 H (1.8-7.7) K/mm3 Lymphocytes # (Manual) 0.9 L (1.2-5.4) K/mm3 Sodium 131 L (137-145) mmol/L Chloride 94.7 L (98-107) mmol/L Carbon Dioxide 21 L (22-30) mmol/L BUN 43 H (9-20) mg/dL Creatinine 9.1 H (0.8-1.5) mg/dL Glucose 133 H (75-100) mg/dL Lactic Acid 2.20 H* (0.7-2.0) mmol/L Total Bilirubin 1.70 H (0.1-1.2) mg/dL Alkaline Phosphatase 194 H (35-129) units/L Albumin 3.5 L (3.9-5) g/dL 03/23/19 Range/Units 10:02 WBC (4.5-11.0) K/mm3 RBC (3.65-5.03) M/mm3 Hgb (11.8-15.2) gm/dl Hct (35.5-45.6) % MCV (84-94) fl RDW (13.2-15.2) % Plt Count (140-440) K/mm3 Seg Neuts % (Manual) (40.0-70.0) % Lymphocytes % (Manual) (13.4-35.0) % Seg Neutrophils # (1.8-7.7) K/mm3 Seg Neutrophils # Man (1.8-7.7) K/mm3 Lymphocytes # (Manual) (1.2-5.4) K/mm3 Sodium (137-145) mmol/L Chloride (98-107) mmol/L Carbon Dioxide (22-30) mmol/L BUN (9-20) mg/dL Creatinine (0.8-1.5) mg/dL Glucose (75-100) mg/dL Lactic Acid 2.40 H* (0.7-2.0) mmol/L Total Bilirubin (0.1-1.2) mg/dL Alkaline Phosphatase (35-129) units/L Albumin (3.9-5) g/dL - Imaging and Cardiology Chest x-ray: report reviewed (No consolidation) Assessment and Plan Previous Cultures: 10/22/2018 Blood: MRSA 4 out of 4 bottles 10/24/2018 Blood MRSA 2 out of 4 bottles 10/25/2018 Surgical Biopsy Right arm: MRSA 10/27/2018 Blood: no growth 02/16/19 Blood: MRSA, 2 out of 4 bottles 02/18/19 Blood: No growth Cultures: 03/21/19 Blood: in progress 78 year ol male with a past medical history of end-stage renal disease, hypertension, dyslipidemia, aortic stenosis and paroxysmal atrial fibrilation know to ID service from multiple previous admissions for recurrent MRSA bactermia related to infected AV graph on 10/26/18 and infected HD catheter. on 02/17/19. He underwent successful dialysis access catheter exchange with angioplasty. A focal area of granulation tissue was found which was associated with the pacer pocket. Patient was transferred to [facility] where he underwent right HD removal, right sided chest wall pacemaker removal and placement of Micra transcatheter pacemaker. Now admitted with: 1. Sepsis; evidenced by increased lactic acid, leukocytosis and fever. Etiology not clear, history or recurrent MRSA bactermeia related to line sepsis. ? left femoral dialysis line vs right groin Micra trancatheter pacemaker. Blood cultu res in progress. CXR shows no consolidation. UA not done. 2. History of recurrent MRSA bactermeia: blood cultures in progress. 3. ESRD on HD : , and Friday. Antibiotics renally dosed. 4. History of Hepatitis C. Recommendations: -Start Vancomycin PK consult -follow up blood cultures D/w Dr. Thiago Christopher, [facility] M: [phone] O:[phone]
[2019-03-23] MEDS ORDERED: VANCOMYCIN PHARMACY TO DOSE IV SCH (17:00)
[2019-03-23] MEDS: RENVELA PO SCH (17:14)
[2019-03-23] MEDS ORDERED: NON-FORMULARY (Lubiprostone [Amitiza] 24 MCG) PO SCH (22:00)
[2019-03-24 01:27] LABS: Hepatitis C Virus Antibody Reactive (NonReactive)
[2019-03-24 01:37] LABS: Hepatitis B Surface Antigen Non-Reactive (Negative)
[2019-03-24 05:51] LABS: Basophils % (Auto) 0.2 % (0.0-1.8); Eosinophils # (Auto) 0.1 K/mm3 (0.0-0.4); Eosinophils % (Auto) 1.3 % (0.0-4.3); Hematocrit 30.4 % (35.5-45.6); Hemoglobin 10.1 gm/dl (11.8-15.2); Lymphocytes # (Auto) 0.5 K/mm3 (1.2-5.4); Lymphocytes % (Auto) 4.8 % (13.4-35.0); Mean Corpuscular HGB Conc 33 % (32-34); Mean Corpuscular Volume 97 fl (84-94); Monocytes # (Auto) 1.1 K/mm3 (0.0-0.8); Monocytes % (Auto) 11.7 % (0.0-7.3); Platelet Count 105 K/mm3 (140-440); Red Blood Count 3.15 M/mm3 (3.65-5.03); Red Cell Distribution Width 17.8 % (13.2-15.2)
[2019-03-24 06:22] LABS: Calcium 8.9 mg/dL (8.4-10.2)
[2019-03-24] MEDS: RENVELA PO SCH ×3 (08:33→17:50)
[2019-03-24] MEDS ORDERED: PROzac PO SCH (10:00)
[2019-03-24] MEDS ORDERED: COZAAR PO SCH (10:00)
[2019-03-24] MEDS ORDERED: NON-FORMULARY (Esomeprazole Magnesium [Nexium] 40 MG) PO SCH (10:00)
[2019-03-24] MEDS ORDERED: PROTONIX PO SCH (10:00)
[2019-03-24] MEDS ORDERED: NON-FORMULARY (Telmisartan [Telmisartan] 40 MG) PO SCH (10:00)
[2019-03-24] MEDS ORDERED: TOPROL XL PO SCH (10:00)
--- NOTE | 2019-03-24 10:38 | Progress Note ---
Assessment and Plan Previous Cultures: 10/22/2018 Blood: MRSA 4 out of 4 bottles 10/24/2018 Blood MRSA 2 out of 4 bottles 10/25/2018 Surgical Biopsy Right arm: MRSA 10/27/2018 Blood: no growth 02/16/19 Blood: MRSA, 2 out of 4 bottles 02/18/19 Blood: No growth Cultures: 03/21/19 Blood: GPC, 2 out of 4 bottles 78 year ol male with a past medical history of end-stage renal disease, hypertension, dyslipidemia, aortic stenosis and paroxysmal atrial fibrilation know to ID service from multiple previous admissions for recurrent MRSA bactermia related to infected AV graph on 10/26/18 and infected HD catheter. on 02/17/19. He underwent successful dialysis access catheter exchange with angioplasty. A focal area of granulation tissue was found which was associated with the pacer pocket. Patient was transferred to [facility] where he underwent right HD removal, right sided chest wall pacemaker removal and placement of Micra transcatheter pacemaker. Now admitted with: 1. Sepsis; On admission, now resolved.no fevers in >24 hours. Etiology GPC bacteremia. Blood cultures grew GPC, 2/4 bottles. Source most likely infected left femoral dialysis line and right groin Micra transcatheter pacemaker. Blood cultures no growth. CXR shows no consolidation. UA not done. 2. GPC Bacteremia: 2 out of 4 bottles. Likely MRSA given recurrent history. Will follow-up on cultures for ID and susceptibility. Removal of lines anticipated. Will order TTE and repeat blood cultures to ensure clearance. 2. History of recurrent MRSA bactermeia: 3. ESRD on HD : Friday, and Friday. Antibiotics renally dosed. 4. History of Hepatitis C. Recommendations: -Continue Vancomycin PK consult -follow up blood cultures for ID and susceptibility -TTE ordered -Order repeat BC's to ensure clearance [facility] M: [phone] O:[phone] Subjective Date of service: 03/24/19 Interval history: Patient seen and examined. Reports no pain or generalized weakness. No fevers. Objective - Exam Narrative Exam: Constitutional: Alert, cooperative. No acute distress. Primary language [place] Leonean Head, Ears, Nose: Normocephalic, atraumatic. External ears, nose normal Eyes: Conjunctivae/corneas clear. No icterus. No ptosis. Neck: Supple, no meningeal signs Oral: dentition fair. No thrush . Oral mucosa moist Cardiovascular: S1, S2 normal. + Micra transcatheter pacemaker Respiratory: Good air entry, clear to auscultation bilaterally GI: Soft, non-tender; bowel sounds normal. No peritoneal signs Musculoskeletal: No pedal edema, no cyanosis. Skin: No rash or abscess. Hem/Lymphatic: No palpable cervical or supraclavicular nodes. No lymphangitis Psych: Mood ok. Affect normal Neurological: Awake, alert, oriented. Lines: Left femoral dialysis line - Constitutional Vitals: Vital Signs Temp Pulse Resp BP Pulse Ox 98.4 F 80 14 128/60 99 03/24/19 07:36 03/24/19 09:30 03/24/19 07:36 03/24/19 09:30 03/24/19 07:36 Temperature -Last 24 Hours Temperature 98.4 F Temperature 97.9 F Temperature 98.1 F Temperature 98.2 F Temperature 99.5 F Temperature 99.2 F - Labs CBC & Chem 7: 03/24/19 03:36 03/24/19 04:26 Labs: Abnormal lab results 03/23/19 03/23/19 03/24/19 Range/Units 09:05 10:02 00:43 RBC (3.65-5.03) M/mm3 Hgb (11.8-15.2) gm/dl Hct (35.5-45.6) % MCV (84-94) fl RDW (13.2-15.2) % Plt Count (140-440) K/mm3 Lymph % (Auto) (13.4-35.0) % [place] % (Auto) (0.0-7.3) % Lymph # (1.2-5.4) K/mm3 [place] # (0.0-0.8) K/mm3 Seg Neutrophils % (40.0-70.0) % Seg Neuts % (Manual) 89.0 H (40.0-70.0) % Lymphocytes % (Manual) 7.0 L (13.4-35.0) % Seg Neutrophils # (1.8-7.7) K/mm3 Seg Neutrophils # Man 10.9 H (1.8-7.7) K/mm3 Lymphocytes # (Manual) 0.9 L (1.2-5.4) K/mm3 Sodium (137-145) mmol/L Chloride (98-107) mmol/L Carbon Dioxide (22-30) mmol/L BUN (9-20) mg/dL Creatinine (0.8-1.5) mg/dL Glucose (75-100) mg/dL Lactic Acid 2.40 H* (0.7-2.0) mmol/L Hepatitis C Antibody Reactive A (NonReactive) 03/24/19 03/24/19 Range/Units 03:36 04:26 RBC 3.15 L (3.65-5.03) M/mm3 Hgb 10.1 L (11.8-15.2) gm/dl Hct 30.4 L (35.5-45.6) % MCV 97 H (84-94) fl RDW 17.8 H (13.2-15.2) % Plt Count 105 L (140-440) K/mm3 Lymph % (Auto) 4.8 L (13.4-35.0) % [place] % (Auto) 11.7 H (0.0-7.3) % Lymph # 0.5 L (1.2-5.4) K/mm3 [place] # 1.1 H (0.0-0.8) K/mm3 Seg Neutrophils % 82.0 H (40.0-70.0) % Seg Neuts % (Manual) (40.0-70.0) % Lymphocytes % (Manual) (13.4-35.0) % Seg Neutrophils # 8.0 H (1.8-7.7) K/mm3 Seg Neutrophils # Man (1.8-7.7) K/mm3 Lymphocytes # (Manual) (1.2-5.4) K/mm3 Sodium 133 L (137-145) mmol/L Chloride 94.9 L (98-107) mmol/L Carbon Dioxide 20 L (22-30) mmol/L BUN 60 H (9-20) mg/dL Creatinine 11.3 H (0.8-1.5) mg/dL Glucose 105 H (75-100) mg/dL Lactic Acid (0.7-2.0) mmol/L Hepatitis C Antibody (NonReactive)
--- NOTE | 2019-03-24 10:41 | Consultation ---
<SHY MCMULLEN - Last Filed: 03/24/19 10:32> History of Present Illness Consult date: 03/24/19 Consult reason: other (recent pacemaker placement ) History of present illness: Patient is a 78-year old [place] male that has multiple medical problems. He has a history of coronary artery disease with 4 vessel bypass grafting in 2009. He has JOHNSON to LAD; SVG sequential to DIAG and OM; SVG to RCA. Aortic stenosis was mild at the time of bypass but progressed overtime and 2016 the patient underwent TAVR for severe aortic stenosis. A pacemaker was implanted for compl ete heart block following TAVR. Patient has paroxysmal atrial fibrillation, no longer on anticoagulation due to ICH in 2018. Patient also has hypertension, end stage renal disease and is on dialysis. 3-4 weeks ago, patient was hospitalized for recurrent MRSA bacteremia. He underwent successful dialysis access catheter exchange with angioplasty. IMAN showed no vegetation and no evidence of endocarditis. Ejection fraction 40-45%. Due to recurrent MRSA bacteremia, patient was transferred to [facility] where he underwent HD catheter removal and pacemaker device and lead explantation. He now has a leadless pacemaker and a left femoral dialysis line. On yesterday, patient was sent from dialysis with fever and admitted with sepsis. Patient did not complete his dialysis session. Initial labs revealed a WBC 12.400. Blood cultures are in progress. CXR reports no evidence of interstitial edema. ECG is a ventricular paced rhythm. Medications and Allergies Allergies Allergy/AdvReac Type Severity Reaction Status Date / Time No Known Allergies Allergy Verified 05/22/16 17:56 Home Medications Medication Instructions Recorded Confirmed Last Taken Type Sevelamer Carbonate [Renvela] 3,200 mg PO TIDWM 03/06/14 02/16/19 08/22/15 History Alendronate Sodium [Fosamax] 70 mg PO QWEEK 02/16/19 02/16/19 Unknown History Esomeprazole Magnesium [NexIUM] 40 mg PO QDAY 02/16/19 02/16/19 Unknown History FLUoxetine [PROzac] 20 mg PO QDAY 02/16/19 02/16/19 Unknown History Lubiprostone [Amitiza] 24 mcg PO BID 02/16/19 02/16/19 Unknown History Metoprolol Xl [Metoprolol 25 mg PO QDAY 02/16/19 02/16/19 Unknown History SUCCINATE ER TAB] Telmisartan 40 mg PO DAILY 02/16/19 02/16/19 Unknown History Active Meds: Active Medications Alendronate Sodium (Fosamax) 70 mg PO QWEEK [facility] Fluoxetine HCl (Prozac) 20 mg PO QDAY [facility] Last Admin: 03/24/19 09:30 Dose: 20 mg Documented by: Losartan Potassium (Cozaar) 50 mg PO QDAY [facility] Last Admin: 03/24/19 09:30 Dose: 50 mg Documented by: Metoprolol Succinate (Toprol Xl) 25 mg PO QDAY [facility] Last Admin: 03/24/19 09:30 Dose: 25 mg Documented by: Miscellaneous Medication (Lubiprostone [Amitiza]) 24 mcg PO BID [facility] Pantoprazole Sodium (Protonix) 40 mg PO DAILY [facility] Last Admin: 03/24/19 09:30 Dose: 40 mg Documented by: Sevelamer Carbonate (Renvela) 3,200 mg PO TIDWM [facility] Last Admin: 03/24/19 08:33 Dose: 3,200 mg Documented by: Physical Examination Vital Signs Temp Pulse Resp BP Pulse Ox 100.4 F H 80 20 230/66 98 03/23/19 09:03 03/23/19 09:03 03/23/19 09:03 03/23/19 09:03 03/23/19 09:03 General appearance: no acute distress HEENT: Positive: PERRL Neck: Positive: trachea midline Cardiac: Positive: Other (paced) Lungs: Positive: Decreased Breath Sounds Neuro: Positive: Grossly Intact Extremities: Absent: edema Results 03/24/19 03:36 03/24/19 04:26 CBC 03/24/19 Range/Units 03:36 WBC 9.8 (4.5-11.0) K/mm3 RBC 3.15 L (3.65-5.03) M/mm3 Hgb 10.1 L (11.8-15.2) gm/dl Hct 30.4 L (35.5-45.6) % Plt Count 105 L (140-440) K/mm3 Lymph # 0.5 L (1.2-5.4) K/mm3 [place] # 1.1 H (0.0-0.8) K/mm3 Eos # 0.1 (0.0-0.4) K/mm3 Baso # 0.0 (0.0-0.1) K/mm3 Comprehensive Metabolic Panel 03/24/19 Range/Units 04:26 Sodium 133 L (137-145) mmol/L Potassium 5.0 (3.6-5.0) mmol/L Chloride 94.9 L (98-107) mmol/L Carbon Dioxide 20 L (22-30) mmol/L BUN 60 H (9-20) mg/dL Creatinine 11.3 H (0.8-1.5) mg/dL Glucose 105 H (75-100) mg/dL Calcium 8.9 (8.4-10.2) mg/dL Assessment and Plan Sepsis ESRD on dialysis left femoral dialysis line. Hx of complete heart block s/p explant of pacemaker device and leads 02/2019 at [facility] s/p leadless pacemaker 02/2019 at [facility] Hx of coronary artery disease with 4 vessel bypass grafting in 2009. JOHNSON to LAD; SVG sequential to DIAG and OM; SVG to RCA. Hx of Aortic stenosis s/p TAVR 03/2016 Hx of paroxysmal atrial fibrillation no longer on anticoagulation due to ICH in 2018. Hypertension <EVARISTO PRADHAN - Last Filed: 03/25/19 22:15> Physical Examination Vital Signs Temp Pulse Resp BP Pulse Ox 100.4 F H 80 20 230/66 98 03/23/19 09:03 03/23/19 09:03 03/23/19 09:03 03/23/19 09:03 03/23/19 09:03 Results 03/24/19 03:36 03/24/19 04:26 Assessment and Plan I have seen and evalauted the patient and agree with the assessment and plan. Continue medical therapy per ID. Patient is pacemaker dependent. Continue medical therapy for CAD. Plan for transfer to [facility] for a higher level of care.
--- NOTE | 2019-03-24 10:48 | Consultation ---
History of Present Illness - Reason for Consult Consult date: 03/24/19 end stage renal disease - History of Present Illness Mr. Shoemaker is a 78 year old male with ESRD on HD TTS who presented to the ED with hx of chills during dialysis. 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 AVG was excised in Oct 2018 and permcath was subsequently placed. He received Vanco post HD x 6 weeks. However, MRSA bacteremia recurred. Permcath was removed. TTE and IMAN were unremarkable for endocarditis or vegation attached to pacemaker leads. However, due to recurrent MRSA bacteremia, he was recently transferred to [facility] for explantation of pacemaker. Nephrology has been consulted for management of ESRD. Past History Past Medical History: atrial fib, ESRD, hypertension, hyperlipidemia, other (Aortic stenosis ) Past Surgical History: Other (AV access surgery, pacemaker) Social history: no significant social history Family history: no significant family history Medications and Allergies Allergies Allergy/AdvReac Type Severity Reaction Status Date / Time No Known Allergies Allergy Verified 05/22/16 17:56 Home Medications Medication Instructions Recorded Confirmed Last Taken Type Sevelamer Carbonate [Renvela] 3,200 mg PO TIDWM 03/06/14 02/16/19 08/22/15 History Alendronate Sodium [Fosamax] 70 mg PO QWEEK 02/16/19 02/16/19 Unknown History Esomeprazole Magnesium [NexIUM] 40 mg PO QDAY 02/16/19 02/16/19 Unknown History FLUoxetine [PROzac] 20 mg PO QDAY 02/16/19 02/16/19 Unknown History Lubiprostone [Amitiza] 24 mcg PO BID 02/16/19 02/16/19 Unknown History Metoprolol Xl [Metoprolol 25 mg PO QDAY 02/16/19 02/16/19 Unknown History SUCCINATE ER TAB] Telmisartan 40 mg PO DAILY 02/16/19 02/16/19 Unknown History Active Meds: Active Medications Alendronate Sodium (Fosamax) 70 mg PO [facility] Fluoxetine HCl (Prozac) 20 mg PO QDAY [facility] Last Admin: 03/24/19 09:30 Dose: 20 mg Documented by: Losartan Potassium (Cozaar) 50 mg PO QDAY [facility] Last Admin: 03/24/19 09:30 Dose: 50 mg Documented by: Metoprolol Succinate (Toprol Xl) 25 mg PO QDAY [facility] Last Admin: 03/24/19 09:30 Dose: 25 mg Documented by: Miscellaneous Medication (Lubiprostone [Amitiza]) 24 mcg PO BID [facility] Pantoprazole Sodium (Protonix) 40 mg PO DAILY [facility] Last Admin: 03/24/19 09:30 Dose: 40 mg Documented by: Sevelamer Carbonate (Renvela) 3,200 mg PO TIDWM [facility] Last Admin: 03/24/19 08:33 Dose: 3,200 mg Documented by: Review of Systems All systems: negative Exam - Vital Signs Vital signs: Vital Signs Temp Pulse Resp BP Pulse Ox 100.4 F H 80 20 230/66 98 03/23/19 09:03 03/23/19 09:03 03/23/19 09:03 03/23/19 09:03 03/23/19 09:03 - General Appearance General appearance: well-developed, well-nourished EENT: ATNC Respiratory: Clear to Ascultation Heart: regular, S1S2 Gastrointestinal: Present: normal. Absent: tenderness, distended Integumentary: no rash, cool/clammy Musculoskeletal: Present: other (no edema; left femoral permcath ) Psychiatric: cooperative Results - Lab Results 03/24/19 03:36 03/24/19 04:26 Most recent lab results Calcium 8.9 mg/dL (8.4-10.2) 03/24/19 04:26 Assessment and Plan Impression: * End stage renal disease on HD TTS * GPC bacteremia * Hx of recurrent MRSA bacteremia * Anemia secondary to ESRD * Secondary hyperparathyroidism Plan: * Continue hemodialysis TTS schedule * UF as tolerated * Abx per ID - ID and sensitivities pending. Permcath will likely require removal * Dose medications for renal function * Epogen TIW prn * Renal diet
--- NOTE | 2019-03-24 16:13 | Discharge Summary ---
Providers - Providers Date of Admission: 03/23/19 10:52 Date of discharge: 03/24/19 Attending physician: GRETA LEAL 03/23/19 11:10 Consult to Physician [CONS] Urgent Comment: Consulting Provider: DALY PLASCENCIA Physician Instructions: Reason For Exam: esrd, dialysis, fever 03/23/19 14:27 Consult to Physician [CONS] Routine Comment: spoke to ashwini/ kathleen Consulting Provider: VERONICA LANE Physician Instructions: Reason For Exam: fever with h/o MRSA bacteremia 03/23/19 18:44 Consult to Physician [CONS] Routine Comment: Consulting Provider: SURJIT JULIO Physician Instructions: Reason For Exam: recent pacemaker placementn with MRSA bacteremia Primary care physician: TRIMMING CUTTER MACHINE Hospitalization Condition: Stable Hospital course: Discharge Diagnosis and management: Sepsis with positive blood cx with h/o recent MRSA bacteremia ESRD on HD CAD s/p CABG h/o third degree heart block with pacemaker Valvular HD s/p TAVR HTN HLD Disposition: DC/TX-70 ANOTHER TYPE HLTHCARE Time spent for discharge: 34 minutes Core Measure Documentation - Palliative Care Palliative Care/ Comfort Measures: Not Applicable - Core Measures Any of the following diagnoses?: none Exam - Constitutional Vitals: Temp Pulse Resp BP Pulse Ox 98.5 F 81 14 136/79 97 03/24/19 11:23 03/24/19 11:23 03/24/19 11:23 03/24/19 11:23 03/24/19 11:23 Plan Activity: advance as tolerated Weight Bearing Status: Non-Weight Bearing Diet: renal Wound: keep clean and dry Follow up with: PRIMARY MD SHIVA [Primary Care Provider] - 3-5 Days
[2019-03-24] MEDS ORDERED: NACL 0.9% 100 ML IV PRN (16:47)
[2019-03-24 16:57] VITALS: BP 144/75
[2019-03-24] MEDS ORDERED: TYLENOL PO ONE (18:55)
[2019-03-30] MEDS ORDERED: FOSAMAX PO SCH (06:30)
== END 2019-03-24 19:00 | disposition short-term general hospital (02) | DRG 871 ==
LOC: ED 08:29 → 2B-ACE 10:52 → 4A 18:38
PROVIDERS: ADMIT Internal Medicine; ATTEND Internal Medicine
DX: A41.9 Sepsis, unspecified organism (principal); N18.6 End stage renal disease; I13.2 Hypertensive heart and chronic kidney disease with heart failure and with stage 5 chronic kidney disease, or end stage renal disease; N25.81 Secondary hyperparathyroidism of renal origin; I25.10 Atherosclerotic heart disease of native coronary artery without angina pectoris; E78.5 Hyperlipidemia, unspecified; I35.0 Nonrheumatic aortic (valve) stenosis; I48.0 Paroxysmal atrial fibrillation; I50.9 Heart failure, unspecified; K21.9 Gastro-esophageal reflux disease without esophagitis; M19.90 Unspecified osteoarthritis, unspecified site; E03.9 Hypothyroidism, unspecified; B19.20 Unspecified viral hepatitis C without hepatic coma; D63.1 Anemia in chronic kidney disease; Z95.5 Presence of coronary angioplasty implant and graft; I25.2 Old myocardial infarction; Z95.1 Presence of aortocoronary bypass graft; Z99.2 Dependence on renal dialysis
CPT/HCPCS: 36415; 71045; 80048; 80053; 80074; 82140; 82805; 85007; 85025; 87040; 87076; 87116; 87186; 93005; 93010; 96365; 96367; G0378; J2543; J3370; J7040

== ENCOUNTER 2019-05-03 19:32 | Emergency (ER) | payer MEDICARE ==
[~2019-05-03 19:32] MED LIST changes: +ADRENALIN ONE; -AMIDATE IV ONE; +CALCIUM CHLORIDE IV ONE; -DECADRON ONE; -DIPRIVAN 10 MG/ML IV ONE; -HEPARIN 10,000 UNITS/10 ML ONE; -MARCAINE 0.5% INFILTRATI ONE; -NACL 0.45% 0 ML IV ONE; -NACL 0.9% 1000 ML 1,000 ML ONE; -NACL 0.9% 500 ML 500 ML ONE; -NEO SYNEPHRINE/NS Syringe(OR USE) IV ONE; -SILVER NITRATE TP ONE; -SUBLIMAZE ONE; -XYLOCAINE CARDIAC IV ONE; -ZOFRAN ONE
[2019-05-03] MEDS ORDERED: NACL 0.9% 1000 ML 1,000 ML IV ONE (19:35)
[2019-05-03] MEDS ORDERED: NACL 0.9% 1000 ML 1,000 ML ONE (19:44)
--- NOTE | 2019-05-03 20:16 | Emergency Department Report ---
ED CPR HPI - General Stated Complaint: CARDIAC ARREST Time Seen by Provider: 05/03/19 19:44 - History of Present Illness Initial Comments: Mr. Shoemaker is a 78 yo male with hx of ESRD on hemodialysis, hypertension, aortic stenosis, atrial fibrillation, coronary artery disease who presents with in cardiac arrest from home. Family member called 911. Initial rhythm asystole. Received 3 rounds of epinephrine from EMS. Intubated with ETT in the field. No recent illness according to grandson at the bedside. He received 30 minutes of ACLS treatment including chest compressions. Finally briefly achieved return of spontaneous circulation. Discharged last month after treatment for sepsis. Complaint: found unresponsive Place: home Bystander CPR Performed: No Shock Advised: No Initial Findings in the Field: unresponsive ROSC in the Field: Yes Associated Injuries: No Associated Symptoms: other (none) Treatments Prior to Arrival: intubation, epinephrine mgs # (3) - Related Data Home Medications Medication Instructions Recorded Confirmed Last Taken Sevelamer Carbonate [Renvela] 3,200 mg PO TIDWM 03/06/14 02/16/19 08/22/15 Alendronate Sodium [Fosamax] 70 mg PO QWEEK 02/16/19 02/16/19 Unknown Esomeprazole Magnesium [NexIUM] 40 mg PO QDAY 02/16/19 02/16/19 Unknown FLUoxetine [PROzac] 20 mg PO QDAY 02/16/19 02/16/19 Unknown Lubiprostone [Amitiza] 24 mcg PO BID 02/16/19 02/16/19 Unknown Metoprolol Xl [Metoprolol 25 mg PO QDAY 02/16/19 02/16/19 Unknown SUCCINATE ER TAB] Telmisartan 40 mg PO DAILY 02/16/19 02/16/19 Unknown Allergies Allergy/AdvReac Type Severity Reaction Status Date / Time No Known Allergies Allergy Verified 05/22/16 17:56 ED Review of Systems ROS: Stated complaint: CARDIAC ARREST Other details as noted in HPI Comment: Unobtainable due to pts medical conditions (unresponsive lifeless patient) ED Past Medical Hx - Past Medical History Previous Medical History?: Yes Hx Hypertension: Yes Hx Heart Attack/AMI: Yes (stents) Hx Congestive Heart Failure: Yes Hx Diabetes: No (DENIES) Hx GERD: Yes Hx Renal Disease: Yes (TTS dialysis) Hx Arthritis: Yes Hx Kidney Stones: Yes (dialysis T, Thurs, Sat) Hx COPD: No Hx HIV: No Additional medical history: high cholesterol, hypothyroidism. Graft to right arm. CAD - Surgical History Hx Open Heart Surgery: Yes Hx Pacemaker: Yes (RIGHT CHEST PACE MAKER) Additional Surgical History: MICHAEL exploratory lap, pacemaker placement, dialysis access - Social History Smoking Status: Never Smoker - Medications Home Medications: Home Medications Medication Instructions Recorded Confirmed Last Taken Type Sevelamer Carbonate [Renvela] 3,200 mg PO TIDWM 03/06/14 02/16/19 08/22/15 History Alendronate Sodium [Fosamax] 70 mg PO QWEEK 02/16/19 02/16/19 Unknown History Esomeprazole Magnesium [NexIUM] 40 mg PO QDAY 02/16/19 02/16/19 Unknown History FLUoxetine [PROzac] 20 mg PO QDAY 02/16/19 02/16/19 Unknown History Lubiprostone [Amitiza] 24 mcg PO BID 02/16/19 02/16/19 Unknown History Metoprolol Xl [Metoprolol 25 mg PO QDAY 02/16/19 02/16/19 Unknown History SUCCINATE ER TAB] Telmisartan 40 mg PO DAILY 02/16/19 02/16/19 Unknown History ED Physical Exam - General General appearance: other (skin is hot to touch, lifeless pale no spontaneous movement) - Head Head exam: Present: atraumatic, normocephalic, other - Eye Pupils: Present: other (fixed dilated pupils) - ENT ENT exam: Present: mucous membranes dry - Neck Neck exam: Present: normal inspection - Respiratory Respiratory exam: Present: other (no spontaneous breath sounds, coarse equal breath sounds with ventilation) - Cardiovascular Cardiovascular Exam: Present: other (no heart sounds on auscultation) - GI/Abdominal GI/Abdominal exam: Present: soft, distended - Extremities Exam Extremities exam: Present: normal inspection, other (no deformity no signs of trauma) - Neurological Exam Neurological exam: Present: other (lifeless unresponsive) - Psychiatric Psychiatric exam: Present: other (lifeless unresponsive) - Skin Skin exam: Present: pallor, other (very hot to touch) ED Medical Decision Making - Medical Decision Making Mr. Shoemaker presents status post cardiac arrest with brief return of spontaneous circulation in the field. Upon arrival PEA noted, chest compressions continued. Additional treatment included epinephrine, calcium, sodium bicarbonate. After 5 minutes of resuscitation, return to spontaneous circulation achieved in emergency department. Able to palpate femoral and carotid pulses. Patient did have systolic blood pressure of 100 at that time. I spoke extensively with the grandson. Grandson agreed with limiting further aggressive treatment. After 20 minutes of observation in the department, cardiac arrest recurred derrick was at the bedside. He agreed to cease further resuscitation attempts. Time of 1945 Critical care attestation.: If time is entered above; I have spent that time in minutes in the direct care of this critically ill patient, excluding procedure time. ED Disposition Clinical Impression: Cardiac arrest Disposition: DC-20 Is pt being admited?: No Does the pt Need Aspirin: No Condition: Stable
[2019-05-03 20:48] VITALS: BP 63/26
== END 2019-05-03 20:00 ==
LOC: ED 19:32
DX: I46.9 Cardiac arrest, cause unspecified (principal); I11.0 Hypertensive heart disease with heart failure; I50.9 Heart failure, unspecified; E11.22 Type 2 diabetes mellitus with diabetic chronic kidney disease; I13.2 Hypertensive heart and chronic kidney disease with heart failure and with stage 5 chronic kidney disease, or end stage renal disease; N18.6 End stage renal disease; Z99.2 Dependence on renal dialysis; K21.9 Gastro-esophageal reflux disease without esophagitis; E78.00 Pure hypercholesterolemia, unspecified; E03.9 Hypothyroidism, unspecified; Z95.818 Presence of other cardiac implants and grafts
CPT/HCPCS: 92950; 99285; J0171; J7030